=== PATIENT | male | born 1945 | race African-American/Black ===

== ENCOUNTER 2019-11-13 22:31 | Inpatient (IN) | payer MEDICARE, OTHER, SELFPAY ==
--- NOTE | ~2019-11-13 | XR_ITS ---
XR chest 2V DATE: 11/15/2019 11:10 INDICATION: Dyspnea TECHNIQUE: PA and lateral views COMPARISON: 11/13/2021 view chest 10/05/2019 2 view chest 10/20/2019 CT pulmonary scan FINDINGS: Status post sternotomy. Normal heart size. Aortic calcification. Bilateral hyperinflation, suggesting obstructive airways disease. The central pulmonary arteries appe ar prominent, suggesting possible pulmonary hypertension. Chronic discoid atelectasis or scarring in the left midlung. Chronic pleural calcifications are again noted. No pulmonary consolidation. No pleural effusion. No pulmonary vascular congestion or pneumothorax. IMPRESSION: Bilateral hyperinflation suggesting COPD Calcified pleural plaques, suggesting prior asbestos exposure Chronic discoid scarring, left midlung Reviewed, dictated and finalized at location A. ER MACHINE
--- NOTE | ~2019-11-13 | XR_ITS ---
EXAMINATION: XR chest 2V DATE: 11/13/2019 23:29 INDICATION: Shortness of breath and cough TECHNIQUE: frontal and lateral views of the chest were obtained. COMPARISON: Chest radiograph dated 11/05/[address] dated 10/20/2019 FINDINGS: Unchanged oblique bandlike discoid atelectasis/scarring at the left midlung zone. Subtle bilateral ca lcified pleural plaques project over the bilateral mid lung zones consistent with prior asbestos expo sure. No pulmonary edema, pleural effusion or pneumothorax. The cardiomediastinal silhouette is alma l. Median sternotomy wires and mediastinal surgical clips are seen, likely from prior coronary artery bypass grafting. IMPRESSION: 1. No evident acute cardiopulmonary disease. 2. Stable appearance of bilateral calcified pleural plaques as well as discoid atelectasis/scarring i n the mid left lung. Reviewed, dictated and finalized at location A. ING WORKER IMPRESSION: 1. No evident acute cardiopulmonary disease. 2. Stable appearance of bilateral calcified pleural plaques as well as discoid atelectasis/scarring in the mid left lung.
[2019-11-13 22:44] VITALS: BP 167/85; PULSE 118; RESP 18; TEMP 36.6; O2SAT 97
[2019-11-13 22:46] VITALS: BP 167/85; PULSE 112; RESP 24; O2SAT 97
--- NOTE | 2019-11-13 22:55 | ECG_ITS ---
Measurements Intervals [place] Rate: 113 P: 73 [place]: 142 QRS: 68 QRSD: 130 T: 1 QT: 371 QTc: 509 Interpretive Statements SINUS TACHYCARDIA POSSIBLE LEFT ATRIAL ENLARGEMENT RIGHT BUNDLE BRANCH BLOCK CONSIDER INFERIOR INFARCT, AGE INDETERMINATE BASELINE ARTIFACT- II, III, AVF ABNORMAL ECG Electronically Signed On 11-14-2019 7:35:31 ROTARY CUTTER FEEDER by Crow Hill D.O.
[2019-11-13 23:12] LABS: Basophils Percent Auto 0.6 % (0.2-1.2); Eosinophils Absolute Auto 0.8 K/mm3 (0-0.3); Eosinophils Percent Auto 14.7 % (0-4.4); Hematocrit 36.1 % (42.0-52.0); Hemoglobin 10.9 g/dL (14.0-18.0); Immature Granulocyte Absolute 0.01 K/mm3 (0.00-0.031); Immature Granulocyte Percent A 0.2 % (0-0.5); Lymphocytes Absolute Auto 1.31 K/mm3 (0.9-3.2); Lymphocytes Percent Auto 24.3 % (18.3-44.2); Mean Corpuscular HGB Conc 30.2 g/dl (32-36); Mean Corpuscular Hemoglobin 24.8 pg (26-34); Mean Platelet Volume 10.2 fl (7.4-10.4); Monocytes Absolute Auto 0.5 K/mm3 (0.1-0.6); Monocytes Percent Auto 9.5 % (2.6-8.5); Neutrophils Absolute Auto 2.7 K/mm3 (1.3-6.7); Neutrophils Percent Auto 50.7 % (45.5-73.1); Platelet Count Result 307 k/mm3 (150-375); Red Cell Distribution Width 16.5 % (11.5-14.5); White Blood Count 5.4 K/mm3 (4.5-10.0)
[2019-11-13 23:24] LABS: Blood Urea Nitrogen 13 mg/dL (9-20); Calcium 9.4 mg/dL (8.4-10.2); Carbon Dioxide 28 mmol/L (22-30); Chloride 96 mmol/L (98-107); Estimated Glomerular Filt Rate > 60; Glucose 154 mg/dL (75-110); Potassium 4.4 mmol/L (3.4-5.0); Sodium 138 mmol/L (137-145)
--- NOTE | 2019-11-13 23:26 | ED.SOB ---
HPI - SOB/Dyspnea General Chief Complaint: Shortness of Breath/Dyspnea Stated Complaint: SOB Time Seen by Provider: 11/13/19 23:39 Source: patient Mode of arrival: ambulatory Limitations: no limitations History of Present Illness HPI Narrative: A 74 y/o male presents to the ED with c/o SOB. Pt states that the SOB started 2 days ago and has been constant since. He reports wheezing and productive cough, but denies fever, congestion, sneezing, and BLE edema. Pt took a breathing treatment tonight with no relief. He has a PMHx of COPD and is on 1L home O2. Pt has no other complaints at this time. MD elicited complaint: shortness of breath Pertinent past history: COPD Onset (ago): day(s) (2) Timing: constant Known history of: COPD Associated symptoms: cough (Productive) and wheezing Treatment prior to arrival: oxygen (1L) and bronchodilator Related Data Home oxygen amount: 1 liter Home Medications Medication Instructions Recorded Confirmed Centrum Silver 1 tab-cap PO DAILY 08/29/19 10/20/19 amlodipine [Norvasc] 10 mg PO DAILY 08/29/19 10/20/19 aspirin 81 mg PO DAILY 08/29/19 10/20/19 fluticasone propionate 1 spray EACHNARE DAILY 08/29/19 10/20/19 metformin 500 mg PO TID 08/29/19 10/20/19 cholecalciferol (vitamin D3) 50 2,000 unit PO DAILY 09/15/19 10/20/19 mcg (2,000 unit) tablet Allergies Allergy/AdvReac Type Severity Reaction Status Date / Time No Known Allergies Allergy Unknown Verified 11/13/19 22:55 Review of Systems Review of Systems: Narrative: CONSTITUTIONAL: Denies fever, chills, or sweats. EYES: Denies visual changes, redness, or discharge. ENT: Denies rhinorrhea, congestion, sneezing, sore throat, or otalgia. CARDIOVASCULAR: Denies chest pain, palpitations, or BLE edema. RESPIRATORY: Reports productive cough, wheezing, and dyspnea. GASTROINTESTINAL: Denies abdominal pain, nausea, vomiting, or diarrhea. GENITOURINARY: Denies dysuria or hematuria. SKIN: Denies rash or itching. MUSCULOSKELETAL: Denies back pain, joint pain, or myalgia. NEUROLOGIC: Denies headache, numbness, or weakness. All systems reviewed & are unremarkable except as noted in HPI and below PMFSH Past Medical History Medical History Anemia of chronic disease Arthritis COPD (chronic obstructive pulmonary disease) Follows with Dr. Figueredo Coronary artery disease Cough Diabetes mellitus Erosive esophagitis GERD (gastroesophageal reflux disease) GI bleed HLD (hyperlipidemia) HTN (hypertension) Myocardial infarction On home oxygen therapy 2 liters when asleep. Pneumonia Wheezing Surgical History Surgical History H/O prostate biopsy Follows with Dr. Lombardi History of appendectomy age 10 Hx of CABG Hx of cardiac cath S/P CABG (coronary artery bypass graft) 2007 Status post tonsillectomy Family History Family History Sibling Diabetes mellitus Family history of malignant neoplasm Other Family history of cardiovascular disease Hypertension Social History Social History Social History: the patient lives with his olga lidia who was designated as his durable power tax attorney for healthcare. Patient remains a full code. Nondrinker quit smoking in 1999. he has 2 children. One boy and 1 girl. 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
[2019-11-14] VITALS (21 sets, daily range): BP systolic 118–170; BP diastolic 56–87; PULSE 88–120; RESP 16–22; TEMP 36.3–37.2; O2SAT 85–99; BMI 21.9
[2019-11-14] MEDS: IPRATROPIUM BR 0.02% INH SOLN 0.5 MG/2.5 ML VIAL 2 MG INHALATION (00:03)
[2019-11-14] MEDS: ALBUTEROL SULFATE NEB 2.5 MG/0.5 ML INH 20 MG INHALATION (00:03)
[2019-11-14] MEDS: SODIUM CHLORIDE 0.9% IV 500 ML 999 ML IV CONT (00:16)
[2019-11-14] MEDS: MAGNESIUM SULF 2 GM/WATER 50ML 2 GM/50 ML BAG IVPB (00:16)
[2019-11-14 00:25] LABS: Alveolar/Arterial O2 Gradient 111.4 mmHg; Base Excess ABG -1.3 mEq/l (+/-2.0); Carboxyhemoglobin 0.3 % THb (0-2.0); Device NASAL CANNULA; Fractional Inspired Oxygen 48 %; Methemoglobin ABG 0.4 %THb (0-1.5); Oxygen Content ABG 16.2 %vol (16.0-22.0); Oxygen Saturation ABG 99.1 % (95.0-100.0); Oxyhemoglobin 97.7 % THb (90.0-100.0); PCO2 ABG 48.5 mmHg (35.0-45.0); PO2 FiO2 Ratio Arterial Blood 3.67 %; Reduced Hemoglobin 1.6 %THb (0-5.0); Site Drawn LEFT BRACHIAL; Total Hemoglobin 11.5 g/dL (12.0-18.0)
[2019-11-14 00:26] LABS: NT Pro B Type Natriuretic Pept 243 PG/ML (5-100)
[2019-11-14] MEDS: AZITHROMYCIN 250 MG TABLET 1000 MG PO (02:33)
--- NOTE | 2019-11-14 03:25 | ADMGEN ---
This patient, Camron Cowart, was admitted to [facility] Surg Room 332-01. Patient/family oriented to hospital policies and general routines including ID bracelet, bed and alarms, visiting hours, pain management, procedures, bathroom and other care routines, personal items, smoking policy, room service/diet, and visiting hours. Valuables list has been completed. Information on how to activate the Rapid Response Team has been discussed. Patient/Family are encouraged to report perceived risks to care and to ask questions if they do not understand what they are told or what they should do.
[2019-11-14] MEDS: IPRATROPIUM BR 0.02% INH SOLN 0.5 MG/2.5 ML VIAL INHALATION ×3 (07:50→21:17)
[2019-11-14] MEDS: ALBUTEROL SULFATE NEB 2.5 MG/0.5 ML INH 5 MG INHALATION ×3 (07:51→21:17)
[2019-11-14] MEDS: predniSONE 20 MG TABLET 60 MG PO (09:02)
[2019-11-14 12:19] LABS: Glucose Point of Care 98 (65-105)
[2019-11-14] MEDS: ATORVASTATIN 10 MG TABLET PO (14:03)
[2019-11-14] MEDS: METOPROLOL SUCCINATE EXT REL 50 MG TABCR PO (14:03)
[2019-11-14] MEDS: CHOLECALCIFEROL 1,000 UNIT TABLET 2000 UNITS PO (14:03)
[2019-11-14] MEDS: LORATADINE 10 MG TABLET PO (14:04)
[2019-11-14] MEDS: VALSARTAN 40 MG TABLET PO (14:04)
[2019-11-14] MEDS: AMLODIPINE BESYLATE 5 MG TABLET 10 MG PO (14:04)
[2019-11-14] MEDS: ASPIRIN 81 MG ENTERIC TABLET PO (14:04)
--- NOTE | 2019-11-14 15:47 | PM.IMHP ---
H&P: HPI History of Present Illness Chief complaint: COPD exacerbation Narrative: Camron Cowart is a 74 year old male with PMH significant for COPD on home oxygen (pt reports 2L at night and with exertion and 1L at rest), CAD s/p CABG, DM (last A1C available is 6.7), HLD, HTN, anemia of chronic disease, and erosive esophagitis who presented to the ED for evaluation of progressive dyspnea, wheezing, and cough. He reports that he noticed increasing SOB and dyspnea for the past two days. He started using his albuterol and ipratropium Q6HR and reports that he started to feel that he needed it more frequently than usual. He then reports that he began coughing yellow sputum Saturday (previously clear) and felt he was unable to cough up his sputum effectively. He frequently monitors his oxygen saturation and was unable to get his oxygen saturation above 70-80%. He denies palpitations and chest pain. He denies fever, chills, nausea, vomiting, malaise, weakness, fatigue, and recent sick contacts. He was hospitalized 08/25 and 10/26 for COPD exacerbation. He was treated with azithromycin and ceftriaxone while inpatient 10/2019 and discharged with levaquin. Upon presentation to the ED, he was afebrile, tachycardic, and normotensive. Initial workup in the ED revealed no leukocytosis. ABG revealed mild respiratory acidosis. CXR reveals stable appearance of bilateral plaques, likely related to prior asbestos exposure with his occupation. There was no evidence of consolidation, pleural effusion, or pneumothorax. He responded well to magnesium, DuoNeb, and steroids. He received 1 dose of ceftriaxone and azithromycin in the ED. QTc on ECG was 509. PFTs were reviewed from 02/2019 revealed FEV1 of 44%, FVC 58%, and excellent response to bronchodilators. Review of Systems Constitutional: Constitutional: Denies body ache(s), Denies chills, Denies fatigue, Denies lethargy, Reports weakness (Notes weakness yesterday that has improved today) and Denies weight loss Eyes: Eyes: Denies change in vision and Reports requires corrective lenses ENT: Reports Normal hearing present, Denies dysphagia, Denies nasal congestion, Denies nasal discharge, Denies odynophagia, Denies post nasal drip, Denies sinus pressure and Denies sore throat Cardiovascular: Cardiovascular: Denies chest pain at rest, Denies chest pain with activity, Denies leg edema and Denies palpitations Respiratory: Respiratory: Reports change in phlegm color (Phlegm was clear and is now yellow x1 day), Reports cough, Denies hemoptysis, Reports dyspnea (Improving today, brief episode this AM prior to bronchodilators) and Reports wheezing (Pt reports wheezing yesterday but notes this has improved) Gastrointestinal: Gastrointestinal: Denies abdominal pain, Denies belching, Denies hematochezia, Denies coffee ground emesis, Denies constipation, Denies diarrhea, Denies nausea and Denies vomiting Genitourinary: Genitourinary: Denies hematuria, Denies dysuria, Denies urinary frequency and Denies urinary urgency Musculoskeletal: Musculoskeletal: Denies myalgias, Reports arthralgias (Chronic bilateral shoulder pain) and Denies stiffness Integumentary/Breasts: Skin/Breast: Denies lesions, Denies skin pain and Denies jaundice Neurologic: Denies confusion, Denies headache(s) and Denies numbness Psychiatric: Psychiatric: Denies anxiety, Denies behavioral changes and Denies depression Endocrine: Endocrine: Denies cold intolerance, Denies heat intolerance, Denies polydipsia and Denies polyuria Hematologic/Lymphatic: Hematologic/Lymphatic: Denies easy bleeding and Denies easy bruising Allergic/Immunologic: Allergic/Immunologic: Reports seasonal rhinorrhea [facility] Past Medical History Medical History Anemia of chronic disease Arthritis COPD (chronic obstructive pulmonary disease) Follows with Dr. Figueredo Coronary artery disease Cough Diabetes mellitus Erosive esophagitis GERD (ubaldo
[2019-11-14] MEDS: FLUTICASONE PROPIONATE 0.05% NA SPR 16 GM BTL (*BKC) 2 SPRAY NASAL (16:51)
--- NOTE | 2019-11-14 17:21 | ECG_ITS ---
Measurements Intervals [place] Rate: 95 P: 67 MS: 151 QRS: -19 QRSD: 138 T: -11 QT: 379 QTc: 478 Interpretive Statements SINUS RHYTHM FREQUENT VENTRICULAR PREMATURE COMPLEXES RIGHT BUNDLE BRANCH BLOCK CONSIDER INFERIOR INFARCT, AGE INDETERMINATE BASELINE ARTIFACT- I, III, AVL, AVF ABNORMAL ECG Electronically Signed On 11-15-2019 7:58:02 ENVIRONMENTAL SAMPLER by Crow Hill D.O.
[2019-11-14 17:28] LABS: Glucose Point of Care 246 (65-105)
[2019-11-14 18:15] LABS: Glucose Point of Care 127 (65-105)
[2019-11-14] MEDS: ENOXAPARIN 40 MG/0.4 ML SYRINGE SUB-Q (21:37)
[2019-11-14] MEDS: AMOXICILLIN 500 MG CAPSULE PO (21:37)
[2019-11-15] VITALS (24 sets, daily range): BP systolic 132–188; BP diastolic 62–86; PULSE 86–128; RESP 18–30; TEMP 36.6–37.1; O2SAT 92–98
[2019-11-15] MEDS: IPRATROPIUM BR 0.02% INH SOLN 0.5 MG/2.5 ML VIAL INHALATION ×4 (02:48→20:07)
[2019-11-15] MEDS: ALBUTEROL SULFATE NEB 2.5 MG/0.5 ML INH 5 MG INHALATION (02:48)
[2019-11-15] MEDS: AMOXICILLIN 500 MG CAPSULE PO (05:47)
[2019-11-15 06:40] LABS: Magnesium 2.1 mg/dL (1.6-2.3)
[2019-11-15 07:17] LABS: Basophils Percent Auto 0.2 % (0.2-1.2); Eosinophils Absolute Auto 0.2 K/mm3 (0-0.3); Eosinophils Percent Auto 2.8 % (0-4.4); Hematocrit 34.7 % (42.0-52.0); Hemoglobin 10.4 g/dL (14.0-18.0); Immature Granulocyte Absolute 0.03 K/mm3 (0.00-0.031); Immature Granulocyte Percent A 0.6 % (0-0.5); Lymphocytes Absolute Auto 1.51 K/mm3 (0.9-3.2); Lymphocytes Percent Auto 27.8 % (18.3-44.2); Mean Corpuscular Hemoglobin 24.8 pg (26-34); Mean Corpuscular Volume 82.8 fl (80-100); Mean Platelet Volume 10.5 fl (7.4-10.4); Monocytes Absolute Auto 0.7 K/mm3 (0.1-0.6); Monocytes Percent Auto 11.9 % (2.6-8.5); Neutrophils Absolute Auto 3.1 K/mm3 (1.3-6.7); Neutrophils Percent Auto 56.7 % (45.5-73.1); Platelet Count Result 300 k/mm3 (150-375); Red Blood Count 4.19 M/mm3 (4.6-6.20); Red Cell Distribution Width 16.2 % (11.5-14.5); White Blood Count 5.4 K/mm3 (4.5-10.0)
[2019-11-15 07:22] LABS: Blood Urea Nitrogen 13 mg/dL (9-20); Calcium 9.1 mg/dL (8.4-10.2); Carbon Dioxide 26 mmol/L (22-30); Chloride 96 mmol/L (98-107); Estimated CRCL calculation 72 ml/min; Estimated Glomerular Filt Rate > 60; Glucose 130 mg/dL (75-110); Potassium 4.3 mmol/L (3.4-5.0); Sodium 135 mmol/L (137-145)
[2019-11-15 09:16] LABS: Glucose Point of Care 106 (65-105)
[2019-11-15] MEDS: ATORVASTATIN 10 MG TABLET PO (10:00)
[2019-11-15] MEDS: ASPIRIN 81 MG ENTERIC TABLET PO (10:00)
[2019-11-15] MEDS: FLUTICASONE PROPIONATE 0.05% NA SPR 16 GM BTL (*BKC) 2 SPRAY NASAL (10:00)
[2019-11-15] MEDS: METOPROLOL SUCCINATE EXT REL 50 MG TABCR PO (10:00)
[2019-11-15] MEDS: VALSARTAN 40 MG TABLET PO (10:00)
[2019-11-15] MEDS: LORATADINE 10 MG TABLET PO (10:00)
[2019-11-15] MEDS: CHOLECALCIFEROL 1,000 UNIT TABLET 2000 UNITS PO (10:00)
[2019-11-15 10:43] LABS: Alveolar/Arterial O2 Gradient 76.6 mmHg; Fractional Inspired Oxygen 28 %; HCO3 ABG 25.9 mEq/l (22.0-26.0); Oxygen Content ABG 14.3 %vol (16.0-22.0); Oxygen Saturation ABG 92.2 % (95.0-100.0); Oxyhemoglobin 90.5 % THb (90.0-100.0); PCO2 ABG 47.9 mmHg (35.0-45.0); PO2 ABG 66.5 mmHg (80.0-100.0); PO2 FiO2 Ratio Arterial Blood 2.38 %; Total Hemoglobin 11.2 g/dL (12.0-18.0); pH ABG 7.351 (7.350-7.450)
[2019-11-15 10:44] LABS: Device NASAL CANNULA; Site Drawn LEFT BRACHIAL
[2019-11-15] MEDS: AZITHROMYCIN 250 MG TABLET 500 MG PO (11:39)
[2019-11-15] MEDS: methylPREDNISolone SOD SUCC 40 MG VIAL IV PUSH ×2 (11:39→21:26)
[2019-11-15 14:13] LABS: Glucose Point of Care 103 (65-105)
--- NOTE | 2019-11-15 14:58 | PM.IMPN ---
Progress Note: A&P Assessment and Plan (1) Acute exacerbation of chronic obstructive airways disease: Code(s): J44.1 - Chronic obstructive pulmonary disease with (acute) exacerbation <Virginie Haines PA-C - Last Filed: 11/15/19 16:20> Status: Acute <Virginie Haines PA-C - Last Filed: 11/15/19 16:20> Assessment and Plan: Pt endorses increased wheezing, dyspnea, and difficulty with coughing up phlegm. He has decreased breath sounds and wheezing to auscultation. His sx worsened during evaluation although he was able to maintain adequate oxygenation on regular home O2 requirements of 1-2L with pulse ox >90%. Stat ABG and CXR were performed and duo neb treatment administered. ABG was reviewed. pH is at the low end of normal at 7.351 but has improved slightly from admission. CXR revealed no evidence of aspiration or infiltrate. Wells Score for PE is 1.5 indicating low probability of PE. Will begin more aggressive treatment. -Will consult Dr. Figueredo to see pt since he was supposed to see her outpatient on Saturday but will be in the hospital -Begin chest physiotherapy -Will resume ceftriaxone and azithromycin due to clinical deterioration. QT was prolonged at admission but improved on repeat EKG to 478. Will repeat EKG following dose of azithromycin. -Wean oxygen to maintain goal oxygen saturation of 90-95% to avoid hyperoxia and CO2 retention -Will discontinue prednisone PO and start solu-medrol which will need to be tapered -Will increase frequency of levalbuterol and ipratropium to Q4HRT and add PRN doses for increased dyspnea and wheezing -Repeat walk study to evaluate O2 requirements once pt has recovered from this acute exacerbation -The pt reports he used to take Anoro with minimal relief and was supposed to begin Trelogy as maintenance therapy. This is his 3rd exacerbation since August 2019. He was discharged home on symbicort at his last admission 10/2018 but has not been taking this. He will need a maintenance therapy at discharge. Dr. Figueredo was consulted and we will await her recommendations. <Virginie Haines PA-C - Last Filed: 11/15/19 16:20> (2) HTN (hypertension): Qualifiers: Hypertension type: essential hypertension Qualified Code(s): I10 - Essential (primary) hypertension <Virginie Sommers GREG Haines - Last Filed: 11/15/19 16:20> Code(s): I10 - Essential (primary) hypertension <Virginie Sommers AsaGREG younger - Last Filed: 11/15/19 16:20> Status: Acute <Virginie Sommers GREG Haines - Last Filed: 11/15/19 16:20> Assessment and Plan: BP hypertensive this AM at 188/86. 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 Monitor BP. -Will try amlodipine at night to see if this improves his HTN in the AM <Virginie OgdenKamlesh Haines PA-C - Last Filed: 11/15/19 16:20> (3) Type 2 diabetes mellitus without complication, without long-term current use of insulin: Code(s): E11.9 - Type 2 diabetes mellitus without complications <Virginie OgdenKamlesh Haines PA-C - Last Filed: 11/15/19 16:20> Status: Acute <Virginie Sommers GREG Haines - Last Filed: 11/15/19 16:20> Assessment and Plan: Last A1C 6.7 08/30/19. Blood reviewed. Pt has not required insulin during this admission. -Hold metformin -Low dose SSI -Accu-checks <Virginie OgdenKamlesh Haines PA-C - Last Filed: 11/15/19 16:20> (4) Coronary artery disease: Qualifiers: Associated angina: without angina Coronary Disease-Associated Artery/Lesion type: bypass graft [place] vs. transplanted heart: [place] heart Qualified Code(s): I25.810 - Atherosclerosis of coronary artery bypass graft(s) without angina pectoris <Virginie Tootie Haines PA-C - Last Filed: 11/15/19 16:20> Code(s): I25.10 - Atherosclerotic heart disease of [place] coronary artery without angina pectoris <Virginie Tootie Haines PA-C - Last Filed: 11/15/19 16:20> Status:
[2019-11-15] MEDS: AMLODIPINE BESYLATE 5 MG TABLET 10 MG PO (17:36)
[2019-11-15 18:08] LABS: Glucose Point of Care 149 (65-105)
[2019-11-15] MEDS: ENOXAPARIN 40 MG/0.4 ML SYRINGE SUB-Q (21:26)
[2019-11-15 22:11] LABS: Glucose Point of Care 130 (65-105)
[2019-11-16] VITALS (22 sets, daily range): BP systolic 120–150; BP diastolic 46–79; PULSE 57–115; RESP 16–20; TEMP 36.3–36.8; O2SAT 93–100
--- NOTE | 2019-11-16 | ECG_ITS ---
Measurements Intervals [place] Rate: 109 P: [place]: 0 QRS: -2 QRSD: 142 T: 3 QT: 374 QTc: 505 Interpretive Statements SINUS TACHYCARDIA VENTRICULAR PREMATURE COMPLEX RIGHT BUNDLE BRANCH BLOCK CONSIDER INFERIOR INFARCT, AGE INDETERMINATE ABNORMAL ECG Electronically Signed On 11-16-2019 9:20:03 MANAGER PIPELINE by Crow Hill D.O.
[2019-11-16] MEDS: IPRATROPIUM BR 0.02% INH SOLN 0.5 MG/2.5 ML VIAL INHALATION ×6 (00:23→21:55)
[2019-11-16] MEDS: methylPREDNISolone SOD SUCC 40 MG VIAL IV PUSH ×3 (05:29→20:59)
[2019-11-16 06:22] LABS: Hematocrit 33.2 % (42.0-52.0); Hemoglobin 10.3 g/dL (14.0-18.0); Immature Granulocyte Absolute 0.02 K/mm3 (0.00-0.031); Immature Granulocyte Percent A 0.5 % (0-0.5); Lymphocytes Percent Auto 23.6 % (18.3-44.2); Mean Corpuscular Hemoglobin 25.1 pg (26-34); Mean Corpuscular Volume 80.8 fl (80-100); Mean Platelet Volume 10.2 fl (7.4-10.4); Monocytes Absolute Auto 0.1 K/mm3 (0.1-0.6); Monocytes Percent Auto 3.3 % (2.6-8.5); Neutrophils Absolute Auto 3.1 K/mm3 (1.3-6.7); Neutrophils Percent Auto 72.6 % (45.5-73.1); Platelet Count Result 314 k/mm3 (150-375); Red Blood Count 4.11 M/mm3 (4.6-6.20); Red Cell Distribution Width 16.3 % (11.5-14.5); White Blood Count 4.2 K/mm3 (4.5-10.0)
[2019-11-16 06:58] LABS: Blood Urea Nitrogen 11 mg/dL (9-20); Calcium 9.2 mg/dL (8.4-10.2); Carbon Dioxide 27 mmol/L (22-30); Chloride 97 mmol/L (98-107); Estimated CRCL calculation 82 ml/min; Estimated Glomerular Filt Rate > 60; Glucose 138 mg/dL (75-110); Potassium 4.3 mmol/L (3.4-5.0); Sodium 138 mmol/L (137-145)
[2019-11-16 09:13] LABS: Glucose Point of Care 134 (65-105)
[2019-11-16] MEDS: METOPROLOL SUCCINATE EXT REL 50 MG TABCR PO (09:33)
[2019-11-16] MEDS: VALSARTAN 40 MG TABLET PO (09:33)
[2019-11-16] MEDS: ASPIRIN 81 MG ENTERIC TABLET PO (09:33)
[2019-11-16] MEDS: CHOLECALCIFEROL 1,000 UNIT TABLET 2000 UNITS PO (09:33)
[2019-11-16] MEDS: ATORVASTATIN 10 MG TABLET PO (09:34)
[2019-11-16] MEDS: FLUTICASONE PROPIONATE 0.05% NA SPR 16 GM BTL (*BKC) 2 SPRAY NASAL (09:34)
[2019-11-16] MEDS: LORATADINE 10 MG TABLET PO (09:34)
[2019-11-16] MEDS: AZITHROMYCIN 250 MG TABLET PO (09:34)
--- NOTE | 2019-11-16 13:13 | PCRCNOTE ---
HOME O2 CX. DR. ZULUAGA WILL RE ORDER WHEN PT. IS DOING BETTER AND HE IS CLOSER TO DC DATE.
[2019-11-16 13:32] LABS: Glucose Point of Care 108 (65-105)
[2019-11-16] MEDS: AMLODIPINE BESYLATE 5 MG TABLET 10 MG PO (17:48)
[2019-11-16 18:23] LABS: Glucose Point of Care 150 (65-105)
--- NOTE | 2019-11-16 18:49 | PM.IMPN ---
Progress Note: A&P Assessment and Plan (1) Acute exacerbation of chronic obstructive airways disease: Code(s): J44.1 - Chronic obstructive pulmonary disease with (acute) exacerbation Status: Acute Assessment and Plan: Unclear on why he clinically deteriorated yesterday. Appears to be back to prior level. Bedside swallow okay. Intermittently aspirating? Bronchospasm? Mucous plug? Continue neb treatments and CPT. Continue Solu-Medrol and abx. Wean o2 as toelrated. Home O2 tomorrow. Will monitor for today but home tomorrow if continue to remain stable. (2) HTN (hypertension): Qualifiers: Hypertension type: essential hypertension Qualified Code(s): I10 - Essential (primary) hypertension Code(s): I10 - Essential (primary) hypertension Status: Acute Assessment and Plan: BP reviewed on 11/16/19. BP well controlled. Continue his home amlodipine, valsartan, and metoprolol. (3) Type 2 diabetes mellitus without complication, without long-term current use of insulin: Code(s): E11.9 - Type 2 diabetes mellitus without complications Status: Acute Assessment and Plan: A1c 6.7 08/30/19. Glucose reasonable well controlled even with steroids on board. Continue Accu-checks and sliding scale. (4) Coronary artery disease: Qualifiers: Associated angina: without angina Coronary Disease-Associated Artery/Lesion type: bypass graft [place] vs. transplanted heart: [place] heart Qualified Code(s): I25.810 - Atherosclerosis of coronary artery bypass graft(s) without angina pectoris Code(s): I25.10 - Atherosclerotic heart disease of [place] coronary artery without angina pectoris Status: Acute Assessment and Plan: Stable. Pt is asymptomatic. Continue metoprolol. (5) HLD (hyperlipidemia): Qualifiers: Hyperlipidemia type: unspecified Qualified Code(s): E78.5 - Hyperlipidemia, unspecified Code(s): E78.5 - Hyperlipidemia, unspecified Status: Chronic Assessment and Plan: LFTs reviewed and WNL. Continue atorvastatin 10mg. (6) Esophagitis determined by endoscopy: Code(s): K20.9 - Esophagitis, unspecified Status: Acute Assessment and Plan: Pt sleeps with head of bed elevated. Continue PPI. (7) Prolonged Q-T interval on ECG: Code(s): R94.31 - Abnormal electrocardiogram [ECG] [EKG] Status: Acute Assessment and Plan: QTc prolonged at 509 on EKG in the ED. EKG was repeated and QTc was normal at 478. EKG today showing QTc back up to 505 but probably related to the Rt BBB. Will stop Azithro just to be cautious. (8) Hx of pulmonary aspiration: Code(s): Z87.09 - Personal history of other diseases of the respiratory system Status: Acute Assessment and Plan: Pt has hx of aspiration. bedside speech evaluation okay. Continue to monitor. Will follow speech therapy recommendations. (9) DVT prophylaxis: Code(s): Z29.9 - Encounter for prophylactic measures, unspecified Status: Acute Assessment and Plan: Lovenox 40mg SC QD Subjective Date/time seen: 11/16/19 18:49 Interval history: 74yo male here for COPD exacerbation. Patient had developed an acute respiratory event yesterday. He statesthat after one of the breathing treatments, his symptoms improved dramatically. He feels much better. SOB better. No CP. Eating well. Exam Narrative: Exam Narrative: Gen - NARD sitting up in chair Chest - A few expiratory wheezes but improved air exchange overall. nml RR CV - RRR S1/S2 Abd - soft, NT/ND, +BS Ext - no pedal edema Psych - in good spirts. Objective Data Vital Signs Vital Signs: Vital Signs - 24 hr 11/15/19 20:00 11/15/19 20:08 11/15/19 20:11 Temperature Pulse Rate 106 H 100 Respiratory Rate 20 Blood Pressure Pulse Oximetry 93 11/15/19 20:18 11/15/19 22:00 11/16/19 00
[2019-11-16] MEDS: ENOXAPARIN 40 MG/0.4 ML SYRINGE SUB-Q (20:59)
[2019-11-16 21:16] LABS: Glucose Point of Care 148 (65-105)
[2019-11-17] VITALS (21 sets, daily range): BP systolic 140; BP diastolic 83; PULSE 92–110; RESP 16–20; TEMP 36.5; O2SAT 87–100
[2019-11-17] MEDS: IPRATROPIUM BR 0.02% INH SOLN 0.5 MG/2.5 ML VIAL INHALATION ×4 (01:36→13:08)
[2019-11-17] MEDS: METOPROLOL TARTRATE 12.5 MG TABLET PO (05:11)
[2019-11-17] MEDS: methylPREDNISolone SOD SUCC 40 MG VIAL IV PUSH ×2 (05:17→13:16)
[2019-11-17] MEDS: ASPIRIN 81 MG ENTERIC TABLET PO (08:42)
[2019-11-17] MEDS: CHOLECALCIFEROL 1,000 UNIT TABLET 2000 UNITS PO (08:43)
[2019-11-17] MEDS: ATORVASTATIN 10 MG TABLET PO (08:43)
[2019-11-17] MEDS: LORATADINE 10 MG TABLET PO (08:46)
[2019-11-17] MEDS: METOPROLOL SUCCINATE EXT REL 50 MG TABCR PO (08:47)
[2019-11-17] MEDS: FLUTICASONE PROPIONATE 0.05% NA SPR 16 GM BTL (*BKC) 2 SPRAY NASAL (08:48)
[2019-11-17] MEDS: VALSARTAN 40 MG TABLET PO (08:49)
[2019-11-17 09:55] LABS: Glucose Point of Care 106 (65-105)
[2019-11-17 11:55] LABS: Glucose Point of Care 92 (65-105)
--- NOTE | 2019-11-17 12:51 | PM.IMPN ---
Progress Note: A&P Assessment and Plan (1) Acute exacerbation of chronic obstructive airways disease: Code(s): J44.1 - Chronic obstructive pulmonary disease with (acute) exacerbation Status: Acute Assessment and Plan: Clinically improved today. Home oxygen evaluation not done yesterday but will do today to be clear on what amount of oxygen he should be on at home. Will discharge today on tapering prednisone and oral cefdinir. (2) HTN (hypertension): Qualifiers: Hypertension type: essential hypertension Qualified Code(s): I10 - Essential (primary) hypertension Code(s): I10 - Essential (primary) hypertension Status: Acute Assessment and Plan: Blood pressure reviewed on 11/17/2019 and stable. Continue amlodipine, valsartan and metoprolol. (3) Type 2 diabetes mellitus without complication, without long-term current use of insulin: Code(s): E11.9 - Type 2 diabetes mellitus without complications Status: Acute Assessment and Plan: HgbA1C 6.7 on 08/30/19. Glucose on 11/17/2019 and acceptable. Continue to monitor. Resume metformin on discharge. (4) Coronary artery disease: Qualifiers: Coronary Disease-Associated Artery/Lesion type: bypass graft [place] vs. transplanted heart: [place] heart Associated angina: without angina Qualified Code(s): I25.810 - Atherosclerosis of coronary artery bypass graft(s) without angina pectoris Code(s): I25.10 - Atherosclerotic heart disease of [place] coronary artery without angina pectoris Status: Acute Assessment and Plan: Stable. Telemetry reviewed on 11/17/2019 with sinus rhythm. Continue ASA, atorvastatin and metoprolol. (5) HLD (hyperlipidemia): Qualifiers: Hyperlipidemia type: unspecified Qualified Code(s): E78.5 - Hyperlipidemia, unspecified Code(s): E78.5 - Hyperlipidemia, unspecified Status: Chronic Assessment and Plan: LFTs within normal range. Continue atorvastatin. (6) Esophagitis determined by endoscopy: Code(s): K20.9 - Esophagitis, unspecified Status: Acute Assessment and Plan: Presently stable. Continue PPI. (7) Prolonged Q-T interval on ECG: Code(s): R94.31 - Abnormal electrocardiogram [ECG] [EKG] Status: Acute Assessment and Plan: QTc prolonged at 509 on EKG in the ED. EKG was repeated and QTc was normal at 478. EKG on 11/16/2019 showing QTc back up to 505 but probably related to the RBBB. No longer on azithromycin. Can follow as outpatient. (8) Hx of pulmonary aspiration: Code(s): Z87.09 - Personal history of other diseases of the respiratory system Status: Acute Assessment and Plan: History of aspiration. Bedside speech evaluation yesterday with recommendation for slightly thickened liquids. Follow as outpatient. (9) DVT prophylaxis: Code(s): Z29.9 - Encounter for prophylactic measures, unspecified Status: Acute Assessment and Plan: Lovenox. Time Spent With Patient Time with patient: 15 - 25 minutes Subjective Date/time seen: 11/17/19 12:51 Interval history: Date of Service: 11/17/2019. Admitted with COPD exacerbation. Feels much better today. No current shortness of breath. No chest pain. Wants to go home. No abdominal pain, nausea or vomiting. Review of Systems Review of Systems: Narrative: Feeling better. Wants to go home. Constitutional: Constitutional: Denies chills and Denies fever(s) ENT: Denies dysphagia Cardiovascular: Cardiovascular: Denies chest pain Respiratory: Respiratory: Denies dyspnea Gastrointestinal: Gastrointestinal: Denies abdominal pain, Denies nausea and Denies vomiting Musculoskeletal: Musculoskeletal: Reports no additional musculoskeletal complaints Integumentary/Breasts: Skin/Breast: Denies rash Neurologic: Denies headache(s) Psychiatric: Psychiatric: Denies anxiety and Denies depression [place]
--- NOTE | 2019-11-17 16:52 | PCRCNOTE ---
Pt has home o2, will bring up a tank. No changes made to existing O2.
--- NOTE | 2019-11-17 21:35 | PM.DS ---
DS: Diagnosis Admitting Diagnosis Admitting Diagnosis: Chronic obstructive pulmonary disease with (acute) exacerbation Discharge Diagnosis (1) Acute exacerbation of chronic obstructive airways disease: Code(s): J44.1 - Chronic obstructive pulmonary disease with (acute) exacerbation Status: Acute (2) HTN (hypertension): Qualifiers: Hypertension type: essential hypertension Qualified Code(s): I10 - Essential (primary) hypertension Code(s): I10 - Essential (primary) hypertension Status: Acute (3) Type 2 diabetes mellitus without complication, without long-term current use of insulin: Code(s): E11.9 - Type 2 diabetes mellitus without complications Status: Acute (4) Coronary artery disease: Qualifiers: Coronary Disease-Associated Artery/Lesion type: bypass graft [place] vs. transplanted heart: [place] heart Associated angina: without angina Qualified Code(s): I25.810 - Atherosclerosis of coronary artery bypass graft(s) without angina pectoris Code(s): I25.10 - Atherosclerotic heart disease of [place] coronary artery without angina pectoris Status: Acute (5) HLD (hyperlipidemia): Qualifiers: Hyperlipidemia type: unspecified Qualified Code(s): E78.5 - Hyperlipidemia, unspecified Code(s): E78.5 - Hyperlipidemia, unspecified Status: Chronic (6) Esophagitis determined by endoscopy: Code(s): K20.9 - Esophagitis, unspecified Status: Acute (7) Prolonged Q-T interval on ECG: Code(s): R94.31 - Abnormal electrocardiogram [ECG] [EKG] Status: Acute (8) Hx of pulmonary aspiration: Code(s): Z87.09 - Personal history of other diseases of the respiratory system Status: Acute DS: Summary Hospital Course Reason for hospitalization: Progressive dyspnea, wheezing and cough. Hospital Course: Date of Service of Discharge: November 17, 2019. History of Present Illness: With known COPD, chronic respiratory failure, coronary disease, diabetes, hypertension, hyperlipidemia, anemia of chronic disease and erosive esophagitis present emergency room for evaluation of progressive dyspnea, wheezing and cough. Patient reports noting increased shortness of breath and dyspnea for the past 2 days. He was using his albuterol ipratropium every 6 hours but felt he needed to use more frequently. Patient reports having cough productive of yellow sputum. Patient also reports oxygen saturation at home was decreased to 70-80%. No chest pain or palpitations., no fever, chills, nausea, vomiting or recent ill contacts. Recently hospitalized in October 2019 for COPD exacerbation and discharged on Levaquin. In the emergency room, findings were consistent in a COPD exacerbation. As result, he was admitted for further evaluation and treatment. Course in Hospital: Patient was admitted to the medical floor where he remained for the duration of his stay. He was started on IV ceftriaxone and azithromycin. Eventually azithromycin was discontinued due to prolonged QTc. He was also placed on nebulizer treatments and IV steroids. He never required more than 2 L of oxygen during the day which is his normal at home currently. Rapidly improving, initial consideration was given to discharge on 11/15/2019 but patient had worsening of symptoms at that time. As result, patient was kept in Hospital with continued treatment. No exact etiology for the worsening on that day was found. Bedside swallow exam was done during his stay with no aspiration. By 11/17/2019 patient was feeling much better. He did feel improved back to his baseline. New home oxygen evaluation was completed with patient still requiring 2 L of oxygen with activity 1 L at rest. During his stay, blood pressure was monitored and stable. He was continued on amlodipine, valsartan and metoprolol. He did not have any acute issues related to his coronary artery disease. He did continue aspirin, at
--- NOTE | 2019-11-18 10:41 | PCRCNOTE ---
COPD Post Discharge Phone Call Questions: Week 1 Left Message 1. How are you feeling today? 2. Have you had any follow-up appointments since your discharge? Yes/No a. Were you able to attend all appointments? Yes/No b. Do you have any upcoming appointments? Yes/No c. If referred to pulmonary rehab, is it going well? Yes/No 3. Have you had success with smoking cessation? Yes/No a. If you signed a smoking cessation contract, have you been contacted by anyone to assist you? Yes/No 4. Did you go home with any new respiratory medications? Yes/No a. What medications were they? b. Were the possible side effects explained? Yes/No 5. Did you go home with new respiratory equipment (oxygen, CPAP, NIV, Bipap, vent, nebs? Yes/No a. Were you shown how to use them? Yes/No b. Are you comfortable using them? Yes/No c. If not, what issues are you having with the equipment? 6. Have you experienced an increase in any of the following since your discharge... a. Cough? Yes/No b. Mucus Production? Yes/No c. Shortness of Breath? Yes/No d. Tiredness and/or Lethargy? Yes/No 7. Have you had to go to an Urgent Care Center/Emergency Room since discharge? Yes/No 8. Did you discuss with patient how to handle medical emergencies? Yes/No Additional Comments:
--- NOTE | 2019-12-01 13:00 | PCRCNOTE ---
COPD Post Discharge Phone Call Questions: Week 2 Unable to contact patient. Left Message 1. How are you feeling today? 2. Have you had any follow-up appointments since your discharge? Yes/No a. Were you able to attend all appointments? Yes/No b. Do you have any upcoming appointments? Yes/No c. If referred to pulmonary rehab, is it going well? Yes/No 3. Have you had success with smoking cessation? Yes/No a. If you signed a smoking cessation contract, have you been contacted by anyone to assist you? Yes/No 4. Did you go home with any new respiratory medications? Yes/No a. What medications were they? b. Were the possible side effects explained? Yes/No 5. Did you go home with new respiratory equipment (oxygen, CPAP, NIV, Bipap, vent, nebs? Yes/No a. Were you shown how to use them? Yes/No b. Are you comfortable using them? Yes/No c. If not, what issues are you having with the equipment? 6. Have you experienced an increase in any of the following since your discharge... a. Cough? Yes/No b. Mucus Production? Yes/No c. Shortness of Breath? Yes/No d. Tiredness and/or Lethargy? Yes/No 7. Have you had to go to an Urgent Care Center/Emergency Room since discharge? Yes/No 8. Did you discuss with patient how to handle medical emergencies? Yes/No Additional Comments:
--- NOTE | 2019-12-14 16:44 | PCRCNOTE ---
COPD Post Discharge Phone Call Questions: Week 1 2 3 1. How are you feeling today? doing great 2. Have you had any follow-up appointments since your discharge? Yes - with pcp and dr. alondra giraldo. Were you able to attend all appointments? Yes/No b. Do you have any upcoming appointments? Yes/No c. If referred to pulmonary rehab, is it going well? Yes/No 3. Have you had success with smoking cessation? Yes/No a. If you signed a smoking cessation contract, have you been contacted by anyone to assist you? Yes/No 4. Did you go home with any new respiratory medications? No a. What medications were they? b. Were the possible side effects explained? Yes/No 5. Did you go home with new respiratory equipment (oxygen, CPAP, NIV, Bipap, vent, nebs? No a. Were you shown how to use them? Yes/No b. Are you comfortable using them? Yes/No c. If not, what issues are you having with the equipment? 6. Have you experienced an increase in any of the following since your discharge... a. Cough? No b. Mucus Production? No c. Shortness of Breath? No d. Tiredness and/or Lethargy? No 7. Have you had to go to an Urgent Care Center/Emergency Room since discharge? No 8. Did you discuss with patient how to handle medical emergencies? Yes Additional Comments:
== END 2019-11-17 16:10 | disposition home or self-care (01) | DRG 191 ==
LOC: ANHED 11-14 01:32 → ANH3MEDSUR 11-14 02:01
PROVIDERS: Emergency Medicine; Internal Medicine; Physician Assistant; Admitting Provider Internal Medicine; Emergency Provider Emergency Medicine; PCP Family Medicine; Visit Provider Hospitalist
DX: J44.1 Chronic obstructive pulmonary disease with (acute) exacerbation (principal); J96.10 Chronic respiratory failure, unspecified whether with hypoxia or hypercapnia; E11.9 Type 2 diabetes mellitus without complications; I10 Essential (primary) hypertension; I25.10 Atherosclerotic heart disease of native coronary artery without angina pectoris; E78.5 Hyperlipidemia, unspecified; K20.9 Esophagitis, unspecified; R94.31 Abnormal electrocardiogram [ECG] [EKG]; D63.8 Anemia in other chronic diseases classified elsewhere; K21.0 Gastro-esophageal reflux disease with esophagitis; M19.90 Unspecified osteoarthritis, unspecified site; Z87.09 Personal history of other diseases of the respiratory system; Z99.81 Dependence on supplemental oxygen; Z79.82 Long term (current) use of aspirin; I25.2 Old myocardial infarction; Z95.1 Presence of aortocoronary bypass graft; Z87.891 Personal history of nicotine dependence
CPT/HCPCS: 36415; 36600; 71046; 80048; 82375; 82805; 83050; 83735; 83880; 85025; 87070; 87205; 87804; 92610; 93005; 94618; 94640; 96365; 96367; 99285; A9270; G0378; J0696; J1650; J2920; J3475; J7040; J7512

== ENCOUNTER 2019-12-23 10:26 | Outpatient (CLI) | payer MEDICARE, OTHER, SELFPAY ==
[2019-12-23 10:30] VITALS: PULSE 87; O2SAT 92
[2019-12-23 10:35] VITALS: PULSE 103; O2SAT 87
[2019-12-23 10:40] VITALS: PULSE 105; O2SAT 91
[2019-12-23 10:55] VITALS: PULSE 88; O2SAT 92
--- NOTE | 2019-12-23 11:00 | HOMEO2EVAL ---
Home Oxygen Evaluation RC: Home Oxygen (O2) Evaluation Start: 12/23/19 10:57 Freq: Status: Active Protocol: RPE Activity Type Activity Date Activity User E-Sign Co-Sign Detail Recorded Client Recorded Date Recorded By Document 12/23/19 10:30 [email or web address] [id number] 12/23/19 11:00 DJO Document 12/23/19 10:35 [email or web address] [id number] 12/23/19 11:00 DJO Document 12/23/19 10:40 [email or web address] [id number] 12/23/19 11:00 DJO Document 12/23/19 10:55 [email or web address] [id number] 12/23/19 11:00 DJO 12/23/19 12/23/19 12/23/19 10:30 10:35 10:40 Home O2 Evaluation Test Phase Resting Exercise Exercise Oxygen Delivery Room Air Room Air Nasal Cannula Oxygen Flow Rate (L/min) 1 Pulse Oximetry (90-100 %) 92 87 L 91 Pulse Rate (60-100 beats/min) 87 103 H 105 H Activity Tolerance Excellent Rating of Perceived Dyspnea (PD) +1 Mild, Noticeable to the Participant but Not to an Observer Ambulation Distance (feet) 1,000 Treatment Charges 12/23/19 10:55 Home O2 Evaluation Test Phase Resting Oxygen Delivery Room Air Oxygen Flow Rate (L/min) Pulse Oximetry (90-100 %) 92 Pulse Rate (60-100 beats/min) 88 Activity Tolerance Rating of Perceived Dyspnea (PD) Ambulation Distance (feet) Treatment Charges O2 Evaluation
== END 2019-12-23 10:27 | disposition home or self-care (01) ==
PROVIDERS: PCP Family Medicine; Visit Provider Internal Medicine Critical Care Medicine
DX: J44.1 Chronic obstructive pulmonary disease with (acute) exacerbation (principal)
CPT/HCPCS: 94618

== ENCOUNTER 2020-01-22 14:19 | Inpatient (IN) | payer MEDICARE, OTHER, SELFPAY ==
[2020-01-22] VITALS (9 sets, daily range): BP systolic 100–154; BP diastolic 45–89; PULSE 105–126; RESP 16–24; TEMP 36.8–38.9; O2SAT 99–100; BMI 22.1
--- NOTE | ~2020-01-22 | XR_ITS ---
XR chest 1V portable 01/22/2020 15:34 Indication: Cough, fever and sore throat Procedure: AP view of the chest Comparison: 11/15/2019 Findings: Status post median sternotomy for CABG. There are subtle right upper lobe infiltrates. Ther e is fluid in the fissure on the left. No pneumothorax. No edema. No acute osseous abnormality. Impression: 1: Subtle reticulonodular opacities of the right upper lobe, suspicious for infection. 2: Small left pleural effusion involving the fissure on the left. Reviewed, dictated and finalized at location A. Impression: 1: Subtle reticulonodular opacities of the right upper lobe, suspicious for inf ection. 2: Small left pleural effusion involving the fissure on the left.
--- NOTE | ~2020-01-22 | CT_ITS ---
EXAMINATION: CT lumbar spine w con DATE: 01/22/2020 15:24 INDICATION: Superficial skin infection TECHNIQUE: Computed tomography (CT) of the lumbar spine was performed with 100 cc Omnipaque 350 intra venous contrast. The dose-length product was 290.19 mGy-cm. Automated exposure control and iterative reconstruction technique were employed. COMPARISON: None FINDINGS: There is disc narrowing at L4-5 and L5-S1 with vacuum phenomena at L5-S1. There is grade 1 degenerative spondylolisthesis at L4-5 secondary to facet hypertrophy. There is mild levocurvature of the lumbar spine. There is mild-moderate multilevel facet hypertrophy. There is atherosclerosis of t he aorta. Lung bases are unremarkable. There is fluid in the superficial soft tissues overlying the l ower lumbar spine and sacrum without evidence for fluid collection to suggest abscess. IMPRESSION: 1. Superficial fluid and fatty infiltration of the soft tissues overlying the lower lumbar spine and sacrum posteriorly, likely cellulitis. No evidence for abscess. 2: Moderate lumbar spondylosis. Reviewed, dictated and finalized at location A. IMPRESSION: 1. Superficial fluid and fatty infiltration of the soft tissues overlying the l ower lumbar spine and sacrum posteriorly, likely cellulitis. No evidence for ab scess. 2: Moderate lumbar spondylosis.
--- NOTE | ~2020-01-22 | XR_ITS ---
EXAMINATION: XR chest 2V EXAM DATE: 01/24/2020 07:43 INDICATION: Pneumonia follow-up. TECHNIQUE: Frontal and lateral projections of the chest obtained and reviewed. Comparison is made to prior examination from 01/22/2020. FINDINGS: Sternotomy wires are present without findings to suggest sternal dehiscence. Heart size up per limits of normal. Small amount of right perihilar edema or pneumonia. Small amount of left perihi lar more linear opacity consistent with atelectasis. There is no pneumothorax suspected. There are no pleural effusions. There are mild bony degenerative changes. IMPRESSION: Small amount of bilateral perihilar atelectasis and probably infectious process unchange d. Reviewed, dictated and finalized at location A. IMPRESSION: Small amount of bilateral perihilar atelectasis and probably infec tious process unchanged.
[2020-01-22] MEDS: ACETAMINOPHEN 500 MG TABLET 1000 MG PO (14:37)
--- NOTE | 2020-01-22 14:39 | ED.GENADULT ---
HPI - General Adult General Chief complaint: Wound/Laceration Stated complaint: Tachy, fever, abscess on back Time Seen by Provider: 01/22/20 14:23 History of Present Illness HPI narrative: Patient is a 74-year-old male who presents ER with concern for a abscess on his back. Located in the lumbar region midline. Very tender to touch without surrounding erythema. No evidence of drainage. Patient reports it developed approximately 5 days ago and has been getting bigger and more tender since then. He is also been having fevers and chills related to this. Patient does report chronic cough and shortness of breath related to COPD without change. No runny nose/sore throat. No alleviating factors. Patient is having no lower extremity numbness or tingling. No saddle anesthesia. No urinary or fecal retention/incontinence. Related Data Home Medications Medication Instructions Recorded Confirmed Centrum Silver 1 tab-cap PO DAILY 08/29/19 01/22/20 aspirin 81 mg PO DAILY 08/29/19 01/22/20 cholecalciferol (vitamin D3) 50 2,000 unit PO DAILY 09/15/19 01/22/20 mcg (2,000 unit) tablet Allergies Allergy/AdvReac Type Severity Reaction Status Date / Time No Known Allergies Allergy Unknown Verified 01/22/20 13:33 Review of Systems Review of Systems: All systems reviewed & are unremarkable except as noted in HPI and below Constitutional: Constitutional: Reports chills, Reports fever(s) and Denies weakness ENT: Denies nasal congestion and Denies sore throat Cardiovascular: Cardiovascular: Denies chest pain and Denies radiating jaw, neck or arm pain Respiratory: Respiratory: Denies chest congestion, Reports cough, Reports dyspnea and Denies wheezing Gastrointestinal: Gastrointestinal: Denies abdominal pain, Denies nausea and Denies vomiting Integumentary/Breasts: Comments: Low back skin swelling. Neurologic: Denies focal weakness and Denies numbness [facility] Social History Social History (Updated 01/22/20 @ 13:42 by Mayra Betancourt) Social History: the patient lives with his olga lidia who was designated as his durable power document review attorney for healthcare. Patient remains a full code. Nondrinker quit smoking in 1999. he has 2 children. One boy and 1 girl. 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 HEAD: Normocephalic, atraumatic. ENT: Mucous membranes moist. CHEST: Scattered rhonchi. No respiratory distress. HEART: Tachycardic and regular normal peripheral pulses. ABDOMEN: Soft, nontender, nondistended. EXTREMITIES: Normal range of motion. No edema. Back: No midline tenderness to the thoracic spine or the paraspinal musculature. The lumbar spine has a 2x2cm area of swelling near L3 w/o cellulitis or fluctuance that is tender to palpation. SKIN: Warm, dry, no rash. NEURO: Alert and oriented x3. Course Course Emergency Course: Accepted by hospitalist, surgery will consult, abx ordered, blood cultured. Vital Signs Vital signs: Vital Signs Temperature 102.1 F H 01/22/20 14:34 Pulse Rate 126 H 01/22/20 14:34 Respiratory Rate 23 H 01/22/20 14:34 Blood Pressure 141/57 H 01/22/20 14:34 Pulse Oximetry 99 01/22/20 14:34 Temperature 102.1 F H 01/22/20 14:34 Pulse Rate 126 H 01/22/20 14:34 Respiratory Rate 23 H 01/22/20 14:34 Blood Pressure 141/57 H 01/22/20 14:34 Pulse Oximetry 99 01/22/20 14:34 Medical Decision Making
[2020-01-22 14:45] LABS: Basophils Percent Auto 0.1 % (0.2-1.2); Eosinophils Absolute Auto 1.6 K/mm3 (0-0.3); Eosinophils Percent Auto 11.6 % (0-4.4); Hematocrit 33.5 % (42.0-52.0); Hemoglobin 10.4 g/dL (14.0-18.0); Immature Granulocyte Absolute 0.14 K/mm3 (0.00-0.031); Mean Corpuscular Hemoglobin 25.2 pg (26-34); Mean Corpuscular Volume 81.3 fl (80-100); Monocytes Absolute Auto 0.6 K/mm3 (0.1-0.6); Monocytes Percent Auto 4.4 % (2.6-8.5); Neutrophils Absolute Auto 9.8 K/mm3 (1.3-6.7); Neutrophils Percent Auto 71.9 % (45.5-73.1); Platelet Count Result 334 k/mm3 (150-375); Red Blood Count 4.12 M/mm3 (4.6-6.20); Red Cell Distribution Width 14.3 % (11.5-14.5); White Blood Count 13.7 K/mm3 (4.5-10.0)
[2020-01-22 14:55] LABS: Lactic Acid Reflex 1.5 mmol/L (0.7-2.1)
[2020-01-22 14:56] LABS: Atypical Lymphocytes Present; Ovalocytes 1+ (NORMAL); Platelet Estimate Adequate (Adequate)
[2020-01-22 14:57] LABS: Blood Urea Nitrogen 15 mg/dL (9-20); Calcium 8.7 mg/dL (8.4-10.2); Carbon Dioxide 27 mmol/L (22-30); Chloride 94 mmol/L (98-107); Estimated Glomerular Filt Rate > 60; Glucose 134 mg/dL (75-110); Sodium 128 mmol/L (137-145)
[2020-01-22] MEDS: SODIUM CHLORIDE 0.9% IV 1,000 ML 999 ML IV CONT (15:05)
[2020-01-22] MEDS: SODIUM CHLORIDE 0.9% IV 1,000 ML 120 ML IV CONT (17:02)
--- NOTE | 2020-01-22 17:37 | PM.IMHP ---
H&P: HPI History of Present Illness Chief complaint: Cellulitis/pneumonia Narrative: Camron Cowart Sr. is a 74 year old male with DM, COPD and chronic respiratory failure here for back pain and fever. About 6 days ago, patient developed fever and diaphoresis. He also had nausea and dry heaves on that day. He initially stated he had a cough but then stated that this was more of a chronic cough and not changed from baseline. The next day patient began to develop low back pain that was pruretic. When he scratched he did unroof a small eschar. There was no significant drainage from the lesion. Over the next few days he continued to have fever and night sweats. His noted redness in the low back area that seemed to track to his hips and down the anterior thighs. He has been walking normally. No weakness in the lower extremities. No numbness or tingling in the feet. He has not been sleeping well because of the night sweats. He denies any saddle anesthesia. No stool or bladder incontinence. He has not been requiring more oxygen then baseline. He has increased his nebulizer use. Normally uses the nebulizer 3 times a week but has increased this to 1 to 2 times a day yet he denies feeling more SOB. His cough has not been significantly changed as mentioned above. He denies any abdominal pain, diarrhea or constipation issues. No dysuria or hematuria. No headaches. He did have some odynophagia yesterday but this is improved today. He has not been eating much. Patient made an appointment with his primary care doctor and was seen earlier in the day. The PCP sent him to the emergency room for evaluation. Patient denies any recent in injections to the lumbar region. In the ER, patient was febrile to 102.1 and tachycardic to 137. BP remained stable. WBC was 13.7K. He had a CT of the lumbar region showing superficial fluid and fatty infiltration of the soft tissues overlying the lower lumbar spine and sacrum posteriorly, likely cellulitis but no evidence for abscess. CXR showing subtle reticulonodular opacities of the right upper lobe, suspicious for infection and small left pleural effusion involving the fissure on the left. Patient was given IV fluids and IV abx. He was admitted for further care. He did developed nausea with dry heaves today after being in the emergency room. Review of Systems Review of Systems: All systems reviewed & are unremarkable except as noted in HPI and below PMFSH Past Medical History Medical History (Updated 01/24/20 @ 09:02 by Yefri Denney MD) Anemia of chronic disease Arthritis COPD (chronic obstructive pulmonary disease) Follows with Dr. Figueredo Coronary artery disease Cough Diabetes mellitus Erosive esophagitis GERD (gastroesophageal reflux disease) GI bleed HLD (hyperlipidemia) HTN (hypertension) Myocardial infarction Nocturnal hypoxemia On home oxygen therapy 1 liters when asleep. Pneumonia Wheezing Surgical History Surgical History H/O prostate biopsy Follows with Dr. Lombardi History of appendectomy age 10 Hx of CABG Hx of cardiac cath Hx of shoulder surgery Left S/P CABG (coronary artery bypass graft) 2007 Status post tonsillectomy Family History Family History Sibling Diabetes mellitus Family history of malignant neoplasm Other Family history of cardiovascular disease Hypertension Social History Social History Social History: The patient lives with his Mary Jane who was designated as his durable power state's attorney for healthcare. Patient remains a full code. No alcohol or drug use. Patient smoked a pack per day x 29yrs and quit smoking in 1999. He has 2 children. One boy and 1 girl. 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 Smoking packs per day: 1 Sm
[2020-01-22] MEDS: ONDANSETRON INJ 4 MG/2 ML VIAL IV PUSH (18:10)
[2020-01-22 18:35] LABS: Glucose Point of Care 151 (65-105)
[2020-01-22] MEDS: ACETAMINOPHEN 325 MG TABLET 650 MG PO (20:29)
[2020-01-22 20:55] LABS: Creatinine Urine 42.1 mg/dL
[2020-01-22] MEDS: ALBUTEROL SULFATE (*SP) AEROSOL 1 PUFF 2 PUFF INHALATION (21:00)
[2020-01-22 21:05] LABS: Sodium Urine Random 48 meq/L
[2020-01-23] VITALS (8 sets, daily range): BP systolic 100–145; BP diastolic 42–57; PULSE 96–113; RESP 18–20; TEMP 36.5–38.5; O2SAT 96–99
[2020-01-23 00:36] LABS: Glucose Point of Care 129 (65-105)
[2020-01-23] MEDS: ACETAMINOPHEN 325 MG TABLET 650 MG PO ×2 (04:51→21:21)
[2020-01-23 05:17] LABS: Basophils Percent Auto 0.2 % (0.2-1.2); Eosinophils Absolute Auto 1.3 K/mm3 (0-0.3); Eosinophils Percent Auto 10.9 % (0-4.4); Hematocrit 27.1 % (42.0-52.0); Hemoglobin 8.5 g/dL (14.0-18.0); Immature Granulocyte Percent A 1.7 % (0-0.5); Lymphocytes Absolute Auto 1.86 K/mm3 (0.9-3.2); Lymphocytes Percent Auto 15.9 % (18.3-44.2); Mean Corpuscular HGB Conc 31.4 g/dl (32-36); Mean Corpuscular Hemoglobin 26.1 pg (26-34); Mean Corpuscular Volume 83.1 fl (80-100); Mean Platelet Volume 10.3 fl (7.4-10.4); Monocytes Absolute Auto 0.4 K/mm3 (0.1-0.6); Monocytes Percent Auto 3.5 % (2.6-8.5); Neutrophils Absolute Auto 7.9 K/mm3 (1.3-6.7); Neutrophils Percent Auto 67.8 % (45.5-73.1); Nucleated Red Blood Cells Perc 0.3 % (0.0-0.2); Platelet Count Result 277 k/mm3 (150-375); Red Blood Count 3.26 M/mm3 (4.6-6.20); Red Cell Distribution Width 14.2 % (11.5-14.5); White Blood Count 11.7 K/mm3 (4.5-10.0)
[2020-01-23 05:24] LABS: Hemoglobin A1C 6.2 % (<5.7)
[2020-01-23 05:30] LABS: Alanine Aminotransferase 45 U/L (4-50); Albumin Level 3.5 g/dL (3.5-5.1); Alkaline Phosphatase 89 U/L (38-126); Aspartate Amino Transferase 53 U/L (17-59); Blood Urea Nitrogen 13 mg/dL (9-20); Carbon Dioxide 26 mmol/L (22-30); Chloride 101 mmol/L (98-107); Estimated CRCL calculation 64 ml/min; Estimated Glomerular Filt Rate > 60; Glucose 119 mg/dL (75-110); Sodium 130 mmol/L (137-145)
[2020-01-23 06:40] LABS: Platelet Estimate Adequate (Adequate)
[2020-01-23 06:41] LABS: Atypical Lymphocytes Present; Ovalocytes 1+ (NORMAL)
[2020-01-23 06:46] LABS: Folic Acid > 20.0 ng/mL (2.76->20); Iron 61 ug/dL (49-181); Percent Iron Saturation 26 % (20-50)
[2020-01-23 08:02] LABS: Glucose Point of Care 110 (65-105)
[2020-01-23] MEDS: ATORVASTATIN 10 MG TABLET PO (08:09)
[2020-01-23] MEDS: VALSARTAN 40 MG TABLET PO (08:09)
[2020-01-23] MEDS: LORATADINE 10 MG TABLET PO (08:09)
[2020-01-23] MEDS: FLUTICASONE PROPIONATE 0.05% NA SPR 16 GM BTL (*BKC) 2 SPRAY NASAL (08:09)
[2020-01-23] MEDS: MULTIVITAMINS /C LUTEIN (CENTRUM SILVER) TABLET *BKC 1 TAB PO (08:09)
[2020-01-23] MEDS: ENOXAPARIN 40 MG/0.4 ML SYRINGE SUB-Q (08:09)
[2020-01-23] MEDS: CHOLECALCIFEROL 1,000 UNIT TABLET 2000 UNITS PO (08:09)
[2020-01-23] MEDS: ASPIRIN 81 MG ENTERIC TABLET PO (08:09)
[2020-01-23] MEDS: METOPROLOL SUCCINATE EXT REL 50 MG TABCR PO (08:10)
--- NOTE | 2020-01-23 09:40 | PM.IMPN ---
Progress Note: A&P Assessment and Plan (1) Sepsis: Qualifiers: Sepsis acute organ dysfunction status: without acute organ dysfunction Sepsis type: sepsis due to unspecified organism Qualified Code(s): A41.9 - Sepsis, unspecified organism Code(s): A41.9 - Sepsis, unspecified organism Status: Acute Assessment and Plan: Present on admission with fever, tachycardia and leukocytosis. Related to the cellulitis and possibly from the PNA. Lactic acid normal. Pateitn feeling better. He is up ambulating in the room. Vital signs stable. Continue to monitor. (2) Cellulitis of back: Code(s): L03.312 - Cellulitis of back [any part except buttock] Status: Acute Assessment and Plan: Lumbar spine CT showing superficial fluid and fatty infiltration of the soft tissues overlying the lower lumbar spine and sacrum posteriorly, likely cellulitis. No evidence for abscess. Probably had a small open lesion as the nidus for the infection. No large abscess to drain. BCx NGTD. WBC better. Clinically improving. Continue IV abx. (3) Pneumonia: Qualifiers: Laterality: right Lung location: upper lobe of lung Pneumonia type: due to unspecified organism Qualified Code(s): J18.9 - Pneumonia, unspecified organism Code(s): J18.9 - Pneumonia, unspecified organism Status: Acute Assessment and Plan: Somewhat unclear if he is having worsening respiratory symptoms on admission. He denies changes in his chronic cough and SOB but using nebulizer more frequently. O2 requirement stable. Sputum ordered. BCx NGTD. Continue abx. (4) Hyponatremia: Code(s): E87.1 - Hypo-osmolality and hyponatremia Status: Acute Assessment and Plan: Na 128 on admission. Suspect related to dehydration. FENa 0.7% which points to dehydration and Na better with IVF. IVF stopped for now. COntinue to monitor. (5) COPD (chronic obstructive pulmonary disease): Qualifiers: COPD type: COPD with acute exacerbation Qualified Code(s): J44.1 - Chronic obstructive pulmonary disease with (acute) exacerbation Code(s): J44.9 - Chronic obstructive pulmonary disease, unspecified Status: Chronic Assessment and Plan: Stable. No wheezing and remains on room air. Continue inhalers. (6) Diabetes mellitus: Qualifiers: Diabetes mellitus complication status: without complication Diabetes mellitus fdc insulin use: without manager intermediate use Diabetes mellitus type: type 2 Qualified Code(s): E11.9 - Type 2 diabetes mellitus without complications Code(s): E11.9 - Type 2 diabetes mellitus without complications Status: Chronic Assessment and Plan: A1c 6.2. Glucose reviewed on 01/23/20 and remains well controlled. Continue AccuCheks and cover with sliding scale. Hypoglycemia protocol available as well. Hold metformin. (7) Chronic respiratory failure: Qualifiers: Respiratory failure complication: hypoxia Qualified Code(s): J96.11 - Chronic respiratory failure with hypoxia Code(s): J96.10 - Chronic respiratory failure, unspecified whether with hypoxia or hypercapnia Status: Acute Assessment and Plan: Patient with O2 requirement at 1L when needed. Monitor for now. Use O2 as needed. (8) HTN (hypertension): Qualifiers: Hypertension type: essential hypertension Qualified Code(s): I10 - Essential (primary) hypertension Code(s): I10 - Essential (primary) hypertension Status: Acute Assessment and Plan: BP reviewed on 01/23/20. BP remains well controlled. Continue metoprolol and valsartan. Norvasc on hold at the moment. Continue to monitor. Adjust meds as needed. (9) Anemia of chronic disease: Code(s): D63.8 - Anemia in other chronic diseases classified elsewhere Status: Acute Assessment and Plan: Hgb over the past year running
[2020-01-23 11:46] LABS: Bilirubin Indirect 2.9 mg/dL (0-1.1)
[2020-01-23 12:43] LABS: Lactate Dehydrogenase 1439 U/L (313-618)
--- NOTE | 2020-01-23 12:44 | PM.CNGS ---
Assessment and Plan Assessment and plan (1) Cellulitis of back: Code(s): L03.312 - Cellulitis of back [any part except buttock] Status: Acute Assessment and Plan: improved per pt today, no drainable collection on exam or CT, will cont abx and serial exams (2) Sepsis: Code(s): A41.9 - Sepsis, unspecified organism Status: Acute Assessment and Plan: cont abx for back cellulitis and PNA, WBC seems to be trending down, afebrile this am History of Present Illness Consult details Consult date: 01/23/20 Reason for consult: other (low back pain, cellulitis) Requesting physician: Yefri Denney MD Narrative: Patient is a pleasant 74-year-old male that presented to emergency department complaining of a one-week history of fevers, chills, and low back pain. Patient reports about a week ago he developed a pruritic lesion in his low back. The patient reports he scratched this area and soon noticed swelling and pain. The patient reports his noticed redness in the area spreading down to his buttock region. The patient reports having fevers as well as sweats at night. The patient denies any tingling or sensations going down his legs, or other sensory or motor deficits in his bilateral lower extremities. The patient does have a history COPD, diabetes, and hypertension. Workup in the emergency department was significant for a right upper lobe infiltrate as well on chest x-ray. Review of Systems Constitutional: Constitutional: Denies anorexia, Reports chills, Reports difficulty sleeping, Reports fatigue, Denies headache(s), Denies malaise, Denies poor appetite, Denies weight gain and Denies weight loss Eyes: Eyes: Denies loss of vision ENT: Denies dysphagia, Denies headache(s), Denies hearing loss and Denies sore throat Cardiovascular: Cardiovascular: Denies chest pain, Denies syncope, Denies irregular heart rhythm, Denies leg edema and Denies dyspnea Respiratory: Respiratory: Reports cough, Denies hemoptysis, Denies pain with cough, Denies dyspnea, Reports dyspnea on exertion and Reports wheezing Gastrointestinal: Gastrointestinal: Denies abdominal pain, Denies bloating, Denies change in bowel habits, Denies change in stool character, Denies constipation, Denies dysphagia, Denies heartburn, Denies diarrhea, Denies nausea and Denies vomiting Genitourinary: Genitourinary: Denies dysuria, Denies urinary frequency and Denies urinary urgency Musculoskeletal: Musculoskeletal: Reports back pain, Denies myalgias, Denies arthralgias, Denies muscle cramps, Denies numbness, Denies radiating pain into limb and Denies tingling Integumentary/Breasts: Skin/Breast: Denies non-healing lesions and Denies rash Neurologic: Denies syncope, Denies headache(s) and Denies loss of vision Endocrine: Endocrine: Denies change in body appearance and Denies fatigue Hematologic/Lymphatic: Hematologic/Lymphatic: Denies easy bleeding, Denies easy bruising and Denies lymphadenopathy PMFSH Past Medical History Medical History (Updated 01/23/20 @ 10:04 by Yefri Denney MD) Anemia of chronic disease Arthritis COPD (chronic obstructive pulmonary disease) Follows with Dr. Figueredo Coronary artery disease Cough Diabetes mellitus Erosive esophagitis GERD (gastroesophageal reflux disease) GI bleed HLD (hyperlipidemia) HTN (hypertension) Myocardial infarction Nocturnal hypoxemia On home oxygen therapy 1 liters when asleep. Pneumonia Wheezing Surgical History Surgical History H/O prostate biopsy Follows with Dr. Lombardi History of appendectomy age 10 Hx of CABG Hx of cardiac cath Hx of shoulder surgery Left S/P CABG (coronary artery bypass graft) 2007 Status post tonsillectomy Family History Family History Sibling Diabetes mellitus Family history of malignant neoplasm Other Family history of cardiova
[2020-01-23 13:48] LABS: Glucose Point of Care 106 (65-105)
[2020-01-23 17:03] LABS: Glucose Point of Care 115 (65-105)
[2020-01-23] MEDS: AZITHROMYCIN 250 MG TABLET PO (17:48)
[2020-01-23 18:46] LABS: Glucose Point of Care 110 (65-105)
[2020-01-23 18:54] LABS: Immature Reticulocyte Fraction 23.2 % (3.0-15.9); Reticulocyte Hemoglobin Conten 29.1 pg (28.2-35.7); Reticulocyte Percent 2.29 % (0.7-4.3); Reticulocytes Absolute 0.07 B/L (32.2-175.7)
[2020-01-23] MEDS: ALBUTEROL SULFATE (*SP) AEROSOL 1 PUFF 2 PUFF INHALATION (19:54)
[2020-01-23 21:58] LABS: Glucose Point of Care 114 (65-105)
[2020-01-24] VITALS (15 sets, daily range): BP systolic 91–131; BP diastolic 46–79; PULSE 74–108; RESP 16–20; TEMP 36.4–37.5; O2SAT 95–99
[2020-01-24 06:14] LABS: Basophils Percent Auto 0.1 % (0.2-1.2); Eosinophils Percent Auto 8.1 % (0-4.4); Immature Granulocyte Absolute 0.47 K/mm3 (0.00-0.031); Lymphocytes Absolute Auto 2.69 K/mm3 (0.9-3.2); Mean Corpuscular HGB Conc 32.3 g/dl (32-36); Mean Corpuscular Hemoglobin 29.5 pg (26-34); Mean Corpuscular Volume 91.2 fl (80-100); Mean Platelet Volume 11.5 fl (7.4-10.4); Monocytes Absolute Auto 0.3 K/mm3 (0.1-0.6); Monocytes Percent Auto 2.7 % (2.6-8.5); Neutrophils Absolute Auto 7.3 K/mm3 (1.3-6.7); Neutrophils Percent Auto 62.1 % (45.5-73.1); Nucleated Red Blood Cells Absolute Auto 0.1 K/mm3 (0.0-0.012); Nucleated Red Blood Cells Perc 0.5 % (0.0-0.2); Platelet Count Result 273 k/mm3 (150-375); Red Blood Count 2.17 M/mm3 (4.6-6.20); Red Cell Distribution Width 16.5 % (11.5-14.5); White Blood Count 11.7 K/mm3 (4.5-10.0)
[2020-01-24 06:28] LABS: Alanine Aminotransferase 37 U/L (4-50); Albumin Level 3.2 g/dL (3.5-5.1); Alkaline Phosphatase 79 U/L (38-126); Aspartate Amino Transferase 76 U/L (17-59); Bilirubin,Total 3.1 mg/dL (0.2-1.3); Blood Urea Nitrogen 27 mg/dL (9-20); Calcium 8.3 mg/dL (8.4-10.2); Carbon Dioxide 29 mmol/L (22-30); Chloride 98 mmol/L (98-107); Estimated CRCL calculation 35 ml/min; Estimated Glomerular Filt Rate 55; Glucose 108 mg/dL (75-110); Potassium 3.4 mmol/L (3.4-5.0); Sodium 132 mmol/L (137-145)
[2020-01-24 07:02] LABS: Hematocrit 19.8 % (42.0-52.0); Hemoglobin 6.4 g/dL (14.0-18.0)
[2020-01-24 07:07] LABS: Platelet Estimate Adequate (Adequate)
[2020-01-24 07:08] LABS: Hypochromasia 1+ (NORMAL)
[2020-01-24 07:10] LABS: Anisocytosis 1+ (NORMAL)
[2020-01-24 07:42] LABS: Hematocrit 18.9 % (42.0-52.0); Hemoglobin 5.9 g/dL (14.0-18.0)
[2020-01-24 07:53] LABS: Glucose Point of Care 125 (65-105)
--- NOTE | 2020-01-24 08:29 | PM.IMPN ---
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 Nausea with vomiting and diarrhea now but no evidence of acute blood loss. Ferritin elevated at 1160 probably an acute phase reactant. Iron studies more consistent with anemia chronic disease. B12/folate normal. Haptglobin pending. Bili down to 3.1 today. LDH 1439. LALITHA IgG (+) and Compl (-). Possibly autoimmune hemolytic anemia possibly related to the abx and/or infection. Heme/onc consult pending. Transfuse. Check stool guaiac. Check smear. Add Pepcid given the GI symptoms. Follow HH closely. (2) JOSELO (acute kidney injury): Code(s): N17.9 - Acute kidney failure, unspecified Status: Acute Assessment and Plan: Cr jumped to 1.5 today. Most likely related to the autoimmune process. Will check bladder US to exclude retention but felt unlikely. Consider HUS but plt count remaining normal. Now having diarrhea though - will check stool studies. Start IVF. Check UA. Suspect related to the hemolysis. (3) Sepsis: Qualifiers: Sepsis acute organ dysfunction status: without acute organ dysfunction Sepsis type: sepsis due to unspecified organism Qualified Code(s): A41.9 - Sepsis, unspecified organism Code(s): A41.9 - Sepsis, unspecified organism Status: Acute Assessment and Plan: Present on admission with fever, tachycardia and leukocytosis. Related to the cellulitis and possibly from the PNA. Lactic acid normal. Improved from infectious standpoint but now has developed hemolytic anemia. (4) Cellulitis of back: Code(s): L03.312 - Cellulitis of back [any part except buttock] Status: Acute Assessment and Plan: Lumbar spine CT showing superficial fluid and fatty infiltration of the soft tissues overlying the lower lumbar spine and sacrum posteriorly, likely cellulitis. No evidence for abscess. Probably had a small open lesion as the nidus for the infection. More localized lesion midline lumbar area but no drainage. BCx NGTD. WBC no change. Clinically improving. IV abx on hold as above. (5) Pneumonia: Qualifiers: Laterality: right Lung location: upper lobe of lung Pneumonia type: due to unspecified organism Qualified Code(s): J18.9 - Pneumonia, unspecified organism Code(s): J18.9 - Pneumonia, unspecified organism Status: Acute Assessment and Plan: Somewhat unclear if he is having worsening respiratory symptoms on admission. He denies changes in his chronic cough and SOB but using nebulizer more frequently. O2 requirement stable. Sputum not adequate. BCx NGTD. Abx on hold for the moment until it can be determined which is safe to give. (6) Hyponatremia: Code(s): E87.1 - Hypo-osmolality and hyponatremia Status: Acute Assessment and Plan: Na 128 on admission. Suspect related to dehydration. FENa 0.7% which points to dehydration and Na better with IVF. Na up to 132 now. Continue to monitor. (7) COPD (chronic obstructive pulmonary disease): Qualifiers: COPD type: COPD with acute exacerbation Qualified Code(s): J44.1 - Chronic obstructive pulmonary disease with (acute) exacerbation Code(s): J44.9 - Chronic obstructive pulmonary disease, unspecified Status: Chronic Assessment and Plan: Stable. No wheezing and remains on room air. Continue inhalers. (8) Diabetes mellitus: Qualifiers: Diabetes mellitus complication status: without complication Diabetes mellitus spirits model insulin use: without spirits model use Diabetes mellitus type: type 2 Qualified Code(s): E11.9 - Type 2 diabe
[2020-01-24] MEDS: SODIUM CHLORIDE 0.9% IV 1,000 ML 100 ML IV CONT (09:10)
[2020-01-24] MEDS: CHOLECALCIFEROL 1,000 UNIT TABLET 2000 UNITS PO (09:14)
[2020-01-24] MEDS: MULTIVITAMINS /C LUTEIN (CENTRUM SILVER) TABLET *BKC 1 TAB PO (09:14)
[2020-01-24] MEDS: FLUTICASONE PROPIONATE 0.05% NA SPR 16 GM BTL (*BKC) 2 SPRAY NASAL (09:14)
[2020-01-24] MEDS: LORATADINE 10 MG TABLET PO (09:14)
[2020-01-24] MEDS: ATORVASTATIN 10 MG TABLET PO (09:14)
[2020-01-24] MEDS: FAMOTIDINE 20 MG/2 ML VIAL IV PUSH ×2 (09:15→23:20)
[2020-01-24 09:40] LABS: Lipase 124 U/L (23-300)
--- NOTE | 2020-01-24 10:08 | PM.PNGS ---
Progress Note: A&P Assessment and Plan (1) Cellulitis of back: Code(s): L03.312 - Cellulitis of back [any part except buttock] Status: Acute Assessment and Plan: seems to be improving c abx, no drainable area on exam, cont serial exam and abx (2) Sepsis: Qualifiers: Sepsis type: sepsis due to unspecified organism Sepsis acute organ dysfunction status: without acute organ dysfunction Qualified Code(s): A41.9 - Sepsis, unspecified organism Code(s): A41.9 - Sepsis, unspecified organism Status: Acute Assessment and Plan: resolving c abx, cont to follow exam, temp curve, labs (3) Hemolytic anemia: Qualifiers: Hemolytic anemia type: acquired, autoimmune, drug-induced Qualified Code(s): 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 Pt reports epigastric abd pain and nausea overnight. Pt c h/o PUD. Pt reports back pain is much improved at this time, c only minimal pain upon pressure, palpation. Pt found to be anemic this am likely from autoimmune source as there is no evidence of active bleeding. Review of Systems Constitutional: Constitutional: Denies chills, Reports fatigue, Reports lethargy, Denies night sweats and Reports weakness Cardiovascular: Cardiovascular: Denies chest pain Respiratory: Respiratory: Denies dyspnea Gastrointestinal: Gastrointestinal: Reports abdominal pain, Reports diarrhea, Reports nausea and Denies vomiting Musculoskeletal: Musculoskeletal: Reports back pain Exam Const: General: no acute distress Resp: Auscultation: clear to auscultation bilaterally Cardio: Rate: regular rate Rhythm: regular rhythm GI: Auscultation: normal bowel sounds Other: SNTND Skin: Other: lower back cellulitis - decreased swelling, pain Objective Data Vital Signs Vital Signs: Vital Signs - 24 hr 01/23/20 13:50 01/23/20 14:00 01/23/20 20:02 Temperature 36.9 C 37.1 C Pulse Rate 113 H 109 H Respiratory Rate 20 20 Blood Pressure 110/42 L Pulse Oximetry 98 96 01/23/20 22:00 01/24/20 06:00 01/24/20 07:55 Temperature 38.1 C H 37.1 C 37.3 C Pulse Rate 111 H 94 106 H Respiratory Rate 20 18 18 Blood Pressure 100/57 L 100/79 91/46 L Pulse Oximetry 97 99 98 Intake/Output Intake/Output: Intake & Output 01/21/20 01/22/20 01/23/20 01/24/20 23:59 23:59 23:59 23:59 Intake Total 1649 1989 Output Total 2049 Balance 1650 -60 Meds/Results Medications: Active Medications Generic Name Dose Route Start Last Admin Trade Name Freq PRN Reason Stop Dose Admin Acetaminophen 650 mg 01/22/20 18:30 01/23/20 21:21 Tylenol Tablet PO 325 mg Q4H PRN Administration Mild Pain (1-3) or Fever Hydrocodone Bitart/Acetaminophen 1 tab 01/22/20 18:30 [place] 5-325 Mg PO Q4H PRN Pain Rated 4-6 Albuterol 2 puff 01/22/20 19:44 01/23/20 19:54 Proventil Hfa INHALATION 2 puff QIDRT PRN Administration Shortness Of Breath Aspirin 81 mg 01/23/20 09:00 01/23/20 08:09 Aspirin Ec PO 81 mg DAILY ABRAM Administration Atorvastatin Calcium 10 mg 01/23/20 09:00 01/24/20 09:14 Lipitor PO 10 mg DAILY ABRAM Administration Budesonide/Formoterol Fumarate 2 puff 01/22/20 20:00 01/24/20 10:02 Symbicort 160-4.5 Mcg (*Sp) Inhaler INHALATION 2 puff Q12HRT ABRAM Administration Dextrose 12.5 gm 01/22/20 19:39 Dextrose 50% Syringe IV PUSH PRN PRN Hypoglycemia Protocol Famotidine 20 mg 01/24/20 09:00 01/24/20 09:15 Pepcid Iv IV PUSH 20 mg Q12HR ABRAM Administration Fluticasone Propionate 2 spray 01/23/20 09:00 01/24/20 09:14 Flonase 0.05% Nasal [place] NASAL 02/22/20 09:01 2 spray
[2020-01-24 11:56] LABS: Glucose Point of Care 115 (65-105)
[2020-01-24] MEDS: FOLIC ACID 1 MG/0.2 ML INJ IV PUSH (12:59)
--- NOTE | 2020-01-24 13:54 | PC.NURSE ---
Updated Mary Jane via telephone on patient's status and plan of care.
--- NOTE | 2020-01-24 14:00 | PC.NURSE ---
Call to blood bank to verify if patient's PRBC's are ready. Per blood bank blood it is not ready for transfusion at this time.
[2020-01-24 15:10] LABS: Add Urine Microscopic? YES; Appearance Urine Cloudy (Clear); Bacteria Urine Trace /hpf; Bilirubin Urine Negative (Negative); Blood Urine 3+ (Negative); Color Urine Amber (Yellow); Glucose Urine UA Negative (Negative); Ketones Urine Negative (Negative); Leukocyte Esterase Ur Negative LEU/UL (Negative); Mucus Urine Rare /lpf; Nitrate Urine Negative (Negative); Protein Urine 2+ mg/dL (Negative); RBC Urine 0-2 /hpf (0-2); Specific Grav Ur 1.012 (1.001-1.035); Squamous Epithelial Cell Urine Rare /hpf (Few); Urobilinogen Urine Negative mg/dL (<2.0); WBC Urine 0-3 /hpf
[2020-01-24 15:25] LABS: Mean Corpuscular HGB Conc 30.2 g/dl (32-36); Mean Corpuscular Hemoglobin 26.8 pg (26-34); Mean Corpuscular Volume 88.7 fl (80-100); Mean Platelet Volume 11.2 fl (7.4-10.4); Platelet Count Result 251 k/mm3 (150-375); Red Blood Count 1.94 M/mm3 (4.6-6.20); Red Cell Distribution Width 15.1 % (11.5-14.5); White Blood Count 12.5 K/mm3 (4.5-10.0)
[2020-01-24 15:34] LABS: Hematocrit 17.2 % (42.0-52.0); Hemoglobin 5.2 g/dL (14.0-18.0)
[2020-01-24 15:35] LABS: Blood Urea Nitrogen 28 mg/dL (9-20); Calcium 7.8 mg/dL (8.4-10.2); Carbon Dioxide 24 mmol/L (22-30); Chloride 100 mmol/L (98-107); Estimated CRCL calculation 38 ml/min; Estimated Glomerular Filt Rate 60; Glucose 100 mg/dL (75-110); Potassium 3.5 mmol/L (3.4-5.0); Sodium 130 mmol/L (137-145)
[2020-01-24] MEDS: SODIUM CHLORIDE 0.9% IV 250 ML 30 ML IV CONT (16:19)
[2020-01-24 16:33] LABS: Glucose Point of Care 106 (65-105)
[2020-01-24] MEDS: methylPREDNISolone SOD SUCC 125 MG VIAL IV PUSH (23:20)
[2020-01-25] MEDS: SODIUM CHLORIDE 0.9% IV 1,000 ML 100 ML IV CONT ×2 (03:03→13:55)
[2020-01-25 05:26] LABS: Alanine Aminotransferase 37 U/L (4-50); Albumin Level 3.5 g/dL (3.5-5.1); Alkaline Phosphatase 95 U/L (38-126); Aspartate Amino Transferase 94 U/L (17-59); Bilirubin,Total 3.6 mg/dL (0.2-1.3); Blood Urea Nitrogen 32 mg/dL (9-20); Calcium 8.4 mg/dL (8.4-10.2); Carbon Dioxide 21 mmol/L (22-30); Chloride 103 mmol/L (98-107); Estimated CRCL calculation 33 ml/min; Estimated Glomerular Filt Rate 51; Glucose 160 mg/dL (75-110); Magnesium 2.1 mg/dL (1.6-2.3); Phosphorus 3.7 mg/dL (2.5-4.5); Potassium 4.1 mmol/L (3.4-5.0); Sodium 133 mmol/L (137-145)
[2020-01-25 05:55] VITALS: BP 140/63; PULSE 102; RESP 18; TEMP 36.3; O2SAT 99
[2020-01-25] MEDS: methylPREDNISolone SOD SUCC 125 MG VIAL IV PUSH ×3 (06:39→20:33)
[2020-01-25 07:42] LABS: Glucose Point of Care 145 (65-105)
[2020-01-25 08:03] LABS: Basophils Absolute Auto 0.1 K/mm3 (0.0-0.1); Basophils Percent Auto 0.6 % (0.2-1.2); Eosinophils Absolute Auto 0.9 K/mm3 (0-0.3); Eosinophils Percent Auto 7.1 % (0-4.4); Hematocrit 22.3 % (42.0-52.0); Hemoglobin 9.3 g/dL (14.0-18.0); Immature Granulocyte Percent A 4.9 % (0-0.5); Immature Platelet Fraction Pct 3.8 % (0.9-11.2); Lymphocytes Absolute Auto 1.67 K/mm3 (0.9-3.2); Lymphocytes Percent Auto 13.7 % (18.3-44.2); Mean Corpuscular Hemoglobin 36.9 pg (26-34); Mean Corpuscular Volume 88.5 fl (80-100); Mean Platelet Volume 11.7 fl (7.4-10.4); Monocytes Absolute Auto 0.3 K/mm3 (0.1-0.6); Monocytes Percent Auto 2.6 % (2.6-8.5); Neutrophils Absolute Auto 8.7 K/mm3 (1.3-6.7); Neutrophils Percent Auto 71.1 % (45.5-73.1); Nucleated Red Blood Cells Absolute Auto 0.1 K/mm3 (0.0-0.012); Platelet Count Result 262 k/mm3 (150-375); Red Blood Count 2.52 M/mm3 (4.6-6.20); Red Cell Distribution Width 15.8 % (11.5-14.5); White Blood Count 12.2 K/mm3 (4.5-10.0)
[2020-01-25 08:05] LABS: Mean Corpuscular HGB Conc 41.7 g/dl (32-36)
[2020-01-25] MEDS: LORATADINE 10 MG TABLET PO (08:36)
[2020-01-25] MEDS: ATORVASTATIN 10 MG TABLET PO (08:36)
[2020-01-25] MEDS: CHOLECALCIFEROL 1,000 UNIT TABLET 2000 UNITS PO (08:36)
[2020-01-25] MEDS: MULTIVITAMINS /C LUTEIN (CENTRUM SILVER) TABLET *BKC 1 TAB PO (08:36)
[2020-01-25] MEDS: FAMOTIDINE 20 MG/2 ML VIAL IV PUSH ×2 (08:37→20:33)
[2020-01-25] MEDS: FOLIC ACID 1 MG/0.2 ML INJ IV PUSH (08:37)
[2020-01-25] MEDS: FLUTICASONE PROPIONATE 0.05% NA SPR 16 GM BTL (*BKC) 2 SPRAY NASAL (08:37)
[2020-01-25] MEDS: ALBUTEROL SULFATE (*SP) AEROSOL 1 PUFF 2 PUFF INHALATION ×2 (09:01→20:24)
[2020-01-25 10:07] VITALS: BMI 22.1
--- NOTE | 2020-01-25 11:08 | PM.PNGS ---
Progress Note: A&P Assessment and Plan (1) Cellulitis of back: Code(s): L03.312 - Cellulitis of back [any part except buttock] Status: Acute Assessment and Plan: largely resolved, no indication for surgical intervention at this point, will sign off, call c questions, issues Subjective Subjective Date/Time Seen: 01/25/20 11:08 Patient reports: no new complaints and feels better Interval history: Pt reports no pain in his lower back at this time. Pt reports swelling seems to be resolved as well. Pt has been able to ambulate s difficulty. Review of Systems Constitutional: Constitutional: Denies chills, Reports fatigue and Denies night sweats Comments: no fevers Cardiovascular: Cardiovascular: Denies chest pain Respiratory: Respiratory: Denies dyspnea Gastrointestinal: Gastrointestinal: Denies abdominal pain, Denies bloating, Denies constipation, Reports heartburn, Denies diarrhea, Denies nausea and Denies vomiting Exam Const: General: no acute distress Resp: Auscultation: clear to auscultation bilaterally Cardio: Rate: regular rate Rhythm: regular rhythm GI: Other: SNTND Skin: Other: mild discoloration of lower back, no fluctuance, minimal TTP Extrem: General: normal to inspection Objective Data Vital Signs Vital Signs: Vital Signs - 24 hr 01/24/20 11:43 01/24/20 14:00 01/24/20 16:30 Temperature 37.5 C 36.4 C 37.4 C Pulse Rate 106 H 74 106 H Respiratory Rate 16 16 18 Blood Pressure 125/53 L 100/64 118/49 L Pulse Oximetry 97 98 97 01/24/20 16:45 01/24/20 17:45 01/24/20 18:45 Temperature 37.3 C 37.5 C 37.5 C Pulse Rate 106 H 104 H 108 H Respiratory Rate 18 16 16 Blood Pressure 113/50 L 121/54 L 110/48 L Pulse Oximetry 95 98 99 01/24/20 19:25 01/24/20 19:50 01/24/20 20:05 Temperature 36.8 C 36.7 C 36.9 C Pulse Rate 105 H 102 H 105 H Respiratory Rate 16 18 20 Blood Pressure 122/57 L 124/56 L 131/59 L Pulse Oximetry 97 97 98 01/24/20 21:05 01/24/20 22:00 01/24/20 22:05 Temperature 36.8 C 36.9 C 36.9 C Pulse Rate 103 H 101 H 107 H Respiratory Rate 18 16 18 Blood Pressure 118/64 130/60 123/68 Pulse Oximetry 97 99 98 01/24/20 23:15 01/25/20 05:55 Temperature 36.9 C 36.3 C L Pulse Rate 101 H 102 H Respiratory Rate 16 18 Blood Pressure 130/60 140/63 Pulse Oximetry 99 99 Intake/Output Intake/Output: Intake & Output 01/22/20 01/23/20 01/24/20 01/25/20 23:59 23:59 23:59 23:59 Intake Total 0 1989 2184 1350 Output Total 2049 650 600 Balance 1650 -60 1535 750 Meds/Results Medications: Active Medications Generic Name Dose Route Start Last Admin Trade Name Freq PRN Reason Stop Dose Admin Acetaminophen 650 mg 01/22/20 18:30 01/23/20 21:21 Tylenol Tablet PO 325 mg Q4H PRN Administration Mild Pain (1-3) or Fever Hydrocodone Bitart/Acetaminophen 1 tab 01/22/20 18:30 [place] 5-325 Mg PO Q4H PRN Pain Rated 4-6 Albuterol 2 puff 01/22/20 19:44 01/25/20 09:01 Proventil Hfa INHALATION 2 puff QIDRT PRN Administration Shortness Of Breath Aspirin 81 mg 01/23/20 09:00 01/23/20 08:09 Aspirin Ec PO 81 mg DAILY ABRAM Administration Atorvastatin Calcium 10 mg 01/23/20 09:00 01/25/20 08:36 Lipitor PO 10 mg DAILY ABRAM Administration Budesonide/Formoterol Fumarate 2 puff 01/22/20 20:00 01/25/20 09:02 Symbicort 160-4.5 Mcg (*Sp) Inhaler INHALATION 2 puff Q12HRT ABRAM Administration Dextrose 12.5 gm 01/22/20 19:39 Dextrose 50% Syringe IV PUSH PRN PRN Hypoglycemia Protocol Famotidine 20 mg 01/24/20 09:00 01/25/20 08:37 Pepcid Iv IV PUSH 20 mg Q12HR ABRAM Administration Fluticasone Propionate 2 spray 01/23/20 09:00 01/25/20 08:37 Flonase 0.05% Nasal [place] NASAL 02/22/20 09:01 2 spray DAILY ABRAM Administration Folic Acid 1 mg 01/25/20 09:00 01/25/20 08:37 Folic Acid Inj IV PUSH 1 mg QAM ABRAM Administration Glucagon 1 mg 01/22/20 19:3
[2020-01-25 11:46] LABS: Glucose Point of Care 197 (65-105)
--- NOTE | 2020-01-25 12:45 | PM.IMPN ---
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 No evidence of acute blood loss. Ferritin, TBili and LDH elevated. LALITHA IgG (+) and Compl (-). Probably autoimmune hemolytic anemia related to the abx and/or infection. Patient transfused yesterday 2U PRBC. Hgb better at 9.3 today. Heme/onc following and appreciate their input. Stool guaiac negative. Smear does not show schistocytes. Continue Pepcid for the GI symptoms. Steroids started. Follow HH closely. (2) JOSELO (acute kidney injury): Code(s): N17.9 - Acute kidney failure, unspecified Status: Acute Assessment and Plan: Cr jumped to 1.5 yesterday but only 1.6 today. Most likely related to the autoimmune process. Bladder US okay. Continue IVF. UA showing 3+ blood but no red cells. Suspect related to the hemolysis. Continue to follow. (3) Sepsis: Qualifiers: Sepsis acute organ dysfunction status: without acute organ dysfunction Sepsis type: sepsis due to unspecified organism Qualified Code(s): A41.9 - Sepsis, unspecified organism Code(s): A41.9 - Sepsis, unspecified organism Status: Acute Assessment and Plan: Present on admission with fever, tachycardia and leukocytosis. Related to the cellulitis and possibly from the PNA. Lactic acid normal. Patient improving (4) Cellulitis of back: Code(s): L03.312 - Cellulitis of back [any part except buttock] Status: Acute Assessment and Plan: Lumbar spine CT showing superficial fluid and fatty infiltration of the soft tissues overlying the lower lumbar spine and sacrum posteriorly, likely cellulitis. No evidence for abscess. Probably had a small open lesion as the nidus for the infection. More localized lesion midline lumbar area but no drainage. BCx NGTD. WBC still no change but possibly related to steroids. Clinically improving. Abx adjusted yesterday after discussing with Heme/Onc (5) Pneumonia: Qualifiers: Laterality: right Lung location: upper lobe of lung Pneumonia type: due to unspecified organism Qualified Code(s): J18.9 - Pneumonia, unspecified organism Code(s): J18.9 - Pneumonia, unspecified organism Status: Acute Assessment and Plan: Somewhat unclear if he is having worsening respiratory symptoms on admission. He denies changes in his chronic cough and SOB but using nebulizer more frequently. Currently on room air. Sputum not adequate. BCx NGTD. Abx resumed yesterday. Continue to monitor. (6) Hyponatremia: Code(s): E87.1 - Hypo-osmolality and hyponatremia Status: Acute Assessment and Plan: Na 128 on admission felt related to dehydration. Na better with IVF and now up to 133. Continue to monitor. (7) COPD (chronic obstructive pulmonary disease): Qualifiers: COPD type: COPD with acute exacerbation Qualified Code(s): J44.1 - Chronic obstructive pulmonary disease with (acute) exacerbation Code(s): J44.9 - Chronic obstructive pulmonary disease, unspecified Status: Chronic Assessment and Plan: Stable. No wheezing and remains on room air. Continue inhalers. (8) Diabetes mellitus: Qualifiers: Diabetes mellitus complication status: without complication Diabetes mellitus [employer] insulin use: without prison use Diabetes mellitus type: type 2 Qualified Code(s): E11.9 - Type 2 diabetes mellitus without complications Code(s): E11.9 - Type 2 diabetes mellitus without complications Status: Chronic Assessment and Plan: A1c 6.2. Glucose reviewed on 01/25/20 and remains well controlled. Continue AccuC
[2020-01-25 14:00] VITALS: BP 126/61; PULSE 84; RESP 19; TEMP 36.2; O2SAT 100
[2020-01-25 15:04] LABS: IFOB Positive Control Positive; Immunochemical Fecal Occult Bl Negative (N)
[2020-01-25 16:47] LABS: Glucose Point of Care 183 (65-105)
[2020-01-25 20:00] VITALS: PULSE 84; RESP 19; O2SAT 95
[2020-01-25 20:34] VITALS: O2SAT 95
[2020-01-25 20:39] LABS: Glucose Point of Care 195 (65-105)
[2020-01-25 22:00] VITALS: BP 121/60; PULSE 83; RESP 18; TEMP 36.1; O2SAT 98
--- NOTE | 2020-01-25 22:45 | CONS_ITS ---
DATE OF CONSULTATION: 01/25/2020 REASON FOR CONSULTATION: Hemolytic anemia. HISTORY OF PRESENTING ILLNESS: This is a pleasant 74-year-old male with history of COPD and diabetes, came into the hospital with complaint of fever, started about 3-4 days ago along with back pain. He was initially also dealing with the cough. He was also complaining of lower back pain. He scratched an area in the lower back with development of a small area of cellulitis. He denies any diarrhea and abdominal pain. He denies any hematuria and hematochezia. He denies any weight loss. He was told to go to the ER by the primary care physician office. In the ER, his fever was 102 and the labs showed WBC count of 13.7 with hemoglobin of 5.9. REVIEW OF SYSTEMS: 12-point review of systems was reviewed and as per HPI, otherwise negative. PAST MEDICAL HISTORY: COPD, coronary artery disease, diabetes mellitus, erosive esophagitis, GERD, hypertension, hyperlipidemia, history of myocardial infarction. PAST MEDICAL HISTORY: Prostate cancer. PAST SURGICAL HISTORY: Prostate biopsy, appendectomy, CABG, cardiac catheterization, shoulder surgery, tonsillectomy. FAMILY HISTORY: History of diabetes and heart disease in the family. SOCIAL HISTORY: The patient lives with the . Denies any alcohol and drug use. The patient quit smoking in 1999. HOME MEDICATIONS: Reviewed. ALLERGIES: REVIEWED. PHYSICAL EXAMINATION: GENERAL: This is a well-developed, well-nourished, male, in no apparent distress. Alert and oriented. VITAL SIGNS: Per nursing note. HEENT: Normocephalic, atraumatic. Clear oropharynx. LUNGS: Clear to auscultation bilaterally. CARDIOVASCULAR: Regular rate and rhythm. No murmurs. ABDOMEN: Soft, nontender, nondistended. Bowel sounds are positive in all 4 quadrants. No hepatosplenomegaly. EXTREMITIES: No edema. NEURO EXAM: Grossly intact. SKIN EXAMINATION: Showed an area of small ulceration with some resolving infection without any pus in the mid lower back area with mild tenderness. LABORATORY DATA: WBC 12.5, hemoglobin 9.3, platelets 262,000, neutrophils 71%, reticulocyte percentage 2.29, iron 61, iron saturation 26%. Vitamin B12 of 921, LDH 1436. Haptoglobin pending. Bethany test, positive. ASSESSMENT AND PLAN: 1. Normocytic anemia with elevated WBC count. The patient is a 74-year-old male with history of diabetes and prostate cancer. He came into the medical attention with 4-5 days history of fever and cough along with lower back pain. He had a rash that developed into cellulitis after scratching in the lower back area. He came into the hospital with extreme tiredness and fatigue, without any evidence of bleeding. Labs are consistent with a hemolytic anemia, Bethany positive. I have discussed this case with Dr. Denney. The patient has already been started on IV Solu-Medrol with folic acid 1 mg daily. The rest of the labs including B12 and iron levels came back normal. The patient will continue steroid therapy with slow weaning upon improvement in the hemoglobin level. Eventually, he will be discharged home on prednisone 60 mg twice a day with taper of 10 mg every 4 days. He will follow up with me in the office in a week after the discharge and will have a weekly CBC done in my office. He will also continue folic acid 1 mg daily. I have informed him that he will have a slow weaning process done as an outpatient upon recovery of his hemoglobin. I have answered all the questions to the patient's satisfaction. 2. Lower back area of cellulitis. The patient is afebrile. He is on antibiotic treatment. Clinically improving and no surgical intervention needed.
[2020-01-26] VITALS (8 sets, daily range): BP systolic 103–150; BP diastolic 46–65; PULSE 68–102; RESP 18–22; TEMP 36.1–36.2; O2SAT 94–100
[2020-01-26] MEDS: SODIUM CHLORIDE 0.9% IV 1,000 ML 100 ML IV CONT (00:45)
[2020-01-26] MEDS: methylPREDNISolone SOD SUCC 125 MG VIAL IV PUSH ×3 (06:19→21:03)
[2020-01-26 07:39] LABS: Glucose Point of Care 153 (65-105)
[2020-01-26 08:06] LABS: Basophils Percent Auto 0.2 % (0.2-1.2); Eosinophils Absolute Auto 0.1 K/mm3 (0-0.3); Eosinophils Percent Auto 0.3 % (0-4.4); Hematocrit 21.7 % (42.0-52.0); Immature Granulocyte Absolute 0.68 K/mm3 (0.00-0.031); Immature Granulocyte Percent A 3.7 % (0-0.5); Lymphocytes Absolute Auto 1.74 K/mm3 (0.9-3.2); Lymphocytes Percent Auto 9.4 % (18.3-44.2); Mean Corpuscular HGB Conc 31.8 g/dl (32-36); Mean Corpuscular Hemoglobin 27.1 pg (26-34); Mean Corpuscular Volume 85.1 fl (80-100); Mean Platelet Volume 11.6 fl (7.4-10.4); Monocytes Absolute Auto 0.8 K/mm3 (0.1-0.6); Monocytes Percent Auto 4.1 % (2.6-8.5); Neutrophils Absolute Auto 15.2 K/mm3 (1.3-6.7); Neutrophils Percent Auto 82.3 % (45.5-73.1); Nucleated Red Blood Cells Perc 0.1 % (0.0-0.2); Platelet Count Result 234 k/mm3 (150-375); Red Blood Count 2.55 M/mm3 (4.6-6.20); Red Cell Distribution Width 16.1 % (11.5-14.5); White Blood Count 18.5 K/mm3 (4.5-10.0)
[2020-01-26 08:09] LABS: Hemoglobin 6.9 g/dL (14.0-18.0)
[2020-01-26 08:16] LABS: Alanine Aminotransferase 37 U/L (4-50); Albumin Level 2.9 g/dL (3.5-5.1); Alkaline Phosphatase 71 U/L (38-126); Aspartate Amino Transferase 54 U/L (17-59); Blood Urea Nitrogen 31 mg/dL (9-20); Carbon Dioxide 23 mmol/L (22-30); Chloride 106 mmol/L (98-107); Estimated CRCL calculation 40 ml/min; Estimated Glomerular Filt Rate > 60; Glucose 161 mg/dL (75-110); Potassium 3.9 mmol/L (3.4-5.0); Sodium 133 mmol/L (137-145)
[2020-01-26] MEDS: FLUTICASONE PROPIONATE 0.05% NA SPR 16 GM BTL (*BKC) 2 SPRAY NASAL (09:08)
[2020-01-26] MEDS: FOLIC ACID 1 MG/0.2 ML INJ IV PUSH (09:08)
[2020-01-26] MEDS: ATORVASTATIN 10 MG TABLET PO (09:09)
[2020-01-26] MEDS: MULTIVITAMINS /C LUTEIN (CENTRUM SILVER) TABLET *BKC 1 TAB PO (09:09)
[2020-01-26] MEDS: FAMOTIDINE 20 MG/2 ML VIAL IV PUSH ×2 (09:09→21:03)
[2020-01-26] MEDS: CHOLECALCIFEROL 1,000 UNIT TABLET 2000 UNITS PO (09:09)
[2020-01-26] MEDS: LORATADINE 10 MG TABLET PO (09:09)
--- NOTE | 2020-01-26 11:29 | PM.IMPN ---
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 Appreciate help from hematology. Hemoglobin 6.9 this morning. No further transfusion per Hematology. Did previously received 2 units PRBC. Remains on IV steroids. Recheck hemoglobin in a.m.. Plan home soon. (2) JOSELO (acute kidney injury): Code(s): N17.9 - Acute kidney failure, unspecified Status: Acute Assessment and Plan: Creatinine now improved to 1.30 today. Discontinue IV fluids. Will continue to monitor. (3) Sepsis: Qualifiers: Sepsis acute organ dysfunction status: without acute organ dysfunction Sepsis type: sepsis due to unspecified organism Qualified Code(s): A41.9 - Sepsis, unspecified organism Code(s): A41.9 - Sepsis, unspecified organism Status: Acute Assessment and Plan: Criteria met on admission. Result of cellulitis and/or pneumonia. Blood and sputum cultures negative. WBC 18.5 today but he is on steroids. Clinically improving. (4) Cellulitis of back: Code(s): L03.312 - Cellulitis of back [any part except buttock] Status: Acute Assessment and Plan: Lumbar spine CT showing superficial fluid and fatty infiltration of the soft tissues overlying the lower lumbar spine and sacrum posteriorly, likely cellulitis. No evidence for abscess. Cultures remain negative. Remains on oral Levaquin. Area improving. Will monitor. (5) Pneumonia: Qualifiers: Laterality: right Lung location: upper lobe of lung Pneumonia type: due to unspecified organism Qualified Code(s): J18.9 - Pneumonia, unspecified organism Code(s): J18.9 - Pneumonia, unspecified organism Status: Acute Assessment and Plan: Chest x-ray on 01/24/2020 with small amount of bilateral perihilar atelectasis and probably infectious process unchanged. On room air. Sputum culture not performed as specimen not adequate. On oral Levaquin as noted above. (6) Anemia of chronic disease: Code(s): D63.8 - Anemia in other chronic diseases classified elsewhere Status: Acute Assessment and Plan: Known chronic anemia with superimposed hemolytic anemia. Treatment as noted above. (7) Hyponatremia: Code(s): E87.1 - Hypo-osmolality and hyponatremia Status: Acute Assessment and Plan: Sodium stable at 133 today. Will monitor. (8) HTN (hypertension): Qualifiers: Hypertension type: essential hypertension Qualified Code(s): I10 - Essential (primary) hypertension Code(s): I10 - Essential (primary) hypertension Status: Acute Assessment and Plan: Blood pressure reviewed on 01/26/2020 and stable. Will continue to monitor with metoprolol, valsartan and amlodipine on hold. Adjust treatment as needed. (9) Diabetes mellitus: Qualifiers: Diabetes mellitus complication status: without complication Diabetes mellitus [facility] insulin use: without [facility] use Diabetes mellitus type: type 2 Qualified Code(s): E11.9 - Type 2 diabetes mellitus without complications Code(s): E11.9 - Type 2 diabetes mellitus without complications Status: Chronic Assessment and Plan: Hemoglobin A1c 6.2. Glucose reviewed on 01/26/2020 and controlled. Sliding scale insulin in place. Will continue to monitor. (10) COPD (chronic obstructive pulmonary disease): Qualifiers: COPD type: COPD with acute exacerbation Qualified Code(s): J44.1 - Chronic obstructive pulmonary disease with (acute) exacerbation Code(s): J44.9 - Chronic obstructive pulmonary disease, unspecified Status: Chronic
[2020-01-26 11:38] LABS: Glucose Point of Care 174 (65-105)
[2020-01-26 16:47] LABS: Glucose Point of Care 156 (65-105)
--- NOTE | 2020-01-26 17:46 | WPDONCPN ---
Progress Note: A/P - Additional Plan Autoimmune hemolytic anemia. Labs noted. Hemoglobin down to 6.9. This would also be dilutional. Patient has been eating and drinking well. I would suggest discontinuation of IV fluid. I will avoid blood transfusion at this time due to hemolytic anemia. Patient will continue IV Solu-Medrol along with folic acid as ordered previously. We will continue reticulocyte count and LDH monitoring in the morning. Sepsis/cellulitis. Patient is on antibiotic therapy. He is afebrile. - Time Spent With Patient Total time spent is greater than 50% in coordination of care (as documented) at patient's floor/unit and/or counseling patient: 15 - 25 minutes Subjective Interval history: Autoimmune hemolytic anemia Cellulitis and sepsis Review of Systems - Review of Systems Patient looks quite comfortable. He denies any fevers and chills. He denies any melena and hematochezia. Denies any abdominal pain. - Neurologic Reports weakness, Denies syncope, Denies headache(s), Denies focal weakness, Denies loss of vision, Denies numbness, Denies tingling Exam Vital signs: Temp Pulse Resp BP Pulse Ox 36.2 C L 102 H 22 H 150/65 H 100 01/26/20 14:00 01/26/20 14:00 01/26/20 14:00 01/26/20 14:00 01/26/20 14:00 Lungs are clear to auscultation bilaterally Cardiovascular regular rate rhythm no murmurs Abdomen soft nontender nondistended Extremities no edema PN: Objective Data - Labs CBC & Chem 7: 01/26/20 07:46 01/26/20 07:46 Labs: Laboratory Results - last 24 hr 01/24/20 01/24/20 01/25/20 09:22 09:23 20:32 WBC RBC Hgb Hct MCV MCH MCHC RDW Plt Count MPV Immature Gran % (Auto) Neut % (Auto) Lymph % (Auto) [place] % (Auto) Eos % (Auto) Baso % (Auto) Lymph # (Auto) [place] # (Auto) Eos # (Auto) Baso # (Auto) Abs Immat Gran (auto) Absolute Neuts (auto) Absolute Nucleated RBC Nucleated RBC % Sodium Potassium Chloride Carbon Dioxide BUN Creatinine Estim Creat Clear Calc Estimated GFR Glucose POC Capillary Glucose 195 H Calcium Copper 220 H Total Bilirubin AST ALT Alkaline Phosphatase Total Protein Albumin Blood Type O Positive Antibody Screen Negative Enhanced Crossmatch See Detail 01/26/20 01/26/20 01/26/20 07:34 07:46 07:46 WBC 18.5 H RBC 2.55 L Hgb 6.9 L* Hct 21.7 L MCV 85.1 MCH 27.1 D MCHC 31.8 L RDW 16.1 H Plt Count 234 MPV 11.6 H Immature Gran % (Auto) 3.7 H Neut % (Auto) 82.3 H Lymph % (Auto) 9.4 L [place] % (Auto) 4.1 Eos % (Auto) 0.3 Baso % (Auto) 0.2 Lymph # (Auto) 1.74 [place] # (Auto) 0.8 H Eos # (Auto) 0.1 Baso # (Auto) 0.0 Abs Immat Gran (auto) 0.68 H Absolute Neuts (auto) 15.2 H Absolute Nucleated RBC 0.0 Nucleated RBC % 0.1 Sodium 133 L Potassium 3.9 Chloride 106 Carbon Dioxide 23 BUN 31 H Creatinine 1.30 Estim Creat Clear Calc 40 Estimated GFR > 60 Glucose 161 H POC Capillary Glucose 153 H Calcium 8.0 L Copper Total Bilirubin 1.0 AST 54 ALT 37 Alkaline Phosphatase 71 Total Protein 6.0 L Albumin 2.9 L Blood Type Antibody Screen Enhanced Crossmatch 01/26/20 01/26/20 11:20 16:32 WBC RBC Hgb Hct MCV MCH MCHC RDW Plt Count MPV Immature Gran % (Auto) Neut % (Auto) Lymph % (Auto) [place] % (Auto) Eos % (Auto) Baso % (Auto) Lymph # (Auto) [place] # (Auto) Eos # (Auto) Baso # (Auto) Abs Immat Gran (auto) Absolute Neuts (auto) Absolute Nucleated RBC Nucleated RBC % Sodium Potassium Chloride Carbon Dioxide BUN Creatinine Estim Creat Clear Calc Estimated GFR Glucose POC Capillary Glucose 174 H 156 H Calcium Copper Total Bilirubin AST ALT Alkaline Phosphata
[2020-01-26 19:45] LABS: Haptoglobin 70 mg/dL (43-212)
[2020-01-26 20:09] LABS: Lactate Dehydrogenase 2009 U/L (313-618)
[2020-01-26] MEDS: ALBUTEROL SULFATE (*SP) AEROSOL 1 PUFF 2 PUFF INHALATION (20:27)
[2020-01-26 22:15] LABS: Glucose Point of Care 203 (65-105)
[2020-01-27 05:58] VITALS: BP 115/70; PULSE 58; RESP 18; TEMP 36.1; O2SAT 96
[2020-01-27 06:08] LABS: Basophils Percent Auto 0.2 % (0.2-1.2); Eosinophils Percent Auto 0.1 % (0-4.4); Hematocrit 22.9 % (42.0-52.0); Hemoglobin 7.3 g/dL (14.0-18.0); Immature Granulocyte Absolute 1.05 K/mm3 (0.00-0.031); Immature Granulocyte Percent A 5.5 % (0-0.5); Lymphocytes Absolute Auto 1.53 K/mm3 (0.9-3.2); Mean Corpuscular HGB Conc 31.9 g/dl (32-36); Mean Corpuscular Hemoglobin 27.5 pg (26-34); Mean Corpuscular Volume 86.4 fl (80-100); Mean Platelet Volume 11.4 fl (7.4-10.4); Monocytes Absolute Auto 0.7 K/mm3 (0.1-0.6); Monocytes Percent Auto 3.9 % (2.6-8.5); Neutrophils Absolute Auto 15.9 K/mm3 (1.3-6.7); Neutrophils Percent Auto 82.3 % (45.5-73.1); Nucleated Red Blood Cells Absolute Auto 0.1 K/mm3 (0.0-0.012); Nucleated Red Blood Cells Perc 0.3 % (0.0-0.2); Platelet Count Result 256 k/mm3 (150-375); Red Blood Count 2.65 M/mm3 (4.6-6.20); Red Cell Distribution Width 17.2 % (11.5-14.5); White Blood Count 19.2 K/mm3 (4.5-10.0)
[2020-01-27] MEDS: methylPREDNISolone SOD SUCC 125 MG VIAL IV PUSH ×3 (06:21→20:43)
[2020-01-27 06:23] LABS: Blood Urea Nitrogen 31 mg/dL (9-20); Calcium 8.2 mg/dL (8.4-10.2); Carbon Dioxide 24 mmol/L (22-30); Chloride 105 mmol/L (98-107); Estimated CRCL calculation 40 ml/min; Estimated Glomerular Filt Rate > 60; Glucose 212 mg/dL (75-110); Potassium 4.1 mmol/L (3.4-5.0); Sodium 134 mmol/L (137-145)
[2020-01-27 06:47] LABS: Anisocytosis 1+ (NORMAL); Hypochromasia 1+ (NORMAL); Platelet Estimate Adequate (Adequate)
[2020-01-27] MEDS: MULTIVITAMINS /C LUTEIN (CENTRUM SILVER) TABLET *BKC 1 TAB PO (07:46)
[2020-01-27] MEDS: ATORVASTATIN 10 MG TABLET PO (07:47)
[2020-01-27] MEDS: LORATADINE 10 MG TABLET PO (07:47)
[2020-01-27] MEDS: FAMOTIDINE 20 MG/2 ML VIAL IV PUSH ×2 (07:47→20:43)
[2020-01-27] MEDS: CHOLECALCIFEROL 1,000 UNIT TABLET 2000 UNITS PO (07:47)
[2020-01-27] MEDS: FLUTICASONE PROPIONATE 0.05% NA SPR 16 GM BTL (*BKC) 2 SPRAY NASAL (07:47)
[2020-01-27] MEDS: FOLIC ACID 1 MG/0.2 ML INJ IV PUSH (07:50)
[2020-01-27 08:55] VITALS: O2SAT 94
[2020-01-27 09:00] LABS: Glucose Point of Care 173 (65-105)
[2020-01-27] MEDS: INSULIN ASPART (*BKC) 100 UNITS/ML SUB-Q ×2 (12:37→17:01)
[2020-01-27 12:44] LABS: Glucose Point of Care 202 (65-105)
--- NOTE | 2020-01-27 13:32 | PM.IMPN ---
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 Appreciate help from hematology. Hemoglobin improved to 7.3 this morning. Previously received 2 units PRBC on 01/24/2020 but none since. Remains on IV steroids with plan to transition to oral prednisone tomorrow. Hopeful discharge in next 48 hours. Continue to monitor hemoglobin. (2) JOSELO (acute kidney injury): Code(s): N17.9 - Acute kidney failure, unspecified Status: Resolved Assessment and Plan: Creatinine now remains stable at 1.30 without IV fluids. Will continue to monitor. (3) Sepsis: Qualifiers: Sepsis acute organ dysfunction status: without acute organ dysfunction Sepsis type: sepsis due to unspecified organism Qualified Code(s): A41.9 - Sepsis, unspecified organism Code(s): A41.9 - Sepsis, unspecified organism Status: Acute Assessment and Plan: Criteria met on admission. Result of cellulitis and/or pneumonia. Blood cultures negative. WBC higher at 19.2 today but he is on steroids. Clinically has improved. (4) Cellulitis of back: Code(s): L03.312 - Cellulitis of back [any part except buttock] Status: Acute Assessment and Plan: Lumbar spine CT showing superficial fluid and fatty infiltration of the soft tissues overlying the lower lumbar spine and sacrum posteriorly, likely cellulitis. No evidence for abscess. Cultures remain negative. Remains on oral Levaquin for now with area improved. Will monitor. (5) Pneumonia: Qualifiers: Laterality: right Lung location: upper lobe of lung Pneumonia type: due to unspecified organism Qualified Code(s): J18.9 - Pneumonia, unspecified organism Code(s): J18.9 - Pneumonia, unspecified organism Status: Acute Assessment and Plan: Chest x-ray on 01/24/2020 with small amount of bilateral perihilar atelectasis and probably infectious process unchanged. On room air. Sputum culture not performed as specimen not adequate. On oral Levaquin as noted above. Clinically improved. (6) Anemia of chronic disease: Code(s): D63.8 - Anemia in other chronic diseases classified elsewhere Status: Acute Assessment and Plan: Known chronic anemia with superimposed hemolytic anemia. Hemoglobin today as noted above. Treatment as noted above. (7) Hyponatremia: Code(s): E87.1 - Hypo-osmolality and hyponatremia Status: Acute Assessment and Plan: Sodium stable at 134 today. Will monitor. (8) HTN (hypertension): Qualifiers: Hypertension type: essential hypertension Qualified Code(s): I10 - Essential (primary) hypertension Code(s): I10 - Essential (primary) hypertension Status: Acute Assessment and Plan: Blood pressure reviewed on 01/27/2020 and remains stable. Will continue to monitor with metoprolol, valsartan and amlodipine on hold. Adjust treatment as needed. 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 Glucose reviewed on 01/27/2020 and now with occasional elevated reading. Sliding scale insulin in place. Resume home metformin. Will continue to monitor. (10) COPD (chronic obstructive pulmonary disease): Qualifiers: COPD type: COPD with acute exacerbation
[2020-01-27 14:29] VITALS: BP 120/87; PULSE 77; RESP 16; TEMP 36; O2SAT 100
--- NOTE | 2020-01-27 17:20 | WPDONCPN ---
Progress Note: A/P - Additional Plan Autoimmune hemolytic anemia. Hemoglobin has improved to 7.3. I would reduce Solu-Medrol dose to 125 mg IV q.12 hours. He will continue folic acid daily. If hemoglobin continues to improve we will switch him to oral steroid in next 24 hours with potential discharge home in 48 hours. Sepsis/cellulitis. Patient remains afebrile on Levaquin. - Time Spent With Patient Total time spent is greater than 50% in coordination of care (as documented) at patient's floor/unit and/or counseling patient: 15 - 25 minutes Subjective Interval history: Autoimmune hemolytic anemia Cellulitis and sepsis Review of Systems - Review of Systems Patient looks quite comfortable. Denies any bleeding and bruising. Denies any fevers and chills. Back pain has improved. - Neurologic Reports weakness, Denies confusion, Denies syncope, Denies headache(s), Denies focal weakness, Denies loss of vision, Denies numbness, Denies tingling Exam Vital signs: Navya Burrows. Assessment of coma and impaired consciousness. A practical scale. Lancet 1974; 2:81-4. Narrative: Lungs are clear to auscultation bilaterally Cardiovascular regular rate rhythm no murmurs Abdomen soft nontender nondistended Extremities no edema PN: Objective Data - Labs CBC & Chem 7: 01/27/20 05:52 01/27/20 05:52 Labs: Laboratory Results - last 24 hr 01/23/20 01/26/20 01/26/20 11:12 19:43 21:05 WBC RBC Hgb Hct MCV MCH MCHC RDW Plt Count MPV Immature Gran % (Auto) Neut % (Auto) Lymph % (Auto) [place] % (Auto) Eos % (Auto) Baso % (Auto) Lymph # (Auto) [place] # (Auto) Eos # (Auto) Baso # (Auto) Abs Immat Gran (auto) Absolute Neuts (auto) Absolute Nucleated RBC Nucleated RBC % Platelet Estimate Hypochromasia Anisocytosis Haptoglobin 70 Sodium Potassium Chloride Carbon Dioxide BUN Creatinine Estim Creat Clear Calc Estimated GFR Glucose POC Capillary Glucose 203 H Calcium Lactate Dehydrogenase 2008 H 01/27/20 01/27/20 01/27/20 05:52 05:52 07:41 WBC 19.2 H RBC 2.65 L Hgb 7.3 L Hct 22.9 L MCV 86.4 MCH 27.5 MCHC 31.9 L RDW 17.2 H Plt Count 256 MPV 11.4 H Immature Gran % (Auto) 5.5 H Neut % (Auto) 82.3 H Lymph % (Auto) 8.0 L [place] % (Auto) 3.9 Eos % (Auto) 0.1 Baso % (Auto) 0.2 Lymph # (Auto) 1.53 [place] # (Auto) 0.7 H Eos # (Auto) 0.0 Baso # (Auto) 0.0 Abs Immat Gran (auto) 1.05 H Absolute Neuts (auto) 15.9 H Absolute Nucleated RBC 0.1 H Nucleated RBC % 0.3 H Platelet Estimate Adequate Hypochromasia 1+ Anisocytosis 1+ Haptoglobin Sodium 134 L Potassium 4.1 Chloride 105 Carbon Dioxide 24 BUN 31 H Creatinine 1.30 Estim Creat Clear Calc 40 Estimated GFR > 60 Glucose 212 H POC Capillary Glucose 173 H Calcium 8.2 L Lactate Dehydrogenase 01/27/20 12:31 WBC RBC Hgb Hct MCV MCH MCHC RDW Plt Count MPV Immature Gran % (Auto) Neut % (Auto) Lymph % (Auto) [place] % (Auto) Eos % (Auto) Baso % (Auto) Lymph # (Auto) [place] # (Auto) Eos # (Auto) Baso # (Auto) Abs Immat Gran (auto) Absolute Neuts (auto) Absolute Nucleated RBC Nucleated RBC % Platelet Estimate Hypochromasia Anisocytosis Haptoglobin Sodium Potassium Chloride Carbon Dioxide BUN Creatinine Estim Creat Clear Calc Estimated GFR Glucose POC Capillary Glucose 202 H Calcium Lactate Dehydrogenase
[2020-01-27 17:37] LABS: Glucose Point of Care 205 (65-105)
[2020-01-27] MEDS: metFORMIN HCL XR 500 MG TAB.SR.24H 1500 MG PO (18:37)
[2020-01-27 18:47] LABS: Lactate Dehydrogenase 1755 U/L (313-618)
[2020-01-27 18:59] LABS: Albumin 2.7 g/dL (3.8-4.8); Alpha 1 Globulin 0.6 g/dL (0.2-0.3); Alpha 2 Globulin 0.5 g/dL (0.5-0.9); Beta 1 Globulin 0.4 g/dL (0.4-0.6); Protein, Total 5.6 g/dL (6.1-8.1)
[2020-01-27 20:00] VITALS: PULSE 77; RESP 16; O2SAT 100
[2020-01-27 21:11] LABS: Glucose Point of Care 260 (65-105)
[2020-01-27 22:00] VITALS: BP 124/55; PULSE 72; RESP 16; TEMP 36.1; O2SAT 99
[2020-01-28 05:25] LABS: Hematocrit 22.8 % (42.0-52.0); Hemoglobin 7.4 g/dL (14.0-18.0); Mean Corpuscular HGB Conc 32.5 g/dl (32-36); Mean Corpuscular Hemoglobin 27.8 pg (26-34); Mean Corpuscular Volume 85.7 fl (80-100); Mean Platelet Volume 11.3 fl (7.4-10.4); Platelet Count Result 303 k/mm3 (150-375); Red Blood Count 2.66 M/mm3 (4.6-6.20); Red Cell Distribution Width 17.7 % (11.5-14.5); White Blood Count 21.1 K/mm3 (4.5-10.0)
[2020-01-28 05:49] LABS: Blood Urea Nitrogen 28 mg/dL (9-20); Calcium 8.1 mg/dL (8.4-10.2); Carbon Dioxide 25 mmol/L (22-30); Chloride 105 mmol/L (98-107); Estimated CRCL calculation 38 ml/min; Estimated Glomerular Filt Rate 60; Glucose 160 mg/dL (75-110); Potassium 4.4 mmol/L (3.4-5.0); Sodium 133 mmol/L (137-145)
[2020-01-28 06:00] VITALS: BP 131/63; PULSE 60; RESP 16; TEMP 36.2; O2SAT 99
[2020-01-28 07:36] LABS: Glucose Point of Care 130 (65-105)
[2020-01-28] MEDS: FLUTICASONE PROPIONATE 0.05% NA SPR 16 GM BTL (*BKC) 2 SPRAY NASAL (08:28)
[2020-01-28] MEDS: LORATADINE 10 MG TABLET PO (08:28)
[2020-01-28] MEDS: methylPREDNISolone SOD SUCC 125 MG VIAL IV PUSH (08:28)
[2020-01-28] MEDS: MULTIVITAMINS /C LUTEIN (CENTRUM SILVER) TABLET *BKC 1 TAB PO (08:28)
[2020-01-28] MEDS: CHOLECALCIFEROL 1,000 UNIT TABLET 2000 UNITS PO (08:28)
[2020-01-28] MEDS: ATORVASTATIN 10 MG TABLET PO (08:28)
[2020-01-28] MEDS: FAMOTIDINE 20 MG/2 ML VIAL IV PUSH (08:28)
[2020-01-28 09:06] VITALS: PULSE 79; RESP 18; O2SAT 96
[2020-01-28 11:25] LABS: Glucose Point of Care 165 (65-105)
[2020-01-28] MEDS: FOLIC ACID 1 MG TABLET PO (12:05)
[2020-01-28 14:00] VITALS: BP 148/68; PULSE 79; RESP 20; TEMP 36.9; O2SAT 100
--- NOTE | 2020-01-28 15:42 | PM.IMPN ---
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 Appreciate help from hematology. Previously discussed with Dr. Fuller. Hemoglobin stable at 7.4 today. Previously received 2 units PRBC on 01/24/2020 but none since. IV access loss this morning. Had already plan to transition to oral prednisone which was done by Hematology. Continue to monitor today. Hopeful discharge tomorrow as long as stable. (2) JOSELO (acute kidney injury): Code(s): N17.9 - Acute kidney failure, unspecified Status: Resolved Assessment and Plan: Creatinine remains stable at 1.40 today. Will monitor while here. (3) Sepsis: Qualifiers: Sepsis acute organ dysfunction status: without acute organ dysfunction Sepsis type: sepsis due to unspecified organism Qualified Code(s): A41.9 - Sepsis, unspecified organism Code(s): A41.9 - Sepsis, unspecified organism Status: Acute Assessment and Plan: Criteria met on admission. Result of cellulitis and/or pneumonia. Blood cultures negative. WBC continues to rise at 21.1 today but he is on steroids and anticipate will decrease with tapering steroids. Otherwise improved. (4) Cellulitis of back: Code(s): L03.312 - Cellulitis of back [any part except buttock] Status: Acute Assessment and Plan: Lumbar spine CT showing superficial fluid and fatty infiltration of the soft tissues overlying the lower lumbar spine and sacrum posteriorly, likely cellulitis. No evidence for abscess. Cultures remain negative. Improved. Remains on oral Levaquin. Will monitor. (5) Pneumonia: Qualifiers: Laterality: right Lung location: upper lobe of lung Pneumonia type: due to unspecified organism Qualified Code(s): J18.9 - Pneumonia, unspecified organism Code(s): J18.9 - Pneumonia, unspecified organism Status: Acute Assessment and Plan: Chest x-ray on 01/24/2020 with small amount of bilateral perihilar atelectasis and probably infectious process unchanged. Remains on room air. Sputum culture not performed as specimen not adequate. Clinically improved been on oral Levaquin per hematology at this point. Hopefully will not need to continue at discharge. (6) Anemia of chronic disease: Code(s): D63.8 - Anemia in other chronic diseases classified elsewhere Status: Acute Assessment and Plan: Known chronic anemia with superimposed hemolytic anemia. Hemoglobin today as noted above. Treatment as noted above. (7) Hyponatremia: Code(s): E87.1 - Hypo-osmolality and hyponatremia Status: Acute Assessment and Plan: Sodium stable at 133 today. Will monitor. (8) HTN (hypertension): Qualifiers: Hypertension type: essential hypertension Qualified Code(s): I10 - Essential (primary) hypertension Code(s): I10 - Essential (primary) hypertension Status: Acute Assessment and Plan: Blood pressure reviewed on 01/28/2020 and stable. Will continue to monitor with metoprolol, valsartan and amlodipine on hold. Adjust treatment as needed. 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 Glucose reviewed on 01/28/2020 with improvement today after resuming home metformin. Will continue sliding scale as need
[2020-01-28] MEDS: predniSONE 20 MG TABLET 60 MG PO (17:21)
[2020-01-28] MEDS: metFORMIN HCL XR 500 MG TAB.SR.24H 1500 MG PO (17:21)
[2020-01-28 17:41] LABS: Glucose Point of Care 170 (65-105)
[2020-01-28 18:15] LABS: Creatinine, Random Urine 83 mg/dL (20-320); Total Protein/Creatinine Ratio 1639 mg/g creat (22-128)
[2020-01-28 18:55] LABS: Lactate Dehydrogenase 1664 U/L (313-618)
[2020-01-28 19:26] VITALS: O2SAT 98
[2020-01-28] MEDS: FAMOTIDINE 20 MG TABLET PO (21:05)
[2020-01-28 21:31] LABS: Glucose Point of Care 143 (65-105)
[2020-01-28 22:00] VITALS: BP 162/65; PULSE 58; RESP 16; TEMP 35.8; O2SAT 100
[2020-01-29 05:16] VITALS: BP 150/78; PULSE 70; RESP 16; TEMP 36.4; O2SAT 98
[2020-01-29 07:38] LABS: Glucose Point of Care 132 (65-105)
[2020-01-29 08:00] VITALS: O2SAT 98
[2020-01-29] MEDS: CHOLECALCIFEROL 1,000 UNIT TABLET 2000 UNITS PO (08:22)
[2020-01-29] MEDS: LORATADINE 10 MG TABLET PO (08:22)
[2020-01-29] MEDS: FAMOTIDINE 20 MG TABLET PO (08:22)
[2020-01-29] MEDS: ATORVASTATIN 10 MG TABLET PO (08:22)
[2020-01-29] MEDS: FLUTICASONE PROPIONATE 0.05% NA SPR 16 GM BTL (*BKC) 2 SPRAY NASAL (08:22)
[2020-01-29] MEDS: MULTIVITAMINS /C LUTEIN (CENTRUM SILVER) TABLET *BKC 1 TAB PO (08:22)
[2020-01-29] MEDS: FOLIC ACID 1 MG TABLET PO (08:22)
[2020-01-29] MEDS: predniSONE 20 MG TABLET 60 MG PO (08:22)
[2020-01-29 08:41] LABS: Hematocrit 29.8 % (42.0-52.0); Hemoglobin 9.2 g/dL (14.0-18.0); Mean Corpuscular HGB Conc 30.9 g/dl (32-36); Mean Corpuscular Volume 90.6 fl (80-100); Mean Platelet Volume 11.2 fl (7.4-10.4); Platelet Count Result 328 k/mm3 (150-375); Red Blood Count 3.29 M/mm3 (4.6-6.20); Red Cell Distribution Width 18.8 % (11.5-14.5); White Blood Count 22.8 K/mm3 (4.5-10.0)
[2020-01-29 08:52] LABS: Blood Urea Nitrogen 29 mg/dL (9-20); Calcium 8.2 mg/dL (8.4-10.2); Carbon Dioxide 22 mmol/L (22-30); Chloride 103 mmol/L (98-107); Estimated CRCL calculation 38 ml/min; Estimated Glomerular Filt Rate 60; Glucose 139 mg/dL (75-110); Potassium 4.6 mmol/L (3.4-5.0); Sodium 133 mmol/L (137-145)
--- NOTE | 2020-01-29 10:12 | PC.NURSE ---
MAR edits made to correct name of nurse who administered from Ashely Bentley to Bonnie Bolaños
--- NOTE | 2020-01-29 11:39 | PM.IMPN ---
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 Appreciate help from hematology. Previously discussed with Dr. Fuller. Hemoglobin improved to 9.2 today. Previously received 2 units PRBC on 01/24/2020 but none since. Transition to high-dose oral prednisone yesterday. Discussed with Dr. Fuller on 01/28/2020. Will discharge home today as stable. Will need to follow-up with hematology as an outpatient. (2) JOSELO (acute kidney injury): Code(s): N17.9 - Acute kidney failure, unspecified Status: Resolved Assessment and Plan: Creatinine unchanged and stable at 1.40 today. (3) Sepsis: Qualifiers: Sepsis type: sepsis due to unspecified organism Sepsis acute organ dysfunction status: without acute organ dysfunction Qualified Code(s): A41.9 - Sepsis, unspecified organism Code(s): A41.9 - Sepsis, unspecified organism Status: Acute Assessment and Plan: Criteria met on admission. Result of cellulitis and/or pneumonia. Blood cultures negative. WBC still high at 22.8 today but is on steroids as noted above. Would anticipate WBC to decrease with tapering of prednisone. Can follow as outpatient. (4) Cellulitis of back: Code(s): L03.312 - Cellulitis of back [any part except buttock] Status: Acute Assessment and Plan: Lumbar spine CT showing superficial fluid and fatty infiltration of the soft tissues overlying the lower lumbar spine and sacrum posteriorly, likely cellulitis. No evidence for abscess. Cultures remain negative. Improved. Plan to continue oral Levaquin for a 7 day course. Levaquin is every 48 hours with 1st dose given on 01/24/2020 and will therefore need last dose on 01/30/2020. (5) Pneumonia: Qualifiers: Laterality: right Lung location: upper lobe of lung Pneumonia type: due to unspecified organism Qualified Code(s): J18.9 - Pneumonia, unspecified organism Code(s): J18.9 - Pneumonia, unspecified organism Status: Acute Assessment and Plan: Chest x-ray on 01/24/2020 with small amount of bilateral perihilar atelectasis and probably infectious process unchanged. Remains on room air. Sputum culture not performed as specimen not adequate. Clinically improved. Completing oral Levaquin as noted above. (6) Anemia of chronic disease: Code(s): D63.8 - Anemia in other chronic diseases classified elsewhere Status: Acute Assessment and Plan: Known chronic anemia with superimposed hemolytic anemia. Hemoglobin today as noted above. Treatment as noted above. (7) Hyponatremia: Code(s): E87.1 - Hypo-osmolality and hyponatremia Status: Acute Assessment and Plan: Sodium stable and unchanged at 133 today. (8) HTN (hypertension): Qualifiers: Hypertension type: essential hypertension Qualified Code(s): I10 - Essential (primary) hypertension Code(s): I10 - Essential (primary) hypertension Status: Acute Assessment and Plan: Blood pressure reviewed on 01/29/2020 and now with mild elevation. Will have patient resume home metoprolol and amlodipine at home but continue to hold valsartan. Will need to follow-up with primary physician. (9) Diabetes mellitus: Qualifiers: Diabetes mellitus type: type 2 Diabetes mellitus superintendent container terminal insulin use: without superintendent container terminal use Diabetes mellitus complication status: without complication Qualified Code(s): E11.9 - Type 2 diabetes mellitus without complications Code(s): E11.9 - Type 2 diabetes mellitus without complications Status: Chronic Assessment and Plan: Hemoglobin A1C 6.2
[2020-01-29 11:41] LABS: Glucose Point of Care 122 (65-105)
--- NOTE | 2020-01-29 14:21 | PCDIET ---
Nutrition Follow-Up Complete: Inadequate Oral Intake as related to Pnuemonia/CHF as evidenced by poor po intake reported and weight loss of at least 5 ibs. Adequate intake of at least 75% of meals Goal:Goal met. Continue with current goal. Pt current nutrition is heart healthy+Enlive BID. Nutrition recommendation: Agree Last recorded weight is 66 kg (need new wt) Bowel Motility: Labs Reviewed:Glucose 139, BUN 29, Na 133 Meds Noted:Metformin, Prednisone, Vit D, MTV Additional Notes: Pt eating well, over 85% average over last four meals. Heart healthy diet+Enlive BID appropriate. Ensure Enlive provides 350kcal, 20g of protein, and 26 essential vitamins and minerals per serving. Glucose well controlled. Recommend updated wt. We will continue to monitor every five days to assess for adequate intake.
--- NOTE | 2020-01-29 18:08 | PM.DS ---
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 Code(s): D58.9 - Hereditary hemolytic anemia, unspecified Status: Acute (2) JOSELO (acute kidney injury): Code(s): N17.9 - Acute kidney failure, unspecified Status: Resolved (3) Sepsis: Qualifiers: Sepsis acute organ dysfunction status: without acute organ dysfunction Sepsis type: sepsis due to unspecified organism Qualified Code(s): A41.9 - Sepsis, unspecified organism Code(s): A41.9 - Sepsis, unspecified organism Status: Acute (4) Cellulitis of back: Code(s): L03.312 - Cellulitis of back [any part except buttock] Status: Acute (5) Pneumonia: Qualifiers: Laterality: right Lung location: upper lobe of lung Pneumonia type: due to unspecified organism Qualified Code(s): J18.9 - Pneumonia, unspecified organism Code(s): J18.9 - Pneumonia, unspecified organism Status: Acute (6) Anemia of chronic disease: Code(s): D63.8 - Anemia in other chronic diseases classified elsewhere Status: Acute (7) Hyponatremia: Code(s): E87.1 - Hypo-osmolality and hyponatremia Status: Acute (8) HTN (hypertension): Qualifiers: Hypertension type: essential hypertension Qualified Code(s): I10 - Essential (primary) hypertension Code(s): I10 - Essential (primary) hypertension Status: Acute (9) Diabetes mellitus: Qualifiers: Diabetes mellitus complication status: without complication Diabetes mellitus terminal make up operator insulin use: without prison use Diabetes mellitus type: type 2 Qualified Code(s): E11.9 - Type 2 diabetes mellitus without complications Code(s): E11.9 - Type 2 diabetes mellitus without complications Status: Chronic (10) COPD (chronic obstructive pulmonary disease): Qualifiers: COPD type: COPD with acute exacerbation Qualified Code(s): J44.1 - Chronic obstructive pulmonary disease with (acute) exacerbation Code(s): J44.9 - Chronic obstructive pulmonary disease, unspecified Status: Chronic (11) Chronic respiratory failure: Qualifiers: Respiratory failure complication: hypoxia Qualified Code(s): J96.11 - Chronic respiratory failure with hypoxia Code(s): J96.10 - Chronic respiratory failure, unspecified whether with hypoxia or hypercapnia Status: Acute DS: Summary Hospital Course Reason for hospitalization: Back pain and fever. Hospital Course: Date of Service of Discharge: January 29, 2020. History of Present Illness: Patient is a 74-year-old gentleman with diabetes mellitus, COPD and chronic respiratory failure who presented to the emergency room with complaint of back pain and fever. Patient reports developing fever and diaphoresis approximately 6 days prior to presentation. He also reports nausea with dry heaves. He initially stated he did have a cough but then stated this was more of a chronic cough and not changed from baseline. After initial symptoms, patient developed low back pain that was pruritic. He scratched the area in question and did unroof a small eschar. No significant drainage from the lesion. Over the next few days he continued to have fever with night sweats. noted redness in the low back area that seemed to track to his hips and down to the anterior thighs. No weakness in extremities or trouble walking. No numbness or tingling in feet. He reports not sleeping well due to night sweats. No saddle anesthesia. No stool or bladder incontinence. No increase in oxygen requirement over baseline. No other urinary symptoms. Patient was seen by his primary care physician earlier in the day and sent to the emergency room
== END 2020-01-29 15:43 | disposition home or self-care (01) | DRG 871 ==
LOC: ANHED 17:04 → ANH2MED 17:17
PROVIDERS: Internal Medicine Hematology & Oncology; Admitting Provider Internal Medicine; Emergency Provider Emergency Medicine; PCP Family Medicine; Visit Provider Hospitalist
DX: A41.9 Sepsis, unspecified organism (principal); J18.9 Pneumonia, unspecified organism; J96.11 Chronic respiratory failure with hypoxia; E87.1 Hypo-osmolality and hyponatremia; L03.312 Cellulitis of back [any part except buttock and flank]; N17.9 Acute kidney failure, unspecified; D59.0 Drug-induced autoimmune hemolytic anemia; E11.9 Type 2 diabetes mellitus without complications; J44.9 Chronic obstructive pulmonary disease, unspecified; D63.8 Anemia in other chronic diseases classified elsewhere; Z95.1 Presence of aortocoronary bypass graft; M19.90 Unspecified osteoarthritis, unspecified site; E78.5 Hyperlipidemia, unspecified; I25.2 Old myocardial infarction; Z99.81 Dependence on supplemental oxygen; K21.9 Gastro-esophageal reflux disease without esophagitis; Z87.891 Personal history of nicotine dependence; I10 Essential (primary) hypertension; E80.6 Other disorders of bilirubin metabolism; I25.10 Atherosclerotic heart disease of native coronary artery without angina pectoris; Z85.46 Personal history of malignant neoplasm of prostate; L98.429 Non-pressure chronic ulcer of back with unspecified severity; T36.95XA Adverse effect of unspecified systemic antibiotic, initial encounter
CPT/HCPCS: 36415; 36430; 71045; 71046; 72132; 80048; 80053; 81001; 82248; 82274; 82525; 82570; 82607; 82728; 82746; 83010; 83036; 83540; 83550; 83605; 83615; 83690; 83735; 84100; 84155; 84156; 84165; 84166; 84300; 85014; 85018; 85025; 85027; 85046; 85055; 86850; 86860; 86870; 86880; 86900; 86901; 86922; 87040; 87045; 87046; 87070; 87205; 87427; 88321; 94640; 96361; 96365; 96367; 96372; 96375; 99285; A9270; G0378; J0456; J0696; J1650; J1815; J2405; J2930; J3370; J7030; J7050; J7512; P9016; Q9967

== ENCOUNTER 2020-02-12 10:35 | Outpatient (CLI) | payer MEDICARE, OTHER, SELFPAY ==
[2020-02-12 10:56] LABS: Basophils Percent Auto 0.1 % (0.2-1.2); Hematocrit 36.7 % (42.0-52.0); Immature Granulocyte Absolute 0.06 K/mm3 (0.00-0.031); Immature Granulocyte Percent A 0.5 % (0-0.5); Lymphocytes Absolute Auto 0.71 K/mm3 (0.9-3.2); Lymphocytes Percent Auto 5.4 % (18.3-44.2); Mean Corpuscular Hemoglobin 28.3 pg (26-34); Mean Corpuscular Volume 94.3 fl (80-100); Mean Platelet Volume 11.1 fl (7.4-10.4); Monocytes Absolute Auto 0.8 K/mm3 (0.1-0.6); Monocytes Percent Auto 6.4 % (2.6-8.5); Neutrophils Absolute Auto 11.4 K/mm3 (1.3-6.7); Neutrophils Percent Auto 87.6 % (45.5-73.1); Platelet Count Result 228 k/mm3 (150-375); Red Blood Count 3.89 M/mm3 (4.6-6.20); Red Cell Distribution Width 19.1 % (11.5-14.5)
[2020-02-12 14:21] LABS: Blood Urea Nitrogen 25 mg/dL (9-20); Calcium 8.8 mg/dL (8.4-10.2); Carbon Dioxide 28 mmol/L (22-30); Chloride 100 mmol/L (98-107); Estimated Glomerular Filt Rate > 60; Glucose 124 mg/dL (75-110); Potassium 4.5 mmol/L (3.4-5.0); Sodium 134 mmol/L (137-145)
== END 2020-02-12 10:36 | disposition home or self-care (01) ==
LOC: ANHLAB 10:37
PROVIDERS: PCP Family Medicine; Visit Provider Internal Medicine Hematology & Oncology
DX: D59.9 Acquired hemolytic anemia, unspecified (principal)
CPT/HCPCS: 36415; 80048; 85025

== ENCOUNTER 2020-02-24 11:55 | Outpatient (CLI) | payer MEDICARE, OTHER, SELFPAY ==
--- NOTE | ~2020-02-24 | US_ITS ---
EXAMINATION: US venous doppler [facility] DATE: 02/24/2020 12:34 INDICATION: Lower limb pain and swelling TECHNIQUE: Grayscale ultrasound images without and with compression and Doppler ultrasound images of the bilateral lower extremity veins were obtained. COMPARISON: None. FINDINGS: The visualized portions of right common femoral vein, profunda (deep) femoral vein, femoral vein, pop liteal vein, posterior tibial veins, peroneal veins, gastrocnemius vein and greater saphenous vein ou tflow are patent. The visualized portions of left common femoral vein, profunda femoral vein, femoral vein, popliteal v ein, posterior tibial veins, peroneal veins, gastrocnemius vein and greater saphenous vein outflow ar e patent. IMPRESSION: 1. No deep venous thrombosis in either lower limb. Reviewed, dictated and finalized at location A.
== END 2020-02-24 11:56 | disposition home or self-care (01) ==
PROVIDERS: Visit Provider Physician Assistant
DX: R60.0 Localized edema (principal); M79.604 Pain in right leg; M79.605 Pain in left leg
CPT/HCPCS: 93970

== ENCOUNTER 2020-03-03 11:56 | Outpatient (CLI) | payer MEDICARE, OTHER, SELFPAY ==
[2020-03-03 12:52] LABS: Blood Urea Nitrogen 28 mg/dL (9-20); Calcium 9.5 mg/dL (8.4-10.2); Carbon Dioxide 30 mmol/L (22-30); Chloride 100 mmol/L (98-107); Estimated Glomerular Filt Rate > 60; Glucose 130 mg/dL (75-110); Potassium 4.1 mmol/L (3.4-5.0); Sodium 136 mmol/L (137-145)
[2020-03-03 14:03] LABS: Folic Acid > 20.0 ng/mL (2.76->20)
== END 2020-03-03 11:57 | disposition home or self-care (01) ==
PROVIDERS: Visit Provider Physician Assistant
DX: E53.8 Deficiency of other specified B group vitamins (principal); R60.0 Localized edema; I10 Essential (primary) hypertension
CPT/HCPCS: 36415; 80048; 82607; 82746

== ENCOUNTER 2020-03-11 12:00 | Outpatient (RCR) | payer MEDICARE, OTHER, SELFPAY ==
[2020-02-26 15:18] LABS: Hematocrit 36.5 % (42.0-52.0); Hemoglobin 11.5 g/dL (14.0-18.0); Mean Corpuscular HGB Conc 31.5 g/dl (32-36); Mean Corpuscular Hemoglobin 28.4 pg (26-34); Mean Corpuscular Volume 90.1 fl (80-100); Mean Platelet Volume 10.9 fl (7.4-10.4); Platelet Count Result 341 k/mm3 (150-375); Red Blood Count 4.05 M/mm3 (4.6-6.20); Red Cell Distribution Width 18.3 % (11.5-14.5); White Blood Count 9.1 K/mm3 (4.5-10.0)
[2020-03-11 12:12] LABS: Hematocrit 37.1 % (42.0-52.0); Hemoglobin 11.4 g/dL (14.0-18.0); Mean Corpuscular HGB Conc 30.7 g/dl (32-36); Mean Corpuscular Hemoglobin 28.3 pg (26-34); Mean Corpuscular Volume 92.1 fl (80-100); Mean Platelet Volume 10.5 fl (7.4-10.4); Platelet Count Result 371 k/mm3 (150-375); Red Blood Count 4.03 M/mm3 (4.6-6.20); Red Cell Distribution Width 18.4 % (11.5-14.5); White Blood Count 15.3 K/mm3 (4.5-10.0)
== END 2020-05-26 23:59 | disposition home or self-care (01) ==
LOC: ANHLAB 12:00
PROVIDERS: Visit Provider Internal Medicine Hematology & Oncology
DX: D59.9 Acquired hemolytic anemia, unspecified (principal)
CPT/HCPCS: 36415; 85027

== ENCOUNTER 2020-04-07 09:31 | Outpatient (CLI) | payer MEDICARE, OTHER, SELFPAY ==
[2020-04-07 09:42] LABS: Hematocrit 39.5 % (42.0-52.0); Hemoglobin 12.1 g/dL (14.0-18.0); Mean Corpuscular HGB Conc 30.6 g/dl (32-36); Mean Corpuscular Hemoglobin 27.7 pg (26-34); Mean Corpuscular Volume 90.4 fl (80-100); Mean Platelet Volume 10.5 fl (7.4-10.4); Platelet Count Result 352 k/mm3 (150-375); Red Blood Count 4.37 M/mm3 (4.6-6.20); Red Cell Distribution Width 17.9 % (11.5-14.5); White Blood Count 14.7 K/mm3 (4.5-10.0)
== END 2020-04-07 09:32 | disposition home or self-care (01) ==
PROVIDERS: Visit Provider Internal Medicine Hematology & Oncology
DX: D59.9 Acquired hemolytic anemia, unspecified (principal)
CPT/HCPCS: 36415; 85027

== ENCOUNTER 2020-04-22 09:29 | Outpatient (CLI) | payer MEDICARE, OTHER, SELFPAY ==
[2020-04-22 09:48] LABS: Hematocrit 38.3 % (42.0-52.0); Hemoglobin 11.8 g/dL (14.0-18.0); Mean Corpuscular HGB Conc 30.8 g/dl (32-36); Mean Corpuscular Hemoglobin 27.6 pg (26-34); Mean Corpuscular Volume 89.7 fl (80-100); Mean Platelet Volume 9.4 fl (7.4-10.4); Platelet Count Result 175 k/mm3 (150-375); Red Blood Count 4.27 M/mm3 (4.6-6.20); Red Cell Distribution Width 17.3 % (11.5-14.5); White Blood Count 12.5 K/mm3 (4.5-10.0)
== END 2020-04-22 09:30 | disposition home or self-care (01) ==
PROVIDERS: Visit Provider Internal Medicine Hematology & Oncology
DX: D59.9 Acquired hemolytic anemia, unspecified (principal)
CPT/HCPCS: 36415; 85027

== ENCOUNTER 2020-05-18 13:44 | Outpatient (CLI) | payer MEDICARE, OTHER, SELFPAY ==
[2020-05-18 16:47] LABS: Alanine Aminotransferase 23 U/L (4-50); Albumin Level 3.9 g/dL (3.5-5.1); Alkaline Phosphatase 87 U/L (38-126); Anion Gap 7 mmol/L (8-16); Aspartate Amino Transferase 26 U/L (17-59); Bilirubin,Total 0.3 mg/dL (0.2-1.3); Blood Urea Nitrogen 13 mg/dL (9-20); Calcium 9.5 mg/dL (8.4-10.2); Carbon Dioxide 28 mmol/L (22-30); Chloride 100 mmol/L (98-107); Estimated Glomerular Filt Rate > 60; Glucose 72 mg/dL (75-110); Potassium 4.2 mmol/L (3.4-5.0); Sodium 135 mmol/L (137-145)
[2020-05-18 18:44] LABS: Hemoglobin A1C 7.6 % (<5.7)
== END 2020-05-18 13:45 | disposition home or self-care (01) ==
LOC: ANHLAB 13:47
PROVIDERS: PCP Physician Assistant; Visit Provider Internal Medicine Hematology & Oncology
DX: E11.9 Type 2 diabetes mellitus without complications (principal)
CPT/HCPCS: 36415; 80053; 83036

== ENCOUNTER 2020-05-20 14:16 | Outpatient (CLI) | payer MEDICARE, OTHER, SELFPAY ==
[2020-05-20 14:30] LABS: Basophils Absolute Auto 0.1 K/mm3 (0.0-0.1); Basophils Percent Auto 0.6 % (0.2-1.2); Eosinophils Absolute Auto 0.3 K/mm3 (0-0.3); Eosinophils Percent Auto 2.8 % (0-4.4); Hematocrit 31.6 % (42.0-52.0); Hemoglobin 9.9 g/dL (14.0-18.0); Immature Granulocyte Absolute 0.02 K/mm3 (0.00-0.031); Immature Granulocyte Percent A 0.2 % (0-0.5); Lymphocytes Absolute Auto 2.67 K/mm3 (0.9-3.2); Lymphocytes Percent Auto 30.1 % (18.3-44.2); Mean Corpuscular HGB Conc 31.3 g/dl (32-36); Mean Corpuscular Hemoglobin 27.8 pg (26-34); Mean Corpuscular Volume 88.8 fl (80-100); Mean Platelet Volume 9.6 fl (7.4-10.4); Monocytes Absolute Auto 1.1 K/mm3 (0.1-0.6); Monocytes Percent Auto 12.4 % (2.6-8.5); Neutrophils Absolute Auto 4.8 K/mm3 (1.3-6.7); Neutrophils Percent Auto 53.9 % (45.5-73.1); Platelet Count Result 395 k/mm3 (150-375); Red Blood Count 3.56 M/mm3 (4.6-6.20); Red Cell Distribution Width 15.9 % (11.5-14.5); White Blood Count 8.9 K/mm3 (4.5-10.0)
[2020-05-20 15:19] LABS: Anion Gap 8 mmol/L (8-16); Blood Urea Nitrogen 15 mg/dL (9-20); Calcium 9.4 mg/dL (8.4-10.2); Carbon Dioxide 26 mmol/L (22-30); Chloride 102 mmol/L (98-107); Estimated Glomerular Filt Rate > 60; Glucose 97 mg/dL (75-110); Potassium 4.5 mmol/L (3.4-5.0); Sodium 136 mmol/L (137-145)
== END 2020-05-20 14:17 | disposition home or self-care (01) ==
PROVIDERS: PCP Physician Assistant; Visit Provider Internal Medicine Hematology & Oncology
DX: D59.9 Acquired hemolytic anemia, unspecified (principal)
CPT/HCPCS: 36415; 80048; 85025

== ENCOUNTER 2020-06-22 15:07 | Emergency (ER) | payer MEDICARE, OTHER, SELFPAY ==
--- NOTE | ~2020-06-22 | XR_ITS ---
EXAMINATION: XR chest 2V DATE: 06/22/2020 17:43 INDICATION: Wheezing. Shortness of breath. TECHNIQUE: Frontal and lateral views of the chest were obtained. COMPARISON: Chest 2 views 01/24/2020, chest CT 10/20/2019 FINDINGS: There are calcified pleural plaques bilaterally, which may be seen with asbestosis exposure . There is mild atelectasis in left midlung zone. No pleural effusion or pneumothorax. The heart size is normal. Median sternotomy wires and mediastinal surgical clips are seen, likely from prior english ry artery bypass grafting. IMPRESSION: 1. Mild atelectasis in left midlung zone. Reviewed, dictated and finalized at location A.
[2020-06-22 15:22] VITALS: BP 173/88; PULSE 111; RESP 18; TEMP 36.4; O2SAT 100
[2020-06-22 15:40] LABS: Basophils Percent Auto 0.4 % (0.2-1.2); Eosinophils Absolute Auto 0.7 K/mm3 (0-0.3); Eosinophils Percent Auto 9.2 % (0-4.4); Hemoglobin 9.1 g/dL (14.0-18.0); Immature Granulocyte Absolute 0.02 K/mm3 (0.00-0.031); Immature Granulocyte Percent A 0.3 % (0-0.5); Lymphocytes Percent Auto 31.5 % (18.3-44.2); Mean Corpuscular HGB Conc 31.4 g/dl (32-36); Mean Corpuscular Hemoglobin 27.7 pg (26-34); Mean Corpuscular Volume 88.4 fl (80-100); Mean Platelet Volume 10.1 fl (7.4-10.4); Monocytes Absolute Auto 0.7 K/mm3 (0.1-0.6); Neutrophils Absolute Auto 3.6 K/mm3 (1.3-6.7); Neutrophils Percent Auto 48.6 % (45.5-73.1); Platelet Count Result 426 k/mm3 (150-375); Red Blood Count 3.28 M/mm3 (4.6-6.20); Red Cell Distribution Width 14.1 % (11.5-14.5); White Blood Count 7.3 K/mm3 (4.5-10.0)
[2020-06-22 15:53] LABS: Anion Gap 8 mmol/L (8-16); Blood Urea Nitrogen 14 mg/dL (9-20); Carbon Dioxide 26 mmol/L (22-30); Chloride 102 mmol/L (98-107); Estimated CRCL calculation 45 ml/min; Estimated Glomerular Filt Rate > 60; Glucose 107 mg/dL (75-110); Potassium 4.3 mmol/L (3.4-5.0); Sodium 136 mmol/L (137-145)
[2020-06-22 17:20] VITALS: BP 183/85; PULSE 101; PULSE 105; RESP 22; RESP 26; O2SAT 100; O2SAT 98
--- NOTE | 2020-06-22 18:51 | ED.GENADULT ---
HPI - General Adult General Chief complaint: Upper Respiratory Infection Stated complaint: wheezing Time Seen by Provider: 06/22/20 17:19 History of Present Illness HPI narrative: Patient is a 75-year-old male who presents ER with shortness of breath. Reports he has been more short of breath for the last 3 days. He has been using his albuterol inhaler every 6 hours. He has had no increase in his O2 requirement. No chest pain or chest pressure. He began with some red eyes that he saw his doctor for and got eyedrops. He also reports he had some mild nasal congestion. No productive cough or fevers. No known sick contacts. Patient continues wear 2 L of O2 during the day and at night as recommended by his drier feeder. Related Data Home Medications Medication Instructions Recorded Confirmed Centrum Silver 1 tab-cap PO DAILY 08/29/19 05/18/20 aspirin 81 mg PO DAILY 08/29/19 05/18/20 cholecalciferol (vitamin D3) 50 2,000 unit PO DAILY 09/15/19 05/18/20 mcg (2,000 unit) tablet Allergies Allergy/AdvReac Type Severity Reaction Status Date / Time No Known Allergies Allergy Unknown Verified 05/18/20 12:54 Review of Systems Review of Systems: All systems reviewed & are unremarkable except as noted in HPI and below Constitutional: Constitutional: Denies chills, Denies fever(s) and Denies weakness ENT: Reports nasal congestion and Denies sore throat Cardiovascular: Cardiovascular: Denies chest pain and Denies radiating jaw, neck or arm pain Respiratory: Respiratory: Denies chest congestion, Reports cough, Reports dyspnea and Reports wheezing Gastrointestinal: Gastrointestinal: Denies abdominal pain, Denies nausea and Denies vomiting [facility] Past Medical History Medical History (Updated 06/22/20 @ 20:22 by Damir Cheng MD) Anemia of chronic disease Arthritis Autoimmune hemolytic anemia COPD (chronic obstructive pulmonary disease) Follows with Dr. Figueredo Coronary artery disease Cough Diabetes mellitus Erosive esophagitis GERD (gastroesophageal reflux disease) GI bleed HLD (hyperlipidemia) HTN (hypertension) Myocardial infarction Nocturnal hypoxemia On home oxygen therapy 1 liters when asleep. Pneumonia Wheezing Surgical History Surgical History (Updated 01/26/20 @ 17:48 by Tavo Fuller MD) H/O prostate biopsy Follows with Dr. Lombardi History of appendectomy age 10 Hx of CABG Hx of cardiac cath Hx of shoulder surgery Left S/P CABG (coronary artery bypass graft) 2007 Status post tonsillectomy Social History Social History Social History: The patient lives with his Mary Jane who was designated as his durable power health care attorney for healthcare. Patient remains a full code. No alcohol or drug use. Patient smoked a pack per day x 29yrs and quit smoking in 1999. He has 2 children. One boy and 1 girl. 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 Smoking packs per day: 1 Smoking cigarettes per day: 20.0 Years smoked: 29 Smoking pack-years: 29.00 Smoking status: Former smoker Tobacco type: cigarettes Second hand tobacco smoke exposure: No Smoking end date: 10/07/99 Alcohol intake: never Substance use: never Substance use type: does not use Gender identity (if verbalized by the patient): Male Spiritual care concerns: No Agree to blood products: Yes Exam Narrative: Exam Narrative: GENERAL: Well-appearing, well-nourished, and in no acute distress. HEAD: Normocephalic, atraumatic. ENT: Nares clear, no rhinorrhea or epistaxis. Mucous membranes moist. NECK: Supple. CHEST: Clear to auscultation. No respiratory distress. HEART: Regular rate and rhythm. No murmur heard. Normal peripheral pulses. ABDOMEN: Soft, nontender, nondistended, normal active bowel sounds. EXTREMITIES: Normal range of motion. No edema. SKIN: Warm, dry, no rash. NEURO: No focal deficits.
[2020-06-22 19:02] VITALS: BP 164/91; PULSE 92; RESP 16; O2SAT 100
[2020-06-22 19:07] VITALS: PULSE 93; RESP 20
[2020-06-22] MEDS: ALBUTEROL SULFATE NEB 2.5 MG/0.5 ML INH 5 MG INHALATION (19:07)
[2020-06-22] MEDS: IPRATROPIUM BR 0.02% INH SOLN 0.5 MG/2.5 ML VIAL INHALATION (19:07)
[2020-06-22 19:17] VITALS: PULSE 96; RESP 22
[2020-06-22 20:00] VITALS: BP 157/76; PULSE 95; RESP 16; O2SAT 100
== END 2020-06-22 20:40 | disposition home or self-care (01) ==
PROVIDERS: Emergency Provider Emergency Medicine; PCP Family Medicine
DX: J44.1 Chronic obstructive pulmonary disease with (acute) exacerbation (principal); D64.9 Anemia, unspecified; M19.90 Unspecified osteoarthritis, unspecified site; I25.10 Atherosclerotic heart disease of native coronary artery without angina pectoris; E11.9 Type 2 diabetes mellitus without complications; K21.9 Gastro-esophageal reflux disease without esophagitis; E78.5 Hyperlipidemia, unspecified; I25.2 Old myocardial infarction; Z99.81 Dependence on supplemental oxygen; I10 Essential (primary) hypertension
CPT/HCPCS: 36415; 71046; 80048; 85025; 94640; 99284

== ENCOUNTER 2020-06-27 08:59 | Outpatient (CLI) | payer MEDICARE, OTHER, SELFPAY ==
[2020-06-27 09:29] LABS: Basophils Absolute Auto 0.1 K/mm3 (0.0-0.1); Basophils Percent Auto 0.7 % (0.2-1.2); Eosinophils Absolute Auto 0.7 K/mm3 (0-0.3); Eosinophils Percent Auto 9.5 % (0-4.4); Hematocrit 30.1 % (42.0-52.0); Immature Granulocyte Absolute 0.01 K/mm3 (0.00-0.031); Immature Granulocyte Percent A 0.1 % (0-0.5); Lymphocytes Absolute Auto 2.08 K/mm3 (0.9-3.2); Lymphocytes Percent Auto 29.4 % (18.3-44.2); Mean Corpuscular HGB Conc 29.9 g/dl (32-36); Mean Corpuscular Hemoglobin 26.7 pg (26-34); Mean Corpuscular Volume 89.3 fl (80-100); Mean Platelet Volume 10.9 fl (7.4-10.4); Monocytes Absolute Auto 0.8 K/mm3 (0.1-0.6); Monocytes Percent Auto 10.6 % (2.6-8.5); Neutrophils Absolute Auto 3.5 K/mm3 (1.3-6.7); Neutrophils Percent Auto 49.7 % (45.5-73.1); Platelet Count Result 279 k/mm3 (150-375); Red Blood Count 3.37 M/mm3 (4.6-6.20); Red Cell Distribution Width 14.4 % (11.5-14.5); White Blood Count 7.1 K/mm3 (4.5-10.0)
[2020-06-27 10:43] LABS: Lactate Dehydrogenase 691 U/L (313-618)
[2020-06-27 10:46] LABS: Immature Reticulocyte Fraction 14.2 % (3.0-15.9); Reticulocyte Hemoglobin Conten 28.5 pg (28.2-35.7); Reticulocyte Percent 2.01 % (0.7-4.3); Reticulocytes Absolute 0.07 B/L (32.2-175.7)
== END 2020-06-27 09:00 | disposition home or self-care (01) ==
PROVIDERS: PCP Family Medicine; Visit Provider Internal Medicine Hematology & Oncology
DX: D59.9 Acquired hemolytic anemia, unspecified (principal)
CPT/HCPCS: 36415; 83615; 85025; 85046; 86880

== ENCOUNTER 2020-07-12 13:54 | Outpatient (CLI) | payer MEDICARE, OTHER, SELFPAY ==
[2020-07-12 15:32] LABS: Potassium 4.7 mmol/L (3.4-5.0)
[2020-07-12 15:33] LABS: Anion Gap 12 mmol/L (8-16); Blood Urea Nitrogen 12 mg/dL (9-20); Calcium 9.5 mg/dL (8.4-10.2); Carbon Dioxide 25 mmol/L (22-30); Chloride 101 mmol/L (98-107); Estimated Glomerular Filt Rate > 60; Glucose 95 mg/dL (75-110); Lactate Dehydrogenase 506 U/L (313-618); Sodium 138 mmol/L (137-145)
== END 2020-07-12 13:55 | disposition home or self-care (01) ==
PROVIDERS: PCP Family Medicine; Visit Provider Internal Medicine Hematology & Oncology
DX: D59.10 Autoimmune hemolytic anemia, unspecified (principal)
CPT/HCPCS: 36415; 80048; 83615; 86880

== ENCOUNTER 2020-07-13 14:34 | Outpatient (CLI) | payer MEDICARE, OTHER, SELFPAY ==
[2020-07-13 14:50] LABS: Hematocrit 30.3 % (42.0-52.0); Hemoglobin 9.3 g/dL (14.0-18.0); Mean Corpuscular HGB Conc 30.7 g/dl (32-36); Mean Corpuscular Hemoglobin 27.2 pg (26-34); Mean Corpuscular Volume 88.6 fl (80-100); Platelet Count Result 174 k/mm3 (150-375); Red Blood Count 3.42 M/mm3 (4.6-6.20); Red Cell Distribution Width 14.8 % (11.5-14.5)
== END 2020-07-13 14:35 | disposition home or self-care (01) ==
PROVIDERS: PCP Family Medicine; Visit Provider Internal Medicine Hematology & Oncology
DX: D59.9 Acquired hemolytic anemia, unspecified (principal)
CPT/HCPCS: 36415; 85027

== ENCOUNTER 2020-08-24 14:08 | Outpatient (CLI) | payer MEDICARE, OTHER, SELFPAY ==
[2020-08-24 14:27] LABS: Basophils Absolute Auto 0.1 K/mm3 (0.0-0.1); Basophils Percent Auto 0.9 % (0.2-1.2); Eosinophils Absolute Auto 0.2 K/mm3 (0-0.3); Eosinophils Percent Auto 4.3 % (0-4.4); Hematocrit 30.7 % (42.0-52.0); Hemoglobin 9.5 g/dL (14.0-18.0); Immature Granulocyte Absolute 0.01 K/mm3 (0.00-0.031); Immature Granulocyte Percent A 0.2 % (0-0.5); Lymphocytes Absolute Auto 1.52 K/mm3 (0.9-3.2); Lymphocytes Percent Auto 27.3 % (18.3-44.2); Mean Corpuscular HGB Conc 30.9 g/dl (32-36); Mean Corpuscular Hemoglobin 26.2 pg (26-34); Mean Corpuscular Volume 84.8 fl (80-100); Mean Platelet Volume 11.5 fl (7.4-10.4); Monocytes Absolute Auto 0.6 K/mm3 (0.1-0.6); Monocytes Percent Auto 10.8 % (2.6-8.5); Neutrophils Absolute Auto 3.2 K/mm3 (1.3-6.7); Neutrophils Percent Auto 56.5 % (45.5-73.1); Platelet Count Result 316 k/mm3 (150-375); Red Blood Count 3.62 M/mm3 (4.6-6.20); Red Cell Distribution Width 15.3 % (11.5-14.5); White Blood Count 5.6 K/mm3 (4.5-10.0)
[2020-08-24 14:30] LABS: Blood Urea Nitrogen 17 mg/dL (8-26); Carbon Dioxide 24 mmol/L (22-30); Chloride 104 mmol/L (98-109); Estimated Glomerular Filt Rate 60; Glucose 135 mg/dL (70-105); Potassium 4.2 mmol/L (3.5-4.9); Sodium 140 mmol/L (138-146)
[2020-08-24 17:50] LABS: Lactate Dehydrogenase 614 U/L (313-618)
== END 2020-08-24 14:09 | disposition home or self-care (01) ==
LOC: ANHLAB 14:10
PROVIDERS: PCP Family Medicine; Visit Provider Internal Medicine Hematology & Oncology
DX: D59.10 Autoimmune hemolytic anemia, unspecified (principal)
CPT/HCPCS: 36415; 80048; 83615; 85025

== ENCOUNTER 2020-09-23 12:07 | Outpatient (CLI) | payer MEDICARE, OTHER, SELFPAY ==
[2020-09-23 12:38] LABS: Basophils Percent Auto 0.5 % (0.2-1.2); Eosinophils Absolute Auto 0.1 K/mm3 (0-0.3); Hematocrit 38.3 % (42.0-52.0); Immature Granulocyte Absolute 0.02 K/mm3 (0.00-0.031); Immature Granulocyte Percent A 0.3 % (0-0.5); Lymphocytes Absolute Auto 1.05 K/mm3 (0.9-3.2); Lymphocytes Percent Auto 17.3 % (18.3-44.2); Mean Corpuscular HGB Conc 31.3 g/dl (32-36); Mean Corpuscular Hemoglobin 26.3 pg (26-34); Mean Platelet Volume 11.7 fl (7.4-10.4); Monocytes Absolute Auto 0.8 K/mm3 (0.1-0.6); Monocytes Percent Auto 13.4 % (2.6-8.5); Neutrophils Percent Auto 66.5 % (45.5-73.1); Platelet Count Result 216 k/mm3 (150-375); Red Blood Count 4.56 M/mm3 (4.6-6.20); Red Cell Distribution Width 16.9 % (11.5-14.5); White Blood Count 6.1 K/mm3 (4.5-10.0)
[2020-09-23 12:41] LABS: Alanine Aminotransferase 230 U/L (4-50); Albumin Level 3.3 g/dL (3.5-5.1); Alkaline Phosphatase 349 U/L (38-126); Anion Gap 7 mmol/L (8-16); Aspartate Amino Transferase 140 U/L (17-59); Bilirubin,Total 0.9 mg/dL (0.2-1.3); Blood Urea Nitrogen 38 mg/dL (9-20); Calcium 8.7 mg/dL (8.4-10.2); Carbon Dioxide 27 mmol/L (22-30); Chloride 106 mmol/L (98-107); Estimated Glomerular Filt Rate > 60; Glucose 121 mg/dL (75-110); Potassium 3.9 mmol/L (3.4-5.0); Sodium 140 mmol/L (137-145)
[2020-09-23 12:50] LABS: NT Pro B Type Natriuretic Pept 20300 PG/ML (5-100)
[2020-09-23 12:53] LABS: Add Urine Microscopic? YES; Appearance Urine Clear (Clear); Bilirubin Urine Negative (Negative); Blood Urine 1+ (Negative); Color Urine Yellow (Yellow); Glucose Urine UA Negative (Negative); Ketones Urine Negative (Negative); Leukocyte Esterase Ur Negative LEU/UL (NEGATIVE); Mucus Urine Rare /lpf; Nitrate Urine Negative (Negative); Protein Urine 2+ mg/dL (Negative); RBC Urine 0-2 /hpf (0-2); Specific Grav Ur 1.021 (1.001-1.035); Urobilinogen Urine Negative mg/dL (<2.0); WBC Urine 0-3 /hpf (0-3)
== END 2020-09-23 12:08 | disposition home or self-care (01) ==
LOC: ANHLAB 12:07
PROVIDERS: PCP Family Medicine; Visit Provider Nurse Practitioner Family
DX: R60.0 Localized edema (principal); I11.0 Hypertensive heart disease with heart failure; R05 Cough; N39.0 Urinary tract infection, site not specified; I50.9 Heart failure, unspecified; T58.91XA Toxic effect of carbon monoxide from unspecified source, accidental (unintentional), initial encounter
CPT/HCPCS: 36415; 80053; 81001; 83880; 85025; 87086

== ENCOUNTER 2020-09-26 13:53 | Inpatient (IN) | payer MEDICARE, OTHER, SELFPAY ==
[2020-09-26] VITALS (14 sets, daily range): BP systolic 124–161; BP diastolic 73–97; PULSE 93–114; RESP 16–25; TEMP 36.2–36.4; O2SAT 93–100; BMI 24.5
--- NOTE | ~2020-09-26 | XR_ITS ---
EXAMINATION: XR chest 1V EXAM DATE: 09/26/2020 16:15 INDICATION: Shortness of breath. Lower extremity swelling. History COPD. TECHNIQUE: Portable AP frontal chest x-ray was obtained. Comparison is made to prior examination from 06/22/2020. FINDINGS: Development of cardiomegaly and pulmonary vascular congestion. Development of small to mode rate right pleural effusion and small left pleural effusion. There is indistinct reticulation with a bibasal predominance which may indicate pulmonary edema. Pneumonia not excludable. Sternotomy wires a re present without findings to suggest sternal dehiscence. There are mild bony degenerative changes. IMPRESSION: 1. Findings consistent with CHF exacerbation. Basilar pneumonia not excludable. Reviewed, dictated and finalized at location B. TING PRESS OPERATOR IMPRESSION: 1. Findings consistent with CHF exacerbation. Basilar pneumonia not excludable .
--- NOTE | ~2020-09-26 | NM_ITS ---
EXAMINATION: NM elida stress w perfusion DATE: 09/28/2020 11:03 INDICATION: Coronary atherosclerosis. TECHNIQUE: Rest images were obtained following intravenous administration of 10 mCi Tc99m tetrofosmin (Myoview). The patient was infused intravenously with Lexiscan (regadenoson). Then, 31 mCi Tc99m tet rofosmin (Myoview) was administered intravenously, and stress images were obtained. Data was reconstr ucted into short axis and horizontal and vertical long axis SPECT images. Gated SPECT images were als o obtained. COMPARISON: None. FINDINGS: There is no definite reversible or fixed perfusion abnormality to suggest ischemia or infar ction. There is global left ventricular hypokinesis. Left ventricular ejection fraction measures 23 %. IMPRESSION: 1. No definite ischemia or infarct. 2. Global left ventricular hypokinesis with ejection fraction measuring 23%. Reviewed, dictated and finalized at location A. LE MANAGER
--- NOTE | ~2020-09-26 | US_ITS ---
EXAMINATION: US right upper quadrant EXAM DATE: 09/26/2020 16:14 INDICATION: nausea vomiting, abnormal liver function tests. TECHNIQUE: Multiple grayscale and Doppler images of the abdomen right upper quadrant were obtained (b y a technologist who performed the scan) and subsequently reviewed. There is no prior study for rika orantes. FINDINGS: The pancreatic head and body are normal in appearance. The pancreatic tail is not visualized. The l iver has normal echogenicity and contour. There are no focal liver lesions identified. There is no evidence of intrahepatic biliary duct dilation. Portal venous flow was seen in the hepatopedal, nor mal direction and has normal Doppler waveform. No right-sided hydronephrosis. Common bile duct measures 3 mm, which is normal. There is no cholelithiasis. Gallbladder wall appear s borderline increased in thickness for gallbladder in moderate distention, nonspecific finding. No p ericholecystic fluid. Technologist performing exam reports patient did not demonstrate sonographic Mu rphy's sign. Please note that this sign is less reliable in patients who have received pain medicati on. IMPRESSION: Borderline gallbladder wall thickening, nonspecific finding. Reviewed, dictated and finalized at location B. CARVER
--- NOTE | ~2020-09-26 | XR_ITS ---
EXAMINATION: XR chest 1V portable INDICATION: Shortness of breath, congestive heart failure TECHNIQUE: Portable AP chest at 1644 hours COMPARISON: 09/28/2020 FINDINGS: There is stable cardiomegaly. A right pleural effusion is now moderate in size. There is no pneumothorax. A mild diffuse interstitial pattern persists without significant change. Median sterno eli wires and mediastinal surgical clips are seen, likely from prior coronary artery bypass grafting . An old left clavicle fracture is noted. Airspace opacities of the mid and lower lung zones are stab le. IMPRESSION: 1. Cardiomegaly with stable pulmonary edema. 2. Moderate size right pleural effusion with increase in size. 2. Stable airspace opacities of the mid and lower lung zones, consistent with atelectasis versus pneu monia. Reviewed, dictated and finalized at location A. ESS DESIGN ENGINEER IMPRESSION: 1. Cardiomegaly with stable pulmonary edema. 2. Moderate size right pleural effusion with increase in size. 2. Stable airspace opacities of the mid and lower lung zones, consistent with a telectasis versus pneumonia.
--- NOTE | ~2020-09-26 | CT_ITS ---
EXAMINATION: CT brain wo con INDICATION: Blurred vision and lethargy COMPARISON: None TECHNIQUE: Standard unenhanced head CT. The dose-length product (DLP) was 605.33 mGy-cm. The mA was a djusted according to patient size. Iterative reconstruction technique was employed. FINDINGS: There is no acute intraparenchymal hemorrhage. No evidence of mass lesion. No evidence of a cute infarction. There is mild periventricular and subcortical hypodensity probably related to small vessel ischemic disease. There is mild prominence of the sulci and ventricles related to cerebral atr ophy. Intracranial calcified cerebral atherosclerosis is noted. There are no extra-axial collections. There is no mass effect or midline shift. The orbits and soft tissues are unremarkable. There is mi ld mucosal thickening of the paranasal sinuses. IMPRESSION: 1. No acute intracranial abnormality. 2. Age related findings. Reviewed, dictated and finalized at location A. E FLEX DEVELOPER
--- NOTE | ~2020-09-26 | XR_ITS ---
EXAMINATION: XR chest 1V portable DATE: 10/11/2020 14:22 INDICATION: Shortness of breath. TECHNIQUE: A single frontal view of the chest was obtained on 2 radiographs. COMPARISON: Chest single view 10/07/2020, chest CT 10/20/2019 FINDINGS: There is a small right pleural effusion. There are airspace opacities in the mid and lower lung zones. No pneumothorax. Cardiomegaly is noted. Median sternotomy wires and mediastinal surgical clips are seen, likely from prior coronary artery bypass grafting. IMPRESSION: 1. Improved small right pleural effusion. 2. Improved airspace opacities in the mid and lower lung zones, consistent with atelectasis versus pn eumonia. 3. Cardiomegaly. Reviewed, dictated and finalized at location A. ENTARY SCHOOL BAND DIRECTOR IMPRESSION: 1. Improved small right pleural effusion. 2. Improved airspace opacities in the mid and lower lung zones, consistent with atelectasis versus pneumonia. 3. Cardiomegaly.
--- NOTE | ~2020-09-26 | XR_ITS ---
EXAMINATION: XR chest 1V portable INDICATION: Shortness of breath TECHNIQUE: Portable AP chest at 0144 hours COMPARISON: 09/26/2020 FINDINGS: There is stable cardiomegaly. A small right pleural effusion persists with slight increase in size. There is no pneumothorax. A mild diffuse interstitial pattern is present. There are patchy a irspace opacities of the mid and lower lung zones. Median sternotomy wires and mediastinal surgical c lips are seen, likely from prior coronary artery bypass grafting. IMPRESSION: 1. Cardiomegaly with stable mild pulmonary edema. 2. Small right pleural effusion with slight increase in size. 3. Airspace opacities of the mid and lower lung zones, consistent with atelectasis versus pneumonia. Reviewed, dictated and finalized at location A. STEAMER IMPRESSION: 1. Cardiomegaly with stable mild pulmonary edema. 2. Small right pleural effusion with slight increase in size. 3. Airspace opacities of the mid and lower lung zones, consistent with atelecta sis versus pneumonia.
--- NOTE | ~2020-09-26 | US_ITS ---
US renal BI 10/01/2020 14:58 Procedure: Realtime transabdominal ultrasound of the kidneys and bladder. Indication: Elevated creatinine Comparison: 09/26/2020 Findings: Renal echotexture is normal bilaterally without hydronephrosis, contour deforming mass or r enal calculus. The right kidney measures 8.9 cm and left kidney measures 9.7 cm. Bladder within norm al limits. Ascites is present in the right upper abdomen. Impression: 1: Unremarkable renal ultrasound. No stones, masses or hydronephrosis. 2: Small amount of ascites. Reviewed, dictated and finalized at location A. RING TRAIN OPERATOR Impression: 1: Unremarkable renal ultrasound. No stones, masses or hydronephrosis. 2: Small amount of ascites.
[2020-09-26 14:24] LABS: Basophils Percent Auto 0.5 % (0.2-1.2); Eosinophils Absolute Auto 0.2 K/mm3 (0-0.3); Immature Granulocyte Absolute 0.02 K/mm3 (0.00-0.031); Immature Granulocyte Percent A 0.3 % (0-0.5); Lymphocytes Absolute Auto 1.27 K/mm3 (0.9-3.2); Lymphocytes Percent Auto 19.8 % (18.3-44.2); Mean Corpuscular HGB Conc 31.7 g/dl (32-36); Mean Corpuscular Hemoglobin 26.3 pg (26-34); Mean Corpuscular Volume 82.8 fl (80-100); Mean Platelet Volume 11.8 fl (7.4-10.4); Monocytes Absolute Auto 0.9 K/mm3 (0.1-0.6); Monocytes Percent Auto 13.6 % (2.6-8.5); Neutrophils Percent Auto 62.8 % (45.5-73.1); Platelet Count Result 262 k/mm3 (150-375); Red Blood Count 4.95 M/mm3 (4.6-6.20); Red Cell Distribution Width 16.9 % (11.5-14.5); White Blood Count 6.4 K/mm3 (4.5-10.0)
[2020-09-26 14:29] LABS: Alanine Aminotransferase 162 U/L (4-50); Albumin Level 3.3 g/dL (3.5-5.1); Alkaline Phosphatase 345 U/L (38-126); Anion Gap 9 mmol/L (8-16); Aspartate Amino Transferase 96 U/L (17-59); Bilirubin,Total 1.1 mg/dL (0.2-1.3); Blood Urea Nitrogen 26 mg/dL (9-20); Calcium 8.8 mg/dL (8.4-10.2); Carbon Dioxide 28 mmol/L (22-30); Chloride 101 mmol/L (98-107); Estimated CRCL calculation 41 ml/min; Estimated Glomerular Filt Rate > 60; Glucose 107 mg/dL (75-110); Potassium 3.8 mmol/L (3.4-5.0); Sodium 138 mmol/L (137-145)
[2020-09-26 14:38] LABS: NT Pro B Type Natriuretic Pept 17300 PG/ML (5-100)
--- NOTE | 2020-09-26 15:47 | ECG_ITS ---
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
--- NOTE | 2020-09-26 15:52 | ED.GENADULT ---
HPI - General Adult General Chief complaint: Recheck/Abnormal Lab/Rx Stated complaint: vomiting, abdnormal labs Time Seen by Provider: 09/26/20 15:17 Source: patient History of Present Illness HPI narrative: Patient is a 75 y/o male complaining of mild SOB for about 1 month. He states that exertion makes his SOB worse. He is also unable laying down because his gets SOB. In addition, he has been having leg swelling for last 2 weeks. He has some intermittent nausea, vomiting and abdominal pain. He had labs done 3 days ago and told by PCP today to come to ED for evaluation because his LFT's are abnormal. Related Data Home Medications Medication Instructions Recorded Confirmed Centrum Silver 1 tab-cap PO DAILY 08/29/19 09/07/20 aspirin 81 mg PO DAILY 08/29/19 09/07/20 cholecalciferol (vitamin D3) 50 2,000 unit PO DAILY 09/15/19 09/07/20 mcg (2,000 unit) tablet Allergies Allergy/AdvReac Type Severity Reaction Status Date / Time No Known Allergies Allergy Unknown Verified 09/23/20 11:02 Review of Systems Constitutional: Constitutional: Denies chills, Denies fever(s), Denies headache(s) and Denies weakness Eyes: Eyes: Denies blurry vision ENT: Denies headache(s) and Denies neck pain Cardiovascular: Cardiovascular: Denies chest pain and Reports dyspnea Respiratory: Respiratory: Reports cough and Reports dyspnea Gastrointestinal: Gastrointestinal: Reports abdominal pain, Denies diarrhea, Reports nausea and Reports vomiting Genitourinary: Genitourinary: Denies hematuria and Denies dysuria Musculoskeletal: Musculoskeletal: Denies back pain and Denies neck pain Neurologic: Denies headache(s) and Denies weakness [facility] Past Medical History Medical History Acute exacerbation of chronic obstructive pulmonary disease Anemia of chronic disease Arthritis Autoimmune hemolytic anemia COPD (chronic obstructive pulmonary disease) Follows with Dr. Figueredo Coronary artery disease Cough Diabetes mellitus Erosive esophagitis GERD (gastroesophageal reflux disease) GI bleed HLD (hyperlipidemia) HTN (hypertension) Myocardial infarction Nocturnal hypoxemia On home oxygen therapy 1 liters when asleep. Pneumonia Wheezing Surgical History Surgical History H/O prostate biopsy Follows with Dr. Lombardi History of appendectomy age 10 Hx of CABG Hx of cardiac cath Hx of shoulder surgery Left S/P CABG (coronary artery bypass graft) 2007 Status post tonsillectomy Family History Family History Sibling Diabetes mellitus Family history of malignant neoplasm Other Family history of cardiovascular disease Hypertension Social History Social History Social History: The patient lives with his Mary Jane who was designated as his durable power trademark attorney for healthcare. Patient remains a full code. No alcohol or drug use. Patient smoked a pack per day x 29yrs and quit smoking in 1999. He has 2 children. One boy and 1 girl. 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 Smoking packs per day: 1 Smoking cigarettes per day: 20.0 Years smoked: 29 Smoking pack-years: 29.00 Smoking status: Former smoker Tobacco type: cigarettes Second hand tobacco smoke exposure: No Smoking end date: 10/07/99 Alcohol intake: never Substance use: never Substance use type: does not use Gender identity (if verbalized by the patient): Male Spiritual care concerns: No Agree to blood products: Yes Exam Const: General: no acute distress and well developed Orientation/consciousness: oriented to person, oriented to place, oriented to time and patient oriented x3 HENMT: Head: normocephalic Ears: external ears normal General nose exam: Normal external nose presen
[2020-09-26] MEDS: FUROSEMIDE INJ 40 MG/4 ML VIAL IV PUSH (16:16)
[2020-09-26 16:21] LABS: INR 1.3; Prothrombin Time 16.4 Seconds (11.1-14.7)
[2020-09-26 16:22] LABS: Partial Thromboplastin Time 29.1 SECONDS (22.3-36.8)
[2020-09-26 18:09] LABS: Hepatitis B Surface Antigen Negative (Negative)
[2020-09-26 18:15] LABS: HAV RESULT Negative (Negative); Hepatitis B Core IgM Result Negative (Negative)
[2020-09-26 18:27] LABS: Hepatitis C Virus Antibody Negative (Negative)
--- NOTE | 2020-09-26 19:06 | PC.NURSE ---
Per powerhouse oiler IMU bed has been created but is not clean yet; will not provide room # yet)
[2020-09-26 19:25] LABS: Troponin I 0.098 ng/mL (0.000-0.034)
--- NOTE | 2020-09-26 21:14 | PM.IMHP ---
H&P: HPI History of Present Illness Date/Time: 09/26/20 21:14 Chief Complaint: shortness of breath w/ peripheral swelling++ Narrative: This is a 75 year old Male with known history of COPD, diabetes mellitus, hypertension, and coronary artery disease status post bypass surgery who presented to the hospital with increased shortness of breath and peripheral swelling over the past week. The patient relates that he has had worsening shortness of breath over the past 3 weeks as he recently had a problem with his water heater at the beginning of the month which led to carbon monoxide poisoning in the house. He has seen his primary care doctor multiple times for this and has also been seen in our emergency room for same. He relates though over the past week he has had increased peripheral swelling as well as worsening shortness of breath. Associated symptoms include a chronic productive cough, wheezing, and weakness. The patient's shortness of breath is worse with any exertional activities. He denies any known diagnosis of congestive heart failure. He was evaluated emergency room today and routine labs that [place] [address] and an elevated troponin of 0.098. Chest x-ray demonstrated cardiomegaly and increased pulmonary congestion. The patient was treated with IV Lasix in the emergency room and was swabbed for COVID-19. On further questioning the patient also denies any fevers, chills, palpitations, chest pain, abdominal pain, dysuria, hematuria, diarrhea, or rectal bleeding. He states he has been drinking plenty of fluids. The patient is currently on room air and in no acute distress. He was admitted to hospital for further care. Review of Systems Review of Systems: All systems reviewed & are unremarkable except as noted in HPI and below PMFSH Past Medical History Medical History Acute exacerbation of chronic obstructive pulmonary disease Anemia of chronic disease Arthritis Autoimmune hemolytic anemia COPD (chronic obstructive pulmonary disease) Follows with Dr. Figueredo Coronary artery disease Cough Diabetes mellitus Erosive esophagitis GERD (gastroesophageal reflux disease) GI bleed HLD (hyperlipidemia) HTN (hypertension) Myocardial infarction Nocturnal hypoxemia On home oxygen therapy 1 liters when asleep. Pneumonia Wheezing Surgical History Surgical History H/O prostate biopsy Follows with Dr. Lombardi History of appendectomy age 10 Hx of CABG Hx of cardiac cath Hx of shoulder surgery Left S/P CABG (coronary artery bypass graft) 2007 Status post tonsillectomy Family History Family History Sibling Diabetes mellitus Family history of malignant neoplasm Other Family history of cardiovascular disease Hypertension Social History Social History Social History: The patient lives with his Mary Jane who was designated as his durable power deputy attorney general for healthcare. Patient remains a full code. No alcohol or drug use. Patient smoked a pack per day x 29yrs and quit smoking in 1999. He has 2 children. One boy and 1 girl. 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 Smoking packs per day: 1 Smoking cigarettes per day: 20.0 Years smoked: 29 Smoking pack-years: 29.00 Smoking status: Former smoker Tobacco type: cigarettes Second hand tobacco smoke exposure: No Smoking end date: 10/07/99 Alcohol intake: never Substance use: never Substance use type: does not use Gender identity (if verbalized by the patient): Male Spiritual care concerns: No Agree to blood products: Yes Meds Home Medications and Allergies Home Medications Medication Instructions Recorded Confirmed Type
[2020-09-26 22:22] LABS: Troponin I 0.098 ng/mL (0.000-0.034)
--- NOTE | 2020-09-26 22:25 | ADMGEN ---
This patient, Camron Cowart Sr., was admitted to IMU Room 210-01. Patient/family oriented to hospital policies and general routines including ID bracelet, bed and alarms, visiting hours, pain management, procedures, bathroom and other care routines, personal items, smoking policy, room service/diet, and visiting hours. Information on how to activate the Rapid Response Team has been discussed. Patient/Family are encouraged to report perceived risks to care and to ask questions if they do not understand what they are told or what they should do.
[2020-09-27] VITALS (17 sets, daily range): BP systolic 68–133; BP diastolic 46–73; PULSE 66–102; RESP 12–20; TEMP 36.2–36.6; O2SAT 91–100
[2020-09-27] MEDS: LEVALBUTEROL HFA (*SP) 15 GM INHALER 2 PUFF INHALATION ×4 (02:30→20:47)
[2020-09-27 05:35] LABS: Basophils Percent Auto 0.7 % (0.2-1.2); Eosinophils Absolute Auto 0.2 K/mm3 (0-0.3); Eosinophils Percent Auto 3.3 % (0-4.4); Hematocrit 37.3 % (42.0-52.0); Hemoglobin 11.9 g/dL (14.0-18.0); Immature Granulocyte Absolute 0.02 K/mm3 (0.00-0.031); Immature Granulocyte Percent A 0.3 % (0-0.5); Lymphocytes Absolute Auto 1.16 K/mm3 (0.9-3.2); Lymphocytes Percent Auto 19.4 % (18.3-44.2); Mean Corpuscular HGB Conc 31.9 g/dl (32-36); Mean Corpuscular Hemoglobin 25.8 pg (26-34); Mean Corpuscular Volume 80.9 fl (80-100); Mean Platelet Volume 12.5 fl (7.4-10.4); Monocytes Absolute Auto 0.8 K/mm3 (0.1-0.6); Monocytes Percent Auto 12.5 % (2.6-8.5); Neutrophils Absolute Auto 3.8 K/mm3 (1.3-6.7); Neutrophils Percent Auto 63.8 % (45.5-73.1); Platelet Count Result 259 k/mm3 (150-375); Red Blood Count 4.61 M/mm3 (4.6-6.20); Red Cell Distribution Width 16.5 % (11.5-14.5)
[2020-09-27 05:50] LABS: Alanine Aminotransferase 134 U/L (4-50); Albumin Level 3.1 g/dL (3.5-5.1); Alkaline Phosphatase 309 U/L (38-126); Anion Gap 8 mmol/L (8-16); Aspartate Amino Transferase 68 U/L (17-59); Bilirubin,Total 1.1 mg/dL (0.2-1.3); Blood Urea Nitrogen 27 mg/dL (9-20); Calcium 8.5 mg/dL (8.4-10.2); Carbon Dioxide 28 mmol/L (22-30); Chloride 103 mmol/L (98-107); Estimated CRCL calculation 45 ml/min; Estimated Glomerular Filt Rate > 60; Glucose 91 mg/dL (75-110); Potassium 3.8 mmol/L (3.4-5.0); Sodium 139 mmol/L (137-145)
[2020-09-27 08:06] LABS: Glucose Point of Care 90 (65-105)
[2020-09-27] MEDS: FUROSEMIDE INJ 40 MG/4 ML VIAL IV PUSH (08:45)
[2020-09-27] MEDS: ENOXAPARIN 40 MG/0.4 ML SYRINGE SUB-Q (08:45)
--- NOTE | 2020-09-27 11:29 | PM.IMPN ---
Progress Note: A&P Assessment and Plan (1) CHF (congestive heart failure): Qualifiers: Heart failure chronicity: acute Heart failure type: unspecified Qualified Code(s): I50.9 - Heart failure, unspecified Code(s): I50.9 - Heart failure, unspecified Status: Acute Assessment and Plan: Pateint with SOB and increasing pedal edema. CXR showing pulmonary edema. Echo from Oct 2018 showing EF 60% and grade I diastolic dysfunction. Clinically feels better. Continue IV Lasix therapy. Monitor urine output. Repeat Echo pending. (2) Elevated troponin: Code(s): R77.8 - Other specified abnormalities of plasma proteins Status: Acute Assessment and Plan: Troponin elevated at 0.09 and stable felt secondary to heart failure. No complaints of chest pain but patient later told the cold type composing machine operator that he has been having CP with mild exertion for the past few weeks. EKG showing no acute findings and appears similar to old EKGs. CXR consistent with pulm edema. Continue telemetry. Cardiology has ordered stress test in the morning. (3) Transaminitis: Code(s): R74.01 - Elevation of levels of liver transaminase levels Status: Acute Assessment and Plan: Cholestatic pattern of transaminitis. Right upper quadrant ultrasound was performed in the ER and demonstrated mildly distended gallbladder. LFTs trending down since first checked in the clinic on 09/23/20. Passive congestion? Hepatitis panel negative. Monitor LFTs. Lipitor on hold. (4) HTN (hypertension): Qualifiers: Hypertension type: essential hypertension Qualified Code(s): I10 - Essential (primary) hypertension Code(s): I10 - Essential (primary) hypertension Status: Chronic Assessment and Plan: Patient's blood pressure was reviewed on 09/27 Blood pressure remains well controlled. Will resume Diovan and Metoprolol. P.r.n. IV hydralazine has been ordered with parameters. He is no longer on Verapamil (5) Type 2 diabetes mellitus without complication, without long-term current use of insulin: Code(s): E11.9 - Type 2 diabetes mellitus without complications Status: Chronic Assessment and Plan: A1c 7.6 in May. Glucose reviewed on 09/27. Glucose well controlled. Continue Accu-Cheks covering with sliding scale insulin coverage. Hypoglycemia protocol available as needed. (6) COPD (chronic obstructive pulmonary disease): Qualifiers: COPD type: COPD with acute exacerbation Qualified Code(s): J44.1 - Chronic obstructive pulmonary disease with (acute) exacerbation Code(s): J44.9 - Chronic obstructive pulmonary disease, unspecified Status: Chronic Assessment and Plan: No wheezing. Comfortable on his 2L O2. Continue Symbicort and Xopenex. (7) Suspected 2019 novel coronavirus infection: Code(s): Z20.828 - Contact with and (suspected) exposure to other viral communicable diseases Status: Acute Assessment and Plan: COVID suspected on admission. Continue droplet isolation. COVID-19 results pending. Continue supportive care. (8) Chronic anemia: Code(s): D64.9 - Anemia, unspecified Status: Chronic Assessment and Plan: Mildly anemic on admission and currently in the 12-13 range. Likely anemia of chronic disease. No signs of acute blood loss. (9) DVT prophylaxis: Code(s): Z29.9 - Encounter for prophylactic measures, unspecified Status: Acute Assessment and Plan: Lovenox Subjective Date/time seen: 09/27/20 11:29 Interval history: Date of service 09/27/20 75yo male with HTN, CAD and DM here for CHF exacerbation. Assuming care. Chart reviewed. No CP. SOB better. No n/v/d. No recent weight changes but noticed the pedal edema develop quickly. No loss of taste or smell. Slept better last night. He wears 2 L of oxygen at home chronically. Antonia
[2020-09-27 12:16] LABS: Glucose Point of Care 118 (65-105)
[2020-09-27] MEDS: ASPIRIN 81 MG ENTERIC TABLET PO (12:41)
[2020-09-27] MEDS: LORATADINE 10 MG TABLET PO (12:41)
[2020-09-27] MEDS: VERAPAMIL HCL 180 MG TABLET ER 360 MG PO (12:41)
[2020-09-27] MEDS: FOLIC ACID 1 MG TABLET PO (12:41)
[2020-09-27] MEDS: METOPROLOL SUCCINATE EXT REL 50 MG TABCR PO (12:41)
[2020-09-27] MEDS: CHOLECALCIFEROL 1,000 UNITS TABLET 2000 UNITS PO (12:41)
[2020-09-27] MEDS: VALSARTAN 40 MG TABLET PO (12:42)
--- NOTE | 2020-09-27 14:41 | PM.CNCAR ---
Assessment and Plan Assessment and plan (1) Cardiomyopathy: Code(s): I42.9 - Cardiomyopathy, unspecified Status: Acute Assessment and Plan: EF 45% by echo March 2020. Ischemic cardiomyopathy with acute on chronic decompensated systolic and diastolic heart failure. Continue Toprol XL, ARB, diuresis. Accurate input and output, daily weight. (2) CHF (congestive heart failure): Qualifiers: Heart failure type: unspecified Heart failure chronicity: acute Qualified Code(s): I50.9 - Heart failure, unspecified Code(s): I50.9 - Heart failure, unspecified Status: Acute Assessment and Plan: As above. CHF counseling. Patient states he is not taking verapamil, either way would not advise given LV dysfunction and so discontinuation would be recommended (3) Elevated troponin: Code(s): R77.8 - Other specified abnormalities of plasma proteins Status: Acute Assessment and Plan: Flat curve, most likely type 2 infarct not consistent with acute coronary syndrome and/or plaque rupture, however, given known history of CAD status post remote CABG and recent complaints of ongoing exertional chest pain despite improvement in decompensated heart failure concerning for demand ischemia. If rules out for COVID-19 inferior after midnight with Lexiscan nuclear stress test in a.m.. (4) Coronary artery disease involving [place] coronary artery of [place] heart: Code(s): I25.10 - Atherosclerotic heart disease of [place] coronary artery without angina pectoris Status: Acute Assessment and Plan: Aggressive medical therapy. Lexiscan in a.m. as above. Continue aspirin, statin, beta-cecily, ARB. (5) Hx of CABG: Code(s): Z95.1 - Presence of aortocoronary bypass graft Status: Chronic Assessment and Plan: As above. Three-vessel 2005. (6) COPD (chronic obstructive pulmonary disease): Qualifiers: COPD type: COPD with acute exacerbation Qualified Code(s): J44.1 - Chronic obstructive pulmonary disease with (acute) exacerbation Code(s): J44.9 - Chronic obstructive pulmonary disease, unspecified Status: Chronic Assessment and Plan: Per primary service. (7) Suspected 2019 novel coronavirus infection: Code(s): Z20.828 - Contact with and (suspected) exposure to other viral communicable diseases Status: Acute Assessment and Plan: In isolation currently, COVID pending. History of Present Illness History of Present Illness Consult date/time: Date of service: 09/27/20 14:41 Cardiology consultation the request of Dr. Denney for our opinion regarding CHF and elevated troponin. Requesting physician: Yefri Denney MD Consult reason: congestive heart failure and Other (Elevated troponin) Reason For Visit: chf Narrative: Patient is a very pleasant 75-year-old male with a past medical history significant for 3 vessel CABG NUNEZ to LAD, SVG to OM, SVG to right PDA 01/24/2006 at [facility], chronic right bundle-branch block, hypertension, diabetes mellitus, COPD with chronic respiratory failure on home O2 who presents emergency department progressive exertional dyspnea, lower extremity edema and exertional chest pain. Patient describes the chest pain as a ?pain? unable to further clarify further. He denies sharp, tall or pressure-like quality or radiation. Symptoms resolved a few minutes with rest. Exertional chest pain is new for him. Patient had a BNP of greater than 17,000 presentation with a troponin of 0.098 which has been flat on serial testing. Patient feels much better since admission. Patient admitted to progressive shortness of breath at the preceding 3 weeks attributed much of this initially to gas leak in his home which has been remedied. He has seen his PCP but notes fairly recently prior to admission he developed significant lower extremity edema which he states is new as well. States he was unable to
[2020-09-27] MEDS: FLUTICASONE PROPIONATE 0.05% NA SPR 16 GM BTL (*BKC) 1 SPRAY NASAL (16:05)
[2020-09-27 16:19] LABS: Glucose Point of Care 120 (65-105)
[2020-09-27 18:19] LABS: SARS-CoV-2 RNA PCR Negative
[2020-09-27 20:44] LABS: Glucose Point of Care 148 (65-105)
[2020-09-27] MEDS: FAMOTIDINE 20 MG TABLET PO (20:45)
[2020-09-27] MEDS: ALBUTEROL SULFATE (*SP) AEROSOL 1 PUFF INHALATION (20:45)
[2020-09-27] MEDS: ONDANSETRON INJ 4 MG/2 ML VIAL IV PUSH (22:14)
[2020-09-27] MEDS: SODIUM CHLORIDE 0.9% IV 500 ML 999 ML IV CONT (22:14)
--- NOTE | 2020-09-27 23:32 | ECG_ITS ---
Measurements Intervals [place] Rate: 69 P: SD: 0 QRS: 30 QRSD: 141 T: 151 QT: 514 QTc: 553 Interpretive Statements ATRIAL FIBRILLATION FREQUENT VENTRICULAR PREMATURE COMPLEXES CANNOT RULE OUT SEPTAL INFARCT, AGE INDETERMINATE RIGHT BUNDLE BRANCH BLOCK T WAVE ABNORMALITY IN ANTEROLATERAL LEADS- CONSIDER ISCHEMIA ABNORMAL ECG Electronically Signed On 09-28-2020 7:40:07 INFORMATION SYSTEMS SECURITY DEVELOPER by [place] D.O.
[2020-09-27] MEDS: SODIUM CHLORIDE 0.9% IV 500 ML IV CONT (23:44)
[2020-09-28] VITALS (16 sets, daily range): BP systolic 83–100; BP diastolic 44–85; PULSE 58–74; RESP 16–20; TEMP 36.1–36.6; O2SAT 91–100
--- NOTE | 2020-09-28 | EST_ITS ---
Patient Info Name: Camron Cowart Age: 75 years : 1945 Gender: Male Ht: 68 in Wt: 161 lbs BSA: 1.88 m2 Heart Rhythm: Sinus Rhythm Exam Date: 09/28/2020 8:48 AM Exam Location: [facility] Stress Patient Status: Inpatient Admit Date: 09/27/2020 Staff Ordering Physician: Kevin Pedroza MD Attending Provider: Rima Elise ANP Exercise Technologist: Leida Villareal CT Exam Type: CA stress elida w NM Study Info A regadenoson stress test was performed. Summary 1. Possible junctional rhythm competing with ectopic atrial rhythm. 2. Resting ST/T wave changes. 3. No abnormal ST/T wave changes with exercise compared to baseline. 4. Frequent PVCs noted during stress. 5. Please correlate with nuclear medicine images, reported separately. 6. No stress-induced chest pain. Protocol: Lexiscan Stress ECG Details Stage: REST Duration (min): 18 min : 49 sec HR (bpm): 64 SBP (mmHg): 97 DBP (mmHg): 58 Stage: STAGE 1 Duration (min): 0 min : 59 sec HR (bpm): 66 SBP (mmHg): 85 DBP (mmHg): 55 Stage: RECOVERY Duration (min): 1 min : 0 sec HR (bpm): 67 SBP (mmHg): 85 DBP (mmHg): 55 Stage: RECOVERY Duration (min): 2 min : 0 sec HR (bpm): 66 SBP (mmHg): 85 DBP (mmHg): 55 Stage: RECOVERY Duration (min): 3 min : 0 sec HR (bpm): 65 SBP (mmHg): 97 DBP (mmHg): 52 Stage: RECOVERY Duration (min): 4 min : 0 sec HR (bpm): 63 SBP (mmHg): 97 DBP (mmHg): 52 Stage: RECOVERY Duration (min): 4 min : 42 sec HR (bpm): 62 SBP (mmHg): 97 DBP (mmHg): 51 Rest HR: 64 bpm Peak HR: 69 bpm Rest Sys BP: 97 mmHg Peak Sys BP: 97 mmHg Max Pred HR: 143 bpm % Max Pred HR: 48 % Target HR: 122 bpm Max RPP: 6,693 bpm*mmHg Termination Reason: Completed protocol Cardiac Symptoms: None Total Time: 1 min : 0 sec Rest Engle BP: 58 mmHg Peak Engle BP: 52 mmHg Total Dose: 0.4 mg Resting ECG Possible junctional rhythm competing with ectopic atrial rhythm. Resting ST/T wave changes. Stress ECG No abnormal ST/T wave changes with exercise compared to baseline. Arrhythmias Frequent PVCs noted during stress. Report Signatures
[2020-09-28 00:54] LABS: Hemoglobin 13.7 g/dL (14.0-18.0); Mean Corpuscular HGB Conc 30.4 g/dl (32-36); Mean Corpuscular Hemoglobin 26.4 pg (26-34); Mean Corpuscular Volume 86.7 fl (80-100); Mean Platelet Volume 11.6 fl (7.4-10.4); Platelet Count Result 201 k/mm3 (150-375); Red Blood Count 5.19 M/mm3 (4.6-6.20); Red Cell Distribution Width 17.4 % (11.5-14.5); White Blood Count 7.3 K/mm3 (4.5-10.0)
[2020-09-28 01:26] LABS: Lactic Acid Reflex 5.6 mmol/L (0.7-2.1); Troponin I 0.163 ng/mL (0.000-0.034)
[2020-09-28 03:52] LABS: Reflex Lactic Acid Yes or No Add Lactic
[2020-09-28 06:04] LABS: Basophils Percent Auto 0.3 % (0.2-1.2); Eosinophils Percent Auto 0.3 % (0-4.4); Hematocrit 41.9 % (42.0-52.0); Hemoglobin 12.8 g/dL (14.0-18.0); Immature Granulocyte Absolute 0.06 K/mm3 (0.00-0.031); Immature Granulocyte Percent A 0.8 % (0-0.5); Lymphocytes Absolute Auto 1.05 K/mm3 (0.9-3.2); Lymphocytes Percent Auto 14.7 % (18.3-44.2); Mean Corpuscular HGB Conc 30.5 g/dl (32-36); Mean Corpuscular Hemoglobin 26.2 pg (26-34); Mean Corpuscular Volume 85.9 fl (80-100); Mean Platelet Volume 12.6 fl (7.4-10.4); Monocytes Absolute Auto 0.7 K/mm3 (0.1-0.6); Monocytes Percent Auto 9.9 % (2.6-8.5); Neutrophils Absolute Auto 5.3 K/mm3 (1.3-6.7); Platelet Count Result 248 k/mm3 (150-375); Red Blood Count 4.88 M/mm3 (4.6-6.20); Red Cell Distribution Width 17.1 % (11.5-14.5); White Blood Count 7.2 K/mm3 (4.5-10.0)
[2020-09-28 06:20] LABS: Lactic Acid 5.9 mmol/L (0.7-2.1)
[2020-09-28 06:26] LABS: Alanine Aminotransferase 629 U/L (4-50); Albumin Level 2.9 g/dL (3.5-5.1); Alkaline Phosphatase 301 U/L (38-126); Anion Gap 11 mmol/L (8-16); Bilirubin,Total 1.5 mg/dL (0.2-1.3); Blood Urea Nitrogen 32 mg/dL (9-20); Calcium 8.4 mg/dL (8.4-10.2); Carbon Dioxide 22 mmol/L (22-30); Chloride 105 mmol/L (98-107); Estimated CRCL calculation 26 ml/min; Estimated Glomerular Filt Rate 37; Glucose 88 mg/dL (75-110); Magnesium 2.1 mg/dL (1.6-2.3); Phosphorus 6.2 mg/dL (2.5-4.5); Potassium 4.9 mmol/L (3.4-5.0); Sodium 138 mmol/L (137-145)
[2020-09-28 07:42] LABS: Aspartate Amino Transferase 1115 U/L (17-59)
[2020-09-28 08:06] LABS: Troponin I 0.352 ng/mL (0.000-0.034)
--- NOTE | 2020-09-28 09:26 | PC.NURSE ---
Patient left the floor at 0730 for stress/ECHO.
--- NOTE | 2020-09-28 10:14 | PM.IMPN ---
Progress Note: A&P Assessment and Plan (1) Left ventricular apical thrombus: Code(s): I51.3 - Intracardiac thrombosis, not elsewhere classified Status: Acute Assessment and Plan: Echo completed and showing EF 25-30% with Grade III diastolic dysfunction. He has akinetic apex with bilobed mobile thrombus. Discussed with Cardiology. Heparin bolus given (1/2 dose since he did receive Lovenox earleir today) and drip started. Lovenox stopped. (2) Hypotension: Code(s): I95.9 - Hypotension, unspecified Status: Acute Assessment and Plan: Patient's BP was mildly elevated and he was resumed on his home meds (Toprol, Verapamil, Diovan). However, Product Development Specialist saw the patient and noted that the patient is no longer on Verapamil so this was stopped but patient did get a dose around 11am on 09/27 along with his other meds. That evening, his BP dropped to 68/46 and developed a junctional rhythm. His other anti-HTN meds were stopped and lasix held. Fluid boluses given with improvement in his BP. Follow closely. (3) JOSELO (acute kidney injury): Code(s): N17.9 - Acute kidney failure, unspecified Status: Resolved Assessment and Plan: Cr jumped to 2.1 today related to above. Monitor UOP and follow Cr closely. (4) Transaminitis: Code(s): R74.01 - Elevation of levels of liver transaminase levels Status: Acute Assessment and Plan: Cholestatic pattern of transaminitis. Right upper quadrant ultrasound was performed in the ER and demonstrated mildly distended gallbladder. Hepatitis panel negative. Lipitor on hold. LFTs were trending down since first checked in the clinic on 09/23/20 and felt related to passive congestion. LFTs now very elevated related to severe HoTN as detailed above. Monitor closely. (5) CHF (congestive heart failure): Qualifiers: Heart failure chronicity: acute Heart failure type: unspecified Qualified Code(s): I50.9 - Heart failure, unspecified Code(s): I50.9 - Heart failure, unspecified Status: Acute Assessment and Plan: Patient with SOB and increasing pedal edema. CXR showing pulmonary edema. Echo with EF 45% by echo March 2020. lexiscan showing EF 23% and Echo ordered. Feeling better. IV Lasix stopped. (6) Elevated troponin: Code(s): R77.8 - Other specified abnormalities of plasma proteins Status: Acute Assessment and Plan: Troponin elevated at 0.09 and stable felt secondary to heart failure. No complaints of chest pain but patient later told the resume writer that he has been having CP with mild exertion for the past few weeks. EKG showing no acute findings and appears similar to old EKGs. CXR consistent with pulm edema. Lexiscan stress test showing no evidence of acute ischemia but EF at 23%. (7) HTN (hypertension): Qualifiers: Hypertension type: essential hypertension Qualified Code(s): I10 - Essential (primary) hypertension Code(s): I10 - Essential (primary) hypertension Status: Chronic Assessment and Plan: Patient's blood pressure was reviewed on 09/28 Blood pressure remains soft. Anti-HTN medications on hold. (8) Type 2 diabetes mellitus without complication, without long-term current use of insulin: Code(s): E11.9 - Type 2 diabetes mellitus without complications Status: Chronic Assessment and Plan: A1c 7.6 in May. Glucose reviewed on 09/28 Glucose well controlled. Continue Accu-Cheks covering with sliding scale insulin coverage. Hypoglycemia protocol available as needed. (9) COPD (chronic obstructive pulmonary disease): Qualifiers: COPD type: COPD with acute exacerbation Qualified Code(s): J44.1 - Chronic obstructive pulmonary disease with (acute) exacerbation Code(s): J44.9 - Chronic obstructive pulmonary disease, unspecified Status: Chronic Assessment and P
--- NOTE | 2020-09-28 10:30 | PC.NURSE ---
Patient arrived back to room about 1025 from nuclear medicine.
[2020-09-28] MEDS: ENOXAPARIN 40 MG/0.4 ML SYRINGE SUB-Q (11:15)
[2020-09-28] MEDS: FAMOTIDINE 20 MG TABLET PO ×2 (11:15→20:19)
[2020-09-28] MEDS: ASPIRIN 81 MG ENTERIC TABLET PO (11:15)
--- NOTE | 2020-09-28 11:27 | PM.PNCARD ---
Progress Note: A&P Assessment and Plan (1) Cardiomyopathy: Code(s): I42.9 - Cardiomyopathy, unspecified Status: Acute Assessment and Plan: EF 45% by echo March 2020. Ischemic cardiomyopathy with acute on chronic decompensated systolic and diastolic heart failure. Profound hypotension this morning. Received IV fluids. Resting comfortably on home oxygen in the stress lab. (2) CHF (congestive heart failure): Qualifiers: Heart failure chronicity: acute Heart failure type: unspecified Qualified Code(s): I50.9 - Heart failure, unspecified Code(s): I50.9 - Heart failure, unspecified Status: Acute Assessment and Plan: As above. Echo to be done. (3) Elevated troponin: Code(s): R77.8 - Other specified abnormalities of plasma proteins Status: Acute Assessment and Plan: Flat curve, most likely type 2 infarct not consistent with acute coronary syndrome and/or plaque rupture, however, given known history of CAD status post remote CABG and recent complaints of ongoing exertional chest pain despite improvement in decompensated heart failure concerning for demand ischemia. Lexiscan pending (4) Coronary artery disease involving [place] coronary artery of [place] heart: Code(s): I25.10 - Atherosclerotic heart disease of [place] coronary artery without angina pectoris Status: Acute Assessment and Plan: Aggressive medical therapy. Lexiscan as above. Continue aspirin, statin. Blood pressure meds on hold this time. (5) Hx of CABG: Code(s): Z95.1 - Presence of aortocoronary bypass graft Status: Chronic Assessment and Plan: As above. Three-vessel 2006. (6) COPD (chronic obstructive pulmonary disease): Qualifiers: COPD type: COPD with acute exacerbation Qualified Code(s): J44.1 - Chronic obstructive pulmonary disease with (acute) exacerbation Code(s): J44.9 - Chronic obstructive pulmonary disease, unspecified Status: Chronic Assessment and Plan: Per primary service. (7) Suspected 2019 novel coronavirus infection: Code(s): Z20.828 - Contact with and (suspected) exposure to other viral communicable diseases Status: Acute Assessment and Plan: Covered screen negative Subjective Date/time seen: 09/28/20 09:05 Seen in stress lab Interval history: Follow up for: HTN, CAD and DM here for CHF exacerbation. Date of service: 09/28/2020 Subjective: Denied chest discomfort, shortness of breath, lightheadedness or palpitations. Vomited meds this morning. Did not sleep well. Review of Systems Constitutional: Constitutional: Reports fatigue Eyes: Eyes: Denies blurry vision ENT: Reports Normal hearing present Cardiovascular: Cardiovascular: Denies chest pain, Denies diaphoresis, Reports pedal edema, Reports leg edema, Denies lightheadedness, Denies palpitations and Reports dyspnea on exertion Respiratory: Respiratory: Reports cough, Denies hemoptysis, Reports dyspnea on exertion and Reports wheezing Gastrointestinal: Gastrointestinal: Denies abdominal pain, Denies melena, Reports bloating, Denies hematochezia, Reports diarrhea, Denies nausea and Reports vomiting Genitourinary: Genitourinary: Denies dysuria and Reports urinary frequency Musculoskeletal: Musculoskeletal: Denies back pain and Denies myalgias Integumentary/Breasts: Skin/Breast: Denies erythema Neurologic: Reports Normal hearing present Psychiatric: Psychiatric: Denies anxiety and Denies confusion Endocrine: Endocrine: Reports fatigue and Denies palpitations Hematologic/Lymphatic: Hematologic/Lymphatic: Denies easy bleeding and Denies easy bruising Allergic/Immunologic: Allergic/Immunologic: Reports wheezing Exam
[2020-09-28 12:37] LABS: Glucose Point of Care 114 (65-105)
--- NOTE | 2020-09-28 12:37 | ECG_ITS ---
Measurements Intervals [place] Rate: 60 P: NM: 0 QRS: -16 QRSD: 148 T: 173 QT: 607 QTc: 610 Interpretive Statements JUNCTIONAL RHYTHM VENTRICULAR PREMATURE COMPLEX RIGHT BUNDLE BRANCH BLOCK CANNOT RULE OUT SEPTAL INFARCT, AGE INDETERMINATE T WAVE ABNORMALITY IN ANTEROLAT/HIGH LAT LEADS- CONSIDER ISCHEMIA PROLONGED QT INTERVAL ABNORMAL ECG Electronically Signed On 09-28-2020 13:16:44 DISPATCH SUPERVISOR by [place] D.O.
[2020-09-28] MEDS: LEVALBUTEROL HFA (*SP) 15 GM INHALER 2 PUFF INHALATION ×2 (13:12→20:19)
[2020-09-28 16:18] LABS: Basophils Percent Auto 0.4 % (0.2-1.2); Eosinophils Percent Auto 0.1 % (0-4.4); Hematocrit 42.2 % (42.0-52.0); Hemoglobin 13.4 g/dL (14.0-18.0); Immature Granulocyte Absolute 0.05 K/mm3 (0.00-0.031); Immature Granulocyte Percent A 0.5 % (0-0.5); Lymphocytes Absolute Auto 2.12 K/mm3 (0.9-3.2); Lymphocytes Percent Auto 19.7 % (18.3-44.2); Mean Corpuscular HGB Conc 31.8 g/dl (32-36); Mean Corpuscular Hemoglobin 26.7 pg (26-34); Mean Corpuscular Volume 84.1 fl (80-100); Mean Platelet Volume 12.3 fl (7.4-10.4); Monocytes Absolute Auto 1.4 K/mm3 (0.1-0.6); Monocytes Percent Auto 12.7 % (2.6-8.5); Neutrophils Absolute Auto 7.2 K/mm3 (1.3-6.7); Neutrophils Percent Auto 66.6 % (45.5-73.1); Platelet Count Result 282 k/mm3 (150-375); Red Blood Count 5.02 M/mm3 (4.6-6.20); Red Cell Distribution Width 17.1 % (11.5-14.5); White Blood Count 10.8 K/mm3 (4.5-10.0)
[2020-09-28 16:29] LABS: INR 1.8; Partial Thromboplastin Time 35.4 SECONDS (22.3-36.8); Prothrombin Time 21.1 Seconds (11.1-14.7)
[2020-09-28 17:19] LABS: Glucose Point of Care 91 (65-105)
[2020-09-28] MEDS: HEPARIN SODIUM 5,000 UNITS/ML VIAL 3000 UNITS IV PUSH (17:43)
[2020-09-28] MEDS: HEPARIN SOD/D5W 100 UNITS/ML 25,000 UNITS/250 ML BAG 13 UNITS IV CONT (17:46)
[2020-09-28 20:06] LABS: Glucose Point of Care 92 (65-105)
--- NOTE | 2020-09-28 21:32 | ECHO_ITS ---
Patient Info Name: Camron Cowart Age: 75 years : 1945 Gender: Male Ht: 68 in Wt: 162 lbs BSA: 1.89 m2 HR: 60 bpm BP: 88 / 49 mmHg Heart Rhythm: Sinus Rhythm Technical Quality: Good Exam Date: 09/28/2020 12:27 PM Exam Location: [facility] Pulmonary Patient Status: Inpatient Admit Date: 09/27/2020 Staff Ordering Physician: Urbano Porter MD Concreting Supervisor: Bola David RDCS Attending Provider: Yefri Denney MD Referring Physician: German DEUTSCH; Exam Type: CA echo doppler color flow Study Info Indications I50.20 - Unspecified systolic (congestive) heart failure Complete two-dimensional, color flow and Doppler transthoracic echocardiogram is performed. History/Risk Factors CHF; CAD, COPD, DM2, HTN, CABG 2006. Summary 1. Complete two-dimensional, color flow and Doppler transthoracic echocardiogram is performed. 2. Left ventricular systolic function is severely reduced, estimated at 25-30%. 3. There is mildly increased left ventricular wall thickness. 4. The left ventricular diastolic function is grade III diastolic dysfunction. 5. Akinetic apex with bilobed mobile thrombus measuring 1.3cmx1.6cm and 1.0cmx1.5cm. 6. Right atrial chamber dimension is severely enlarged. 7. There is moderate tricuspid valve regurgitation. 8. No pulmonary hypertension, estimated pulmonary arterial systolic pressure is 33 mmHg. 9. Dilated inferior vena cava with no collapse upon inspiration consistent with significantly elevated right atrial pressure, 15 mmHg. Left Ventricle Left ventricular chamber dimension is normal. Left ventricular systolic function is severely reduced, estimated at 25-30%. There is mildly increased left ventricular wall thickness. The left ventricular diastolic function is grade III diastolic dysfunction. Akinetic apex with bilobed mobile thrombus measuring 1.3cmx1.6cm and 1.0cmx1.5cm. Right Ventricle Right ventricular chamber dimension is moderately enlarged. Right ventricular systolic function is reduced. Prominent moderator band. Left Atria Left atrial chamber dimension is normal. Right Atria Right atrial chamber dimension is severely enlarged. Aortic Valve The aortic valve is probable trileaflet. There is no aortic valve stenosis. There is trace aortic valve regurgitation. There is mild aortic valve calcification. Pulmonic Valve The pulmonic valve is normal. There is mild pulmonic regurgitation. Mitral Valve The mitral valve has normal leaflets. There is mild mitral valve regurgitation. The mitral valve annulus is mildly calcified. Tricuspid Valve The tricuspid valve leaflets are normal. There is moderate tricuspid valve regurgitation. No pulmonary hypertension, estimated pulmonary arterial systolic pressure is 33 mmHg. Pericardium/Pleural The pericardium appears normal. There is small pericardial effusion. Inferior Vena Cava Dilated inferior vena cava with no collapse upon inspiration consistent with significantly elevated right atrial pressure, 15 mmHg. Aorta The aortic root size at the sinus of Valsalva is normal. There is mild aortic atherosclerosis. Left Ventricular Outflow Tract Name Value Normal LVOT 2D LVOT Diameter
[2020-09-29] VITALS (13 sets, daily range): BP systolic 103–133; BP diastolic 52–82; PULSE 65–73; RESP 18–20; TEMP 35.6–36.6; O2SAT 91–100
[2020-09-29] MEDS: LEVALBUTEROL HFA (*SP) 15 GM INHALER 2 PUFF INHALATION ×3 (02:00→21:16)
[2020-09-29 04:54] LABS: Basophils Absolute Auto 0.1 K/mm3 (0.0-0.1); Basophils Percent Auto 0.6 % (0.2-1.2); Eosinophils Percent Auto 0.2 % (0-4.4); Hematocrit 39.4 % (42.0-52.0); Immature Granulocyte Absolute 0.04 K/mm3 (0.00-0.031); Immature Granulocyte Percent A 0.4 % (0-0.5); Lymphocytes Absolute Auto 1.86 K/mm3 (0.9-3.2); Lymphocytes Percent Auto 19.7 % (18.3-44.2); Mean Corpuscular HGB Conc 30.5 g/dl (32-36); Mean Corpuscular Hemoglobin 26.2 pg (26-34); Mean Platelet Volume 11.9 fl (7.4-10.4); Monocytes Absolute Auto 1.5 K/mm3 (0.1-0.6); Monocytes Percent Auto 15.4 % (2.6-8.5); Neutrophils Percent Auto 63.7 % (45.5-73.1); Platelet Count Result 220 k/mm3 (150-375); Red Blood Count 4.58 M/mm3 (4.6-6.20); Red Cell Distribution Width 17.1 % (11.5-14.5); White Blood Count 9.5 K/mm3 (4.5-10.0)
[2020-09-29 05:15] LABS: Lactic Acid Reflex 3.3 mmol/L (0.7-2.1)
[2020-09-29 05:20] LABS: Albumin Level 2.8 g/dL (3.5-5.1); Alkaline Phosphatase 257 U/L (38-126); Anion Gap 12 mmol/L (8-16); Bilirubin,Total 1.2 mg/dL (0.2-1.3); Blood Urea Nitrogen 44 mg/dL (9-20); Calcium 8.1 mg/dL (8.4-10.2); Carbon Dioxide 20 mmol/L (22-30); Chloride 105 mmol/L (98-107); Estimated CRCL calculation 17 ml/min; Estimated Glomerular Filt Rate 22; Glucose 95 mg/dL (75-110); Magnesium 2.1 mg/dL (1.6-2.3); Phosphorus 7.9 mg/dL (2.5-4.5); Potassium 4.3 mmol/L (3.4-5.0); Sodium 137 mmol/L (137-145)
[2020-09-29 07:47] LABS: Alanine Aminotransferase 1267 U/L (4-50)
[2020-09-29 07:50] LABS: Reflex Lactic Acid Yes or No Add Lactic
[2020-09-29 08:40] LABS: Lactic Acid 3.2 mmol/L (0.7-2.1)
[2020-09-29 09:14] LABS: Aspartate Amino Transferase 1926 U/L (17-59)
[2020-09-29] MEDS: CHOLECALCIFEROL 1,000 UNITS TABLET 2000 UNITS PO (09:22)
[2020-09-29] MEDS: ASPIRIN 81 MG ENTERIC TABLET PO (09:23)
[2020-09-29] MEDS: MULTIVITAMINS /C LUTEIN (CENTRUM SILVER) TABLET *BKC 1 TAB PO (09:23)
[2020-09-29] MEDS: FAMOTIDINE 20 MG TABLET PO ×2 (09:23→21:16)
[2020-09-29] MEDS: LORATADINE 10 MG TABLET PO (09:23)
[2020-09-29] MEDS: FOLIC ACID 1 MG TABLET PO (09:23)
--- NOTE | 2020-09-29 11:42 | PM.PNCARD ---
Progress Note: A&P Assessment and Plan (1) Cardiomyopathy: Code(s): I42.9 - Cardiomyopathy, unspecified Status: Acute Assessment and Plan: EF 45% by echo March 2020, Now severely reduced 25-30%. No reversible ischemia on Lexiscan, however, remains concerning for possible balanced ischemia. Ischemic cardiomyopathy with acute on chronic decompensated systolic and diastolic heart failure. Profound hypotension early AM 09/28/20 with development of an AV junctional rhythm heart rate in the 60s. Patient received verapamil 360 mg daily thought to be an outpatient medication from admission in conjunction with his Toprol XL which likely contributed to profound hypotension, sinus node dysfunction resulting in AV junctional rhythm, acute hepatic and renal failure. Received IV fluids, medications have been held subsequently. -2D echocardiogram revealed large mobile thrombus LV apex. Started on heparin infusion yesterday. Coagulopathy INR 1.8 noted yesterday. follow INR. -Unable to support with beta-eccily, ÁNGELA-I or ARB vs Entresto, Spironolactone, diuretics due to JOSELO, hypotension, elevated liver enzymes. -Ideally, given his history with prior bypass, exertional chest pain, CHF, worsening LV systolic dysfunction coronary angiography advised. However, given current clinical status risks outweigh benefit and so will need to be deferred. -Overall, pt as a guarded prognosis and is at high risk for further decompensation with AMI, progression to higher grade AV block, sudden cardiac due to ventricular arrhythmias, and/or bleeding complications. Pt verbalized understanding of his clinical situation despite appearing to intermittently doze off during our discussion he was able to answer appropriately and paraphrase what I had said. (2) Left ventricular apical thrombus: Code(s): I51.3 - Intracardiac thrombosis, not elsewhere classified Status: Acute Assessment and Plan: Akinetic apex +severe LV dysfunction. Explained pathophysiology and management plans and that he is at higher risk for embolic stroke. Discussed the risks and benefits of systemic anticoagulation with heparin gtt which was initiated yesterday. Plan to transition to oral anticoagulation when appropriate. (3) AV junctional rhythm: Code(s): I49.8 - Other specified cardiac arrhythmias Status: Acute Assessment and Plan: Multifactorial but secondary to high-dose for optimal in conjunction with Toprol XL resulting in sinus node dysfunction. Continue telemetry. Monitor closely. Electrolytes stable, continue to monitor and replete appropriately to keep potassium around 4 magnesium around 2. TSH stable. Anticipate sinus rhythm will return with washout of her rapid male and beta-cecily therapy, however, if patient develops high-grade AV block and/or device therapy he would be best served with a biventricular device which is not performed at this institution. If symptomatic bradycardia and/or decompensated HF Dobutamine, or Dopamine (if in shock). Atropine if stable symptomatic bradycardia but will hold AV virgil blocking agents for now. (4) Elevated troponin: Code(s): R77.8 - Other specified abnormalities of plasma proteins Status: Acute Assessment and Plan: Mild troponin elevation in setting of profound hypotension/demand ischemia, severe LV dysfunction, CHF, acute renal failure but not consistent with acute myocardial infarction and/or plaque rupture. Type 2 infarct. (5) CHF (congestive heart failure): Qualifiers: Heart failure type: unspecified Heart failure chronicity: acute Qualified Code(s): I50.9 - Heart failure, unspecified Code(s): I50.9 - Heart failure, unspecified Status: Acute Assessment and Plan: fairly stable at this time. Off medications due to hypotension, acute renal failure. Continue to monitor
[2020-09-29 12:10] LABS: Glucose Point of Care 96 (65-105)
[2020-09-29] MEDS: HEPARIN SOD/D5W 100 UNITS/ML 25,000 UNITS/250 ML BAG 9 UNITS IV CONT (13:22)
--- NOTE | 2020-09-29 15:53 | PM.IMPN ---
Progress Note: A&P Assessment and Plan (1) AV junctional rhythm: Code(s): I49.8 - Other specified cardiac arrhythmias Status: Acute Assessment and Plan: Tele showing junctional rhythm. Has had this since 09/27 and even tolerated the stress test with this rhythm. Hopefully should improve as AV virgil blocking agents wear off. (2) Left ventricular apical thrombus: Code(s): I51.3 - Intracardiac thrombosis, not elsewhere classified Status: Acute Assessment and Plan: Echo completed and showing EF 25-30% with Grade III diastolic dysfunction. He has akinetic apex with bilobed mobile thrombus. Discussed with Cardiology. Heparin bolus given and drip started. Continue the same. (3) Hypotension: Code(s): I95.9 - Hypotension, unspecified Status: Acute Assessment and Plan: Patient's BP was mildly elevated and he was resumed on his home meds (Toprol, Verapamil, Diovan). However, [employer] Extension Specialist saw the patient and noted that the patient is no longer on Verapamil so this was stopped but patient did get a dose around 11am on 09/27 along with his other meds. That evening, his BP dropped to 68/46 and developed a junctional rhythm. His other anti-HTN meds were stopped and lasix held. Fluid boluses given with improvement in his BP. It was felt that the BP meds caused the HoTN coupled with his poor EF and AV virgil blocking agents. BP stable now. Follow closely. No evidence of infection so will stop abx and moniotr. (4) JOSELO (acute kidney injury): Code(s): N17.9 - Acute kidney failure, unspecified Status: Resolved Assessment and Plan: Cr increased to 3.3 today related to the severe hypotensive event on 09/27. UOP poor. Bicarb 20 but potassium normal. Follow closely. (5) Transaminitis: Code(s): R74.01 - Elevation of levels of liver transaminase levels Status: Acute Assessment and Plan: Cholestatic pattern of transaminitis. Right upper quadrant ultrasound was performed in the ER and demonstrated mildly distended gallbladder. Hepatitis panel negative. Lipitor on hold. LFTs were trending down and felt related to passive congestion but markedly increased related to the severe Hypotensive event 09/27. LFTs still climbing but pateitn feels better. Monitor closely. (6) CHF (congestive heart failure): Qualifiers: Heart failure chronicity: acute Heart failure type: unspecified Qualified Code(s): I50.9 - Heart failure, unspecified Code(s): I50.9 - Heart failure, unspecified Status: Acute Assessment and Plan: Patient with SOB and increasing pedal edema. CXR showing pulmonary edema. Echo with EF 45% by echo March 2020. Echo here showing EF 25-30%. Medical management when able. (7) Elevated troponin: Code(s): R77.8 - Other specified abnormalities of plasma proteins Status: Acute Assessment and Plan: Troponin elevated at 0.09 and stable felt secondary to heart failure. No complaints of chest pain but patient later told the clinical study manager that he has been having CP with mild exertion for the past few weeks. EKG showing no acute findings and appears similar to old EKGs. CXR consistent with pulm edema. Lexiscan stress test showing no evidence of acute ischemia but EF at 23%. (8) HTN (hypertension): Qualifiers: Hypertension type: essential hypertension Qualified Code(s): I10 - Essential (primary) hypertension Code(s): I10 - Essential (primary) hypertension Status: Chronic Assessment and Plan: Patient's blood pressure was reviewed on 09/29 Blood pressure stable today. Anti-HTN medications on hold. (9) Type 2 diabetes mellitus without complication, without long-term current use of insulin: Code(s): E11.9 - Type 2 diabetes mellitus without complications Status: Chronic Assessment and Plan: A1c 7.6 in May. Glucose reviewe
[2020-09-29 16:38] LABS: Partial Thromboplastin Time 115.9 SECONDS (22.3-36.8)
[2020-09-29 18:00] LABS: Glucose Point of Care 150 (65-105)
[2020-09-29 20:06] LABS: Glucose Point of Care 112 (65-105)
[2020-09-29 23:40] LABS: Partial Thromboplastin Time 111.7 SECONDS (22.3-36.8)
[2020-09-30] VITALS (15 sets, daily range): BP systolic 131–149; BP diastolic 58–85; PULSE 66–78; RESP 16–20; TEMP 36.3–36.6; O2SAT 94–99
[2020-09-30 07:27] LABS: Basophils Absolute Auto 0.1 K/mm3 (0.0-0.1); Basophils Percent Auto 0.6 % (0.2-1.2); Eosinophils Absolute Auto 0.1 K/mm3 (0-0.3); Eosinophils Percent Auto 1.5 % (0-4.4); Hematocrit 36.5 % (42.0-52.0); Immature Granulocyte Absolute 0.02 K/mm3 (0.00-0.031); Immature Granulocyte Percent A 0.3 % (0-0.5); Lymphocytes Absolute Auto 1.69 K/mm3 (0.9-3.2); Lymphocytes Percent Auto 21.3 % (18.3-44.2); Mean Corpuscular HGB Conc 32.9 g/dl (32-36); Mean Platelet Volume 12.2 fl (7.4-10.4); Neutrophils Percent Auto 63.3 % (45.5-73.1); Platelet Count Result 270 k/mm3 (150-375); Red Blood Count 4.62 M/mm3 (4.6-6.20); Red Cell Distribution Width 16.7 % (11.5-14.5); White Blood Count 7.9 K/mm3 (4.5-10.0)
[2020-09-30 07:57] LABS: Alkaline Phosphatase 259 U/L (38-126); Anion Gap 11 mmol/L (8-16); Blood Urea Nitrogen 56 mg/dL (9-20); Calcium 8.2 mg/dL (8.4-10.2); Carbon Dioxide 24 mmol/L (22-30); Chloride 101 mmol/L (98-107); Estimated CRCL calculation 13 ml/min; Estimated Glomerular Filt Rate 16; Glucose 83 mg/dL (75-110); Magnesium 2.1 mg/dL (1.6-2.3); Phosphorus 7.3 mg/dL (2.5-4.5); Sodium 136 mmol/L (137-145)
[2020-09-30 08:00] LABS: Alanine Aminotransferase 1142 U/L (4-50); Aspartate Amino Transferase 1234 U/L (17-59)
[2020-09-30 08:15] LABS: INR 1.7; Prothrombin Time 20.4 Seconds (11.1-14.7)
[2020-09-30 08:16] LABS: Partial Thromboplastin Time 81.7 SECONDS (22.3-36.8)
[2020-09-30 08:25] LABS: Glucose Point of Care 88 (65-105)
[2020-09-30] MEDS: LEVALBUTEROL HFA (*SP) 15 GM INHALER 2 PUFF INHALATION ×3 (09:33→21:04)
[2020-09-30] MEDS: FLUTICASONE PROPIONATE 0.05% NA SPR 16 GM BTL (*BKC) 1 SPRAY NASAL ×2 (09:34→21:03)
[2020-09-30] MEDS: FAMOTIDINE 20 MG TABLET PO ×2 (09:34→21:02)
[2020-09-30] MEDS: CHOLECALCIFEROL 1,000 UNITS TABLET 2000 UNITS PO (09:34)
[2020-09-30] MEDS: LORATADINE 10 MG TABLET PO (09:34)
[2020-09-30] MEDS: MULTIVITAMINS /C LUTEIN (CENTRUM SILVER) TABLET *BKC 1 TAB PO (09:34)
[2020-09-30] MEDS: ASPIRIN 81 MG ENTERIC TABLET PO (09:34)
[2020-09-30] MEDS: FOLIC ACID 1 MG TABLET PO (09:35)
--- NOTE | 2020-09-30 12:24 | PM.PNCARD ---
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 EF 45% by echo March 2020, Now severely reduced 25-30%. No reversible ischemia on Lexiscan, however, EKG suggests anterolateral ischemia and he may have balanced ischemia, not showing up on the Lexiscan. -2D echocardiogram revealed large mobile thrombus LV apex. Started on heparin infusion yesterday. Coagulopathy INR 1.8 noted yesterday. follow INR. -Unable to support with beta-cecily, ÁNGELA-I or ARB vs Entresto, Spironolactone, diuretics due to JOSELO, hypotension, junctional rhythm and elevated liver enzymes. May be able to resume the BB soon since I can't find any recent junctional rhythm but will wait until we know his BP is solid, due to ARF. -Ideally, given his history with prior bypass, exertional chest pain, CHF, worsening LV systolic dysfunction coronary angiography advised. However, given current clinical status risks outweigh benefit and so will need to be deferred. -Overall, pt as a guarded prognosis and is at high risk for further decompensation with AMI, progression to higher grade AV block, sudden cardiac due to ventricular arrhythmias, and/or bleeding complications. (2) Left ventricular apical thrombus: Code(s): I51.3 - Intracardiac thrombosis, not elsewhere classified Status: Acute Assessment and Plan: Akinetic apex +severe LV dysfunction. On heparin gtt. Plan to transition to oral anticoagulation when we don't think any invasive procedures will be needed (dialysis, etc). (3) AV junctional rhythm: Code(s): I49.8 - Other specified cardiac arrhythmias Status: Acute Assessment and Plan: Secondary to high-dose verapamil in conjunction with Toprol XL resulting in sinus node dysfunction, +/- underlying conduction system disease. Continue telemetry. I haven't seen any junctional rhythm overnight. (4) Elevated troponin: Code(s): R77.8 - Other specified abnormalities of plasma proteins Status: Acute Assessment and Plan: Mild troponin elevation in setting of profound hypotension/demand ischemia, severe LV dysfunction, CHF, acute renal failure but not consistent with acute myocardial infarction and/or plaque rupture. Type 2 infarct. (5) CHF (congestive heart failure): Qualifiers: Heart failure type: unspecified Heart failure chronicity: acute Qualified Code(s): I50.9 - Heart failure, unspecified Code(s): I50.9 - Heart failure, unspecified Status: Acute Assessment and Plan: Fairly stable at this time. Off medications due to hypotension, acute renal failure. Continue to monitor volume status closely. Lower extremity edema persists, no rales on examination. (6) JOSELO (acute kidney injury): Code(s): N17.9 - Acute kidney failure, unspecified Status: Resolved Assessment and Plan: Profound hypotension early AM 09/28/20 with development of an AV junctional rhythm heart rate in the 60s. Patient received verapamil 360 mg daily thought to be an outpatient medication from admission in conjunction with his Toprol XL which likely contributed to profound hypotension, sinus node dysfunction resulting in AV junctional rhythm, acute hepatic and renal failure. Continues to worsen. Will be getting a L of IV fluids today. (7) Nonsustained ventricular tachycardia: Code(s): I47.2 - Ventricular tachycardia Status: Acute Assessment and Plan: Worrisome for increased risk of sudden cardiac . Potassium is fine. Hopefully we can restart the room the beta-
[2020-09-30] MEDS: SODIUM CHLORIDE 0.9% IV 1,000 ML 70 ML IV CONT (12:38)
[2020-09-30 13:32] LABS: Glucose Point of Care 144 (65-105)
[2020-09-30 14:38] LABS: Partial Thromboplastin Time 108.4 SECONDS (22.3-36.8)
--- NOTE | 2020-09-30 15:22 | PM.IMPN ---
Progress Note: A&P Assessment and Plan (1) AV junctional rhythm: Code(s): I49.8 - Other specified cardiac arrhythmias Status: Acute Assessment and Plan: Tele showing NSR now that the AV virgil blocking agents have worn off. Now having runs of NSVT. Cardiology following. Continue tele. (2) Left ventricular apical thrombus: Code(s): I51.3 - Intracardiac thrombosis, not elsewhere classified Status: Acute Assessment and Plan: Echo completed and showing EF 25-30% with Grade III diastolic dysfunction. He has akinetic apex with bilobed mobile thrombus. Discussed with Cardiology. Currently on Heparin drip. Continue the same. (3) Hypotension: Code(s): I95.9 - Hypotension, unspecified Status: Acute Assessment and Plan: Patient's BP was mildly elevated and he was resumed on his home meds (Toprol, Verapamil, Diovan). However, Die Equipment Operator saw the patient and noted that the patient is no longer on Verapamil so this was stopped but patient did get a dose around 11am on 09/27 along with his other meds. That evening, his BP dropped to 68/46 and developed a junctional rhythm. His other anti-HTN meds were stopped and lasix held. Fluid boluses given with improvement in his BP. It was felt that the BP meds caused the HoTN coupled with his poor EF and AV virgil blocking agents. BP stable and back in NSR now. Follow closely. No evidence of infection so abx stopped 09/29. Continue to monitor. (4) JOSELO (acute kidney injury): Code(s): N17.9 - Acute kidney failure, unspecified Status: Resolved Assessment and Plan: Cr increased to 4.3 today related to the severe hypotensive event on 09/27. UOP poor. Bicarb and potassium normal. Follow closely. Nephrology consult and will start Normal saline x 1 liter. (5) Transaminitis: Code(s): R74.01 - Elevation of levels of liver transaminase levels Status: Acute Assessment and Plan: Cholestatic pattern of transaminitis. Right upper quadrant ultrasound was performed in the ER and demonstrated mildly distended gallbladder. Hepatitis panel negative. Lipitor on hold. LFTs were trending down and felt related to passive congestion but markedly increased related to the severe Hypotensive event 09/27. LFTs have peaked and are trending down now. Monitor closely. (6) CHF (congestive heart failure): Qualifiers: Heart failure chronicity: acute Heart failure type: unspecified Qualified Code(s): I50.9 - Heart failure, unspecified Code(s): I50.9 - Heart failure, unspecified Status: Acute Assessment and Plan: Patient with SOB and increasing pedal edema. CXR showing pulmonary edema. Echo with EF 45% by echo March 2020. Echo here showing EF 25-30%. Medical management when able. Add Speedy Romo. (7) Elevated troponin: Code(s): R77.8 - Other specified abnormalities of plasma proteins Status: Acute Assessment and Plan: Troponin elevated at 0.09 and stable felt secondary to heart failure. No complaints of chest pain but patient later told the ingredient handler that he has been having CP with mild exertion for the past few weeks. EKG showing no acute findings and appears similar to old EKGs. CXR consistent with pulm edema. Lexiscan stress test showing no evidence of acute ischemia but EF at 23%. (8) HTN (hypertension): Qualifiers: Hypertension type: essential hypertension Qualified Code(s): I10 - Essential (primary) hypertension Code(s): I10 - Essential (primary) hypertension Status: Chronic Assessment and Plan: Patient's blood pressure was reviewed on 09/30 Blood pressure stable today. Anti-HTN medications on hold. (9) Type 2 diabetes mellitus without complication, without long-term current use of insulin: Code(s): E11.9 - Type 2 diabetes mellitus without complications Status: Chronic Assessment
[2020-09-30 17:11] LABS: Glucose Point of Care 155 (65-105)
[2020-09-30 20:48] LABS: Glucose Point of Care 198 (65-105)
[2020-09-30 23:05] LABS: Partial Thromboplastin Time 57.5 SECONDS (22.3-36.8)
[2020-10-01] VITALS (18 sets, daily range): BP systolic 140–169; BP diastolic 61–88; PULSE 74–95; RESP 16–20; TEMP 36.1–36.7; O2SAT 98–100
[2020-10-01] MEDS: HEPARIN SODIUM 5,000 UNITS/ML VIAL 3000 UNITS IV PUSH (00:08)
[2020-10-01] MEDS: HEPARIN SOD/D5W 100 UNITS/ML 25,000 UNITS/250 ML BAG 7 UNITS IV CONT (00:09)
[2020-10-01 06:18] LABS: Basophils Percent Auto 0.4 % (0.2-1.2); Eosinophils Absolute Auto 0.1 K/mm3 (0-0.3); Eosinophils Percent Auto 1.9 % (0-4.4); Hematocrit 35.9 % (42.0-52.0); Hemoglobin 11.7 g/dL (14.0-18.0); Immature Granulocyte Absolute 0.04 K/mm3 (0.00-0.031); Immature Granulocyte Percent A 0.6 % (0-0.5); Lymphocytes Absolute Auto 1.48 K/mm3 (0.9-3.2); Lymphocytes Percent Auto 21.4 % (18.3-44.2); Mean Corpuscular HGB Conc 32.6 g/dl (32-36); Mean Corpuscular Hemoglobin 25.9 pg (26-34); Mean Corpuscular Volume 79.6 fl (80-100); Mean Platelet Volume 11.6 fl (7.4-10.4); Monocytes Absolute Auto 0.9 K/mm3 (0.1-0.6); Monocytes Percent Auto 12.9 % (2.6-8.5); Neutrophils Absolute Auto 4.3 K/mm3 (1.3-6.7); Neutrophils Percent Auto 62.8 % (45.5-73.1); Platelet Count Result 261 k/mm3 (150-375); Red Blood Count 4.51 M/mm3 (4.6-6.20); Red Cell Distribution Width 16.4 % (11.5-14.5); White Blood Count 6.9 K/mm3 (4.5-10.0)
[2020-10-01 06:32] LABS: Partial Thromboplastin Time 110.6 SECONDS (22.3-36.8)
[2020-10-01 06:53] LABS: Albumin Level 3.2 g/dL (3.5-5.1); Alkaline Phosphatase 288 U/L (38-126); Anion Gap 13 mmol/L (8-16); Blood Urea Nitrogen 56 mg/dL (9-20); Calcium 8.4 mg/dL (8.4-10.2); Carbon Dioxide 24 mmol/L (22-30); Chloride 101 mmol/L (98-107); Estimated CRCL calculation 13 ml/min; Estimated Glomerular Filt Rate 16; Glucose 90 mg/dL (75-110); Magnesium 2.1 mg/dL (1.6-2.3); Phosphorus 6.1 mg/dL (2.5-4.5); Potassium 3.9 mmol/L (3.4-5.0); Sodium 138 mmol/L (137-145)
[2020-10-01 07:20] LABS: Alanine Aminotransferase 1078 U/L (4-50); Aspartate Amino Transferase 969 U/L (17-59)
[2020-10-01] MEDS: LORATADINE 10 MG TABLET PO (08:17)
[2020-10-01] MEDS: FOLIC ACID 1 MG TABLET PO (08:17)
[2020-10-01] MEDS: MULTIVITAMINS /C LUTEIN (CENTRUM SILVER) TABLET *BKC 1 TAB PO (08:17)
[2020-10-01] MEDS: FAMOTIDINE 20 MG TABLET PO ×2 (08:18→20:17)
[2020-10-01] MEDS: ASPIRIN 81 MG ENTERIC TABLET PO (08:18)
[2020-10-01] MEDS: CHOLECALCIFEROL 1,000 UNITS TABLET 2000 UNITS PO (08:18)
[2020-10-01] MEDS: FLUTICASONE PROPIONATE 0.05% NA SPR 16 GM BTL (*BKC) 1 SPRAY NASAL ×2 (08:18→20:17)
[2020-10-01] MEDS: LEVALBUTEROL HFA (*SP) 15 GM INHALER 2 PUFF INHALATION ×3 (08:22→20:21)
[2020-10-01 08:23] LABS: Glucose Point of Care 76 (65-105)
--- NOTE | 2020-10-01 11:14 | PM.IMPN ---
Progress Note: A&P Assessment and Plan (1) AV junctional rhythm: Code(s): I49.8 - Other specified cardiac arrhythmias Status: Acute Assessment and Plan: Tele showing NSR now that the AV virgil blocking agents have worn off. No further runs of NSVT. Cardiology following. Continue tele. (2) Left ventricular apical thrombus: Code(s): I51.3 - Intracardiac thrombosis, not elsewhere classified Status: Acute Assessment and Plan: Echo completed and showing EF 25-30% with Grade III diastolic dysfunction. He has akinetic apex with bilobed mobile thrombus. Currently on Heparin drip. Continue the same. (3) Hypotension: Code(s): I95.9 - Hypotension, unspecified Status: Acute Assessment and Plan: Patient's BP was mildly elevated and he was resumed on his home meds (Toprol, Verapamil, Diovan) on 09/27. However, Refueling Ramp Attendant saw the patient and noted that the patient is no longer on Verapamil so this was stopped but patient did get a dose around 11am on 09/27 along with his other meds. That evening, his BP dropped to 68/46 and developed a junctional rhythm. His other anti-HTN meds were stopped and lasix held. Fluid boluses given with improvement in his BP. It was felt that the BP meds caused the HoTN coupled with his poor EF and AV virgil blocking agents. BP stable and back in NSR now. Follow closely. No evidence of infection so abx stopped 09/29. Continue to monitor. (4) JOSELO (acute kidney injury): Code(s): N17.9 - Acute kidney failure, unspecified Status: Resolved Assessment and Plan: Cr stable at 4.3 today related to the severe hypotensive event on 09/27. UOP poor but not fully calculated (per pt). Bicarb and potassium remain normal. Follow closely. Nephrology consulted. he did receive 1L Normal saline yesterday. (5) Transaminitis: Code(s): R74.01 - Elevation of levels of liver transaminase levels Status: Acute Assessment and Plan: Elevated LFTs on admission. Right upper quadrant ultrasound showing mildly distended gallbladder. Hepatitis panel negative. Lipitor placed on hold. LFTs were trending down and felt related to passive congestion but markedly increased related to the severe Hypotensive event 09/27. LFTs have peaked and are trending down now. Monitor closely. (6) CHF (congestive heart failure): Qualifiers: Heart failure chronicity: acute Heart failure type: unspecified Qualified Code(s): I50.9 - Heart failure, unspecified Code(s): I50.9 - Heart failure, unspecified Status: Acute Assessment and Plan: Patient with SOB and increasing pedal edema. CXR on admission showing pulmonary edema. Echo with EF 45% by echo March 2020. Echo here showing EF 25-30%. Medical management when able. Continue Speedy Hose. (7) Elevated troponin: Code(s): R77.8 - Other specified abnormalities of plasma proteins Status: Acute Assessment and Plan: Troponin elevated at 0.09 and stable felt secondary to heart failure. No complaints of chest pain but patient later told the senior systems developer that he has been having CP with mild exertion for the past few weeks. EKG showing no acute findings and appears similar to old EKGs. CXR consistent with pulm edema. Lexiscan stress test 09/28 showing no evidence of acute ischemia but EF at 23%. Plan for medical management. Continue ASA for now. (8) HTN (hypertension): Qualifiers: Hypertension type: essential hypertension Qualified Code(s): I10 - Essential (primary) hypertension Code(s): I10 - Essential (primary) hypertension Status: Chronic Assessment and Plan: Patient's blood pressure was reviewed on 10/01 Blood pressure stable today. Anti-HTN medications on hold. (9) Type 2 diabetes mellitus without complication, without long-term current use of insulin: Code(s): E11.9 - Type 2 diabetes mellitus
--- NOTE | 2020-10-01 12:02 | PM.PNCARD ---
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 EF 45% by echo March 2020, Now severely reduced 25-30%. No reversible ischemia on Lexiscan, however, EKG suggests anterolateral ischemia and he may have balanced ischemia, not showing up on the Lexiscan. -2D echocardiogram revealed large mobile thrombus LV apex. Started on heparin infusion 09/29/2020. Coagulopathy INR 1.7-1.8 noted this admission; now LFTs are high so likely coagulopathy worse. Holding off on warfarin until LFTs improve some. -Unable to support with beta-cecily, ÁNGELA-I or ARB vs Entresto, Spironolactone, diuretics due to JOSELO, hypotension (improved), junctional rhythm (resolved) and elevated liver enzymes. Will resume metoprolol at 6.25 mg BID. -Ideally, given his history with prior bypass, exertional chest pain, CHF, worsening LV systolic dysfunction coronary angiography advised. However, given current clinical status risks outweigh benefit and so will need to be deferred. -Overall, pt as a guarded prognosis and is at high risk for further decompensation with AMI, progression to higher grade AV block, sudden cardiac due to ventricular arrhythmias, and/or bleeding complications. (2) Left ventricular apical thrombus: Code(s): I51.3 - Intracardiac thrombosis, not elsewhere classified Status: Acute Assessment and Plan: Akinetic apex +severe LV dysfunction. On heparin gtt. Plan to transition to oral anticoagulation when we don't think any invasive procedures will be needed (dialysis, etc) and when liver starts to return to normal.. (3) AV junctional rhythm: Code(s): I49.8 - Other specified cardiac arrhythmias Status: Acute Assessment and Plan: Secondary to high-dose verapamil in conjunction with Toprol XL resulting in sinus node dysfunction, +/- underlying conduction system disease. Continue telemetry. Last noted on 09/29/2020. (4) Elevated troponin: Code(s): R77.8 - Other specified abnormalities of plasma proteins Status: Acute Assessment and Plan: Mild troponin elevation in setting of profound hypotension/demand ischemia, severe LV dysfunction, CHF, acute renal failure but not consistent with acute myocardial infarction and/or plaque rupture. Type 2 infarct. (5) CHF (congestive heart failure): Qualifiers: Heart failure type: unspecified Heart failure chronicity: acute Qualified Code(s): I50.9 - Heart failure, unspecified Code(s): I50.9 - Heart failure, unspecified Status: Acute Assessment and Plan: Fairly stable at this time. Off medications due to hypotension, acute renal failure. Continue to monitor volume status closely. Lower extremity edema persists, but CHF stable. (6) JOSELO (acute kidney injury): Code(s): N17.9 - Acute kidney failure, unspecified Status: Resolved Assessment and Plan: Profound hypotension early AM 09/28/20 with development of an AV junctional rhythm heart rate in the 60s. Patient received verapamil 360 mg daily thought to be an outpatient medication from admission in conjunction with his Toprol XL which likely contributed to profound hypotension, sinus node dysfunction resulting in AV junctional rhythm, acute hepatic and renal failure. Received a L of IV fluids on 09/30/2020. I suspect the renal dysfunction has peaked today since BUN and creatinine are no different and renal function will start to improve tomorrow. (7) Nonsustained ventricular tachycardia: Code(s): I47.2 - Ventricular tachycardia Status: A
[2020-10-01 12:10] LABS: Glucose Point of Care 145 (65-105)
--- NOTE | 2020-10-01 12:32 | PM.CNNEP ---
Assessment and Plan Assessment and plan (1) JOSELO (acute kidney injury): Code(s): N17.9 - Acute kidney failure, unspecified Status: Resolved Assessment and Plan: The patient has acute kidney injury on top of normal kidney function. It seems that the timing of his rising creatinine fits with the episode of low blood pressure on the being the causative agent. The patient is not on any nephrotoxic medications. He has not received any contrast. He does not look infected. Obstruction is always a possibility and we will get a renal ultrasound. Pre renal azotemia from his bad heart function is possibly a contributory factor as well. Glomerulonephritis and interstitial nephritis are less likely in this clinical setting. Will get urine electrolytes, eosinophils, and renal ultrasound. (2) HTN (hypertension): Qualifiers: Hypertension type: essential hypertension Qualified Code(s): I10 - Essential (primary) hypertension Code(s): I10 - Essential (primary) hypertension Status: Chronic Assessment and Plan: The patient has underlying hypertension. His blood pressure meds are on hold for now. We can full these back in once the blood pressure improves. (3) Hypotension: Code(s): I95.9 - Hypotension, unspecified Status: Acute Assessment and Plan: He had an episode of hypotension back on the . (4) Cardiomyopathy: Code(s): I42.9 - Cardiomyopathy, unspecified Status: Acute Assessment and Plan: His ejection fraction is fairly low on echo and on the Lexiscan. Cardiology is on board (5) Transaminitis: Code(s): R74.01 - Elevation of levels of liver transaminase levels Status: Acute Assessment and Plan: This is thought to be due to congestive hepatopathy. (6) Chronic anemia: Code(s): D64.9 - Anemia, unspecified Status: Chronic Assessment and Plan: Hemoglobin is mildly low History of Present Illness Reason for Consult Consult date: 10/01/20 Chief Complaint Chief complaint: chf History of Present Illness Narrative: Camron is a very pleasant gentleman with history of COPD, diabetes, hypertension, coronary disease, myocardial infarction, arthritis, autoimmune hemolytic anemia, COPD, GERD, GI bleed, hyperlipidemia, nocturnal hypoxemia, pneumonia, wheezing. The patient was admitted with shortness of breath and swelling. To the emergency room and was felt to have volume overload. Pulmonary edema and right pleural effusion. Because of his coronary disease history, he had a stress test which was negative and an echo showing an EF of 20-30%. He was admitted to the hospital. He was given some diuretics. Echocardiogram was performed which showed decreased LV function. In response to the diuretics his intake/output has not been impressively negative. His creatinine was normal on admission at however his creatinine kecia on day 2. To the current day up to its current level of 4.3. He has not received any contrast. He has not been on any non steroidal anti-inflammatory agents. He has been on diuretics but his intake/output is not impressively negative. He denies any prior history of kidney disease. He does not have any bloody urine, foamy urine, kidney stones, or bladder infections. No pain with urination. No fevers or chills. He did have a low blood pressure on the with a systolic in the 60s. It was after that that his creatinine began to rise. Currently the patient feels pretty good. He is still weak from the hospital stay. Swelling is a little better. He is not very short of breath. Review of Systems Constitutional: Constitutional: Reports no additional constitutional complaints Eyes: Eyes: Reports no additional eye complaints ENT: Reports system reviewed and no additional complaints, except as documented Cardiovascular: Cardiovascular: Reports no additional cardiovascular complaints Respiratory:
[2020-10-01 13:56] LABS: Creatine Kinase 155 U/L (55-170)
--- NOTE | 2020-10-01 14:45 | PC.NURSE ---
This patient, Camron Cowart Sr., was transferred to [facility] on 10/01/20 at 1420. Personal belongings sent with patient. Report given to Stefani SCHULTE. Appropriate documentation sent with patient.
[2020-10-01 15:40] LABS: Partial Thromboplastin Time 38.2 SECONDS (22.3-36.8)
[2020-10-01 17:24] LABS: Glucose Point of Care 117 (65-105)
[2020-10-01 19:24] LABS: Creatinine Urine 121.6 mg/dL; Total Protein Urine Random 53 mg/dL; Ur Ttl Prot Creatinine Ratio 0.44 mg/mg (0-0.20)
[2020-10-01 19:26] LABS: Sodium Urine Random 52 meq/L
[2020-10-01] MEDS: METOPROLOL TARTRATE 6.25 MG TABLET PO (20:17)
[2020-10-01 20:30] LABS: Glucose Point of Care 128 (65-105)
[2020-10-02] VITALS (21 sets, daily range): BP systolic 126–155; BP diastolic 65–92; PULSE 84–109; RESP 14–18; TEMP 36.1–36.6; O2SAT 94–100
[2020-10-02] MEDS: LEVALBUTEROL HFA (*SP) 15 GM INHALER 2 PUFF INHALATION ×4 (01:51→20:20)
[2020-10-02] MEDS: CENTRAL LINE FLUSH 20 ML IV PUSH (02:26)
[2020-10-02 02:34] LABS: Hematocrit 33.5 % (42.0-52.0); Hemoglobin 11.2 g/dL (14.0-18.0); Mean Corpuscular HGB Conc 33.4 g/dl (32-36); Mean Corpuscular Hemoglobin 26.6 pg (26-34); Mean Corpuscular Volume 79.6 fl (80-100); Mean Platelet Volume 11.5 fl (7.4-10.4); Platelet Count Result 251 k/mm3 (150-375); Red Blood Count 4.21 M/mm3 (4.6-6.20); Red Cell Distribution Width 16.4 % (11.5-14.5); White Blood Count 6.1 K/mm3 (4.5-10.0)
[2020-10-02 02:51] LABS: Partial Thromboplastin Time 50.2 SECONDS (22.3-36.8)
[2020-10-02] MEDS: HEPARIN SODIUM 5,000 UNITS/ML VIAL 6000 UNITS IV PUSH (03:04)
[2020-10-02 03:08] LABS: Alkaline Phosphatase 271 U/L (38-126); Anion Gap 7 mmol/L (8-16); Aspartate Amino Transferase 742 U/L (17-59); Bilirubin,Total 0.9 mg/dL (0.2-1.3); Blood Urea Nitrogen 53 mg/dL (9-20); Calcium 8.4 mg/dL (8.4-10.2); Carbon Dioxide 28 mmol/L (22-30); Chloride 101 mmol/L (98-107); Estimated CRCL calculation 14 ml/min; Estimated Glomerular Filt Rate 18; Glucose 97 mg/dL (75-110); Phosphorus 5.3 mg/dL (2.5-4.5); Potassium 4.1 mmol/L (3.4-5.0); Sodium 136 mmol/L (137-145)
[2020-10-02 03:12] LABS: Alanine Aminotransferase 981 U/L (4-50)
[2020-10-02] MEDS: CENTRAL LINE FLUSH 10 ML IV PUSH ×3 (05:36→20:18)
[2020-10-02 08:00] LABS: Glucose Point of Care 93 (65-105)
[2020-10-02] MEDS: MULTIVITAMINS /C LUTEIN (CENTRUM SILVER) TABLET *BKC 1 TAB PO (08:40)
[2020-10-02] MEDS: FAMOTIDINE 20 MG TABLET PO ×2 (08:40→20:17)
[2020-10-02] MEDS: METOPROLOL TARTRATE 6.25 MG TABLET PO (08:40)
[2020-10-02] MEDS: CHOLECALCIFEROL 1,000 UNITS TABLET 2000 UNITS PO (08:40)
[2020-10-02] MEDS: ASPIRIN 81 MG ENTERIC TABLET PO (08:40)
[2020-10-02] MEDS: FLUTICASONE PROPIONATE 0.05% NA SPR 16 GM BTL (*BKC) 1 SPRAY NASAL ×2 (08:41→20:18)
[2020-10-02] MEDS: LORATADINE 10 MG TABLET PO (08:41)
[2020-10-02] MEDS: FOLIC ACID 1 MG TABLET PO (08:41)
--- NOTE | 2020-10-02 09:39 | PM.PNNEP ---
Progress Note: A&P Assessment and Plan (1) JOSELO (acute kidney injury): Code(s): N17.9 - Acute kidney failure, unspecified Status: Resolved Assessment and Plan: The patient has acute kidney injury on top of normal kidney function. Urine electrolytes non pre renal. Urine protein is mild. Ultrasound is unremarkable. This is all consistent with ATN. His creatinine is improving. Will follow along. (2) HTN (hypertension): Qualifiers: Hypertension type: essential hypertension Qualified Code(s): I10 - Essential (primary) hypertension Code(s): I10 - Essential (primary) hypertension Status: Chronic Assessment and Plan: The patient has underlying hypertension. His blood pressure meds are on hold for now. We can full these back in once the blood pressure improves. (3) Hypotension: Code(s): I95.9 - Hypotension, unspecified Status: Acute Assessment and Plan: He had an episode of hypotension back on the . (4) Cardiomyopathy: Code(s): I42.9 - Cardiomyopathy, unspecified Status: Acute Assessment and Plan: His ejection fraction is fairly low on echo and on the Lexiscan. Cardiology is on board (5) Transaminitis: Code(s): R74.01 - Elevation of levels of liver transaminase levels Status: Acute Assessment and Plan: This is thought to be due to congestive hepatopathy. (6) Chronic anemia: Code(s): D64.9 - Anemia, unspecified Status: Chronic Assessment and Plan: Hemoglobin is mildly low Subjective Date/time seen: 10/02/20 09:39 Interval history: Patient is up in a chair. He is feeling okay. He ate some breakfast. He is brushing his teeth. He slept pretty well last night he says. Review of Systems Cardiovascular: Cardiovascular: Reports no additional cardiovascular complaints Respiratory: Respiratory: Reports no additional respiratory complaints Gastrointestinal: Gastrointestinal: Reports no additional gastrointestinal complaints Genitourinary: Genitourinary: Reports no additional male genitourinary complaints Exam Narrative: Exam Narrative: WDWN in NAD skin no rash head ncat lungs clear cor reg no rub abd BS+ nontender and soft ext no edema. Objective Data Vital Signs Vital Signs: Vital Signs - 24 hr 10/01/20 10:00 10/01/20 12:00 10/01/20 12:25 Temperature 36.1 C L Pulse Rate 90 89 Respiratory Rate 18 Blood Pressure 154/61 H Pulse Oximetry 98 100 10/01/20 14:00 10/01/20 16:00 10/01/20 16:24 Temperature 36.3 C L Pulse Rate 84 85 83 Respiratory Rate 20 Blood Pressure 154/80 H Pulse Oximetry 100 100 10/01/20 18:00 10/01/20 20:00 10/01/20 20:17 Temperature 36.1 C L Pulse Rate 89 81 84 Respiratory Rate 16 Blood Pressure 140/65 Pulse Oximetry 100 10/01/20 21:56 10/01/20 23:39 10/01/20 23:47 Temperature 36.4 C Pulse Rate 83 88 88 Respiratory Rate 16 16 Blood Pressure 169/88 H Pulse Oximetry 100 100 10/02/20 00:00 10/02/20 02:00 10/02/20 04:00 Temperature 36.3 C L Pulse Rate 84 89 89 Respiratory Rate 18 Blood Pressure 138/84 Pulse Oximetry 100 10/02/20 05:26 10/02/20 07:11 10/02/20 08:00 Temperature 36.2 C L Pulse Rate 91 92 95 Respiratory Rate 16 Blood Pressure 146/92 H Pulse Oximetry 98 10/02/20 08:40 10/02/20 08:48 Temperature Pulse Rate 94 Respiratory Rate Blood Pressure Pulse Oximetry 98 Intake/Output Intake/Output: Intake & Output 09/29/20 09/30/20 10/01/20 10/02/20 23:59 23:59 23:59 23:59 Intake Total 588.4 791.6 1339 265 Output Total 250 350 625 735 Balance 338.4 441.6 714 -470 Meds/Results Medications: Active Medications Generic Name Dose Route Start Last Admin Trade Name Freq PRN Reason Stop Dose Admin Acetaminophen 650 mg 09/26/20 21:31 Acetaminophen 325 Mg Tablet PO Q4H PRN Mild Pain (1-3) or Fever Albuterol 1 puff
[2020-10-02 11:48] LABS: Glucose Point of Care 153 (65-105)
--- NOTE | 2020-10-02 12:13 | PM.PNCARD ---
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 EF 45% by echo March 2020, Now severely reduced 25-30%. No reversible ischemia on Lexiscan, however EKG shows anterolateral T wave inversion, so he may have balanced ischemia, not showing up on the Lexiscan. However with his JOSELO/CKD we will avoid cardiac cath. Have bee unable to support with beta-cecily, ÁNGELA-I or ARB vs Entresto, Spironolactone, diuretics due to JOSELO, hypotension (improved), junctional rhythm (resolved) and elevated liver enzymes. Very low-dose metoprolol was resumed on 10/02/2020 and we will continue to titrate, up to 12.5 mg b.i.d. today. -Overall, pt as a guarded prognosis and is at high risk for further decompensation with AMI, progression to higher grade AV block, sudden cardiac due to ventricular arrhythmias, and/or bleeding complications. (2) Left ventricular apical thrombus: Code(s): I51.3 - Intracardiac thrombosis, not elsewhere classified Status: Acute Assessment and Plan: Akinetic apex +severe LV dysfunction. On heparin gtt. Plan to transition to oral anticoagulation when we don't think any invasive procedures will be needed (dialysis and heart catheterization now seem unlikely to be needed). No bleeding. I think warfarin may be very difficult for this cognitively impaired elderly male to manage. Can consider off-label use of a NOAC when his renal and hepatic function improved. (3) AV junctional rhythm: Code(s): I49.8 - Other specified cardiac arrhythmias Status: Acute Assessment and Plan: Secondary to high-dose verapamil in conjunction with Toprol XL resulting in sinus node dysfunction, +/- underlying conduction system disease. Continue telemetry. Last noted on 09/29/2020. (4) Elevated troponin: Code(s): R77.8 - Other specified abnormalities of plasma proteins Status: Acute Assessment and Plan: Mild troponin elevation in setting of profound hypotension/demand ischemia, severe LV dysfunction, CHF, acute renal failure but not consistent with acute myocardial infarction and/or plaque rupture. Type 2 infarct. (5) CHF (congestive heart failure): Qualifiers: Heart failure type: unspecified Heart failure chronicity: acute Qualified Code(s): I50.9 - Heart failure, unspecified Code(s): I50.9 - Heart failure, unspecified Status: Acute Assessment and Plan: Fairly stable at this time. Continue to monitor volume status closely. Lower extremity edema persists, but CHF stable. (6) JOSELO (acute kidney injury): Code(s): N17.9 - Acute kidney failure, unspecified Status: Resolved Assessment and Plan: Profound hypotension early AM 09/28/20 with development of an AV junctional rhythm heart rate in the 60s. Patient received verapamil 360 mg daily thought to be an outpatient medication from admission in conjunction with his Toprol XL which likely contributed to profound hypotension, sinus node dysfunction resulting in AV junctional rhythm, acute hepatic and renal failure. Received a L of IV fluids on 09/30/2020. Looks like renal function improving and hepatic function is improving (7) Nonsustained ventricular tachycardia: Code(s): I47.2 - Ventricular tachycardia Status: Acute Assessment and Plan: Worrisome for increased risk of sudden cardiac . Potassium is fine. Beta-cecily resumed. Does not qualify for an ICD as he has not had 90 days of medical therapy, discussed sending him home with a life vest.
--- NOTE | 2020-10-02 13:04 | PM.IMPN ---
Progress Note: A&P Assessment and Plan (1) AV junctional rhythm: Code(s): I49.8 - Other specified cardiac arrhythmias Status: Acute Assessment and Plan: Tele showing NSR now that the AV virgil blocking agents have worn off. Occasional runs of NSVTbut less frequent. Cardiology following. Continue tele. (2) Left ventricular apical thrombus: Code(s): I51.3 - Intracardiac thrombosis, not elsewhere classified Status: Acute Assessment and Plan: Echo completed and showing EF 25-30% with Grade III diastolic dysfunction. He has akinetic apex with bilobed mobile thrombus. Currently on Heparin drip. Continue the same. (3) Hypotension: Code(s): I95.9 - Hypotension, unspecified Status: Acute Assessment and Plan: Patient's BP was mildly elevated and he was resumed on his home meds (Toprol, Verapamil, Diovan) on 09/27. However, Adjunct [employer] Faculty saw the patient and noted that the patient is no longer on Verapamil so this was stopped but patient did get a dose around 11am on 09/27 along with his other meds. That evening, his BP dropped to 68/46 and developed a junctional rhythm. His other anti-HTN meds were stopped and lasix held. Fluid boluses given with improvement in his BP. It was felt that the BP meds caused the HoTN coupled with his poor EF and AV virgil blocking agents. BP stable and back in NSR now. Follow closely. No evidence of infection so abx stopped 09/29. Continue to monitor. (4) JOSELO (acute kidney injury): Code(s): N17.9 - Acute kidney failure, unspecified Status: Resolved Assessment and Plan: Cr peaked at 4.3 today related to the severe hypotensive event on 09/27. UOP better and possibly having post-ATN diuresis. Cr 3.9 today. Bicarb and potassium remain normal. Follow closely. Nephrology consulted and appreciate their input. (5) Transaminitis: Code(s): R74.01 - Elevation of levels of liver transaminase levels Status: Acute Assessment and Plan: Elevated LFTs on admission. Right upper quadrant ultrasound showing mildly distended gallbladder. Hepatitis panel negative. Lipitor placed on hold. LFTs were trending down and felt related to passive congestion but markedly increased related to the severe Hypotensive event 09/27. LFTs have peaked and continue to trend down now. Monitor closely. (6) CHF (congestive heart failure): Qualifiers: Heart failure chronicity: acute Heart failure type: unspecified Qualified Code(s): I50.9 - Heart failure, unspecified Code(s): I50.9 - Heart failure, unspecified Status: Acute Assessment and Plan: Patient with SOB and increasing pedal edema. CXR on admission showing pulmonary edema. Echo with EF 45% by echo March 2020. Echo here showing EF 25-30%. Medical management when able. Continue Speedy Hose. (7) Elevated troponin: Code(s): R77.8 - Other specified abnormalities of plasma proteins Status: Acute Assessment and Plan: Troponin elevated at 0.09 and stable felt secondary to heart failure. No complaints of chest pain but patient later told the animal control officer that he has been having CP with mild exertion for the past few weeks. EKG showing no acute findings and appears similar to old EKGs. CXR consistent with pulm edema. Lexiscan stress test 09/28 showing no evidence of acute ischemia but EF at 23%. Plan for medical management. Continue ASA for now. (8) HTN (hypertension): Qualifiers: Hypertension type: essential hypertension Qualified Code(s): I10 - Essential (primary) hypertension Code(s): I10 - Essential (primary) hypertension Status: Chronic Assessment and Plan: Patient's blood pressure was reviewed on 10/02 Blood pressure remains stable today. Anti-HTN medications on hold. (9) Type 2 diabetes mellitus without complication, without long-term current use of insulin: Code(s):
[2020-10-02 15:36] LABS: Glucose Point of Care 115 (65-105)
[2020-10-02] MEDS: HEPARIN SOD/D5W 100 UNITS/ML 25,000 UNITS/250 ML BAG 7 UNITS IV CONT (17:31)
[2020-10-02 17:59] LABS: Partial Thromboplastin Time 140.3 SECONDS (22.3-36.8)
[2020-10-02 20:11] LABS: Glucose Point of Care 103 (65-105)
[2020-10-02] MEDS: METOPROLOL TARTRATE 12.5 MG TABLET PO (20:17)
[2020-10-03] VITALS (18 sets, daily range): BP systolic 121–161; BP diastolic 58–91; PULSE 55–108; RESP 14–24; TEMP 36.1–36.4; O2SAT 94–99
[2020-10-03] MEDS: CENTRAL LINE FLUSH 20 ML IV PUSH (01:23)
[2020-10-03] MEDS: LEVALBUTEROL HFA (*SP) 15 GM INHALER 2 PUFF INHALATION ×4 (01:23→20:35)
[2020-10-03 01:50] LABS: Partial Thromboplastin Time 58.7 SECONDS (22.3-36.8)
[2020-10-03] MEDS: HEPARIN SODIUM 5,000 UNITS/ML VIAL 3000 UNITS IV PUSH (02:04)
[2020-10-03] MEDS: CENTRAL LINE FLUSH 10 ML IV PUSH ×3 (04:58→20:34)
[2020-10-03 08:43] LABS: Glucose Point of Care 111 (65-105)
[2020-10-03] MEDS: FAMOTIDINE 20 MG TABLET PO ×2 (09:19→20:33)
[2020-10-03] MEDS: FLUTICASONE PROPIONATE 0.05% NA SPR 16 GM BTL (*BKC) 1 SPRAY NASAL ×2 (09:19→20:32)
[2020-10-03] MEDS: METOPROLOL TARTRATE 12.5 MG TABLET PO ×2 (09:19→20:33)
[2020-10-03] MEDS: CHOLECALCIFEROL 1,000 UNITS TABLET 2000 UNITS PO (09:19)
[2020-10-03] MEDS: MULTIVITAMINS /C LUTEIN (CENTRUM SILVER) TABLET *BKC 1 TAB PO (09:19)
[2020-10-03] MEDS: LORATADINE 10 MG TABLET PO (09:19)
[2020-10-03] MEDS: ASPIRIN 81 MG ENTERIC TABLET PO (09:19)
[2020-10-03] MEDS: FOLIC ACID 1 MG TABLET PO (09:19)
--- NOTE | 2020-10-03 09:31 | PM.PNCARD ---
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 EF 45% by echo March 2020, Now severely reduced 25-30%. No reversible ischemia on Lexiscan, however EKG shows anterolateral T wave inversion, so he may have balanced ischemia not showing up on the Lexiscan. However with his JOSELO/CKD we will avoid cardiac cath. Have bee unable to support with beta-cecily, ÁNGELA-I or ARB vs Entresto, Spironolactone, diuretics due to JOSELO, hypotension (improved), junctional rhythm (resolved) and elevated liver enzymes. Very low-dose metoprolol was resumed on 10/01/2020 and titrated up to 12.5 mg b.i.d. 10/02/2020. He has a guarded prognosis and is at high risk for further decompensation with AMI, progression to higher grade AV block, sudden cardiac due to ventricular arrhythmias, and/or bleeding complications. (2) Left ventricular apical thrombus: Code(s): I51.3 - Intracardiac thrombosis, not elsewhere classified Status: Acute Assessment and Plan: Akinetic apex +severe LV dysfunction. On heparin gtt. Plan to transition to oral anticoagulation when we don't think any invasive procedures will be needed (dialysis and heart catheterization now seem unlikely to be needed). No bleeding. Warfarin may be very difficult for this cognitively impaired elderly male to manage. Can consider off-label use of a NOAC when his renal and hepatic function improved. (3) AV junctional rhythm: Code(s): I49.8 - Other specified cardiac arrhythmias Status: Acute Assessment and Plan: Secondary to high-dose verapamil in conjunction with Toprol XL resulting in sinus node dysfunction, +/- underlying conduction system disease. Continue telemetry. Last noted on 09/29/2020. (4) Elevated troponin: Code(s): R77.8 - Other specified abnormalities of plasma proteins Status: Acute Assessment and Plan: Mild troponin elevation in setting of profound hypotension/demand ischemia, severe LV dysfunction, CHF, acute renal failure but not consistent with acute myocardial infarction and/or plaque rupture. Type 2 infarct. (5) CHF (congestive heart failure): Qualifiers: Heart failure chronicity: acute Heart failure type: unspecified Qualified Code(s): I50.9 - Heart failure, unspecified Code(s): I50.9 - Heart failure, unspecified Status: Acute Assessment and Plan: Fairly stable at this time. Continue to monitor volume status closely. Lower extremity edema improving, but CHF stable. (6) JOSELO (acute kidney injury): Code(s): N17.9 - Acute kidney failure, unspecified Status: Resolved Assessment and Plan: Profound hypotension early AM 09/28/20 with development of an AV junctional rhythm heart rate in the 60s. He received verapamil 360 mg thought to be an outpatient medication from admission in conjunction with his Toprol XL which likely contributed to profound hypotension, sinus node dysfunction resulting in AV junctional rhythm, acute hepatic and renal failure. Received a liter of IV fluids on 09/30/2020. Renal function improving and hepatic function is improving (7) Nonsustained ventricular tachycardia: Code(s): I47.2 - Ventricular tachycardia Status: Acute Assessment and Plan: Worrisome for increased risk of sudden cardiac . Potassium is fine. Beta-cecily resumed. Does not qualify for an ICD as he has not had 90 days of medical therapy, discussed sending him home with a life vest. (8) Coagulopathy: Code(s): D68
[2020-10-03 09:34] LABS: Partial Thromboplastin Time 54.9 SECONDS (22.3-36.8)
[2020-10-03 09:39] LABS: Anion Gap 11 mmol/L (8-16); Blood Urea Nitrogen 46 mg/dL (9-20); Calcium 8.6 mg/dL (8.4-10.2); Carbon Dioxide 27 mmol/L (22-30); Chloride 101 mmol/L (98-107); Estimated CRCL calculation 17 ml/min; Estimated Glomerular Filt Rate 22; Glucose 140 mg/dL (75-110); Sodium 139 mmol/L (137-145)
[2020-10-03] MEDS: HEPARIN SODIUM 5,000 UNITS/ML VIAL 6000 UNITS IV PUSH (10:02)
--- NOTE | 2020-10-03 11:23 | PM.PNNEP ---
Progress Note: A&P Assessment and Plan (1) JOSELO (acute kidney injury): Code(s): N17.9 - Acute kidney failure, unspecified Status: Resolved Assessment and Plan: The patient has acute kidney injury on top of normal kidney function. Urine electrolytes non pre renal. Urine protein is mild. Ultrasound is unremarkable. This is all consistent with ATN. His creatinine is improving. it is down to 3.3 today. Volume status looks okay. Will follow along. (2) HTN (hypertension): Qualifiers: Hypertension type: essential hypertension Qualified Code(s): I10 - Essential (primary) hypertension Code(s): I10 - Essential (primary) hypertension Status: Chronic Assessment and Plan: The patient has underlying hypertension. His ARB is on hold. I am fine keeping his blood pressure just a little bit high while recovering from the kidney failure. (3) Hypotension: Code(s): I95.9 - Hypotension, unspecified Status: Acute Assessment and Plan: He had an episode of hypotension back on the . (4) Cardiomyopathy: Code(s): I42.9 - Cardiomyopathy, unspecified Status: Acute Assessment and Plan: His ejection fraction is fairly low on echo and on the Lexiscan. Cardiology is on board (5) Transaminitis: Code(s): R74.01 - Elevation of levels of liver transaminase levels Status: Acute Assessment and Plan: This is thought to be due to congestive hepatopathy. (6) Chronic anemia: Code(s): D64.9 - Anemia, unspecified Status: Chronic Assessment and Plan: Hemoglobin is mildly low Subjective Date/time seen: 10/03/20 11:23 Interval history: Patient is lying in bed comfortably. No chest pain or shortness of breath He slept pretty well last night he says. Exam Narrative: Exam Narrative: WDWN in NAD skin no rash head ncat lungs clear bilaterally cor reg no rub abd BS+ nontender and soft ext no edema. Objective Data Vital Signs Vital Signs: Vital Signs - 24 hr 10/02/20 11:29 10/02/20 12:00 10/02/20 14:00 Temperature Pulse Rate 87 89 Respiratory Rate Blood Pressure Pulse Oximetry 100 10/02/20 15:08 10/02/20 16:00 10/02/20 18:00 Temperature 36.3 C L Pulse Rate 87 87 88 Respiratory Rate 14 Blood Pressure 146/85 H Pulse Oximetry 100 100 10/02/20 19:42 10/02/20 20:00 10/02/20 20:17 Temperature 36.6 C Pulse Rate 93 93 95 Respiratory Rate 18 18 Blood Pressure 155/83 H Pulse Oximetry 100 100 10/02/20 21:59 10/02/20 23:05 10/03/20 00:00 Temperature 36.3 C L Pulse Rate 96 89 Respiratory Rate 18 Blood Pressure 149/85 H Pulse Oximetry 94 99 10/03/20 01:54 10/03/20 04:00 10/03/20 05:44 Temperature 36.1 C L Pulse Rate 90 94 89 Respiratory Rate 16 Blood Pressure 133/76 Pulse Oximetry 94 10/03/20 08:00 10/03/20 09:19 10/03/20 10:00 Temperature 36.3 C L Pulse Rate 92 106 H 99 Respiratory Rate 24 H Blood Pressure 151/87 H Pulse Oximetry 98 Intake/Output Intake/Output: Intake & Output 09/30/20 10/01/20 10/02/20 10/03/20 23:59 23:59 23:59 23:59 Intake Total 791.6 1339 564 557 Output Total 350 625 835 380 Balance 441.6 834 -495 177 Meds/Results Medications: Active Medications Generic Name Dose Route Start Last Admin Trade Name Freq PRN Reason Stop Dose Admin Acetaminophen 650 mg 09/26/20 21:31 Acetaminophen 325 Mg Tablet PO Q4H PRN Mild Pain (1-3) or Fever Albuterol 1 puff 09/27/20 11:36 09/27/20 20:45 Albuterol Sulfate (*Sp) Aerosol 1 Puff INHALATION 1 puff Q4H PRN Administration shortness of breath or wheezing Aspirin 81 mg 09/27/20 11:40 10/03/20 09:19 Aspirin 81 Mg Enteric Tablet PO 81 mg DAILY ABRAM Administration Budesonide/Formoterol Fumarate 2 puff 09/27/20 11:45 10/03/20 09:18 Budesonide/Form 160-4.5 Mcg (*Sp) INHALATION 2 puff Q12HRT [facility] Ad
[2020-10-03 12:28] LABS: Glucose Point of Care 139 (65-105)
--- NOTE | 2020-10-03 12:59 | PM.IMPN ---
Progress Note: A&P Assessment and Plan (1) AV junctional rhythm: Code(s): I49.8 - Other specified cardiac arrhythmias Status: Acute Assessment and Plan: Tele showing NSR now that the AV virgil blocking agents have worn off. Was having occasional runs of NSVT but improved now. Cardiology following. Continue tele. (2) Left ventricular apical thrombus: Code(s): I51.3 - Intracardiac thrombosis, not elsewhere classified Status: Acute Assessment and Plan: Echo completed and showing EF 25-30% with Grade III diastolic dysfunction. He has akinetic apex with bilobed mobile thrombus. Currently on Heparin drip. Continue the same. (3) Hypotension: Code(s): I95.9 - Hypotension, unspecified Status: Acute Assessment and Plan: Patient's BP was mildly elevated and he was resumed on his home meds (Toprol, Verapamil, Diovan) on 09/27. However, Night Monitor saw the patient and noted that the patient is no longer on Verapamil so this was stopped but patient did get a dose around 11am on 09/27 along with his other meds. That evening, his BP dropped to 68/46 and developed a junctional rhythm. His other anti-HTN meds were stopped and lasix held. Fluid boluses given with improvement in his BP. It was felt that the BP meds caused the HoTN coupled with his poor EF and AV virgil blocking agents. BP stable and back in NSR now. Metoprolol added 10/02. No evidence of infection so abx stopped 09/29. Continue to monitor. Follow closely. (4) JOSELO (acute kidney injury): Code(s): N17.9 - Acute kidney failure, unspecified Status: Resolved Assessment and Plan: Cr peaked at 4.3 today related to the severe hypotensive event on 09/27. UOP better and possibly having post-ATN diuresis. Cr 3.3 today. Bicarb and potassium remain normal. Follow closely. Nephrology consulted and appreciate their input. (5) Transaminitis: Code(s): R74.01 - Elevation of levels of liver transaminase levels Status: Acute Assessment and Plan: Elevated LFTs on admission. Right upper quadrant ultrasound showing mildly distended gallbladder. Hepatitis panel negative. Lipitor placed on hold. LFTs were trending down and felt related to passive congestion but markedly increased related to the severe Hypotensive event 09/27. LFTs have peaked and have been trending down. (6) CHF (congestive heart failure): Qualifiers: Heart failure chronicity: acute Heart failure type: unspecified Qualified Code(s): I50.9 - Heart failure, unspecified Code(s): I50.9 - Heart failure, unspecified Status: Acute Assessment and Plan: Patient with SOB and increasing pedal edema with CXR on admission showing pulmonary edema. Echo with EF 45% by echo March 2020. Echo here showing EF 25-30%. Medical management when able. Continue Speedy Hose. (7) Elevated troponin: Code(s): R77.8 - Other specified abnormalities of plasma proteins Status: Acute Assessment and Plan: Troponin elevated at 0.09 and stable felt secondary to heart failure. No complaints of chest pain but patient later told the waste salvager that he has been having CP with mild exertion for the past few weeks. EKG showing no acute findings and appears similar to old EKGs. CXR consistent with pulm edema. Lexiscan stress test 09/28 showing no evidence of acute ischemia but EF at 23%. Plan for medical management. Continue ASA and metoprolol. (8) HTN (hypertension): Qualifiers: Hypertension type: essential hypertension Qualified Code(s): I10 - Essential (primary) hypertension Code(s): I10 - Essential (primary) hypertension Status: Chronic Assessment and Plan: Patient's blood pressure was reviewed on 10/03 Blood pressure remains stable today. Metoprolol added back. Follow closely. (9) Type 2 diabetes mellitus without complication, without long-term curre
[2020-10-03 16:35] LABS: Partial Thromboplastin Time > 200.0 SECONDS (22.3-36.8)
[2020-10-03 16:40] LABS: Glucose Point of Care 118 (65-105)
[2020-10-03 18:08] LABS: Alveolar/Arterial O2 Gradient 40.9 mmHg; Base Excess ABG -1.3 mEq/l (+/-2.0); Fractional Inspired Oxygen 21 %; HCO3 ABG 22.9 mEq/l (22.0-26.0); Modified Allen's Test Pass; Oxygen Content ABG 16.1 %vol (16.0-22.0); Oxygen Saturation ABG 92.9 % (95.0-100.0); Oxyhemoglobin 90.9 % THb (90.0-100.0); PCO2 ABG 37.1 mmHg (35.0-45.0); PO2 ABG 64.4 mmHg (80.0-100.0); PO2 FiO2 Ratio Arterial Blood 3.07 %; Site Drawn RIGHT RADIAL; Total Hemoglobin 12.6 g/dL (12.0-18.0); pH ABG 7.409 (7.350-7.450)
[2020-10-03 18:09] LABS: Device ROOM AIR
[2020-10-03 20:00] LABS: Hematocrit 36.4 % (42.0-52.0); Hemoglobin 12.2 g/dL (14.0-18.0)
[2020-10-03 21:08] LABS: Glucose Point of Care 109 (65-105)
[2020-10-04] VITALS (20 sets, daily range): BP systolic 130–155; BP diastolic 67–96; PULSE 90–106; RESP 14–18; TEMP 36.1–36.6; O2SAT 95–100; BMI 25.2
[2020-10-04 00:55] LABS: Partial Thromboplastin Time 76.2 SECONDS (22.3-36.8)
[2020-10-04] MEDS: HEPARIN SOD/D5W 100 UNITS/ML 25,000 UNITS/250 ML BAG 7 UNITS IV CONT (01:23)
[2020-10-04] MEDS: LEVALBUTEROL HFA (*SP) 15 GM INHALER 2 PUFF INHALATION ×4 (02:32→20:15)
[2020-10-04] MEDS: CENTRAL LINE FLUSH 10 ML IV PUSH ×3 (06:13→20:14)
[2020-10-04 07:58] LABS: Glucose Point of Care 100 (65-105)
[2020-10-04] MEDS: FAMOTIDINE 20 MG TABLET PO ×2 (08:17→20:14)
[2020-10-04] MEDS: FOLIC ACID 1 MG TABLET PO (08:17)
[2020-10-04] MEDS: CHOLECALCIFEROL 1,000 UNITS TABLET 2000 UNITS PO (08:17)
[2020-10-04] MEDS: ASPIRIN 81 MG ENTERIC TABLET PO (08:17)
[2020-10-04] MEDS: METOPROLOL TARTRATE 12.5 MG TABLET PO ×2 (08:18→12:07)
[2020-10-04] MEDS: LORATADINE 10 MG TABLET PO (08:18)
[2020-10-04] MEDS: FLUTICASONE PROPIONATE 0.05% NA SPR 16 GM BTL (*BKC) 1 SPRAY NASAL ×2 (08:18→20:14)
[2020-10-04] MEDS: MULTIVITAMINS /C LUTEIN (CENTRUM SILVER) TABLET *BKC 1 TAB PO (08:18)
[2020-10-04 08:20] LABS: Hematocrit 34.8 % (42.0-52.0); Hemoglobin 11.6 g/dL (14.0-18.0); Mean Corpuscular HGB Conc 33.3 g/dl (32-36); Mean Corpuscular Hemoglobin 26.2 pg (26-34); Mean Corpuscular Volume 78.7 fl (80-100); Mean Platelet Volume 11.5 fl (7.4-10.4); Platelet Count Result 252 k/mm3 (150-375); Red Blood Count 4.42 M/mm3 (4.6-6.20); Red Cell Distribution Width 16.4 % (11.5-14.5); White Blood Count 5.7 K/mm3 (4.5-10.0)
[2020-10-04 08:28] LABS: Partial Thromboplastin Time 107.9 SECONDS (22.3-36.8)
[2020-10-04 08:31] LABS: Alanine Aminotransferase 583 U/L (4-50); Albumin Level 3.2 g/dL (3.5-5.1); Alkaline Phosphatase 259 U/L (38-126); Anion Gap 7 mmol/L (8-16); Aspartate Amino Transferase 202 U/L (17-59); Bilirubin,Total 1.2 mg/dL (0.2-1.3); Blood Urea Nitrogen 46 mg/dL (9-20); Calcium 8.8 mg/dL (8.4-10.2); Carbon Dioxide 28 mmol/L (22-30); Chloride 102 mmol/L (98-107); Estimated CRCL calculation 18 ml/min; Estimated Glomerular Filt Rate 25; Glucose 113 mg/dL (75-110); Phosphorus 4.1 mg/dL (2.5-4.5); Potassium 3.9 mmol/L (3.4-5.0); Sodium 137 mmol/L (137-145)
--- NOTE | 2020-10-04 09:07 | PCPTNOTE ---
Attempted therapy session at 9:00, Pt declined therapy at this time. He stated I'm just too tired and did not sleep well last night. I just need some rest. Maybe later. Reminded Pt the importance of therapy, Pt agreed however continued to decline therapy. Will continue per POC.
--- NOTE | 2020-10-04 09:23 | PM.PNNEP ---
Progress Note: A&P Assessment and Plan (1) JOSELO (acute kidney injury): Code(s): N17.9 - Acute kidney failure, unspecified Status: Resolved Assessment and Plan: The patient has acute kidney injury on top of normal kidney function. Urine electrolytes non pre renal. Urine protein is mild. Ultrasound is unremarkable. This is all consistent with ATN. His creatinine is improving. It is down to 3.0 today. He looks euvolemic. (2) HTN (hypertension): Qualifiers: Hypertension type: essential hypertension Qualified Code(s): I10 - Essential (primary) hypertension Code(s): I10 - Essential (primary) hypertension Status: Chronic Assessment and Plan: The patient has underlying hypertension. His ARB is on hold. I am fine keeping his blood pressure just a little bit high while recovering from the kidney failure. Resume ARB as an outpatient once renal failure is resolved. (3) Hypotension: Code(s): I95.9 - Hypotension, unspecified Status: Acute Assessment and Plan: He had an episode of hypotension back on the . (4) Cardiomyopathy: Code(s): I42.9 - Cardiomyopathy, unspecified Status: Acute Assessment and Plan: His ejection fraction is fairly low on echo and on the Lexiscan. Cardiology is on board (5) Transaminitis: Code(s): R74.01 - Elevation of levels of liver transaminase levels Status: Acute Assessment and Plan: This is thought to be due to congestive hepatopathy. (6) Chronic anemia: Code(s): D64.9 - Anemia, unspecified Status: Chronic Assessment and Plan: Hemoglobin is mildly low Subjective Date/time seen: 10/04/20 09:23 Interval history: Patient is lying in bed comfortably. No chest pain or shortness of breath ?I feel hyper ?. He just finished his physical therapy. Exam Narrative: Exam Narrative: WDWN in NAD skin no rash or subcu nodules head ncat lungs clear bilaterally cor reg no rub abd BS+ nontender and soft ext no edema or cyanosis. Objective Data Vital Signs Vital Signs: Vital Signs - 24 hr 10/03/20 10:00 10/03/20 12:00 10/03/20 13:22 Temperature 36.2 C L Pulse Rate 99 92 Respiratory Rate 16 Blood Pressure 121/58 L Pulse Oximetry 95 95 10/03/20 14:00 10/03/20 16:00 10/03/20 18:00 Temperature 36.1 C L Pulse Rate 101 H 97 102 H Respiratory Rate 14 Blood Pressure 161/86 H Pulse Oximetry 97 10/03/20 19:22 10/03/20 19:35 10/03/20 20:00 Temperature 36.4 C Pulse Rate 100 102 H Respiratory Rate 18 Blood Pressure 147/91 H 146/75 H Pulse Oximetry 96 10/03/20 20:33 10/03/20 22:00 10/03/20 23:54 Temperature 36.1 C L Pulse Rate 108 H 104 H 103 H Respiratory Rate 18 Blood Pressure 127/64 Pulse Oximetry 97 10/04/20 02:00 10/04/20 04:00 10/04/20 06:00 Temperature 36.1 C L Pulse Rate 98 100 105 H Respiratory Rate 18 Blood Pressure 131/67 148/89 H Pulse Oximetry 98 10/04/20 06:05 10/04/20 06:10 10/04/20 07:59 Temperature 36.1 C L Pulse Rate 106 H 105 H 105 H Respiratory Rate 14 Blood Pressure 147/78 H 150/86 H 152/96 H Pulse Oximetry 98 10/04/20 08:00 10/04/20 08:18 Temperature Pulse Rate 106 H 106 H Respiratory Rate Blood Pressure Pulse Oximetry 98 Intake/Output Intake/Output: Intake & Output 10/01/20 10/02/20 10/03/20 10/04/20 23:59 23:59 23:59 23:59 Intake Total 1339 564 690 200 Output Total 957 835 680 400 Balance 714 -889 10 -200 Meds/Results Medications: Active Medications Generic Name Dose Route Start Last Admin Trade Name Freq PRN Reason Stop Dose Admin Acetaminophen 650 mg 09/26/20 21:31 Acetaminophen 325 Mg Tablet PO Q4H PRN Mild Pain (1-3) or Fever Albuterol 1 puff 09/27/20 11:36 09/27/20 20:45 Albuterol Sulfate (*Sp) Aerosol 1 Puff INHALATION 1 puff Q4H PRN Administration shortness of breath or wheezing
--- NOTE | 2020-10-04 09:49 | PC.NURSE ---
Patient was working with therapy and threw up after getting up and going to the bathroom. Patient only took a couple bites of breakfast before morning medications.
--- NOTE | 2020-10-04 09:59 | PM.PNCARD ---
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 EF 45% by echo March 2020, Now severely reduced 25-30%. No reversible ischemia on Lexiscan, however EKG shows anterolateral T wave inversion, so he may have balanced ischemia not showing up on the Lexiscan. However with his JOSELO/CKD we will avoid cardiac cath. Have bee unable to support with beta-cecily, ÁNGELA-I or ARB vs Entresto, Spironolactone, diuretics due to JOSELO, hypotension (improved), junctional rhythm (resolved) and elevated liver enzymes. Very low-dose metoprolol was resumed on 10/01/2020 and titrated up to 12.5 mg b.i.d. 10/02/2020. No further junctional rhythm noted. No orthostatic blood pressure changes noted this morning. At times tachycardic. Will increase Metoprolol to 25 mg q.12 hours with an additional 12.5 mg at noon today after another set of orthostatics is checked. He has a guarded prognosis and is at high risk for further decompensation with AMI, progression to higher grade AV block, sudden cardiac due to ventricular arrhythmias, and/or bleeding complications. (2) Left ventricular apical thrombus: Code(s): I51.3 - Intracardiac thrombosis, not elsewhere classified Status: Acute Assessment and Plan: Akinetic apex +severe LV dysfunction. On heparin gtt. Plan to transition to oral anticoagulation when we don't think any invasive procedures will be needed (dialysis and heart catheterization now seem unlikely to be needed). No bleeding. Warfarin may be very difficult for this cognitively impaired elderly male to manage. Can consider off-label use of a NOAC when his renal and hepatic function improved. (3) AV junctional rhythm: Code(s): I49.8 - Other specified cardiac arrhythmias Status: Acute Assessment and Plan: Secondary to high-dose verapamil in conjunction with Toprol XL resulting in sinus node dysfunction, +/- underlying conduction system disease. Continue telemetry. Last noted on 09/29/2020. (4) Elevated troponin: Code(s): R77.8 - Other specified abnormalities of plasma proteins Status: Acute Assessment and Plan: Mild troponin elevation in setting of profound hypotension/demand ischemia, severe LV dysfunction, CHF, acute renal failure but not consistent with acute myocardial infarction and/or plaque rupture. Type 2 infarct. (5) CHF (congestive heart failure): Qualifiers: Heart failure type: unspecified Heart failure chronicity: acute Qualified Code(s): I50.9 - Heart failure, unspecified Code(s): I50.9 - Heart failure, unspecified Status: Acute Assessment and Plan: Fairly stable at this time. Continue to monitor volume status closely. Lower extremity edema improving, but CHF stable. (6) JOSELO (acute kidney injury): Code(s): N17.9 - Acute kidney failure, unspecified Status: Resolved Assessment and Plan: Profound hypotension early AM 09/28/20 with development of an AV junctional rhythm heart rate in the 60s. He received verapamil 360 mg thought to be an outpatient medication from admission in conjunction with his Toprol XL which likely contributed to profound hypotension, sinus node dysfunction resulting in AV junctional rhythm, acute hepatic and renal failure. Received a liter of IV fluids on 09/30/2020. Renal function and hepatic function continues to improve (7) Nonsustained ventricular tachycardia: Code(s): I47.2 - Ventricular tachycardia Status: Acute Assessment and Plan: Worrisome for increased risk of sudden ca
--- NOTE | 2020-10-04 11:56 | PM.IMPN ---
Progress Note: A&P Assessment and Plan (1) AV junctional rhythm: Code(s): I49.8 - Other specified cardiac arrhythmias Status: Acute Assessment and Plan: Tele showing NSR now that the AV virgil blocking agents have worn off. Occasional runs of NSVTbut less frequent. Cardiology following. Continue tele. (2) Left ventricular apical thrombus: Code(s): I51.3 - Intracardiac thrombosis, not elsewhere classified Status: Acute Assessment and Plan: Echo completed and showing EF 25-30% with Grade III diastolic dysfunction. He has akinetic apex with bilobed mobile thrombus. Currently on Heparin drip. Continue the same. (3) Hypotension: Code(s): I95.9 - Hypotension, unspecified Status: Acute Assessment and Plan: Patient's BP was mildly elevated and he was resumed on his home meds (Toprol, Verapamil, Diovan) on 09/27. However, Canvas Worker saw the patient and noted that the patient is no longer on Verapamil so this was stopped but patient did get a dose around 11am on 09/27 along with his other meds. That evening, his BP dropped to 68/46 and developed a junctional rhythm. His other anti-HTN meds were stopped and lasix held. Fluid boluses given with improvement in his BP. It was felt that the BP meds caused the HoTN coupled with his poor EF and AV virgil blocking agents. BP stable and back in NSR now. Follow closely. No evidence of infection so abx stopped 09/29. Continue to monitor. (4) JOSELO (acute kidney injury): Code(s): N17.9 - Acute kidney failure, unspecified Status: Resolved Assessment and Plan: Cr peaked at 4.3 today related to the severe hypotensive event on 09/27. UOP better and possibly having post-ATN diuresis. Cr 3.0 today. Bicarb and potassium remain normal. Follow closely. . (5) Transaminitis: Code(s): R74.01 - Elevation of levels of liver transaminase levels Status: Acute Assessment and Plan: Elevated LFTs on admission. Right upper quadrant ultrasound showing mildly distended gallbladder. Hepatitis panel negative. Lipitor placed on hold. LFTs were trending down and felt related to passive congestion but markedly increased related to the severe Hypotensive event 09/27. LFTs have peaked and continue to trend down now. Monitor closely. (6) CHF (congestive heart failure): Qualifiers: Heart failure type: unspecified Heart failure chronicity: acute Qualified Code(s): I50.9 - Heart failure, unspecified Code(s): I50.9 - Heart failure, unspecified Status: Acute Assessment and Plan: Patient with SOB and increasing pedal edema. CXR on admission showing pulmonary edema. Echo with EF 45% by echo March 2020. Echo here showing EF 25-30%. Medical management when able. Continue Speedy Hose. (7) Elevated troponin: Code(s): R77.8 - Other specified abnormalities of plasma proteins Status: Acute Assessment and Plan: Troponin elevated at 0.09 and stable felt secondary to heart failure. No complaints of chest pain but patient later told the oil tank car cleaner that he has been having CP with mild exertion for the past few weeks. EKG showing no acute findings and appears similar to old EKGs. CXR consistent with pulm edema. Lexiscan stress test 09/28 showing no evidence of acute ischemia but EF at 23%. Plan for medical management. Continue ASA for now. (8) HTN (hypertension): Qualifiers: Hypertension type: essential hypertension Qualified Code(s): I10 - Essential (primary) hypertension Code(s): I10 - Essential (primary) hypertension Status: Chronic Assessment and Plan: Patient's blood pressure was reviewed on 10/02 Blood pressure remains stable today. Anti-HTN medications on hold. (9) Type 2 diabetes mellitus without complication, without long-term current use of insulin: Code(s): E11.9 - Type 2 diabetes mellitus without comp
[2020-10-04 12:19] LABS: Glucose Point of Care 117 (65-105)
--- NOTE | 2020-10-04 16:22 | PC.NURSE ---
Patient can answer orientation questions appropriately but is confused at times.
[2020-10-04 16:36] LABS: Partial Thromboplastin Time 94.1 SECONDS (22.3-36.8)
[2020-10-04 16:58] LABS: Glucose Point of Care 100 (65-105)
[2020-10-04] MEDS: METOPROLOL TARTRATE 25 MG TABLET PO (20:13)
[2020-10-04 20:21] LABS: Glucose Point of Care 94 (65-105)
[2020-10-04 23:17] LABS: Partial Thromboplastin Time 83.7 SECONDS (22.3-36.8)
[2020-10-05] VITALS (17 sets, daily range): BP systolic 119–146; BP diastolic 72–85; PULSE 88–103; RESP 16–20; TEMP 35.9–36.6; O2SAT 93–100
[2020-10-05 04:30] LABS: Basophils Percent Auto 0.4 % (0.2-1.2); Eosinophils Percent Auto 0.7 % (0-4.4); Hematocrit 35.6 % (42.0-52.0); Hemoglobin 11.8 g/dL (14.0-18.0); Immature Granulocyte Absolute 0.01 K/mm3 (0.00-0.031); Immature Granulocyte Percent A 0.2 % (0-0.5); Lymphocytes Absolute Auto 1.55 K/mm3 (0.9-3.2); Lymphocytes Percent Auto 28.1 % (18.3-44.2); Mean Corpuscular HGB Conc 33.1 g/dl (32-36); Mean Corpuscular Hemoglobin 25.9 pg (26-34); Mean Corpuscular Volume 78.2 fl (80-100); Mean Platelet Volume 11.8 fl (7.4-10.4); Monocytes Absolute Auto 0.8 K/mm3 (0.1-0.6); Monocytes Percent Auto 14.5 % (2.6-8.5); Neutrophils Absolute Auto 3.1 K/mm3 (1.3-6.7); Neutrophils Percent Auto 56.1 % (45.5-73.1); Platelet Count Result 268 k/mm3 (150-375); Red Blood Count 4.55 M/mm3 (4.6-6.20); Red Cell Distribution Width 16.4 % (11.5-14.5); White Blood Count 5.5 K/mm3 (4.5-10.0)
[2020-10-05 04:39] LABS: INR 1.4; Prothrombin Time 17.7 Seconds (11.1-14.7)
[2020-10-05 04:41] LABS: Alanine Aminotransferase 455 U/L (4-50); Albumin Level 3.1 g/dL (3.5-5.1); Alkaline Phosphatase 249 U/L (38-126); Anion Gap 13 mmol/L (8-16); Aspartate Amino Transferase 135 U/L (17-59); Bilirubin,Total 1.1 mg/dL (0.2-1.3); Blood Urea Nitrogen 47 mg/dL (9-20); Carbon Dioxide 23 mmol/L (22-30); Chloride 101 mmol/L (98-107); Estimated CRCL calculation 18 ml/min; Estimated Glomerular Filt Rate 24; Glucose 101 mg/dL (75-110); Magnesium 2.1 mg/dL (1.6-2.3); Partial Thromboplastin Time 73.1 SECONDS (22.3-36.8); Phosphorus 5.1 mg/dL (2.5-4.5); Potassium 4.6 mmol/L (3.4-5.0); Sodium 137 mmol/L (137-145)
[2020-10-05] MEDS: CENTRAL LINE FLUSH 10 ML IV PUSH ×3 (05:46→20:05)
--- NOTE | 2020-10-05 08:00 | ECG_ITS ---
Measurements Intervals [place] Rate: 98 P: 24 [place]: 138 QRS: -41 QRSD: 145 T: -47 QT: 405 QTc: 518 Interpretive Statements SINUS RHYTHM RIGHT BUNDLE BRANCH BLOCK CANNOT RULE OUT SEPTAL INFARCT, AGE INDETERMINATE ABNORMAL ECG Electronically Signed On 10-05-2020 14:19:09 MOLDING ENGINEER by [place] D.O.
[2020-10-05 08:12] LABS: Glucose Point of Care 91 (65-105)
--- NOTE | 2020-10-05 08:20 | PCPTNOTE ---
Attempted therapy session, Pt stated I'm not awake yet. Just come back in a little while. Will attempt again.
[2020-10-05] MEDS: LEVALBUTEROL HFA (*SP) 15 GM INHALER 2 PUFF INHALATION ×3 (08:45→20:03)
[2020-10-05] MEDS: FLUTICASONE PROPIONATE 0.05% NA SPR 16 GM BTL (*BKC) 1 SPRAY NASAL ×2 (08:46→20:03)
--- NOTE | 2020-10-05 09:15 | PCOTNOTE ---
Attempted to see patient this AM for skilled OT session. Patient was in bed upon entry with all room lights off. When asked if patient would like to participate in therapy, patient declined, stating No, I'm too exhausted. Come back later and I'll try. Will attempt to see patient for a second time this date for OT session.
--- NOTE | 2020-10-05 09:28 | PCPTNOTE ---
Patient refused treatment this session due to being fatigued. He requested therapy to come back this afternoon. Will attempt again.
[2020-10-05] MEDS: ASPIRIN 81 MG ENTERIC TABLET PO (10:06)
[2020-10-05] MEDS: LORATADINE 10 MG TABLET PO (10:06)
[2020-10-05] MEDS: FAMOTIDINE 20 MG TABLET PO (10:06)
[2020-10-05] MEDS: METOPROLOL TARTRATE 25 MG TABLET PO ×2 (10:07→20:04)
--- NOTE | 2020-10-05 11:47 | PCOTNOTE ---
Attempted to see patient for a second time this AM to complete skilled OT session. Patient was again in bed with all the room lights off. When asked if patient would like to participate in OT session, patient declined, stating, No, I'm not doing any of that right now. I'm just really getting frustrated. Patient refused second attempt at this time, but will attempt to complete OT session a third time this PM after lunch.
--- NOTE | 2020-10-05 12:04 | P.PNNP_ITS ---
Progress Note: A&P Assessment and Plan (1) JOSELO (acute kidney injury): Code(s): N17.9 - Acute kidney failure, unspecified Status: Acute Assessment and Plan: * felt to be secondary to ATN from severe/significant hypotension * evaluation to date demonstrates: - urine electrolytes non-prerenal - urine protein is mild - ultrasound is unremarkable * creatinine stalled at 3ish range at this time * slow recovery?? * perhaps this is a manifestation of his cardimyopathy(?) * follow trend of repeat labs and UOP (2) HTN (hypertension): Qualifiers: Hypertension type: essential hypertension Qualified Code(s): I10 - Essential (primary) hypertension Code(s): I10 - Essential (primary) hypertension Status: Chronic Assessment and Plan: * reasonable control at this time * would try to keep systolic BP a little on the higher side to help with renal recovery * continue to hold ARB * follow trend of hemodynamics (3) Cardiomyopathy: Code(s): I42.9 - Cardiomyopathy, unspecified Status: Acute Assessment and Plan: * Echo results noted * Cardiology following (4) Transaminitis: Code(s): R74.01 - Elevation of levels of liver transaminase levels Status: Acute Assessment and Plan: * thought to be due to congestive hepatopathy * follow trend of LFTs (5) Anemia: Code(s): D64.9 - Anemia, unspecified Status: Acute Assessment and Plan: * has a chronic component * acute component likely secondary to acute medical issues * follow trend of H/H Will continue to follow. Subjective Date/time seen: 10/05/20 12:04 Chart reviewed -- overall, the patinet states he is feeling better; no complaint s of shortness of breath or chest pain; eating and drinking okay; no events overnight or earlier this AM. Exam Narrative: Exam Narrative: General: WD/WN elderly AA male in NAD Heart: normal S1 and S2; no rub Lungs: clear to auscultation Abdomen: soft, nontender, nondistended, positive bowel sounds Extremities: no cyanosis or clubbing; no edema Skin: warm and dry Objective Data Vital Signs Vital Signs: Vital Signs Temp Pulse Resp BP Pulse Ox 10/05/20 10:07 99 10/05/20 10:00 103 H 10/05/20 08:00 36.3 C L 103 H 20 146/80 H 99 10/05/20 06:00 98 10/05/20 04:27 36.3 C L 93 18 143/76 H 98 10/05/20 04:00 97 95 10/05/20 02:00 95 10/05/20 00:00 94 98 10/04/20 23:28 36.2 C L 94 18 139/93 H 98 10/04/20 22:00 90 10/04/20 20:13 101 H 10/04/20 20:00 36.6 C 101 H 18 155/88 H 100 10/04/20 18:00 95 10/04/20 16:00 36.2 C L 94 16 130/96 H 98 10/04/20 14:00 95 10/04/20 12:20 149/88 H 10/04/20 12:07 94 Intake/Output Intake/Output: Intake & Output 10/02/20 10/03/20 10/04/20 10/05/20 23:59 23:59 23:59 23:59 Intake Total 564 690 200 850 Output Total 835 680 400 Balance -271 10 -200 850 Meds/Results Medications: Active Medications Generic Name Dose Route Start Last Admin Trade Name Freq PRN Reason Stop Dose Admin Acetaminophen 650 mg 09/26/20 21:31
--- NOTE | 2020-10-05 12:04 | PM.PNNEP ---
Progress Note: A&P Assessment and Plan (1) JOSELO (acute kidney injury): Code(s): N17.9 - Acute kidney failure, unspecified Status: Acute Assessment and Plan: felt to be secondary to ATN from severe/significant hypotension evaluation to date demonstrates: - urine electrolytes non-prerenal - urine protein is mild - ultrasound is unremarkable creatinine stalled at 3ish range at this time slow recovery?? perhaps this is a manifestation of his cardimyopathy(?) follow trend of repeat labs and UOP (2) HTN (hypertension): Qualifiers: Hypertension type: essential hypertension Qualified Code(s): I10 - Essential (primary) hypertension Code(s): I10 - Essential (primary) hypertension Status: Chronic Assessment and Plan: reasonable control at this time would try to keep systolic BP a little on the higher side to help with renal recovery continue to hold ARB follow trend of hemodynamics (3) Cardiomyopathy: Code(s): I42.9 - Cardiomyopathy, unspecified Status: Acute Assessment and Plan: Echo results noted Cardiology following (4) Transaminitis: Code(s): R74.01 - Elevation of levels of liver transaminase levels Status: Acute Assessment and Plan: thought to be due to congestive hepatopathy follow trend of LFTs (5) Anemia: Code(s): D64.9 - Anemia, unspecified Status: Acute Assessment and Plan: has a chronic component acute component likely secondary to acute medical issues follow trend of H/H Will continue to follow. Subjective Date/time seen: 10/05/20 12:04 Chart reviewed -- overall, the patinet states he is feeling better; no complaints of shortness of breath or chest pain; eating and drinking okay; no events overnight or earlier this AM. Exam Narrative: Exam Narrative: General: WD/WN elderly AA male in NAD Heart: normal S1 and S2; no rub Lungs: clear to auscultation Abdomen: soft, nontender, nondistended, positive bowel sounds Extremities: no cyanosis or clubbing; no edema Skin: warm and dry Objective Data Vital Signs Vital Signs: Vital Signs Temp Pulse Resp BP Pulse Ox 10/05/20 10:07 99 10/05/20 10:00 103 H 10/05/20 08:00 36.3 C L 103 H 20 146/80 H 99 10/05/20 06:00 98 10/05/20 04:27 36.3 C L 93 18 143/76 H 98 10/05/20 04:00 97 95 10/05/20 02:00 95 10/05/20 00:00 94 98 10/04/20 23:28 36.2 C L 94 18 139/93 H 98 10/04/20 22:00 90 10/04/20 20:13 101 H 10/04/20 20:00 36.6 C 101 H 18 155/88 H 100 10/04/20 18:00 95 10/04/20 16:00 36.2 C L 94 16 130/96 H 98 10/04/20 14:00 95 10/04/20 12:20 149/88 H 10/04/20 12:07 94 Intake/Output Intake/Output: Intake & Output 10/02/20 10/03/20 10/04/20 10/05/20 23:59 23:59 23:59 23:59 Intake Total 564 690 200 850 Output Total 835 680 400 Balance -271 10 -200 850 Meds/Results Medications: Active Medications Generic Name Dose Route Start Last Admin Trade Name Freq PRN Reason Stop Dose Admin Acetaminophen 650 mg 09/26/20 21:31 Acetaminophen 325 Mg Tablet PO Q4H PRN Mild Pain (1-3) or Fever Albuterol 1 puff 09/27/20 11:36 09/27/20 20:45 Albuterol Sulfate (*Sp) Aerosol 1 Puff INHALATION 1 puff Q4H PRN Administration shortness of breath or wheezing Aspirin 81 mg 09/27/20 11:40 10/05/20 10:06 Aspirin 81 Mg Enteric Tablet PO 81 mg DAILY ABRAM Administration Budesonide/Formoterol Fumarate 2 puff 09/27/20 11:45 10/05/20 08:46 Budesonide/Form 160-4.5 Mcg (*Sp) INHALATION 2 puff Q12HRT ARBAM Administration Dextrose 12.5 gm 09/26/20 21:29 Dextrose 50% 25 Gm/50 Ml Syringe IV PUSH PRN PRN Hypoglycemia Protocol Famotidine 20 mg 09/27/20 21:00 10/05/20 10:06 Famotidine 20 Mg Tablet PO 20 mg Q12HR ABRAM Administ
[2020-10-05 12:13] LABS: Glucose Point of Care 104 (65-105)
--- NOTE | 2020-10-05 12:14 | PM.PNCARD ---
Progress Note: A&P Additional Plan 75-year-old black male with: Coronary artery disease, remote history of bypass grafting and now with significant ischemic cardiomyopathy. He appears to be euvolemic. His blood pressure is in the 130-140 range so I am going to try adding some hydralazine to his regimen as the valsartan with has been discontinued. Prognosis is obviously somewhat limited given his poor LV function and concurrent renal failure. His understanding of the situation is fair but not ideal Calin oBnilla MD [facility] Subjective Date/time seen: Date of service: 10/05/20 12:14 Interval history: Follow-up visit in this 75-year-old man with: Multivessel coronary artery disease evidence of significant ischemic cardiomyopathy and also evidence of significantly worsening chronic kidney disease. No anginal type chest pain and no significant ischemic burden noted on Lexiscan stress testing as noted by my partners. For this reason angiography is not going to occur during this hospitalization. He was on modest dose of valsartan which has been stopped because of his renal insufficiency. Patient has no significant cardiac complaints today he is eating his lunch when I enter the room to see him. Exam Const: General: comfortable and no acute distress Other: Thin black male appearing about his stated age appears to be comfortable in no distress HENMT: Mouth: Yes dry mucous membranes Eyes: Sclera: sclerae normal Pupils: Equal, round and reactive pupils present Neck: Neck: supple and no JVD Thyroid: thyroid normal Resp: Effort & Inspection: normal respiratory effort Auscultation: clear to auscultation bilaterally Cardio: Rate: regular rate Rhythm: regular rhythm GI: Auscultation: normal bowel sounds Skin: General skin exam: normal color Neuro: Cognition (Neuro): normal cognition Extrem: General: normal to inspection Objective Data Vital Signs Vital Signs: Vital Signs - 24 hr 10/04/20 12:20 10/04/20 14:00 10/04/20 16:00 Temperature 36.2 C L Pulse Rate 95 94 Respiratory Rate 16 Blood Pressure 149/88 H 130/96 H Pulse Oximetry 98 10/04/20 18:00 10/04/20 20:00 10/04/20 20:13 Temperature 36.6 C Pulse Rate 95 101 H 101 H Respiratory Rate 18 Blood Pressure 155/88 H Pulse Oximetry 100 10/04/20 22:00 10/04/20 23:28 10/05/20 00:00 Temperature 36.2 C L Pulse Rate 90 94 94 Respiratory Rate 18 Blood Pressure 139/93 H Pulse Oximetry 98 98 10/05/20 02:00 10/05/20 04:00 10/05/20 04:27 Temperature 36.3 C L Pulse Rate 95 97 93 Respiratory Rate 18 Blood Pressure 143/76 H Pulse Oximetry 95 98 10/05/20 06:00 10/05/20 08:00 10/05/20 10:00 Temperature 36.3 C L Pulse Rate 98 103 H 103 H Respiratory Rate 20 Blood Pressure 146/80 H Pulse Oximetry 99 10/05/20 10:07 Temperature Pulse Rate 99 Respiratory Rate Blood Pressure Pulse Oximetry Intake/Output Intake/Output: Intake & Output 10/02/20 10/03/20 10/04/20 10/05/20 23:59 23:59 23:59 23:59 Intake Total 564 690 200 850 Output Total 835 680 400 Balance -271 10 -200 850 Meds/Results Medications: Active Medications Generic Name Dose Route Start Last Admin Trade Name Freq PRN Reason Stop Dose Admin Acetaminophen 650 mg 09/26/20 21:31 Acetaminophen 325 Mg Tablet PO Q4H PRN Mild Pain (1-3) or Fever Albuterol 1 puff 09/27/20 11:36 09/27/20 20:45 Albuterol Sulfate (*Sp) Aerosol 1 Puff INHALATION 1 puff Q4H PRN Administration shortness of breath or wheezing Aspirin 81 mg 09/27/20 11:40 10/05/20 10:06 Aspirin 81 Mg Enteric Tablet PO 81 mg DAILY ABRAM Administration Budesonide/Formoterol Fumarate 2 puff 09/27/20 11:45 10/05/20 08:46 Budesonide/Form 160-4.5 Mcg (*Sp) INHALATION 2 puff Q12HRT ABRAM Administration Dextrose 12.5 gm 09/26/20 21:29 Dextrose 50% 25 Gm/50 Ml Syringe IV PUSH PRN PRN Hypoglycemia Protocol Fam
[2020-10-05] MEDS: hydrALAZINE 10 MG TABLET PO ×2 (13:59→20:04)
--- NOTE | 2020-10-05 14:20 | PM.IMPN ---
Progress Note: A&P Assessment and Plan (1) AV junctional rhythm: Code(s): I49.8 - Other specified cardiac arrhythmias Status: Acute Assessment and Plan: Tele showing NSR now that the AV virgil blocking agents have worn off. Occasional runs of NSVTbut less frequent. Cardiology following. Continue tele. (2) Left ventricular apical thrombus: Code(s): I51.3 - Intracardiac thrombosis, not elsewhere classified Status: Acute Assessment and Plan: Echo completed and showing EF 25-30% with Grade III diastolic dysfunction. He has akinetic apex with bilobed mobile thrombus. Currently on Heparin drip. Continue the same hydralazine added for chf. (3) Hypotension: Code(s): I95.9 - Hypotension, unspecified Status: Acute Assessment and Plan: Patient's BP was mildly elevated and he was resumed on his home meds (Toprol, Verapamil, Diovan) on 09/27. However, Computer Network Specialist saw the patient and noted that the patient is no longer on Verapamil so this was stopped but patient did get a dose around 11am on 09/27 along with his other meds. That evening, his BP dropped to 68/46 and developed a junctional rhythm. His other anti-HTN meds were stopped and lasix held. Fluid boluses given with improvement in his BP. It was felt that the BP meds caused the HoTN coupled with his poor EF and AV virgil blocking agents. BP stable and back in NSR now. Follow closely. No evidence of infection so abx stopped 09/29. Continue to monitor. (4) JOSELO (acute kidney injury): Code(s): N17.9 - Acute kidney failure, unspecified Status: Resolved Assessment and Plan: Cr peaked at 4.3 today related to the severe hypotensive event on 09/27. UOP better and possibly having post-ATN diuresis. Cr 3.1 today. Bicarb and potassium remain normal. Follow closely. . (5) Transaminitis: Code(s): R74.01 - Elevation of levels of liver transaminase levels Status: Acute Assessment and Plan: Elevated LFTs on admission. Right upper quadrant ultrasound showing mildly distended gallbladder. Hepatitis panel negative. Lipitor placed on hold. LFTs were trending down and felt related to passive congestion but markedly increased related to the severe Hypotensive event 09/27. LFTs have peaked and continue to trend down now. Monitor closely. (6) CHF (congestive heart failure): Qualifiers: Heart failure type: unspecified Heart failure chronicity: acute Qualified Code(s): I50.9 - Heart failure, unspecified Code(s): I50.9 - Heart failure, unspecified Status: Acute Assessment and Plan: Patient with SOB and increasing pedal edema. CXR on admission showing pulmonary edema. Echo with EF 45% by echo March 2020. Echo here showing EF 25-30%. Medical management when able. Continue Speedy Hose. added hydralazine to beta cceily with ARB on hold with his renal failure (7) Elevated troponin: Code(s): R77.8 - Other specified abnormalities of plasma proteins Status: Acute Assessment and Plan: Troponin elevated at 0.09 and stable felt secondary to heart failure. No complaints of chest pain but patient later told the software applications architect that he has been having CP with mild exertion for the past few weeks. EKG showing no acute findings and appears similar to old EKGs. CXR consistent with pulm edema. Lexiscan stress test 09/28 showing no evidence of acute ischemia but EF at 23%. Plan for medical management. Continue ASA for now. (8) HTN (hypertension): Qualifiers: Hypertension type: essential hypertension Qualified Code(s): I10 - Essential (primary) hypertension Code(s): I10 - Essential (primary) hypertension Status: Chronic Assessment and Plan: Patient's blood pressure was reviewed on 10/05 Blood pressure remains stable today. some light permissive HTN with the renal failure (9) Type 2 diabetes mellitus without
[2020-10-05 17:11] LABS: Glucose Point of Care 82 (65-105)
[2020-10-05] MEDS: HEPARIN SOD/D5W 100 UNITS/ML 25,000 UNITS/250 ML BAG 6 UNITS IV CONT (18:32)
--- NOTE | 2020-10-05 18:41 | PC.NURSE ---
Patient encouraged multiple times to use the urinal to measure accurate I&Os but patient always used the toilet with therapy and throughout the day.
[2020-10-05 19:48] LABS: Glucose Point of Care 106 (65-105)
[2020-10-05] MEDS: PANTOPRAZOLE 40 MG TABLET PO (20:04)
[2020-10-06] VITALS (19 sets, daily range): BP systolic 126–136; BP diastolic 69–86; PULSE 69–93; RESP 16–22; TEMP 35.6–36.3; O2SAT 92–100
--- NOTE | 2020-10-06 02:17 | PC.NURSE ---
flux tube attendant went into this pts room around 1:15am to replace battery and tele box on this pt. Pt stated he did not want the tele monitor on him. This RN went to speak to pt and attempt to replace tele monitor on him. Pt again stated he did not want the tele monitor on him because it was a violation of his rights as a pt. This RN explained the importance of having monitor on considering his heart issues, he again refused. Pt answers orientation questions appropriately, but then speaks of how I and the hospital are under investigation. Pt continues to state he wants to go home despite this RN explaining he is still on a Heparin drip. This RN and lawn care worker went in to pts room around 2:35am when pts bed alarm went off. Pt was standing out of bed. Pt was placed back in bed and allowed us to place tele monitor on him. He stated that he would let be responsible for his care for 12 hrs, if I brought in paper work to sign stating I was responsible. Bed exit alarm is currently on, will continue to monitor pt.
--- NOTE | 2020-10-06 04:40 | PC.NURSE ---
Pt is refusing lab draw this AM, will inform doctor.
--- NOTE | 2020-10-06 05:16 | PC.NURSE ---
Pt again ripped tele monitor off, stating he does not want to wear it anymore. Attempted to change pts mind with no success. Dr is aware of pts uncooperativeness, will continue to monitor pt.
[2020-10-06 06:36] LABS: Partial Thromboplastin Time 69.4 SECONDS (22.3-36.8)
[2020-10-06 06:37] LABS: Alanine Aminotransferase 371 U/L (4-50); Albumin Level 3.4 g/dL (3.5-5.1); Alkaline Phosphatase 227 U/L (38-126); Anion Gap 13 mmol/L (8-16); Aspartate Amino Transferase 96 U/L (17-59); Bilirubin,Total 1.1 mg/dL (0.2-1.3); Blood Urea Nitrogen 57 mg/dL (9-20); Calcium 9.2 mg/dL (8.4-10.2); Carbon Dioxide 23 mmol/L (22-30); Chloride 101 mmol/L (98-107); Estimated CRCL calculation 15 ml/min; Estimated Glomerular Filt Rate 20; Glucose 116 mg/dL (75-110); Potassium 4.8 mmol/L (3.4-5.0); Sodium 137 mmol/L (137-145)
[2020-10-06] MEDS: LORATADINE 10 MG TABLET PO (08:40)
[2020-10-06] MEDS: hydrALAZINE 10 MG TABLET PO ×4 (08:40→20:23)
[2020-10-06] MEDS: METOPROLOL TARTRATE 25 MG TABLET PO ×2 (08:40→20:24)
[2020-10-06] MEDS: ASPIRIN 81 MG ENTERIC TABLET PO (08:40)
[2020-10-06] MEDS: PANTOPRAZOLE 40 MG TABLET PO ×2 (08:41→20:23)
--- NOTE | 2020-10-06 09:06 | PCOTNOTE ---
Attempted to see patient this am. Pt demonstrated increased confusion stating, I don't want this yellow phone. I don't have a yellow phone. Take it, and throw it away. Pt referring to nga small on table. Pt oriented to self and date. Pt presented with shortness of breath and increased agitation. Pt stated, I'm not doing nothing right now. I don't need anything. I don't want nothing.
[2020-10-06 09:26] LABS: Glucose Point of Care 141 (65-105)
--- NOTE | 2020-10-06 10:15 | PM.PNCARD ---
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 EF 45% by echo March 2020, Now severely reduced 25-30%. No reversible ischemia on Lexiscan, however EKG shows anterolateral T wave inversion, so he may have balanced ischemia not showing up on the Lexiscan. However with his JOSELO/CKD we will avoid cardiac cath. Have bee unable to support with beta-cecily, ÁNGELA-I or ARB vs Entresto, Spironolactone, diuretics due to JOSELO, hypotension (improved), junctional rhythm (resolved) and elevated liver enzymes. Very low-dose metoprolol was resumed on 10/01/2020 and titrated up to 12.5 mg b.i.d. 10/02/2020. No further junctional rhythm noted. No orthostatic blood pressure changes noted this morning. At times tachycardic. Continue metoprolol 25 mg b.i.d. recommend to add Milrinone to enhance systolic function and hopefully it can improve the renal function. He has a guarded prognosis and is at high risk for further decompensation with AMI, progression to higher grade AV block, sudden cardiac due to ventricular arrhythmias, and/or bleeding complications. (2) Left ventricular apical thrombus: Code(s): I51.3 - Intracardiac thrombosis, not elsewhere classified Status: Acute Assessment and Plan: Akinetic apex +severe LV dysfunction. On heparin gtt. Plan to transition to oral anticoagulation when we don't think any invasive procedures will be needed (dialysis and heart catheterization now seem unlikely to be needed). No bleeding. Warfarin may be very difficult for this cognitively impaired elderly male to manage. Can consider off-label use of a NOAC when his renal and hepatic function improved. (3) AV junctional rhythm: Code(s): I49.8 - Other specified cardiac arrhythmias Status: Acute Assessment and Plan: Secondary to high-dose verapamil in conjunction with Toprol XL resulting in sinus node dysfunction, +/- underlying conduction system disease. Continue telemetry. Last noted on 09/29/2020. (4) Elevated troponin: Code(s): R77.8 - Other specified abnormalities of plasma proteins Status: Acute Assessment and Plan: Mild troponin elevation in setting of profound hypotension/demand ischemia, severe LV dysfunction, CHF, acute renal failure but not consistent with acute myocardial infarction and/or plaque rupture. Type 2 infarct. (5) CHF (congestive heart failure): Qualifiers: Heart failure type: unspecified Heart failure chronicity: acute Qualified Code(s): I50.9 - Heart failure, unspecified Code(s): I50.9 - Heart failure, unspecified Status: Acute Assessment and Plan: Fairly stable at this time. Continue to monitor volume status closely. Lower extremity edema improving, but CHF stable. (6) JOSELO (acute kidney injury): Code(s): N17.9 - Acute kidney failure, unspecified Status: Resolved Assessment and Plan: Profound hypotension early AM 09/28/20 with development of an AV junctional rhythm heart rate in the 60s. He received verapamil 360 mg thought to be an outpatient medication from admission in conjunction with his Toprol XL which likely contributed to profound hypotension, sinus node dysfunction resulting in AV junctional rhythm, acute hepatic and renal failure. Received a liter of IV fluids on 09/30/2020. Renal function and hepatic function continues to improve (7) Nonsustained ventricular tachycardia: Code(s): I47.2 - Ventricular tachycardia Status: Acute Assessment and Plan: Worrisome for increased
--- NOTE | 2020-10-06 10:34 | PCPTNOTE ---
Attempted therapy session. Pt refused therapy stating No, I don't want to get up into a chair, or walk, or do exercises. I just want to sleep! Pt as orientated to self however kept saying he is downstairs when asked where he was. Explained the to Pt he is at [facility], Pt stated I know, I am down stairs. Will attempt again. RN aware of Pt's increased confusion. Bed alarm set on zone 2, phone, call light, and bed side table within reach.
[2020-10-06 12:05] LABS: Glucose Point of Care 108 (65-105)
[2020-10-06] MEDS: CHOLECALCIFEROL 1,000 UNITS TABLET 2000 UNITS PO (12:55)
[2020-10-06] MEDS: FOLIC ACID 1 MG TABLET PO (12:55)
[2020-10-06] MEDS: APIXABAN 2.5 MG TABLET PO ×2 (12:56→20:23)
[2020-10-06] MEDS: DOBUTamine 250 MG/D5W 250 ML 250 MG/250 ML BAG 11.21 MG IV CONT (12:58)
[2020-10-06] MEDS: CENTRAL LINE FLUSH 10 ML IV PUSH ×2 (13:03→20:24)
[2020-10-06] MEDS: LEVALBUTEROL HFA (*SP) 15 GM INHALER 2 PUFF INHALATION ×2 (13:05→20:27)
--- NOTE | 2020-10-06 13:09 | PCDIET ---
Nutrition Follow-Up Complete: Nutrition Diagnosis: Suboptimal oral intake related to decreased appetite as evidenced by meal records, patient/nursing statements. Nutrition Goal: Patient to consume 75% of meals or greater. Goal not met. Patient refusing most meals, per EMR. Stated I ate a little bit of lunch which remains in room, but appears untouched. Difficulty keeping patient awake during conversation and was unable to obtain more information. Recommend adding calorie dense Nepro (425kcal, 19g protein) TID given that K+ is 4.8mmol/L without much oral intake at all. If intakes remain poor, may need to consider supplemental nutrition support. Last recorded weight is 74.7 kg which is down from last review. Bowel Motility: Last documented BM on 10/05/20 x 1. Labs Reviewed: Glu (116), BUN (57), Cr (3.6), K (4.8), Alb (3.4) Meds Noted: Albuterol, Symbicort, Folic Acid, Hydralazine, Novolog, Xopenex, Lopressor, Centrum, Protonix, Vitamin D Additional Notes: No documented skin breakdown. Will continue to monitor with same goal. Nutrition Monitoring and Evaluation: Follow up every 5 days.
--- NOTE | 2020-10-06 15:18 | P.PNNP_ITS ---
Progress Note: A&P Assessment and Plan (1) JOSELO (acute kidney injury): Code(s): N17.9 - Acute kidney failure, unspecified Status: Acute Assessment and Plan: * felt to be secondary to ATN from severe/significant hypotension * evaluation to date demonstrates: - urine electrolytes non-prerenal - urine protein is mild - ultrasound is unremarkable * creatinine stalled at 3ish range at this time * slow recovery?? * perhaps this is a manifestation of his cardimyopathy(?) * follow trend of repeat labs and UOP (2) HTN (hypertension): Qualifiers: Hypertension type: essential hypertension Qualified Code(s): I10 - Essential (primary) hypertension Code(s): I10 - Essential (primary) hypertension Status: Chronic Assessment and Plan: * reasonable control at this time * would try to keep systolic BP a little on the higher side to help with renal recovery * continue to hold ARB * follow trend of hemodynamics (3) Cardiomyopathy: Code(s): I42.9 - Cardiomyopathy, unspecified Status: Acute Assessment and Plan: * Echo results noted * Cardiology following (4) Transaminitis: Code(s): R74.01 - Elevation of levels of liver transaminase levels Status: Acute Assessment and Plan: * thought to be due to congestive hepatopathy * follow trend of LFTs (5) Anemia: Code(s): D64.9 - Anemia, unspecified Status: Acute Assessment and Plan: * has a chronic component * acute component likely secondary to acute medical issues * follow trend of H/H Will continue to follow. Subjective Date/time seen: 10/06/20 15:18 Major complaint is that of fatigue due to inablility to sleep at night; Cardiology to try ionotropic agents in the hopes of improving cardiac as well as renal perfusion; no apparent distress voiced at the time of my visit; no events overnight or earlier this AM. Exam Narrative: Exam Narrative: General: WD/WN elderly AA male in NAD Heart: normal S1 and S2; no rub Lungs: clear to auscultation Abdomen: soft, nontender, nondistended, positive bowel sounds Extremities: no cyanosis or clubbing; no edema Skin: warm and dry Objective Data Vital Signs Vital Signs: Vital Signs Temp Pulse Resp BP Pulse Ox 10/06/20 14:00 86 10/06/20 12:58 84 130/78 10/06/20 12:16 36.2 C L 82 16 130/78 92 10/06/20 12:00 84 10/06/20 10:00 69 10/06/20 08:40 91 10/06/20 08:00 89 10/06/20 07:35 36.3 C L 91 22 H 136/81 100 10/06/20 06:20 36.3 C L 91 22 H 136/81 100 10/06/20 04:00 93 100 10/06/20 00:00 88 93 10/05/20 23:50 35.9 C L 89 18 119/80 93 10/05/20 22:00 89 10/05/20 20:04 97 10/05/20 20:00 98 100 10/05/20 19:50 36.4 C L 100 18 132/85 100 10/05/20 18:00 96 10/05/20 16:00 36.3 C L 94 18 141/72 H 100 Intake/Output Intake/Output: Intake & Output 10/03/20 10/04/20 10/05/20 10/06/20 23:59 23:59 23:59 23:59 Intake Total 929 729 8988 320 Output Total 680 400 Balance 10 -200 1340 320 Meds/Results Medications: Active Medications Generic Name Dose Route
--- NOTE | 2020-10-06 15:18 | PM.PNNEP ---
Progress Note: A&P Assessment and Plan (1) JOSELO (acute kidney injury): Code(s): N17.9 - Acute kidney failure, unspecified Status: Acute Assessment and Plan: felt to be secondary to ATN from severe/significant hypotension evaluation to date demonstrates: - urine electrolytes non-prerenal - urine protein is mild - ultrasound is unremarkable creatinine stalled at 3ish range at this time slow recovery?? perhaps this is a manifestation of his cardimyopathy(?) follow trend of repeat labs and UOP (2) HTN (hypertension): Qualifiers: Hypertension type: essential hypertension Qualified Code(s): I10 - Essential (primary) hypertension Code(s): I10 - Essential (primary) hypertension Status: Chronic Assessment and Plan: reasonable control at this time would try to keep systolic BP a little on the higher side to help with renal recovery continue to hold ARB follow trend of hemodynamics (3) Cardiomyopathy: Code(s): I42.9 - Cardiomyopathy, unspecified Status: Acute Assessment and Plan: Echo results noted Cardiology following (4) Transaminitis: Code(s): R74.01 - Elevation of levels of liver transaminase levels Status: Acute Assessment and Plan: thought to be due to congestive hepatopathy follow trend of LFTs (5) Anemia: Code(s): D64.9 - Anemia, unspecified Status: Acute Assessment and Plan: has a chronic component acute component likely secondary to acute medical issues follow trend of H/H Will continue to follow. Subjective Date/time seen: 10/06/20 15:18 Major complaint is that of fatigue due to inablility to sleep at night; Cardiology to try ionotropic agents in the hopes of improving cardiac as well as renal perfusion; no apparent distress voiced at the time of my visit; no events overnight or earlier this AM. Exam Narrative: Exam Narrative: General: WD/WN elderly AA male in NAD Heart: normal S1 and S2; no rub Lungs: clear to auscultation Abdomen: soft, nontender, nondistended, positive bowel sounds Extremities: no cyanosis or clubbing; no edema Skin: warm and dry Objective Data Vital Signs Vital Signs: Vital Signs Temp Pulse Resp BP Pulse Ox 10/06/20 14:00 86 10/06/20 12:58 84 130/78 10/06/20 12:16 36.2 C L 82 16 130/78 92 10/06/20 12:00 84 10/06/20 10:00 69 10/06/20 08:40 91 10/06/20 08:00 89 10/06/20 07:35 36.3 C L 91 22 H 136/81 100 10/06/20 06:20 36.3 C L 91 22 H 136/81 100 10/06/20 04:00 93 100 10/06/20 00:00 88 93 10/05/20 23:50 35.9 C L 89 18 119/80 93 10/05/20 22:00 89 10/05/20 20:04 97 10/05/20 20:00 98 100 10/05/20 19:50 36.4 C L 100 18 132/85 100 10/05/20 18:00 96 10/05/20 16:00 36.3 C L 94 18 141/72 H 100 Intake/Output Intake/Output: Intake & Output 10/03/20 10/04/20 10/05/20 10/06/20 23:59 23:59 23:59 23:59 Intake Total 356 386 4869 320 Output Total 680 400 Balance 10 -200 1340 320 Meds/Results Medications: Active Medications Generic Name Dose Route Start Last Admin Trade Name Freq PRN Reason Stop Dose Admin Acetaminophen 650 mg 09/26/20 21:31 Acetaminophen 325 Mg Tablet PO Q4H PRN Mild Pain (1-3) or Fever Albuterol 1 puff 09/27/20 11:36 09/27/20 20:45 Albuterol Sulfate (*Sp) Aerosol 1 Puff INHALATION 1 puff Q4H PRN Administration shortness of breath or wheezing Apixaban 2.5 mg 10/06/20 12:15 10/06/20 12:56 Apixaban 2.5 Mg Tablet PO 2.5 mg Q12HR ABRAM Administration Aspirin 81 mg 09/27/20 11:40 10/06/20 08:40 Aspirin 81 Mg Enteric Tablet PO 81 mg DAILY ABRAM Administration Budesonide/Formoterol Fumarate 2 puff 09/27/20 11:45 10/06/20 08:46 Budesonide/Form 160-4.5 Mcg (*Sp) INHALATION Not Given Q12HRT [facility] Dextrose 12.5
[2020-10-06 16:58] LABS: Glucose Point of Care 175 (65-105)
--- NOTE | 2020-10-06 17:48 | PM.IMPN ---
Progress Note: A&P Assessment and Plan (1) AV junctional rhythm: Code(s): I49.8 - Other specified cardiac arrhythmias Status: Acute Assessment and Plan: Tele showing NSR now that the AV virgil blocking agents have worn off. . Cardiology following. Continue tele. Resumed metoprolol and low-dose for his cardiomyopathy 10/04 (2) Left ventricular apical thrombus: Code(s): I51.3 - Intracardiac thrombosis, not elsewhere classified Status: Acute Assessment and Plan: Echo completed and showing EF 25-30% with Grade III diastolic dysfunction. He has akinetic apex with bilobed mobile thrombus. Heparin discontinued and Eliquis started per Cardiology hydralazine added for chf 10/05 and low-dose dobutamine started today 10/06. (3) Hypotension: Code(s): I95.9 - Hypotension, unspecified Status: Acute Assessment and Plan: Patient's BP was mildly elevated and he was resumed on his home meds (Toprol, Verapamil, Diovan) on 09/27. However, School Cafeteria Cook saw the patient and noted that the patient is no longer on Verapamil so this was stopped but patient did get a dose around 11am on 09/27 along with his other meds. That evening, his BP dropped to 68/46 and developed a junctional rhythm. His other anti-HTN meds were stopped and lasix held. Fluid boluses given with improvement in his BP. It was felt that the BP meds caused the HoTN coupled with his poor EF and AV virgil blocking agents. BP stable and back in NSR now. Follow closely. No evidence of infection so abx stopped 09/29. Continue to monitor. (4) JOSELO (acute kidney injury): Code(s): N17.9 - Acute kidney failure, unspecified Status: Acute Assessment and Plan: Cr peaked at 4.3 today related to the severe hypotensive event on 09/27. UOP better and possibly having post-ATN diuresis. Cr 3.6 today. Bicarb and potassium remain normal. Follow closely Dobutamine added today to try to increase renal perfusion and cardiac output. . (5) Transaminitis: Code(s): R74.01 - Elevation of levels of liver transaminase levels Status: Acute Assessment and Plan: Elevated LFTs on admission. Right upper quadrant ultrasound showing mildly distended gallbladder. Hepatitis panel negative. Lipitor placed on hold. LFTs were trending down and felt related to passive congestion but markedly increased related to the severe Hypotensive event 09/27. LFTs have peaked and continue to trend down now. Monitor closely. (6) CHF (congestive heart failure): Qualifiers: Heart failure type: unspecified Heart failure chronicity: acute Qualified Code(s): I50.9 - Heart failure, unspecified Code(s): I50.9 - Heart failure, unspecified Status: Acute Assessment and Plan: Patient with SOB and increasing pedal edema. CXR on admission showing pulmonary edema. Echo with EF 45% by echo March 2020. Echo here showing EF 25-30%. Lexiscan stress negative for ischemia. Continue Speedy Romo. added hydralazine 10/05 to beta cecily with ARB on hold with his renal failure Low-dose dobutamine added today 10/06 (7) Elevated troponin: Code(s): R77.8 - Other specified abnormalities of plasma proteins Status: Acute Assessment and Plan: Troponin elevated at 0.09 and stable felt secondary to heart failure. No complaints of chest pain but patient later told the corset fitter that he has been having CP with mild exertion for the past few weeks. EKG showing no acute findings and appears similar to old EKGs. CXR consistent with pulm edema. Lexiscan stress test 09/28 showing no evidence of acute ischemia but EF at 23%. Plan for medical management with renal failure . Continue ASA for now. (8) HTN (hypertension): Qualifiers: Hypertension type: essential hypertension Qualified Code(s): I10 - Essential (primary) hypertension Code(s): I10 - Essential (primary) hypertension
[2020-10-06] MEDS: FLUTICASONE PROPIONATE 0.05% NA SPR 16 GM BTL (*BKC) 1 SPRAY NASAL (20:24)
[2020-10-06 20:40] LABS: Glucose Point of Care 126 (65-105)
[2020-10-07] VITALS (23 sets, daily range): BP systolic 118–153; BP diastolic 70–88; PULSE 85–103; RESP 20; TEMP 36.1–36.2; O2SAT 99–100
[2020-10-07] MEDS: CENTRAL LINE FLUSH 10 ML IV PUSH ×3 (06:43→20:38)
[2020-10-07 07:22] LABS: Alanine Aminotransferase 306 U/L (4-50); Albumin Level 3.2 g/dL (3.5-5.1); Alkaline Phosphatase 203 U/L (38-126); Anion Gap 12 mmol/L (8-16); Aspartate Amino Transferase 75 U/L (17-59); Blood Urea Nitrogen 67 mg/dL (9-20); Carbon Dioxide 21 mmol/L (22-30); Chloride 103 mmol/L (98-107); Estimated CRCL calculation 16 ml/min; Estimated Glomerular Filt Rate 21; Glucose 100 mg/dL (75-110); Potassium 4.8 mmol/L (3.4-5.0); Sodium 136 mmol/L (137-145)
[2020-10-07 07:29] LABS: Basophils Percent Auto 0.2 % (0.2-1.2); Eosinophils Percent Auto 0.7 % (0-4.4); Hematocrit 32.3 % (42.0-52.0); Hemoglobin 10.8 g/dL (14.0-18.0); Immature Granulocyte Absolute 0.03 K/mm3 (0.00-0.031); Immature Granulocyte Percent A 0.5 % (0-0.5); Lymphocytes Absolute Auto 1.36 K/mm3 (0.9-3.2); Lymphocytes Percent Auto 22.3 % (18.3-44.2); Mean Corpuscular HGB Conc 33.4 g/dl (32-36); Mean Corpuscular Hemoglobin 25.5 pg (26-34); Mean Corpuscular Volume 76.4 fl (80-100); Mean Platelet Volume 11.8 fl (7.4-10.4); Monocytes Absolute Auto 0.9 K/mm3 (0.1-0.6); Monocytes Percent Auto 14.1 % (2.6-8.5); Neutrophils Absolute Auto 3.8 K/mm3 (1.3-6.7); Neutrophils Percent Auto 62.2 % (45.5-73.1); Platelet Count Result 210 k/mm3 (150-375); Red Blood Count 4.23 M/mm3 (4.6-6.20); Red Cell Distribution Width 16.4 % (11.5-14.5); White Blood Count 6.1 K/mm3 (4.5-10.0)
[2020-10-07] MEDS: LORATADINE 10 MG TABLET PO (08:25)
[2020-10-07] MEDS: METOPROLOL TARTRATE 25 MG TABLET PO ×2 (08:25→20:36)
[2020-10-07] MEDS: PANTOPRAZOLE 40 MG TABLET PO ×2 (08:25→20:36)
[2020-10-07] MEDS: hydrALAZINE 10 MG TABLET PO ×4 (08:26→20:36)
[2020-10-07] MEDS: FLUTICASONE PROPIONATE 0.05% NA SPR 16 GM BTL (*BKC) 1 SPRAY NASAL ×2 (08:26→20:36)
[2020-10-07] MEDS: APIXABAN 2.5 MG TABLET PO ×2 (08:26→20:35)
[2020-10-07] MEDS: ASPIRIN 81 MG ENTERIC TABLET PO (08:26)
[2020-10-07] MEDS: LEVALBUTEROL HFA (*SP) 15 GM INHALER 2 PUFF INHALATION ×2 (08:27→13:38)
[2020-10-07 09:11] LABS: Glucose Point of Care 107 (65-105)
--- NOTE | 2020-10-07 11:03 | PM.PNCARD ---
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 EF 45% by echo March 2020, Now severely reduced 25-30%. No reversible ischemia on Lexiscan, however EKG shows anterolateral T wave inversion, so he may have balanced ischemia not showing up on the Lexiscan. However with his JOSELO/CKD we will avoid cardiac cath due to renal failure. Have been unable to support with beta-cecily, ÁNGELA-I or ARB vs Entresto, Spironolactone, diuretics due to JOSELO, hypotension (improved), junctional rhythm (resolved) and elevated liver enzymes. Very low-dose metoprolol was resumed on 10/01/2020 and titrated up to 12.5 mg b.i.d. 10/02/2020. No further junctional rhythm noted. Tolerating dobutamine 2.5 mg per kg per minute in hopes to improve cardiac output and renal perfusion. He has a guarded prognosis and is at high risk for further decompensation with acute myocardial infarction, progression to higher grade AV block, sudden cardiac due to ventricular arrhythmias, and/or bleeding complications. (2) Left ventricular apical thrombus: Code(s): I51.3 - Intracardiac thrombosis, not elsewhere classified Status: Acute Assessment and Plan: Akinetic apex +severe LV dysfunction. On heparin gtt. Plan to transition to oral anticoagulation when we don't think any invasive procedures will be needed (dialysis and heart catheterization now seem unlikely to be needed). No bleeding. Warfarin antnicipated to be very difficult for this cognitively impaired elderly gentleman to manage. Transitioned to Apixaban 2.5mg BID 10/06/20. In general, 5mg BID dose more appropriate (age<80, wt >60kg, Cr >1.5), however, given hepatic impairment due to hypotension most likely will continue lower dose Apixaban until resolved. (3) AV junctional rhythm: Code(s): I49.8 - Other specified cardiac arrhythmias Status: Acute Assessment and Plan: Resolved. Last noted on 09/29/2020. Secondary to high-dose verapamil in conjunction with Toprol XL resulting in sinus node dysfunction, +/- underlying conduction system disease. (4) Elevated troponin: Code(s): R77.8 - Other specified abnormalities of plasma proteins Status: Acute Assessment and Plan: Mild troponin elevation in setting of profound hypotension/demand ischemia, severe LV dysfunction, CHF, acute renal failure but not consistent with acute myocardial infarction and/or plaque rupture. Type 2 infarct. (5) CHF (congestive heart failure): Qualifiers: Heart failure type: unspecified Heart failure chronicity: acute Qualified Code(s): I50.9 - Heart failure, unspecified Code(s): I50.9 - Heart failure, unspecified Status: Acute Assessment and Plan: Fairly stable at this time. Continue to monitor volume status closely. Lower extremity edema improving, but CHF stable. Continue current therapy (6) JOSELO (acute kidney injury): Code(s): N17.9 - Acute kidney failure, unspecified Status: Acute Assessment and Plan: Renal function stable. Started on dobutamine yesterday afternoon. Continue to monitor. (7) Nonsustained ventricular tachycardia: Code(s): I47.2 - Ventricular tachycardia Status: Acute Assessment and Plan: Worrisome for increased risk of sudden cardiac . Monitor electrolytes closely. Ensure potassium around 4 magnesium around 2. Beta-cecily as above and as tolerated. Does not qualify for an ICD as he has not had 90 days of medical therapy. LifeVest potential option prior to discharge. _
[2020-10-07] MEDS: ALBUTEROL SULFATE NEB 2.5 MG/0.5 ML INH 5 MG INHALATION ×3 (11:28→20:52)
[2020-10-07 11:53] LABS: Glucose Point of Care 92 (65-105)
[2020-10-07] MEDS: DOBUTamine 250 MG/D5W 250 ML 250 MG/250 ML BAG 11.21 MG IV CONT (12:27)
[2020-10-07] MEDS: CHOLECALCIFEROL 1,000 UNITS TABLET 2000 UNITS PO (12:28)
[2020-10-07] MEDS: FOLIC ACID 1 MG TABLET PO (12:29)
--- NOTE | 2020-10-07 14:42 | PM.IMPN ---
Progress Note: A&P Assessment and Plan (1) AV junctional rhythm: Code(s): I49.8 - Other specified cardiac arrhythmias Status: Acute Assessment and Plan: Tele showing NSR after the AV virgil blocking agents wore off. . Cardiology following. Continue tele. Resumed metoprolol at low-dose for his cardiomyopathy 10/04 (2) Left ventricular apical thrombus: Code(s): I51.3 - Intracardiac thrombosis, not elsewhere classified Status: Acute Assessment and Plan: Echo completed and showing EF 25-30% with Grade III diastolic dysfunction. He has akinetic apex with bilobed mobile thrombus. Heparin discontinued and Eliquis started per Cardiology 10/06 hydralazine added for chf 10/05 and low-dose dobutamine started 10/06. tolerating both (3) Hypotension: Code(s): I95.9 - Hypotension, unspecified Status: Acute Assessment and Plan: Patient's BP was mildly elevated and he was resumed on his home meds (Toprol, Verapamil, Diovan) on 09/27. However, Order Processing Clerk saw the patient and noted that the patient is no longer on Verapamil so this was stopped but patient did get a dose around 11am on 09/27 along with his other meds. That evening, his BP dropped to 68/46 and developed a junctional rhythm. His other anti-HTN meds were stopped and lasix held. Fluid boluses given with improvement in his BP. It was felt that the BP meds caused the HoTN coupled with his poor EF and AV virgil blocking agents. BP stable and back in NSR now. Follow closely. No evidence of infection so abx stopped 09/29. Continue to monitor. (4) JOSELO (acute kidney injury): Code(s): N17.9 - Acute kidney failure, unspecified Status: Acute Assessment and Plan: Cr peaked at 4.3 today related to the severe hypotensive event on 09/27. UOP better and possibly having post-ATN diuresis. Cr 3.5 today. Bicarb and potassium remain normal. Follow closely Dobutamine added 10/06 to try to increase renal perfusion and cardiac output. creatinine stable. (5) Transaminitis: Code(s): R74.01 - Elevation of levels of liver transaminase levels Status: Acute Assessment and Plan: Elevated LFTs on admission. Right upper quadrant ultrasound showing mildly distended gallbladder. Hepatitis panel negative. Lipitor placed on hold. LFTs were trending down and felt related to passive congestion but markedly increased related to the severe Hypotensive event 09/27. LFTs have peaked and continue to trend down now. Monitor closely. (6) CHF (congestive heart failure): Qualifiers: Heart failure type: unspecified Heart failure chronicity: acute Qualified Code(s): I50.9 - Heart failure, unspecified Code(s): I50.9 - Heart failure, unspecified Status: Acute Assessment and Plan: Patient with SOB and increasing pedal edema. CXR on admission showing pulmonary edema. Echo with EF 45% by echo March 2020. Echo here showing EF 25-30%. Lexiscan stress negative for ischemia. Continue Speedy Hose. added hydralazine 10/05 to beta cecily with ARB on hold with his renal failure Low-dose dobutamine added 10/06 (7) Elevated troponin: Code(s): R77.8 - Other specified abnormalities of plasma proteins Status: Acute Assessment and Plan: Troponin elevated at 0.09 and stable felt secondary to heart failure. No complaints of chest pain but patient later told the residential direct support professional that he has been having CP with mild exertion for the past few weeks. EKG showing no acute findings and appears similar to old EKGs. CXR consistent with pulm edema. Lexiscan stress test 09/28 showing no evidence of acute ischemia but EF at 23%. Plan for medical management with renal failure . Continue ASA for now. (8) HTN (hypertension): Qualifiers: Hypertension type: essential hypertension Qualified Code(s): I10 - Essential (primary) hypertension Code(s): I10 - Essential (p
--- NOTE | 2020-10-07 15:39 | PM.PNNEP ---
Progress Note: A&P Assessment and Plan (1) JOSELO (acute kidney injury): Code(s): N17.9 - Acute kidney failure, unspecified Status: Acute Assessment and Plan: felt to be secondary to ATN from severe/significant hypotension evaluation to date demonstrates: - urine electrolytes non-prerenal - urine protein is mild - ultrasound is unremarkable creatinine stalled at 3ish range at this time slow recovery?? perhaps this is a manifestation of his cardimyopathy(?) follow trend of repeat labs and UOP with dobutamine gtt (2) HTN (hypertension): Qualifiers: Hypertension type: essential hypertension Qualified Code(s): I10 - Essential (primary) hypertension Code(s): I10 - Essential (primary) hypertension Status: Chronic Assessment and Plan: reasonable control at this time would try to keep systolic BP a little on the higher side to help with renal recovery continue to hold ARB follow trend of hemodynamics (3) Cardiomyopathy: Code(s): I42.9 - Cardiomyopathy, unspecified Status: Acute Assessment and Plan: Echo results noted Cardiology following (4) Transaminitis: Code(s): R74.01 - Elevation of levels of liver transaminase levels Status: Acute Assessment and Plan: thought to be due to congestive hepatopathy follow trend of LFTs (5) Anemia: Code(s): D64.9 - Anemia, unspecified Status: Acute Assessment and Plan: has a chronic component acute component likely secondary to acute medical issues follow trend of H/H Will continue to follow. Subjective Date/time seen: 10/07/20 15:39 Tolerating dobutamine gtt at this time but no evident improvement in renal function at this time; he otherwise feels reasonably well; no apparent distress voiced when seen; no acute issues or problems overnight or earlier today. Exam Narrative: Exam Narrative: General: WD/WN elderly AA male in NAD Heart: normal S1 and S2; no rub Lungs: clear to auscultation Abdomen: soft, nontender, nondistended, positive bowel sounds Extremities: no cyanosis or clubbing; no edema Skin: warm and intact Objective Data Vital Signs Vital Signs: Vital Signs Temp Pulse Resp BP Pulse Ox 10/07/20 12:00 36.1 C L 90 20 144/75 H 100 10/07/20 11:39 87 20 10/07/20 11:30 89 20 10/07/20 10:00 86 10/07/20 08:25 96 10/07/20 08:00 36.1 C L 95 20 153/82 H 100 10/07/20 06:00 95 10/07/20 04:00 91 10/07/20 03:51 36.2 C L 90 20 118/88 99 10/07/20 02:00 90 10/07/20 00:00 88 10/06/20 23:41 36.1 C L 89 18 126/70 100 10/06/20 22:00 87 10/06/20 20:24 92 10/06/20 20:00 92 10/06/20 19:29 36.2 C L 88 18 126/69 96 10/06/20 18:00 92 10/06/20 17:00 35.6 C L 91 20 131/86 96 10/06/20 16:00 90 Intake/Output Intake/Output: Intake & Output 10/04/20 10/05/20 10/06/20 10/07/20 23:59 23:59 23:59 23:59 Intake Total 200 1340 320 520 Output Total 400 300 250 Balance -200 1340 20 270 Meds/Results Medications: Active Medications Generic Name Dose Route Start Last Admin Trade Name Freq PRN Reason Stop Dose Admin Acetaminophen 650 mg 09/26/20 21:31 Acetaminophen 325 Mg Tablet PO Q4H PRN Mild Pain (1-3) or Fever Albuterol 5 mg 10/07/20 15:30 Albuterol Sulfate Neb 2.5 Mg/0.5 Ml Inh INHALATION Q6HRT ABRAM Apixaban 2.5 mg 10/06/20 12:15 10/07/20 08:26 Apixaban 2.5 Mg Tablet PO 2.5 mg Q12HR ABRAM Administration Aspirin 81 mg 09/27/20 11:40 10/07/20 08:26 Aspirin 81 Mg Enteric Tablet PO 81 mg DAILY ABRAM Administration Budesonide/Formoterol Fumarate 2 puff 09/27/20 11:45 10/07/20 08:26 Budesonide/Form 160-4.5 Mcg (*Sp) INHALATION 2 puff Q12HRT ABRAM Administration Dextrose 12.5 gm 09/26/20 21:29 Dextrose 50% 25 Gm/50 Ml Syringe IV P
[2020-10-07] MEDS: IPRATROPIUM BR 0.02% INH SOLN 0.5 MG/2.5 ML VIAL INHALATION ×2 (15:56→20:52)
[2020-10-07 17:43] LABS: Glucose Point of Care 92 (65-105)
[2020-10-07] MEDS: FUROSEMIDE INJ 40 MG/4 ML VIAL IV PUSH (17:53)
[2020-10-07 20:25] LABS: Glucose Point of Care 120 (65-105)
[2020-10-08] VITALS (24 sets, daily range): BP systolic 107–155; BP diastolic 58–84; PULSE 90–125; RESP 18–22; TEMP 35.6–36.7; O2SAT 94–100
--- NOTE | 2020-10-08 02:52 | PC.NURSE ---
Patient is refusing his nebulizer treatment.
[2020-10-08] MEDS: METOPROLOL TARTRATE 25 MG TABLET PO (07:56)
[2020-10-08] MEDS: PANTOPRAZOLE 40 MG TABLET PO ×2 (07:56→20:52)
[2020-10-08] MEDS: hydrALAZINE 10 MG TABLET PO ×4 (07:57→20:52)
[2020-10-08] MEDS: APIXABAN 2.5 MG TABLET PO ×2 (07:57→20:52)
[2020-10-08] MEDS: LORATADINE 10 MG TABLET PO (07:57)
[2020-10-08] MEDS: ASPIRIN 81 MG ENTERIC TABLET PO (07:57)
[2020-10-08] MEDS: FLUTICASONE PROPIONATE 0.05% NA SPR 16 GM BTL (*BKC) 1 SPRAY NASAL ×2 (07:57→20:52)
[2020-10-08] MEDS: ALBUTEROL SULFATE NEB 2.5 MG/0.5 ML INH 5 MG INHALATION ×3 (08:23→19:58)
[2020-10-08] MEDS: IPRATROPIUM BR 0.02% INH SOLN 0.5 MG/2.5 ML VIAL INHALATION ×3 (08:24→19:58)
[2020-10-08 08:26] LABS: Anion Gap 13 mmol/L (8-16); Blood Urea Nitrogen 67 mg/dL (9-20); Calcium 8.8 mg/dL (8.4-10.2); Carbon Dioxide 21 mmol/L (22-30); Chloride 102 mmol/L (98-107); Estimated CRCL calculation 17 ml/min; Estimated Glomerular Filt Rate 22; Glucose 104 mg/dL (75-110); Phosphorus 4.9 mg/dL (2.5-4.5); Potassium 4.5 mmol/L (3.4-5.0); Sodium 136 mmol/L (137-145)
[2020-10-08 10:27] LABS: Glucose Point of Care 104 (65-105)
[2020-10-08] MEDS: DOBUTamine 250 MG/D5W 250 ML 250 MG/250 ML BAG 11.21 MG IV CONT (10:52)
[2020-10-08] MEDS: CHOLECALCIFEROL 1,000 UNITS TABLET 2000 UNITS PO (11:43)
[2020-10-08] MEDS: MULTIVITAMINS /C LUTEIN (CENTRUM SILVER) TABLET *BKC 1 TAB PO (11:43)
[2020-10-08] MEDS: FOLIC ACID 1 MG TABLET PO (11:43)
[2020-10-08] MEDS: FUROSEMIDE INJ 40 MG/4 ML VIAL IV PUSH (11:43)
[2020-10-08 12:06] LABS: Glucose Point of Care 129 (65-105)
--- NOTE | 2020-10-08 14:14 | PM.PNNEP ---
Progress Note: A&P Assessment and Plan (1) JOSELO (acute kidney injury): Code(s): N17.9 - Acute kidney failure, unspecified Status: Acute Assessment and Plan: felt to be secondary to ATN from severe/significant hypotension evaluation to date demonstrates: - urine electrolytes non-prerenal - urine protein is mild - ultrasound is unremarkable creatinine stalled at 3ish range at this time slow recovery?? perhaps this is a manifestation of his cardimyopathy(?) follow trend of repeat labs and UOP with dobutamine gtt (2) HTN (hypertension): Qualifiers: Hypertension type: essential hypertension Qualified Code(s): I10 - Essential (primary) hypertension Code(s): I10 - Essential (primary) hypertension Status: Chronic Assessment and Plan: reasonable control at this time would try to keep systolic BP a little on the higher side to help with renal recovery continue to hold ARB follow trend of hemodynamics (3) Cardiomyopathy: Code(s): I42.9 - Cardiomyopathy, unspecified Status: Acute Assessment and Plan: Echo results noted Cardiology following (4) Transaminitis: Code(s): R74.01 - Elevation of levels of liver transaminase levels Status: Acute Assessment and Plan: thought to be due to congestive hepatopathy follow trend of LFTs (5) Anemia: Code(s): D64.9 - Anemia, unspecified Status: Acute Assessment and Plan: has a chronic component acute component likely secondary to acute medical issues follow trend of H/H Will continue to follow. Subjective Date/time seen: 10/08/20 14:14 Major problem/complaint has been on/off coughing along some intermittent shortness of breath and weakness; received lasix yesterday and today due to these complaints (moderate increase in urine output noted); no other acute distress voiced; no events overnight or earlier this AM. Exam Narrative: Exam Narrative: General: WD/WN elderly AA male in NAD Heart: normal S1 and S2; no rub Lungs: decreased at bases Abdomen: soft, nontender, nondistended, positive bowel sounds Extremities: no cyanosis or clubbing; trace edema Skin: warm and dry Objective Data Vital Signs Vital Signs: Vital Signs Temp Pulse Resp BP Pulse Ox 10/08/20 14:00 98 10/08/20 12:47 103 H 20 10/08/20 12:41 101 H 20 10/08/20 12:00 35.7 C L 92 18 107/58 L 99 10/08/20 10:00 94 10/08/20 08:33 90 20 10/08/20 08:28 95 10/08/20 08:24 100 20 10/08/20 08:00 35.6 C L 98 18 130/82 95 10/08/20 07:56 96 10/08/20 06:00 99 10/08/20 05:00 98 10/08/20 04:00 94 100 10/08/20 03:45 36.2 C L 98 19 155/79 H 100 10/08/20 02:00 96 10/08/20 00:00 36.7 C 125 H 18 130/83 99 10/07/20 22:00 95 10/07/20 20:59 99 20 10/07/20 20:52 101 H 20 10/07/20 20:36 101 H 10/07/20 20:00 101 H 100 10/07/20 19:48 36.1 C L 101 H 20 143/70 H 100 10/07/20 18:00 99 10/07/20 16:13 85 20 10/07/20 16:11 36.2 C L 96 20 128/74 99 10/07/20 16:00 94 10/07/20 15:56 94 20 Intake/Output Intake/Output: Intake & Output 10/05/20 10/06/20 10/07/20 10/08/20 23:59 23:59 23:59 23:59 Intake Total 1340 320 970 590 Output Total 300 500 400 Balance 1340 20 470 190 Meds/Results Medications: Active Medications Generic Name Dose Route Start Last Admin Trade Name Freq PRN Reason Stop Dose Admin Acetaminophen 650 mg 09/26/20 21:31 Acetaminophen 325 Mg Tablet PO Q4H PRN Mild Pain (1-3) or Fever Albuterol 5 mg 10/07/20 15:30 10/08/20 12:40 Albuterol Sulfate Neb 2.5 Mg/0.5 Ml Inh INHALATION 5 mg Q6HRT ABRAM Administration Apixaban 2.5 mg 10/06/20 12:15 10/08/20 07:57 Apixaban 2.5 Mg Tablet PO 2.5 mg Q12HR ABRAM Administration Aspirin 81 mg 09/27/20 11
--- NOTE | 2020-10-08 15:59 | PM.PNCARD ---
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 EF 45% by echo March 2020, Now severely reduced 25-30%. No reversible ischemia on Lexiscan, however EKG shows anterolateral T wave inversion, so he may have balanced ischemia not showing up on the Lexiscan. However with his JOSELO/CKD we will avoid cardiac cath due to renal failure. Have been unable to support with beta-cecily, ÁNGELA-I or ARB vs Entresto, Spironolactone, diuretics due to JOSELO, hypotension (improved), junctional rhythm (resolved) and elevated liver enzymes. Very low-dose metoprolol was resumed on 10/01/2020 and titrated up to 12.5 mg b.i.d. 10/02/2020. No further junctional rhythm noted. Tolerating dobutamine 2.5 mg per kg per minute in hopes to improve cardiac output and renal perfusion. He has a guarded prognosis and is at high risk for further decompensation with acute myocardial infarction, progression to higher grade AV block, sudden cardiac due to ventricular arrhythmias, and/or bleeding complications. (2) Left ventricular apical thrombus: Code(s): I51.3 - Intracardiac thrombosis, not elsewhere classified Status: Acute Assessment and Plan: Akinetic apex +severe LV dysfunction. Transitioned to Apixaban 2.5mg BID 10/06/20. In general, 5mg BID dose more appropriate (age<80, wt >60kg, Cr >1.5), however, given hepatic impairment due to hypotension most likely will continue lower dose Apixaban until resolved. (3) AV junctional rhythm: Code(s): I49.8 - Other specified cardiac arrhythmias Status: Acute Assessment and Plan: Resolved. Last noted on 09/29/2020. Secondary to high-dose verapamil in conjunction with Toprol XL resulting in sinus node dysfunction, +/- underlying conduction system disease. (4) Elevated troponin: Code(s): R77.8 - Other specified abnormalities of plasma proteins Status: Acute Assessment and Plan: Mild troponin elevation in setting of profound hypotension/demand ischemia, severe LV dysfunction, CHF, acute renal failure but not consistent with acute myocardial infarction and/or plaque rupture. Type 2 infarct. (5) CHF (congestive heart failure): Qualifiers: Heart failure type: unspecified Heart failure chronicity: acute Qualified Code(s): I50.9 - Heart failure, unspecified Code(s): I50.9 - Heart failure, unspecified Status: Acute Assessment and Plan: Fairly stable at this time. Continue to monitor volume status closely. Lower extremity edema improving, but CHF stable. Continue current therapy (6) JOSELO (acute kidney injury): Code(s): N17.9 - Acute kidney failure, unspecified Status: Acute Assessment and Plan: Renal function stable. Continue dobutamine 2.5mcg per kg per minute. If no improvement tomorrow morning increased to 5 micrograms/kilogram per minute as tolerated. Continue to monitor. Not much improvement overall but Cr 3.3 down from 3.5. (7) Nonsustained ventricular tachycardia: Code(s): I47.2 - Ventricular tachycardia Status: Acute Assessment and Plan: Worrisome for increased risk of sudden cardiac . Monitor electrolytes closely. Ensure potassium around 4 magnesium around 2. Beta-cecily as above and as tolerated. Does not qualify for an ICD as he has not had 90 days of medical therapy. LifeVest potential option prior to discharge. (8) Coagulopathy: Code(s): D68.9 - Coagulation defect, unspecified Status: Acute Assessment and Pl
[2020-10-08 16:44] LABS: Glucose Point of Care 110 (65-105)
--- NOTE | 2020-10-08 17:16 | PM.IMPN ---
Progress Note: A&P Assessment and Plan (1) AV junctional rhythm: Code(s): I49.8 - Other specified cardiac arrhythmias Status: Acute Assessment and Plan: Tele showing NSR after the AV virgil blocking agents wore off. . Cardiology following. Continue tele. Resumed metoprolol at low-dose for his cardiomyopathy 10/04 (2) Left ventricular apical thrombus: Code(s): I51.3 - Intracardiac thrombosis, not elsewhere classified Status: Acute Assessment and Plan: Echo completed and showing EF 25-30% with Grade III diastolic dysfunction. He has akinetic apex with bilobed mobile thrombus. Heparin discontinued and Eliquis started per Cardiology 10/06 hydralazine added for chf 10/05 and low-dose dobutamine started 10/06. tolerating both (3) Hypotension: Code(s): I95.9 - Hypotension, unspecified Status: Acute Assessment and Plan: Patient's BP was mildly elevated and he was resumed on his home meds (Toprol, Verapamil, Diovan) on 09/27. However, Top Cutter saw the patient and noted that the patient is no longer on Verapamil so this was stopped but patient did get a dose around 11am on 09/27 along with his other meds. That evening, his BP dropped to 68/46 and developed a junctional rhythm. His other anti-HTN meds were stopped and lasix held. Fluid boluses given with improvement in his BP. It was felt that the BP meds caused the HoTN coupled with his poor EF and AV virgil blocking agents. BP stable and back in NSR now. Follow closely. No evidence of infection so abx stopped 09/29. Continue to monitor. (4) JOSELO (acute kidney injury): Code(s): N17.9 - Acute kidney failure, unspecified Status: Acute Assessment and Plan: Cr peaked at 4.3 today related to the severe hypotensive event on 09/27. UOP better and possibly having post-ATN diuresis. Cr 3.3 today. Bicarb and potassium remain normal. Follow closely Dobutamine added 10/06 to try to increase renal perfusion and cardiac output. creatinine stable. (5) Transaminitis: Code(s): R74.01 - Elevation of levels of liver transaminase levels Status: Acute Assessment and Plan: Elevated LFTs on admission. Right upper quadrant ultrasound showing mildly distended gallbladder. Hepatitis panel negative. Lipitor placed on hold. LFTs were trending down and felt related to passive congestion but markedly increased related to the severe Hypotensive event 09/27. LFTs have peaked and continue to trend down now. Monitor closely. (6) CHF (congestive heart failure): Qualifiers: Heart failure type: unspecified Heart failure chronicity: acute Qualified Code(s): I50.9 - Heart failure, unspecified Code(s): I50.9 - Heart failure, unspecified Status: Acute Assessment and Plan: Patient with SOB and increasing pedal edema. CXR on admission showing pulmonary edema. Echo with EF 45% by echo March 2020. Echo here showing EF 25-30%. Lexiscan stress negative for ischemia. Continue Speedy Hose. added hydralazine 10/05 to beta cecily with ARB on hold with his renal failure Low-dose dobutamine added 10/06 lasix 40 mg x1 10/07 and 10/08 repeat cxr 10/07 larger R pleural effusion (7) Elevated troponin: Code(s): R77.8 - Other specified abnormalities of plasma proteins Status: Acute Assessment and Plan: Troponin elevated at 0.09 and stable felt secondary to heart failure. No complaints of chest pain but patient later told the junior engineer that he has been having CP with mild exertion for the past few weeks. EKG showing no acute findings and appears similar to old EKGs. CXR consistent with pulm edema. Lexiscan stress test 09/28 showing no evidence of acute ischemia but EF at 23%. Plan for medical management with renal failure . Continue ASA for now. (8) HTN (hypertension): Qualifiers: Hypertension type: essential hypertension Qualified Code(s): I10
[2020-10-08] MEDS: CENTRAL LINE FLUSH 10 ML IV PUSH (18:05)
[2020-10-08 21:48] LABS: Glucose Point of Care 118 (65-105)
[2020-10-09] VITALS (26 sets, daily range): BP systolic 135–155; BP diastolic 67–90; PULSE 56–111; RESP 16–24; TEMP 35.6–36.3; O2SAT 94–99
[2020-10-09] MEDS: IPRATROPIUM BR 0.02% INH SOLN 0.5 MG/2.5 ML VIAL INHALATION ×3 (01:30→20:20)
[2020-10-09] MEDS: ALBUTEROL SULFATE NEB 2.5 MG/0.5 ML INH 5 MG INHALATION ×3 (01:30→20:20)
--- NOTE | 2020-10-09 02:25 | PC.NURSE ---
Patient pulled out midline IV. Several attempts made to start a new IV without success by 3 RNs.
[2020-10-09 05:45] LABS: Eosinophils Percent Auto 0.7 % (0-4.4); Hematocrit 33.7 % (42.0-52.0); Hemoglobin 11.1 g/dL (14.0-18.0); Immature Granulocyte Absolute 0.01 K/mm3 (0.00-0.031); Immature Granulocyte Percent A 0.2 % (0-0.5); Mean Corpuscular HGB Conc 32.9 g/dl (32-36); Mean Corpuscular Hemoglobin 25.8 pg (26-34); Mean Corpuscular Volume 78.2 fl (80-100); Mean Platelet Volume 12.3 fl (7.4-10.4); Monocytes Absolute Auto 0.7 K/mm3 (0.1-0.6); Monocytes Percent Auto 14.9 % (2.6-8.5); Neutrophils Absolute Auto 2.9 K/mm3 (1.3-6.7); Neutrophils Percent Auto 66.2 % (45.5-73.1); Platelet Count Result 205 k/mm3 (150-375); Red Blood Count 4.31 M/mm3 (4.6-6.20); Red Cell Distribution Width 16.4 % (11.5-14.5); White Blood Count 4.4 K/mm3 (4.5-10.0)
[2020-10-09 06:04] LABS: Albumin Level 3.2 g/dL (3.5-5.1); Anion Gap 13 mmol/L (8-16); Blood Urea Nitrogen 64 mg/dL (9-20); Carbon Dioxide 24 mmol/L (22-30); Chloride 101 mmol/L (98-107); Estimated CRCL calculation 17 ml/min; Estimated Glomerular Filt Rate 23; Glucose 99 mg/dL (75-110); Phosphorus 4.2 mg/dL (2.5-4.5); Potassium 3.8 mmol/L (3.4-5.0); Sodium 138 mmol/L (137-145)
[2020-10-09 07:54] LABS: Glucose Point of Care 94 (65-105)
--- NOTE | 2020-10-09 08:33 | PCRCNOTE ---
pt took symbicort well, but threw neb across bed, terminated tx at this time
[2020-10-09] MEDS: ASPIRIN 81 MG ENTERIC TABLET PO (09:04)
[2020-10-09] MEDS: FLUTICASONE PROPIONATE 0.05% NA SPR 16 GM BTL (*BKC) 1 SPRAY NASAL ×2 (09:04→20:46)
[2020-10-09] MEDS: APIXABAN 2.5 MG TABLET PO ×2 (09:04→20:48)
[2020-10-09] MEDS: hydrALAZINE 10 MG TABLET PO ×4 (09:04→20:47)
[2020-10-09] MEDS: guaiFENesin 12 HR 600 MG TABCR 1200 MG PO ×2 (09:05→20:47)
[2020-10-09] MEDS: LORATADINE 10 MG TABLET PO (09:06)
[2020-10-09] MEDS: PANTOPRAZOLE 40 MG TABLET PO ×2 (09:06→20:47)
[2020-10-09] MEDS: METOPROLOL TARTRATE 25 MG TABLET PO ×2 (09:06→20:47)
--- NOTE | 2020-10-09 11:41 | P.PNNP_ITS ---
Progress Note: A&P Assessment and Plan (1) JOSELO (acute kidney injury): Code(s): N17.9 - Acute kidney failure, unspecified Status: Acute Assessment and Plan: * felt to be secondary to ATN from severe/significant hypotension * evaluation to date demonstrates: - urine electrolytes non-prerenal - urine protein is mild - ultrasound is unremarkable * creatinine stalled at 3ish range at this time * slow recovery?? * perhaps this is a manifestation of his cardimyopathy(?) * follow trend of repeat labs and UOP with dobutamine gtt (2) HTN (hypertension): Qualifiers: Hypertension type: essential hypertension Qualified Code(s): I10 - Essential (primary) hypertension Code(s): I10 - Essential (primary) hypertension Status: Chronic Assessment and Plan: * reasonable control at this time * would try to keep systolic BP a little on the higher side to help with renal recovery * continue to hold ARB * follow trend of hemodynamics (3) Cardiomyopathy: Code(s): I42.9 - Cardiomyopathy, unspecified Status: Acute Assessment and Plan: * Echo results noted * Cardiology following (4) Transaminitis: Code(s): R74.01 - Elevation of levels of liver transaminase levels Status: Acute Assessment and Plan: * thought to be due to congestive hepatopathy * follow trend of LFTs (5) Anemia: Code(s): D64.9 - Anemia, unspecified Status: Acute Assessment and Plan: * has a chronic component * acute component likely secondary to acute medical issues * follow trend of H/H Will continue to follow. Subjective Date/time seen: 10/09/20 11:41 Interimittent confusion noted as well as shortness of breath; no significant improvement in renal function with dobutamine gtt; has been receiving intermittent IV lasix; no acute distress noted. Exam Narrative: Exam Narrative: General: WD/WN elderly AA male in NAD Heart: normal S1 and S2; no rub Lungs: decreased at bases Abdomen: soft, nontender, nondistended, positive bowel sounds Extremities: no cyanosis or clubbing; trace edema Skin: warm and dry Objective Data Vital Signs Vital Signs: Vital Signs Temp Pulse Resp BP Pulse Ox 10/09/20 09:06 104 H 10/09/20 08:31 106 H 20 10/09/20 08:29 110 H 96 10/09/20 08:00 35.8 C L 111 H 18 155/77 H 96 10/09/20 06:00 105 H 10/09/20 04:00 106 H 96 10/09/20 03:57 36.1 C L 105 H 16 135/67 96 10/09/20 03:05 106 H 10/09/20 02:00 104 H 10/09/20 01:31 101 H 20 10/09/20 01:20 99 20 10/09/20 00:00 109 H 94 10/08/20 23:45 36.2 C L 108 H 22 H 145/83 H 94 10/08/20 22:00 100 10/08/20 20:07 100 20 10/08/20 20:00 105 H 96 10/08/20 19:59 99 20 10/08/20 19:43 36.1 C L 104 H 22 H 154/84 H 96 10/08/20 18:00 102 H 10/08/20 16:00 36.2 C L 99 20 149/70 H 96 10/08/20 14:00 98 10/08/20 12:47 103 H 20 10/08/20 12:41 101 H 20 10/08/20 12:00 35.7 C L 92 18 107/58 L 99 Intake/Output Intake/Output: Intake & Output 10/06/20 10/07/20 10/08/20 10/09/20 23:59 23:59 23:59 23:59 Inta
--- NOTE | 2020-10-09 11:41 | PM.PNNEP ---
Progress Note: A&P Assessment and Plan (1) JOSELO (acute kidney injury): Code(s): N17.9 - Acute kidney failure, unspecified Status: Acute Assessment and Plan: felt to be secondary to ATN from severe/significant hypotension evaluation to date demonstrates: - urine electrolytes non-prerenal - urine protein is mild - ultrasound is unremarkable creatinine stalled at 3ish range at this time slow recovery?? perhaps this is a manifestation of his cardimyopathy(?) follow trend of repeat labs and UOP with dobutamine gtt (2) HTN (hypertension): Qualifiers: Hypertension type: essential hypertension Qualified Code(s): I10 - Essential (primary) hypertension Code(s): I10 - Essential (primary) hypertension Status: Chronic Assessment and Plan: reasonable control at this time would try to keep systolic BP a little on the higher side to help with renal recovery continue to hold ARB follow trend of hemodynamics (3) Cardiomyopathy: Code(s): I42.9 - Cardiomyopathy, unspecified Status: Acute Assessment and Plan: Echo results noted Cardiology following (4) Transaminitis: Code(s): R74.01 - Elevation of levels of liver transaminase levels Status: Acute Assessment and Plan: thought to be due to congestive hepatopathy follow trend of LFTs (5) Anemia: Code(s): D64.9 - Anemia, unspecified Status: Acute Assessment and Plan: has a chronic component acute component likely secondary to acute medical issues follow trend of H/H Will continue to follow. Subjective Date/time seen: 10/09/20 11:41 Interimittent confusion noted as well as shortness of breath; no significant improvement in renal function with dobutamine gtt; has been receiving intermittent IV lasix; no acute distress noted. Exam Narrative: Exam Narrative: General: WD/WN elderly AA male in NAD Heart: normal S1 and S2; no rub Lungs: decreased at bases Abdomen: soft, nontender, nondistended, positive bowel sounds Extremities: no cyanosis or clubbing; trace edema Skin: warm and dry Objective Data Vital Signs Vital Signs: Vital Signs Temp Pulse Resp BP Pulse Ox 10/09/20 09:06 104 H 10/09/20 08:31 106 H 20 10/09/20 08:29 110 H 96 10/09/20 08:00 35.8 C L 111 H 18 155/77 H 96 10/09/20 06:00 105 H 01/03/21 04:00 106 H 96 10/09/20 03:57 36.1 C L 105 H 16 135/67 96 10/09/20 03:05 106 H 10/09/20 02:00 104 H 10/09/20 01:31 101 H 20 10/09/20 01:20 99 20 10/09/20 00:00 109 H 94 10/08/20 23:45 36.2 C L 108 H 22 H 145/83 H 94 10/08/20 22:00 100 10/08/20 20:07 100 20 10/08/20 20:00 105 H 96 10/08/20 19:59 99 20 10/08/20 19:43 36.1 C L 104 H 22 H 154/84 H 96 10/08/20 18:00 102 H 10/08/20 16:00 36.2 C L 99 20 149/70 H 96 10/08/20 14:00 98 10/08/20 12:47 103 H 20 10/08/20 12:41 101 H 10/08/20 12:00 35.7 C L 92 18 107/58 L 99 Intake/Output Intake/Output: Intake & Output 10/06/20 10/07/20 10/08/20 10/09/20 23:59 23:59 23:59 23:59 Intake Total 320 970 710 200 Output Total 300 500 900 150 Balance 20 470 -190 50 Meds/Results Medications: Active Medications Generic Name Dose Route Start Last Admin Trade Name Dia PRN Reason Stop Dose Admin Acetaminophen 650 mg 09/26/20 21:31 Acetaminophen 325 Mg Tablet PO Q4H PRN Mild Pain (1-3) or Fever Albuterol 5 mg 10/07/20 15:30 10/09/20 08:25 Albuterol Sulfate Neb 2.5 Mg/0.5 Ml Inh INHALATION 5 mg Q6HRT ABRAM Administration Apixaban 2.5 mg 10/06/20 12:15 10/09/20 09:04 Apixaban 2.5 Mg Tablet PO 2.5 mg Q12HR ABRAM Administration Aspirin 81 mg 09/27/20 11:40 10/09/20 09:04 Aspirin 81 Mg Enteric Tablet PO 81 mg DAILY ABRAM Administration Budesonide/Formoterol Fumar
[2020-10-09 12:33] LABS: Glucose Point of Care 99 (65-105)
[2020-10-09] MEDS: FOLIC ACID 1 MG TABLET PO (13:30)
[2020-10-09] MEDS: CHOLECALCIFEROL 1,000 UNITS TABLET 2000 UNITS PO (13:30)
[2020-10-09] MEDS: MULTIVITAMINS /C LUTEIN (CENTRUM SILVER) TABLET *BKC 1 TAB PO (13:30)
--- NOTE | 2020-10-09 13:35 | PCRCNOTE ---
pt ref neb tx
--- NOTE | 2020-10-09 13:57 | PM.PNCARD ---
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 EF 45% by echo March 2020, Now severely reduced 25-30%. No reversible ischemia on Lexiscan, however EKG shows anterolateral T wave inversion, so he may have balanced ischemia not showing up on the Lexiscan. However with his JOSELO/CKD we will avoid cardiac cath due to renal failure. Have been unable to support with beta-cecily, ÁNGELA-I or ARB vs Entresto, Spironolactone, diuretics due to JOSELO, hypotension (improved), junctional rhythm (resolved) and elevated liver enzymes. Very low-dose metoprolol was resumed on 10/01/2020 and titrated up to 12.5 mg b.i.d. 10/02/2020. No further junctional rhythm noted. Tolerating dobutamine 2.5 mg per kg per minute. Considered increased 5 mcg/kilogram per minute, however, central access lost and now currently running through a 22 gauge peripheral IV. No significant improvement overall. Creatinine slightly improved yet BUN remains as elevated, urine output largely unchanged. He has received intermittent diuretic. Blood pressure stable. He has a guarded prognosis and is at high risk for further decompensation with acute myocardial infarction, progression to higher grade AV block, sudden cardiac due to ventricular arrhythmias, and/or bleeding complications. (2) Left ventricular apical thrombus: Code(s): I51.3 - Intracardiac thrombosis, not elsewhere classified Status: Acute Assessment and Plan: Akinetic apex +severe LV dysfunction. Transitioned to Apixaban 2.5mg BID 10/06/20. In general, 5mg BID dose more appropriate (age<80, wt >60kg, Cr >1.5), however, given hepatic impairment due to hypotension most likely will continue lower dose Apixaban until resolved. Check LFTs. (3) AV junctional rhythm: Code(s): I49.8 - Other specified cardiac arrhythmias Status: Acute Assessment and Plan: Resolved. Last noted on 09/29/2020. Secondary to high-dose verapamil in conjunction with Toprol XL resulting in sinus node dysfunction, +/- underlying conduction system disease. (4) Elevated troponin: Code(s): R77.8 - Other specified abnormalities of plasma proteins Status: Acute Assessment and Plan: Mild troponin elevation in setting of profound hypotension/demand ischemia, severe LV dysfunction, CHF, acute renal failure but not consistent with acute myocardial infarction and/or plaque rupture. Type 2 infarct. (5) CHF (congestive heart failure): Qualifiers: Heart failure type: unspecified Heart failure chronicity: acute Qualified Code(s): I50.9 - Heart failure, unspecified Code(s): I50.9 - Heart failure, unspecified Status: Acute Assessment and Plan: Fairly stable at this time. Continue to monitor volume status closely. Lower extremity edema improving, but CHF stable. Continue current therapy, however, overall prognosis is poor given severe cardiac and pulmonary disease. He has remained on low dose BB despite Dobutamine which is not ideal although concern given prior NSVT. (6) JOSELO (acute kidney injury): Code(s): N17.9 - Acute kidney failure, unspecified Status: Acute Assessment and Plan: As above. Renal function stable, minimal improvement. Continue dobutamine 2.5mcg per kg per minute. If no improvement tomorrow morning increased to 5 micrograms/kilogram per minute as tolerated. Continue to monitor. Not much improvement overall but Cr 3.3 down from 3.5. (7) Nonsustained ventricular tachycardia: Code(s): I47.2 - Ventricular tachycard
[2020-10-09] MEDS: DOBUTamine 250 MG/D5W 250 ML 250 MG/250 ML BAG 11.21 MG IV CONT (16:21)
--- NOTE | 2020-10-09 17:24 | PM.IMPN ---
Progress Note: A&P Assessment and Plan (1) AV junctional rhythm: Code(s): I49.8 - Other specified cardiac arrhythmias Status: Acute Assessment and Plan: Tele showing NSR after the AV virgil blocking agents wore off. . Cardiology following. Continue tele. Resumed metoprolol at low-dose for his cardiomyopathy 10/04 (2) Left ventricular apical thrombus: Code(s): I51.3 - Intracardiac thrombosis, not elsewhere classified Status: Acute Assessment and Plan: Echo completed and showing EF 25-30% with Grade III diastolic dysfunction. He has akinetic apex with bilobed mobile thrombus. Heparin discontinued and Eliquis started per Cardiology 10/06 hydralazine added for chf 10/05 and low-dose dobutamine started 10/06. tolerating both but no significant diuresis (3) Hypotension: Code(s): I95.9 - Hypotension, unspecified Status: Acute Assessment and Plan: Patient's BP was mildly elevated and he was resumed on his home meds (Toprol, Verapamil, Diovan) on 09/27. However, Cottage Attendant saw the patient and noted that the patient is no longer on Verapamil so this was stopped but patient did get a dose around 11am on 09/27 along with his other meds. That evening, his BP dropped to 68/46 and developed a junctional rhythm. His other anti-HTN meds were stopped and lasix held. Fluid boluses given with improvement in his BP. It was felt that the BP meds caused the HoTN coupled with his poor EF and AV virgil blocking agents. BP stable and back in NSR now and back on low dose metoprolol. Follow closely. No evidence of infection so abx stopped 09/29. Continue to monitor. (4) JOSELO (acute kidney injury): Code(s): N17.9 - Acute kidney failure, unspecified Status: Acute Assessment and Plan: Cr peaked at 4.3 today related to the severe hypotensive event on 09/27. UOP better and possibly having post-ATN diuresis. Cr 3.2 today. Bicarb and potassium remain normal. Follow closely Dobutamine added 10/06 to try to increase renal perfusion and cardiac output. creatinine stable to slowly falling (5) Transaminitis: Code(s): R74.01 - Elevation of levels of liver transaminase levels Status: Acute Assessment and Plan: Elevated LFTs on admission. Right upper quadrant ultrasound showing mildly distended gallbladder. Hepatitis panel negative. Lipitor placed on hold. LFTs were trending down and felt related to passive congestion but markedly increased related to the severe Hypotensive event 09/27. LFTs have peaked and continue to trend down now. Monitor closely. (6) CHF (congestive heart failure): Qualifiers: Heart failure type: unspecified Heart failure chronicity: acute Qualified Code(s): I50.9 - Heart failure, unspecified Code(s): I50.9 - Heart failure, unspecified Status: Acute Assessment and Plan: Patient with SOB and increasing pedal edema. CXR on admission showing pulmonary edema. Echo with EF 45% by echo March 2020. Echo here showing EF 25-30%. Lexiscan stress negative for ischemia. Continue Speedy Hose. added hydralazine 10/05 to beta cecily with ARB on hold with his renal failure Low-dose dobutamine added 10/06 lasix 40 mg x1 10/07 and 10/08 repeat cxr 10/07 larger R pleural effusion (7) Elevated troponin: Code(s): R77.8 - Other specified abnormalities of plasma proteins Status: Acute Assessment and Plan: Troponin elevated at 0.09 and stable felt secondary to heart failure. No complaints of chest pain but patient later told the burial vault maker that he has been having CP with mild exertion for the past few weeks. EKG showing no acute findings and appears similar to old EKGs. CXR consistent with pulm edema. Lexiscan stress test 09/28 showing no evidence of acute ischemia but EF at 23%. Plan for medical management with renal failure . Continue ASA for now. (8) HTN (hypertension): Qualifiers
[2020-10-09 17:28] LABS: Glucose Point of Care 106 (65-105)
[2020-10-09 20:12] LABS: Glucose Point of Care 97 (65-105)
[2020-10-10] VITALS (25 sets, daily range): BP systolic 131–152; BP diastolic 75–103; PULSE 95–113; RESP 18–26; TEMP 35.8–36.6; O2SAT 95–98
[2020-10-10] MEDS: ALBUTEROL SULFATE NEB 2.5 MG/0.5 ML INH 5 MG INHALATION ×4 (00:59→20:20)
[2020-10-10] MEDS: IPRATROPIUM BR 0.02% INH SOLN 0.5 MG/2.5 ML VIAL INHALATION ×4 (01:00→20:21)
[2020-10-10 07:59] LABS: Glucose Point of Care 96 (65-105)
[2020-10-10] MEDS: LORATADINE 10 MG TABLET PO (09:12)
[2020-10-10] MEDS: hydrALAZINE 10 MG TABLET PO (09:12)
[2020-10-10] MEDS: METOPROLOL TARTRATE 25 MG TABLET PO ×2 (09:12→20:46)
[2020-10-10] MEDS: APIXABAN 2.5 MG TABLET PO ×2 (09:12→20:46)
[2020-10-10] MEDS: PANTOPRAZOLE 40 MG TABLET PO ×2 (09:12→20:45)
[2020-10-10] MEDS: ASPIRIN 81 MG ENTERIC TABLET PO (09:12)
[2020-10-10] MEDS: guaiFENesin 12 HR 600 MG TABCR 1200 MG PO ×2 (09:12→20:45)
--- NOTE | 2020-10-10 10:12 | PM.PNCARD ---
Progress Note: A&P Additional Plan Severe ischemic cardiomyopathy which is being treated conservatively/medically because of comorbidities. Today I will discontinue his dobutamine as he has been on this now for 5 days and there is not much benefit long-term to continuing inotropics support Because his blood pressure is in the 140-150 range most of the time I will advance as hydralazine dosage He appears to be euvolemic from what I can see on physical exam Probably not far from being discharged although obviously as we have been saying his prognosis for long-term is not good Calin Bonilla MD [facility] Subjective Date/time seen: 10/10/20 10:12 Interval history: Follow-up for 75yo male with HTN, CAD and DM here for CHF exacerbation. 10/10/2020: Follow-up visit for severe ischemic cardiomyopathy and CHF exacerbation. Patient has a chronic cough related to his COPD but no other cardiovascular symptoms. Denies any shortness of breath. Has been on intravenous dobutamine at a low dose since new ' Melissa. Remains on low-dose hydralazine despite having a good systolic blood pressure. Exam Narrative: Exam Narrative: Pleasant, confused alert and oriented times 1-2, occasionally answer questions appropriately and at other times inappropriate answers Const: General: no acute distress, confusion and uncomfortable Orientation/consciousness: confusion Other: Thin black male sitting upright in bed with obvious upper respiratory wheezes, minimal in lower lung zones, intermittent coughing no apparent distress on room air. HENMT: General nose exam: no epistaxis Mouth: Yes moist mucous membranes and Yes dry mucous membranes Eyes: Sclera: sclerae normal Pupils: Equal, round and reactive pupils present EOM: EOMs intact bilaterally Neck: Neck: supple and no JVD Thyroid: thyroid normal Resp: Effort & Inspection: able to speak in complete sentences Auscultation: crackles (Fine rales in left base) and wheezes expiratory wheezes (Diffuse, bilateral) Cardio: Rate: regular rate Rhythm: regular rhythm Heart sounds: no gallops and no murmurs GI: Inspection: distended Auscultation: normal bowel sounds Other: Incisional hernia noted Skin: General skin exam: normal color and no rashes or lesions noted Neuro: General: confusion Cranial nerves: Yes Equal, round and reactive pupils present and Yes Normal hearing present Cognition (Neuro): normal cognition Speech: normal speech Motor exam (neuro): Normal motor muscle tone present throughout Extrem: General: normal to inspection and edema (Trace to 1+ at ankles) bilateral Other: No peripheral edema at all Psych: Appearance: grossly normal Mental Status: mental status grossly normal Speech and movement: Normal speech and movement present Affect: normal affect Other: Confused, arousable, dozing off periodically. Objective Data Vital Signs Vital Signs: Vital Signs - 24 hr 10/09/20 12:00 10/09/20 14:00 10/09/20 14:16 Temperature 36.2 C L Pulse Rate 99 103 H 109 H Respiratory Rate 24 H Blood Pressure 140/90 Pulse Oximetry 99 10/09/20 16:00 10/09/20 16:21 10/09/20 18:00 Temperature 35.6 C L Pulse Rate 107 H 109 H 105 H Respiratory Rate 24 H Blood Pressure 142/87 H Pulse Oximetry 99 10/09/20 19:55 10/09/20 20:00 10/09/20 20:21 Temperature 36.3 C L Pulse Rate 87 107 H 100 Respiratory Rate 20 20 20 Blood Pressure 147/82 H Pulse Oximetry 97 97 10/09/20 20:31 10/09/20 20:47 10/09/20 22:00 Temperature Pulse Rate 101 H 103 H 105 H Respiratory Rate 20 Blood Pressure Pulse Oximetry 10/09/20 23:28 10/10/20 00:00 10/10/20 01:00 Temperature 36.3 C L Pulse Rate 109 H 104 H 100 Respiratory Rate 20 20 20 Blood Pressure 151/75 H Pulse Oximetry 96 96 10/10/20 01:07 10/10/20 02:00 10/10/20 03:33 Temperature Pulse Rate 101 H 105 H 102 H Respiratory Rate 20 20 Blood Pressure Pulse Oximetry 96 10/10/20 04:00 10/10/20 0
[2020-10-10 10:35] LABS: Albumin Level 3.4 g/dL (3.5-5.1); Anion Gap 11 mmol/L (8-16); Blood Urea Nitrogen 58 mg/dL (9-20); Carbon Dioxide 24 mmol/L (22-30); Chloride 102 mmol/L (98-107); Estimated CRCL calculation 20 ml/min; Estimated Glomerular Filt Rate 27; Glucose 101 mg/dL (75-110); Phosphorus 4.3 mg/dL (2.5-4.5); Potassium 4.1 mmol/L (3.4-5.0); Sodium 137 mmol/L (137-145)
[2020-10-10] MEDS: hydrALAZINE HCL 25 MG TABLET PO ×3 (13:21→20:45)
[2020-10-10] MEDS: CHOLECALCIFEROL 1,000 UNITS TABLET 2000 UNITS PO (13:21)
[2020-10-10] MEDS: FOLIC ACID 1 MG TABLET PO (13:21)
[2020-10-10] MEDS: MULTIVITAMINS /C LUTEIN (CENTRUM SILVER) TABLET *BKC 1 TAB PO (13:21)
--- NOTE | 2020-10-10 13:47 | PCPTNOTE ---
Patient refused treatment this session stating he is tired after getting a bath. Patient encouraged to participate but continued to decline stating I will be better tomorrow so come back then. PT will continue to follow per plan of care. ]
--- NOTE | 2020-10-10 14:36 | PCOTNOTE ---
Attempted to see for therapy treatment session. Patient refused to participate with any activity. Patient verbalized, I'm not doing anything, I'm going to sleep, get me a blanket .
[2020-10-10 16:25] LABS: Creatine Kinase 98 U/L (55-170)
[2020-10-10 16:44] LABS: Complement C3 71 mg/dL (88-165)
--- NOTE | 2020-10-10 16:59 | PM.IMPN ---
Progress Note: A&P Assessment and Plan (1) AV junctional rhythm: Code(s): I49.8 - Other specified cardiac arrhythmias Status: Acute Assessment and Plan: Tele showing NSR after the AV virgil blocking agents wore off. . Cardiology following. Continue tele. Resumed metoprolol at low-dose for his cardiomyopathy 10/04 and tolerating (2) Left ventricular apical thrombus: Code(s): I51.3 - Intracardiac thrombosis, not elsewhere classified Status: Acute Assessment and Plan: Echo completed and showing EF 25-30% with Grade III diastolic dysfunction. He has akinetic apex with bilobed mobile thrombus. Heparin discontinued and Eliquis started per Cardiology 10/06 hydralazine added for chf 10/05 and increased to 25 q6 today 10/10. low-dose dobutamine started 10/06.and stopped today after 5 days (3) Hypotension: Code(s): I95.9 - Hypotension, unspecified Status: Acute Assessment and Plan: Patient's BP was mildly elevated and he was resumed on his home meds (Toprol, Verapamil, Diovan) on 09/27. However, [employer] Operator saw the patient and noted that the patient is no longer on Verapamil so this was stopped but patient did get a dose around 11am on 09/27 along with his other meds. That evening, his BP dropped to 68/46 and developed a junctional rhythm. His other anti-HTN meds were stopped and lasix held. Fluid boluses given with improvement in his BP. It was felt that the BP meds caused the HoTN coupled with his poor EF and AV virgil blocking agents. BP stable and back in NSR now and back on low dose metoprolol. Follow closely. No evidence of infection so abx stopped 09/29. Continue to monitor. (4) JOSELO (acute kidney injury): Code(s): N17.9 - Acute kidney failure, unspecified Status: Acute Assessment and Plan: Cr peaked at 4.3 today related to the severe hypotensive event on 09/27. UOP better and possibly having post-ATN diuresis. Cr 2.8 today. Bicarb and potassium remain normal. Follow closely Dobutamine added 10/06 to try to increase renal perfusion and cardiac output and stopped today after 5 days creatinine slowly falling nuclear renal perfusion scan ordered per Nephrology (5) Transaminitis: Code(s): R74.01 - Elevation of levels of liver transaminase levels Status: Acute Assessment and Plan: Elevated LFTs on admission. Right upper quadrant ultrasound showing mildly distended gallbladder. Hepatitis panel negative. Lipitor placed on hold. LFTs were trending down and felt related to passive congestion but markedly increased related to the severe Hypotensive event 09/27. LFTs have peaked and continue to trend down now. recheck 10/11 (6) CHF (congestive heart failure): Qualifiers: Heart failure type: unspecified Heart failure chronicity: acute Qualified Code(s): I50.9 - Heart failure, unspecified Code(s): I50.9 - Heart failure, unspecified Status: Acute Assessment and Plan: Patient with SOB and increasing pedal edema. CXR on admission showing pulmonary edema. Echo with EF 45% by echo March 2020. Echo here showing EF 25-30%. Lexiscan stress negative for ischemia. Continue Speedy Hose. added hydralazine 10/05 to beta cecily with ARB on hold with his renal failure Low-dose dobutamine added 10/06 and stopped 10/10 after 5 days lasix 40 mg x1 10/07 and 10/08 repeat cxr 10/07 larger R pleural effusion Hydralazine increased to 25 qid today (7) Elevated troponin: Code(s): R77.8 - Other specified abnormalities of plasma proteins Status: Acute Assessment and Plan: Troponin elevated at 0.09 and stable felt secondary to heart failure. No complaints of chest pain but patient later told the cosmetics presser that he has been having CP with mild exertion for the past few weeks. EKG showing no acute findings and appears similar to old EKGs. CXR was consistent with pulm edema. Lexiscan stress test 09/28 s
--- NOTE | 2020-10-10 17:03 | P.PNNP_ITS ---
Progress Note: A&P Assessment and Plan (1) JOSELO (acute kidney injury): Code(s): N17.9 - Acute kidney failure, unspecified Status: Acute Assessment and Plan: * felt to be secondary to ATN from severe/significant hypotension * evaluation to date demonstrates: - urine electrolytes non-prerenal - urine protein is mild - ultrasound is unremarkable * He is on a dobutamine drip to help forward flow. * Creatinine is a little bit better today. * His creatinine improvement has leveled off, so we will look for other causes of kidney failure as well. Checking serology and immunofixation. (2) HTN (hypertension): Qualifiers: Hypertension type: essential hypertension Qualified Code(s): I10 - Essential (primary) hypertension Code(s): I10 - Essential (primary) hypertension Status: Chronic Assessment and Plan: * reasonable control at this time * would try to keep systolic BP a little on the higher side to help with renal recovery * His systolic is 130-150, right where we want it. * continue to hold ARB (3) Cardiomyopathy: Code(s): I42.9 - Cardiomyopathy, unspecified Status: Acute Assessment and Plan: * Echo results noted * Ejection fraction is only 25-30%. * Dobutamine on board. * Cardiology following (4) Transaminitis: Code(s): R74.01 - Elevation of levels of liver transaminase levels Status: Acute Assessment and Plan: * thought to be due to congestive hepatopathy * Liver enzymes are decreasing. (5) Anemia: Code(s): D64.9 - Anemia, unspecified Status: Acute Assessment and Plan: * has a chronic component * acute component likely secondary to acute medical issues * follow trend of H/H Subjective Date/time seen: 10/10/20 17:03 Interval history: Patient is lying in bed comfortably. No shortness of breath. No other complaints. Exam Narrative: Exam Narrative: General: WD/WN elderly AA male in NAD Heart: normal S1 and S2; no rub Lungs: decreased at bases but clear otherwise. Abdomen: soft, nontender, nondistended, positive bowel sounds Extremities: trace edema Skin: No rash Objective Data Vital Signs Vital Signs: Vital Signs - 24 hr 10/09/20 18:00 10/09/20 19:55 10/09/20 20:00 Temperature 36.3 C L Pulse Rate 105 H 87 107 H Respiratory Rate 20 20 Blood Pressure 147/82 H Pulse Oximetry 97 97 10/09/20 20:21 10/09/20 20:31 10/09/20 20:47 Temperature Pulse Rate 100 101 H 103 H Respiratory Rate 20 20 Blood Pressure Pulse Oximetry 10/09/20 22:00 10/09/20 23:28 10/10/20 00:00 Temperature 36.3 C L Pulse Rate 105 H 109 H 104 H Respiratory Rate 20 20 Blood Pressure 151/75 H Pulse Oximetry 96 96 10/10/20 01:00 10/10/20 01:07 10/10/20 02:00 Temperature Pulse Rate 100 101 H 105 H Respiratory Rate 20 20 Blood Pressure Pulse Oximetry 10/10/20 03:33 10/10/20 04:00 10/10/20 06:00 Temperature 36.4 C Pulse Rate 102 H 99 100 Respiratory Rate 20 20 Blood Pressure 131/88 Pulse Oximetry 96 97 01
--- NOTE | 2020-10-10 17:03 | PM.PNNEP ---
Progress Note: A&P Assessment and Plan (1) JOSELO (acute kidney injury): Code(s): N17.9 - Acute kidney failure, unspecified Status: Acute Assessment and Plan: felt to be secondary to ATN from severe/significant hypotension evaluation to date demonstrates: - urine electrolytes non-prerenal - urine protein is mild - ultrasound is unremarkable He is on a dobutamine drip to help forward flow. Creatinine is a little bit better today. His creatinine improvement has leveled off, so we will look for other causes of kidney failure as well. Checking serology and immunofixation. (2) HTN (hypertension): Qualifiers: Hypertension type: essential hypertension Qualified Code(s): I10 - Essential (primary) hypertension Code(s): I10 - Essential (primary) hypertension Status: Chronic Assessment and Plan: reasonable control at this time would try to keep systolic BP a little on the higher side to help with renal recovery His systolic is 130-150, right where we want it. continue to hold ARB (3) Cardiomyopathy: Code(s): I42.9 - Cardiomyopathy, unspecified Status: Acute Assessment and Plan: Echo results noted Ejection fraction is only 25-30%. Dobutamine on board. Cardiology following (4) Transaminitis: Code(s): R74.01 - Elevation of levels of liver transaminase levels Status: Acute Assessment and Plan: thought to be due to congestive hepatopathy Liver enzymes are decreasing. (5) Anemia: Code(s): D64.9 - Anemia, unspecified Status: Acute Assessment and Plan: has a chronic component acute component likely secondary to acute medical issues follow trend of H/H Subjective Date/time seen: 10/10/20 17:03 Interval history: Patient is lying in bed comfortably. No shortness of breath. No other complaints. Exam Narrative: Exam Narrative: General: WD/WN elderly AA male in NAD Heart: normal S1 and S2; no rub Lungs: decreased at bases but clear otherwise. Abdomen: soft, nontender, nondistended, positive bowel sounds Extremities: trace edema Skin: No rash Objective Data Vital Signs Vital Signs: Vital Signs - 24 hr 10/09/20 18:00 10/09/20 19:55 10/09/20 20:00 Temperature 36.3 C L Pulse Rate 105 H 87 107 H Respiratory Rate 20 20 Blood Pressure 147/82 H Pulse Oximetry 97 97 10/09/20 20:21 10/09/20 20:31 10/09/20 20:47 Temperature Pulse Rate 100 101 H 103 H Respiratory Rate 20 20 Blood Pressure Pulse Oximetry 10/09/20 22:00 10/09/20 23:28 10/10/20 00:00 Temperature 36.3 C L Pulse Rate 105 H 109 H 104 H Respiratory Rate 20 20 Blood Pressure 151/75 H Pulse Oximetry 96 96 10/10/20 01:00 10/10/20 01:07 10/10/20 02:00 Temperature Pulse Rate 100 101 H 105 H Respiratory Rate 20 20 Blood Pressure Pulse Oximetry 10/10/20 03:33 10/10/20 04:00 10/10/20 06:00 Temperature 36.4 C Pulse Rate 102 H 99 100 Respiratory Rate 20 20 Blood Pressure 131/88 Pulse Oximetry 96 97 10/10/20 08:00 10/10/20 08:59 10/10/20 09:11 Temperature 35.9 C L Pulse Rate 106 H 106 H 103 H Respiratory Rate 26 H 24 H 20 Blood Pressure 144/103 H Pulse Oximetry 95 98 10/10/20 09:12 10/10/20 10:00 10/10/20 12:00 Temperature 35.8 C L Pulse Rate 102 H 104 H 104 H Respiratory Rate 20 Blood Pressure 139/84 Pulse Oximetry 98 10/10/20 14:00 10/10/20 14:28 10/10/20 14:39 Temperature Pulse Rate 99 99 95 Respiratory Rate 20 20 Blood Pressure Pulse Oximetry 10/10/20 16:00 Temperature Pulse Rate 96 Respiratory Rate Blood Pressure Pulse Oximetry Intake/Output Intake/Output: Intake & Output 10/07/20 10/08/20 10/09/20 10/10/20 23:59 23:59 23:59 23:59 Intake Total 555 685 8646 355.4 Output Total 500 900 300 250 Balance 470 -190 980 105.4 Meds/Results Medications: Activ
[2020-10-10] MEDS: FLUTICASONE PROPIONATE 0.05% NA SPR 16 GM BTL (*BKC) 1 SPRAY NASAL (20:46)
[2020-10-11] VITALS (25 sets, daily range): BP systolic 133–197; BP diastolic 68–161; PULSE 97–119; RESP 20–24; TEMP 36.1–36.5; O2SAT 91–100
[2020-10-11] MEDS: IPRATROPIUM BR 0.02% INH SOLN 0.5 MG/2.5 ML VIAL INHALATION ×4 (02:18→19:30)
[2020-10-11] MEDS: ALBUTEROL SULFATE NEB 2.5 MG/0.5 ML INH 5 MG INHALATION ×4 (02:18→19:30)
[2020-10-11 07:05] LABS: Alanine Aminotransferase 171 U/L (4-50); Albumin Level 3.3 g/dL (3.5-5.1); Alkaline Phosphatase 199 U/L (38-126); Aspartate Amino Transferase 53 U/L (17-59); Bilirubin,Total 1.3 mg/dL (0.2-1.3)
[2020-10-11 07:07] LABS: Albumin Level 3.3 g/dL (3.5-5.1); Anion Gap 14 mmol/L (8-16); Blood Urea Nitrogen 57 mg/dL (9-20); Calcium 8.8 mg/dL (8.4-10.2); Carbon Dioxide 20 mmol/L (22-30); Chloride 102 mmol/L (98-107); Estimated CRCL calculation 20 ml/min; Estimated Glomerular Filt Rate 28; Glucose 115 mg/dL (75-110); Phosphorus 4.4 mg/dL (2.5-4.5); Potassium 4.3 mmol/L (3.4-5.0); Sodium 136 mmol/L (137-145)
[2020-10-11] MEDS: hydrALAZINE HCL 25 MG TABLET PO ×2 (08:26→12:48)
[2020-10-11] MEDS: guaiFENesin 12 HR 600 MG TABCR 1200 MG PO ×2 (08:27→20:51)
[2020-10-11] MEDS: PANTOPRAZOLE 40 MG TABLET PO ×2 (08:27→20:51)
[2020-10-11] MEDS: METOPROLOL TARTRATE 25 MG TABLET PO (08:27)
[2020-10-11] MEDS: APIXABAN 2.5 MG TABLET PO ×2 (08:27→20:52)
[2020-10-11] MEDS: LORATADINE 10 MG TABLET PO (08:27)
[2020-10-11] MEDS: FLUTICASONE PROPIONATE 0.05% NA SPR 16 GM BTL (*BKC) 1 SPRAY NASAL ×2 (08:27→20:50)
[2020-10-11] MEDS: ASPIRIN 81 MG ENTERIC TABLET PO (08:27)
--- NOTE | 2020-10-11 09:29 | PM.PNCARD ---
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 EF 45% by echo March 2020, Now severely reduced 25-30%. No reversible ischemia on Lexiscan, however EKG shows anterolateral T wave inversion, so he may have balanced ischemia not showing up on the Lexiscan. However with his JOSELO/CKD, invasive workup has been delayed. -dobutamine has been discontinued. -change metoprolol tartrate to carvedilol. Continue hydralazine. -patient has JOSELO. ACEI, ARB or sacubitril/valsartan to be initiated once renal function stabilizes. -management plan discussed with the staff and Nephrology (2) Left ventricular apical thrombus: Code(s): I51.3 - Intracardiac thrombosis, not elsewhere classified Status: Acute Assessment and Plan: Akinetic apex +severe LV dysfunction. Currently on apixaban (3) AV junctional rhythm: Code(s): I49.8 - Other specified cardiac arrhythmias Status: Acute Assessment and Plan: Currently in sinus rhythm, continue to monitor (4) Elevated troponin: Code(s): R77.8 - Other specified abnormalities of plasma proteins Status: Acute Assessment and Plan: Mild troponin elevation in setting of profound hypotension/demand ischemia, severe LV dysfunction, CHF, acute renal failure but not consistent with acute myocardial infarction and/or plaque rupture. Type 2 infarct. (5) CHF (congestive heart failure): Qualifiers: Heart failure type: unspecified Heart failure chronicity: acute Qualified Code(s): I50.9 - Heart failure, unspecified Code(s): I50.9 - Heart failure, unspecified Status: Acute Assessment and Plan: Fairly stable at this time. Continue to monitor volume status closely. Overall prognosis is poor given severe cardiac and pulmonary disease. (6) JOSELO (acute kidney injury): Code(s): N17.9 - Acute kidney failure, unspecified Status: Acute Assessment and Plan: Management as per Nephrology (7) Nonsustained ventricular tachycardia: Code(s): I47.2 - Ventricular tachycardia Status: Acute Assessment and Plan: Continue to monitor on telemetry (8) Coagulopathy: Code(s): D68.9 - Coagulation defect, unspecified Status: Acute Assessment and Plan: (9) Coronary artery disease involving [place] coronary artery of [place] heart: Code(s): I25.10 - Atherosclerotic heart disease of [place] coronary artery without angina pectoris Status: Acute Assessment and Plan: Hx CABG X 3 2005. Continue ASA. Statin, ARB on hold as above. (10) COPD (chronic obstructive pulmonary disease): Qualifiers: COPD type: COPD with acute exacerbation Qualified Code(s): J44.1 - Chronic obstructive pulmonary disease with (acute) exacerbation Code(s): J44.9 - Chronic obstructive pulmonary disease, unspecified Status: Chronic Assessment and Plan: Per primary service. Patient again with significant upper respiratory wheezing but not hypoxic on RA. Bronchodilator therapy per primary service. Subjective Date/time seen: 10/11/20 09:29 Interval history: Follow-up for 75yo male with HTN, CAD and DM here for CHF exacerbation. 10/10/2020: Follow-up visit for severe ischemic cardiomyopathy and CHF exacerbation. Patient has a chronic cough related to his COPD but no other cardiovascular symptoms. Denies any shortness of breath. Has been on intrav
[2020-10-11 10:24] LABS: Base Excess ABG -4.5 mEq/l (+/-2.0); Fractional Inspired Oxygen 21 %; HCO3 ABG 19.4 mEq/l (22.0-26.0); Oxygen Content ABG 15.2 %vol (16.0-22.0); Oxygen Saturation ABG 92.9 % (95.0-100.0); Oxyhemoglobin 89.8 % THb (90.0-100.0); PO2 ABG 64.4 mmHg (80.0-100.0); PO2 FiO2 Ratio Arterial Blood 3.07 %; Site Drawn RIGHT BRACHIAL
[2020-10-11 10:25] LABS: Device ROOM AIR
--- NOTE | 2020-10-11 11:06 | PCDIET ---
Nutrition Follow-Up Complete: Nutrition Diagnosis: Suboptimal oral intake related to decreased appetite as evidenced by meal records, patient/nursing statements. Nutrition Goal: Patient to consume 75% of meals or greater. Goal not met; however, patient is taking Nepro supplements with encouragement by nursing. Recommend continuing Nepro TID with meals. If medically appropriate, could also consider appetite stimulant. Diet order remains 2g sodium, soft and bite size. Intakes 0-50% at most meals. Last recorded weight is 72 kg which is increased from last review. -I/O. Bowel Motility: Last documented BM on 10/08/20. Labs Reviewed: Glu (115), BUN (57), Cr (2.7), Na (136), Alb (3.3) Meds Noted: Vitamin D, Protonix, Centrum, Atrovent, Hydralazine, Albuterol, Symbicort, Coreg, Folic Acid Additional Notes: No documented skin breakdown. Will continue to monitor with same goal. Nutrition Monitoring and Evaluation: Follow up every 3 days.
[2020-10-11] MEDS: FOLIC ACID 1 MG TABLET PO (12:48)
[2020-10-11] MEDS: CHOLECALCIFEROL 1,000 UNITS TABLET 2000 UNITS PO (12:48)
[2020-10-11] MEDS: MULTIVITAMINS /C LUTEIN (CENTRUM SILVER) TABLET *BKC 1 TAB PO (12:48)
[2020-10-11] MEDS: GLYCERIN ADULT 1 SUPP.RECT RECTAL (15:32)
--- NOTE | 2020-10-11 15:52 | PM.IMPN ---
Progress Note: A&P Assessment and Plan (1) Nonsustained ventricular tachycardia: Code(s): I47.2 - Ventricular tachycardia Status: Acute Assessment and Plan: No new episodes Currently on Telemetry On Carvedilol (2) AV junctional rhythm: Code(s): I49.8 - Other specified cardiac arrhythmias Status: Acute Assessment and Plan: Resolved. (3) Left ventricular apical thrombus: Code(s): I51.3 - Intracardiac thrombosis, not elsewhere classified Status: Acute Assessment and Plan: On anticoagulation. (4) Cardiomyopathy: Code(s): I42.9 - Cardiomyopathy, unspecified Status: Acute Assessment and Plan: Secondary to ischemia. (5) CHF (congestive heart failure): Qualifiers: Heart failure type: unspecified Heart failure chronicity: acute Qualified Code(s): I50.9 - Heart failure, unspecified Code(s): I50.9 - Heart failure, unspecified Status: Acute Assessment and Plan: EF=25-30% Appreciate Cardiology note. (6) Elevated troponin: Code(s): R77.8 - Other specified abnormalities of plasma proteins Status: Acute Assessment and Plan: Conservative management. (7) Chronic respiratory failure: Qualifiers: Respiratory failure complication: hypoxia Qualified Code(s): J96.11 - Chronic respiratory failure with hypoxia Code(s): J96.10 - Chronic respiratory failure, unspecified whether with hypoxia or hypercapnia Status: Acute Assessment and Plan: Stable On room oxygen (8) Coronary artery disease involving [place] coronary artery of [place] heart: Code(s): I25.10 - Atherosclerotic heart disease of [place] coronary artery without angina pectoris Status: Acute Assessment and Plan: Conservative management. (9) JOSELO (acute kidney injury): Code(s): N17.9 - Acute kidney failure, unspecified Status: Acute Assessment and Plan: Bun/Cr trending down. Appreciate Nephrology note. Continue to monitor Subjective Date/time seen: 10/11/20 15:52 I feel fine. Review of Systems Review of Systems: Narrative: Unable to obtain a thorough system review as patient is confused at times. No new issues overnight. Exam Narrative: Exam Narrative: Patient is lying in bed. NAD Const: General: cooperative, alert, awake and Physically active Nutritional Appearance: average body habitus Orientation/consciousness: oriented to person and oriented to place HENMT: Head: normocephalic Ears: hearing grossly normal bilaterally General nose exam: Normal external nose present Eyes: General: appearance normal, both eyes and all related structures Pupils: Equal, round and reactive pupils present EOM: EOMs intact bilaterally Neck: Neck: no lymphadenopathy, supple and no JVD Resp: Auscultation: clear to auscultation bilaterally Cardio: Jugular venous distension: no JVD Rate: regular rate Rhythm: regular rhythm GI: Inspection: normal to inspection Auscultation: normal bowel sounds Skin: Lesions: no lesions Neuro: General: oriented to person, oriented to place and CN's II-XI intact bilaterally Cranial nerves: Yes CN's II-XII intact bilaterally and Yes Equal, round and reactive pupils present Motor exam (neuro): 5/5 motor strength present throughout Extrem: General: normal to inspection Objective Data Vital Signs Vital Signs: Vital Signs - 24 hr 10/10/20 16:00 10/10/20 18:00 10/10/20 20:00 Temperature 97.8 F 97.7 F Pulse Rate 96 102 H 105 H Respiratory Rate 20 18 Blood Pressure 152/75 H 139/84 Pulse Oximetry 98 95 10/10/20 20:22 10/10/20 20:36 10/10/20 20:46 Temperature Pulse Rate 106 H 105 H 108 H Respiratory Rate 18 18 Blood Pressure Pulse Oximetry 95 10/10/20 22:00 10/10/20 23:25 10/10/20 23:30 Temperature 97.6 F Pulse Rate 105 H 113 H 113 H Respiratory Rate 22 H 22 H Blood Pressure 145/78 H Pulse Oximetry 96 96
--- NOTE | 2020-10-11 17:00 | P.PNNP_ITS ---
Progress Note: A&P Assessment and Plan (1) JOSELO (acute kidney injury): Code(s): N17.9 - Acute kidney failure, unspecified Status: Acute Assessment and Plan: * felt to be secondary to ATN from severe/significant hypotension * evaluation to date demonstrates: - urine electrolytes non-prerenal - urine protein is mild - ultrasound is unremarkable * his creatinine improved initially but then kecia again, and now improving. * unclear why the bump in the creatinine happened. * evaluation reveals: high bladder residual. pt refuses a catheter but nursing will continue to try. pt is supected to have covid now, so in isolation while he gets tested. covid can cause a bump in creatinine. serology checked. his complements are down. consider hydralazine induced nephritis? will stop this and check anti histone he aspirated yesterday so this may complicate the picture as well. LVEF is low so... * He is on a dobutamine drip to help forward flow. * Creatinine is a little bit better today again. (2) HTN (hypertension): Qualifiers: Hypertension type: essential hypertension Qualified Code(s): I10 - Essential (primary) hypertension Code(s): I10 - Essential (primary) hypertension Status: Chronic Assessment and Plan: * reasonable control at this time * would try to keep systolic BP a little on the higher side to help with renal recovery * His systolic is 130-150, right where we want it. * continue to hold ARB (3) Cardiomyopathy: Code(s): I42.9 - Cardiomyopathy, unspecified Status: Acute Assessment and Plan: * Echo results noted * Ejection fraction is only 25-30%. * Dobutamine on board. * starting carvedilol * Cardiology following (4) Transaminitis: Code(s): R74.01 - Elevation of levels of liver transaminase levels Status: Acute Assessment and Plan: * thought to be due to congestive hepatopathy * Liver enzymes are decreasing. (5) Anemia: Code(s): D64.9 - Anemia, unspecified Status: Acute Assessment and Plan: * has a chronic component * acute component likely secondary to acute medical issues * follow trend of H/H Subjective Date/time seen: 10/11/20 17:00 Interval history: Patient is lying in bed comfortably. he is confused. he seems sob. there is a question of aspiration yesterday. Exam Narrative: Exam Narrative: General: WD/WN elderly AA male in NAD Heart: normal S1 and S2; no rub Lungs: coarse upper airway noise and some inc exp phase Abdomen: soft, nontender, nondistended, positive bowel sounds Extremities: trace edema Skin: No rash or sq nodules Objective Data Vital Signs Vital Signs: Vital Signs - 24 hr 10/10/20 18:00 10/10/20 20:00 10/10/20 20:22 Temperature 36.5 C Pulse Rate 102 H 105 H 106 H Respiratory Rate 18 18 Blood Pressure 139/84 Pulse Oximetry 95 95 10/10/20 20:36 10/10/20 20:46 10/10/20 22:00 Temperature Pulse Rate 105 H 108 H 105 H Respiratory Rate 18 Blood Pressure Pulse Oximetry 10/10/20 23:25 10/10/20 23:30 10/11/20 02:00 Temperature 36.4 C Pulse Rate 113 H 113 H 101 H Respiratory Rate 22 H 22 H
--- NOTE | 2020-10-11 17:00 | PM.PNNEP ---
Progress Note: A&P Assessment and Plan (1) JOSELO (acute kidney injury): Code(s): N17.9 - Acute kidney failure, unspecified Status: Acute Assessment and Plan: felt to be secondary to ATN from severe/significant hypotension evaluation to date demonstrates: - urine electrolytes non-prerenal - urine protein is mild - ultrasound is unremarkable his creatinine improved initially but then kecia again, and now improving. unclear why the bump in the creatinine happened. evaluation reveals: high bladder residual. pt refuses a catheter but nursing will continue to try. pt is supected to have covid now, so in isolation while he gets tested. covid can cause a bump in creatinine. serology checked. his complements are down. consider hydralazine induced nephritis? will stop this and check anti histone he aspirated yesterday so this may complicate the picture as well. LVEF is low so... He is on a dobutamine drip to help forward flow. Creatinine is a little bit better today again. (2) HTN (hypertension): Qualifiers: Hypertension type: essential hypertension Qualified Code(s): I10 - Essential (primary) hypertension Code(s): I10 - Essential (primary) hypertension Status: Chronic Assessment and Plan: reasonable control at this time would try to keep systolic BP a little on the higher side to help with renal recovery His systolic is 130-150, right where we want it. continue to hold ARB (3) Cardiomyopathy: Code(s): I42.9 - Cardiomyopathy, unspecified Status: Acute Assessment and Plan: Echo results noted Ejection fraction is only 25-30%. Dobutamine on board. starting carvedilol Cardiology following (4) Transaminitis: Code(s): R74.01 - Elevation of levels of liver transaminase levels Status: Acute Assessment and Plan: thought to be due to congestive hepatopathy Liver enzymes are decreasing. (5) Anemia: Code(s): D64.9 - Anemia, unspecified Status: Acute Assessment and Plan: has a chronic component acute component likely secondary to acute medical issues follow trend of H/H Subjective Date/time seen: 10/11/20 17:00 Interval history: Patient is lying in bed comfortably. he is confused. he seems sob. there is a question of aspiration yesterday. Exam Narrative: Exam Narrative: General: WD/WN elderly AA male in NAD Heart: normal S1 and S2; no rub Lungs: coarse upper airway noise and some inc exp phase Abdomen: soft, nontender, nondistended, positive bowel sounds Extremities: trace edema Skin: No rash or sq nodules Objective Data Vital Signs Vital Signs: Vital Signs - 24 hr 10/10/20 18:00 10/10/20 20:00 10/10/20 20:22 Temperature 36.5 C Pulse Rate 102 H 105 H 106 H Respiratory Rate 18 18 Blood Pressure 139/84 Pulse Oximetry 95 95 10/10/20 20:36 10/10/20 20:46 10/10/20 22:00 Temperature Pulse Rate 105 H 108 H 105 H Respiratory Rate 18 Blood Pressure Pulse Oximetry 10/10/20 23:25 10/10/20 23:30 10/11/20 02:00 Temperature 36.4 C Pulse Rate 113 H 113 H 101 H Respiratory Rate 22 H 22 H Blood Pressure 145/78 H Pulse Oximetry 96 96 10/11/20 02:18 10/11/20 02:28 10/11/20 04:00 Temperature 36.5 C Pulse Rate 113 H 99 102 H Respiratory Rate 20 20 22 H Blood Pressure 135/79 Pulse Oximetry 97 10/11/20 06:00 10/11/20 08:00 10/11/20 08:05 Temperature Pulse Rate 105 H 105 H 112 H Respiratory Rate 22 H 20 Blood Pressure 144/75 H Pulse Oximetry 97 10/11/20 08:15 10/11/20 08:27 10/11/20 10:00 Temperature Pulse Rate 110 H 100 99 Respiratory Rate 20 Blood Pressure Pulse Oximetry 96 10/11/20 11:29 10/11/20 12:00 10/11/20 12:10 Temperature 36.1 C L Pulse Rate 119 H 98 Respiratory Rate 22 H Blood Pressure 197/161 H 140/80 Pulse Oximetr
[2020-10-11 19:42] LABS: SARS-CoV-2 RNA PCR Negative
[2020-10-11] MEDS: carvediloL 3.125 MG TABLET PO (20:51)
[2020-10-12] VITALS (14 sets, daily range): BP systolic 120–144; BP diastolic 84–88; PULSE 97–108; RESP 20–28; TEMP 36.1–36.5; O2SAT 93–100
[2020-10-12] MEDS: ALBUTEROL SULFATE NEB 2.5 MG/0.5 ML INH 5 MG INHALATION ×3 (02:01→15:46)
[2020-10-12] MEDS: IPRATROPIUM BR 0.02% INH SOLN 0.5 MG/2.5 ML VIAL INHALATION ×3 (02:02→15:46)
[2020-10-12 07:58] LABS: Albumin Level 3.5 g/dL (3.5-5.1); Anion Gap 14 mmol/L (8-16); Blood Urea Nitrogen 57 mg/dL (9-20); Calcium 9.2 mg/dL (8.4-10.2); Carbon Dioxide 22 mmol/L (22-30); Chloride 102 mmol/L (98-107); Estimated CRCL calculation 22 ml/min; Estimated Glomerular Filt Rate 31; Glucose 99 mg/dL (75-110); Potassium 4.3 mmol/L (3.4-5.0); Sodium 138 mmol/L (137-145)
[2020-10-12 08:38] LABS: Basophils Percent Auto 0.2 % (0.2-1.2); Eosinophils Absolute Auto 0.1 K/mm3 (0-0.3); Eosinophils Percent Auto 1.5 % (0-4.4); Hematocrit 36.6 % (42.0-52.0); Immature Granulocyte Absolute 0.02 K/mm3 (0.00-0.031); Immature Granulocyte Percent A 0.4 % (0-0.5); Lymphocytes Absolute Auto 0.89 K/mm3 (0.9-3.2); Lymphocytes Percent Auto 16.6 % (18.3-44.2); Mean Corpuscular HGB Conc 32.8 g/dl (32-36); Mean Corpuscular Volume 79.4 fl (80-100); Mean Platelet Volume 12.3 fl (7.4-10.4); Monocytes Absolute Auto 0.7 K/mm3 (0.1-0.6); Monocytes Percent Auto 12.1 % (2.6-8.5); Neutrophils Absolute Auto 3.7 K/mm3 (1.3-6.7); Neutrophils Percent Auto 69.2 % (45.5-73.1); Platelet Count Result 230 k/mm3 (150-375); Red Blood Count 4.61 M/mm3 (4.6-6.20); Red Cell Distribution Width 17.1 % (11.5-14.5); White Blood Count 5.4 K/mm3 (4.5-10.0)
--- NOTE | 2020-10-12 09:10 | PCOTNOTE ---
Per RN, Patient not to be seen this date. Patient's family is planning for discharge to home with hospice this date.
--- NOTE | 2020-10-12 09:27 | PCPTNOTE ---
Per RN, Pt should not be seen this date. Pt is going home with hospice per families wishes.
[2020-10-12] MEDS: guaiFENesin 12 HR 600 MG TABCR 1200 MG PO (10:36)
[2020-10-12] MEDS: FLUTICASONE PROPIONATE 0.05% NA SPR 16 GM BTL (*BKC) 1 SPRAY NASAL (10:36)
[2020-10-12] MEDS: ASPIRIN 81 MG ENTERIC TABLET PO (10:36)
[2020-10-12] MEDS: APIXABAN 2.5 MG TABLET PO (10:36)
[2020-10-12] MEDS: carvediloL 3.125 MG TABLET PO (10:36)
[2020-10-12] MEDS: PANTOPRAZOLE 40 MG TABLET PO (10:37)
[2020-10-12] MEDS: LORATADINE 10 MG TABLET PO (10:37)
[2020-10-12] MEDS: TAMSULOSIN HCL 0.4 MG CAPSULE PO (10:37)
--- NOTE | 2020-10-12 12:06 | PM.PNCARD ---
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 EF 45% by echo March 2020, Now severely reduced 25-30%. No reversible ischemia on Lexiscan, however EKG shows anterolateral T wave inversion, so he may have balanced ischemia not showing up on the Lexiscan. However with his JOSELO/CKD, invasive workup has been delayed. -dobutamine has been discontinued. -continue carvedilol -patient has JOSELO. ACEI, ARB or sacubitril/valsartan to be initiated once renal function stabilizes. -management plan discussed with the staff and Nephrology (2) Left ventricular apical thrombus: Code(s): I51.3 - Intracardiac thrombosis, not elsewhere classified Status: Acute Assessment and Plan: Akinetic apex +severe LV dysfunction. Currently on apixaban (3) AV junctional rhythm: Code(s): I49.8 - Other specified cardiac arrhythmias Status: Acute Assessment and Plan: Currently in sinus rhythm, continue to monitor (4) Elevated troponin: Code(s): R77.8 - Other specified abnormalities of plasma proteins Status: Acute Assessment and Plan: Mild troponin elevation in setting of profound hypotension/demand ischemia, severe LV dysfunction, CHF, acute renal failure but not consistent with acute myocardial infarction and/or plaque rupture. Type 2 infarct. (5) CHF (congestive heart failure): Qualifiers: Heart failure type: unspecified Heart failure chronicity: acute Qualified Code(s): I50.9 - Heart failure, unspecified Code(s): I50.9 - Heart failure, unspecified Status: Acute Assessment and Plan: Fairly stable at this time. Continue to monitor volume status closely. Overall prognosis is poor given severe cardiac and pulmonary disease. (6) JOSELO (acute kidney injury): Code(s): N17.9 - Acute kidney failure, unspecified Status: Acute Assessment and Plan: Management as per Nephrology (7) Nonsustained ventricular tachycardia: Code(s): I47.2 - Ventricular tachycardia Status: Acute Assessment and Plan: Continue to monitor on telemetry (8) Coagulopathy: Code(s): D68.9 - Coagulation defect, unspecified Status: Acute Assessment and Plan: (9) Coronary artery disease involving [place] coronary artery of [place] heart: Code(s): I25.10 - Atherosclerotic heart disease of [place] coronary artery without angina pectoris Status: Acute Assessment and Plan: Hx CABG X 3 2005. Continue ASA. Statin, ARB on hold as above. (10) COPD (chronic obstructive pulmonary disease): Qualifiers: COPD type: COPD with acute exacerbation Qualified Code(s): J44.1 - Chronic obstructive pulmonary disease with (acute) exacerbation Code(s): J44.9 - Chronic obstructive pulmonary disease, unspecified Status: Chronic Assessment and Plan: Per primary service. Patient again with significant upper respiratory wheezing but not hypoxic on RA. Bronchodilator therapy per primary service. Subjective Date/time seen: 10/12/20 12:06 Interval history: Follow-up for 75yo male with HTN, CAD and DM here for CHF exacerbation. 10/10/2020: Follow-up visit for severe ischemic cardiomyopathy and CHF exacerbation. Patient has a chronic cough related to his COPD but no other cardiovascular symptoms. Denies any shortness of breath. Has been on intravenous dobutamine at a low dose since new [place]
[2020-10-12 12:26] LABS: Lambda Light Chain 40.3 mg/L (5.7-26.3)
[2020-10-12] MEDS: MULTIVITAMINS /C LUTEIN (CENTRUM SILVER) TABLET *BKC 1 TAB PO (13:00)
[2020-10-12] MEDS: FOLIC ACID 1 MG TABLET PO (13:00)
[2020-10-12] MEDS: CHOLECALCIFEROL 1,000 UNITS TABLET 2000 UNITS PO (13:00)
--- NOTE | 2020-10-12 13:06 | PM.DS ---
DS: Admitting Diagnosis Admitting Diagnosis Admitting Diagnosis: Worsening sob. DS: Discharge Diagnosis Discharge Diagnosis (1) Anemia: Code(s): D64.9 - Anemia, unspecified Status: Acute Assessment and Plan: Secondary to renal failure Anemia of chronic disease/inflamation. (2) Nonsustained ventricular tachycardia: Code(s): I47.2 - Ventricular tachycardia Status: Acute Assessment and Plan: Patient on beta blockade (3) AV junctional rhythm: Code(s): I49.8 - Other specified cardiac arrhythmias Status: Acute Assessment and Plan: Had run of junctional rhythm (4) Coagulopathy: Code(s): D68.9 - Coagulation defect, unspecified Status: Acute Assessment and Plan: On chronic anticoagulation. (5) Left ventricular apical thrombus: Code(s): I51.3 - Intracardiac thrombosis, not elsewhere classified Status: Acute Assessment and Plan: Not redemonstarted during this visit (6) Cardiomyopathy: Code(s): I42.9 - Cardiomyopathy, unspecified Status: Acute Assessment and Plan: Patient with significantly reduced EF to 20-25% (7) Suspected 2019 novel coronavirus infection: Code(s): Z20.828 - Contact with and (suspected) exposure to other viral communicable diseases Status: Acute Assessment and Plan: Patient was ruled out for Covid (8) Elevated troponin: Code(s): R77.8 - Other specified abnormalities of plasma proteins Status: Acute Assessment and Plan: Likely ACS (9) CHF (congestive heart failure): Qualifiers: Heart failure type: unspecified Heart failure chronicity: acute Qualified Code(s): I50.9 - Heart failure, unspecified Code(s): I50.9 - Heart failure, unspecified Status: Acute Assessment and Plan: Worsened (10) JOSELO (acute kidney injury): Code(s): N17.9 - Acute kidney failure, unspecified Status: Acute Assessment and Plan: Worsened (11) Chronic respiratory failure: Qualifiers: Respiratory failure complication: hypoxia Qualified Code(s): J96.11 - Chronic respiratory failure with hypoxia Code(s): J96.10 - Chronic respiratory failure, unspecified whether with hypoxia or hypercapnia Status: Acute Assessment and Plan: Requiring supplemental O2 (12) S/P CABG (coronary artery bypass graft): Code(s): Z95.1 - Presence of aortocoronary bypass graft Status: Acute Assessment and Plan: CAD s/p CABG Decompensated DS: Summary Hospital Course Hospital Course: Patient was admitted to IMU for further work up and treatment. It was found that patient had severely reduced EF on ECHO and Lexiscan. Also worsening kidney function. Invasive work up from Cardiology stand point was delayed due to patient's renal failure. I had a lengthy discussion with his over the phone who is his POA and decision was made to make patient DNR and hospice in view of poor prognosis and no chance for meaningful recovery. Patient was discharged home with hospice. Summary 1. Complete two-dimensional, color flow and Doppler transthoracic echocardiogram is performed. 2. Left ventricular systolic function is severely reduced, estimated at 25-30%. 3. There is mildly increased left ventricular wall thickness. 4. The left ventricular diastolic function is grade III diastolic dysfunction. 5. Akinetic apex with bilobed mobile thrombus measuring 1.3cmx1.6cm and 1.0cmx1.5cm. 6. Right atrial chamber dimension is severely enlarged. 7. There is moderate tricuspid valve regurgitation. 8. No pulmonary hypertension, estimated pulmonary arterial systolic pressure is 33 mmHg. 9. Dilated inferior vena cava with no collapse upon inspiration consistent with significantly elevated right atrial pressure, 15 mmHg. [facility] [address] [place] [id number] [facility]
[2020-10-13 12:11] LABS: Anti Nuclear Antibody Pattern Nuclear, Speckled; Anti Nuclear Antibody Titer >=1:1280 (Negative)
[2020-10-14 13:53] LABS: Complement Total CH50 40 U/mL (31-60)
[2020-10-18 10:30] LABS: Histone Antibody 1.1 U (<1.0)
== END 2020-10-12 17:20 | disposition hospice, home (50) | DRG 683 ==
LOC: ANHED 15:29 → ANHIMU 19:51
PROVIDERS: Emergency Medicine; Family Medicine; Internal Medicine; Internal Medicine Nephrology; Nurse Practitioner Adult Health; Student in an Organized Health Care Education/Training Program; Admitting Provider Family Medicine; Emergency Provider Emergency Medicine; PCP Family Medicine; Visit Provider Internal Medicine
DX: N17.0 Acute kidney failure with tubular necrosis (principal); J44.1 Chronic obstructive pulmonary disease with (acute) exacerbation; J96.10 Chronic respiratory failure, unspecified whether with hypoxia or hypercapnia; I47.2 Ventricular tachycardia; I42.9 Cardiomyopathy, unspecified; I11.0 Hypertensive heart disease with heart failure; I50.9 Heart failure, unspecified; I25.10 Atherosclerotic heart disease of native coronary artery without angina pectoris; E11.8 Type 2 diabetes mellitus with unspecified complications; Z20.822 Contact with and (suspected) exposure to COVID-19; D64.9 Anemia, unspecified; I51.3 Intracardiac thrombosis, not elsewhere classified
CPT/HCPCS: 36415; 36569; 36600; 70450; 71045; 76705; 76775; 78452; 80048; 80053; 80069; 80074; 80076; 82550; 82570; 82805; 83516; 83605; 83735; 83880; 83883; 84100; 84156; 84300; 84443; 84450; 84484; 85014; 85018; 85025; 85027; 85610; 85730; 85999; 86038; 86039; 86160; 86162; 86334; 86335; 87040; 87070; 87205; 87635; 93005; 93017; 93306; 94640; 96372; 96376; 97110; 97116; 97161; 97165; 97530; 97535; 99285; A9270; A9502; C1751; C9803; G0378; J0692; J1250; J1644; J1650; J1940; J2405; J2785; J3370; J7030; J7040; U0003